=== PATIENT | female | born 2000 | race Caucasian/White ===

== ENCOUNTER → 2024-03-18 | Outpatient (CLI) | payer OTHER, SELFPAY ==
--- NOTE | 2024-03-18 09:51 | RAD_ITS ---
STUDY: X-RAY CHEST REASON FOR EXAM: Female, 23 years old. Five-day history of cough. TECHNIQUE: PA and lateral views of the chest. COMPARISON: None. FINDINGS: There is elevation of the right hemidiaphragm. Right upper lobe consolidation. Findings suggestive of enlarged right hilar lymph nodes. Radiographic follow-up recommended. There is no demonstrated pleural abnormality. Normal size heart. Normal visualized pulmonary arteries. Normal visualized aortic arch and descending thoracic aorta. Normal visualized thoracic spine. Normal visualized ribs, clavicles, and shoulders. There is no demonstrated abnormality of the visualized soft tissue structures of the upper abdomen. RAD/Chest PA and Lateral IMPRESSION: Elevation of the right hemidiaphragm with consolidation in the right upper lobe abutting the right minor fissure and findings suggestive of enlarged right hilar lymph nodes. Radiographic follow-up recommended following treatment. Electronically Signed: Harvey Lopez MD at 10:05 EST ,
== END | disposition home or self-care (01) ==
PROVIDERS: PCP Family Medicine; Referring Provider Physician Assistant Surgical; Visit Provider Physician Assistant Surgical
DX: R05.9 Cough, unspecified (principal)
CPT/HCPCS: 71046

== ENCOUNTER → 2024-10-06 | Outpatient (CLI) | payer OTHER, SELFPAY ==
[2024-10-10 14:07] LABS: Chlamydia By Nucleic Acid AMP Negative (Negative); Gonococcus By Nucleic Acid AMP Negative (Negative)
== END | disposition home or self-care (01) ==
LOC: LABSPEC 16:20
PROVIDERS: PCP Family Medicine; Referring Provider Obstetrics & Gynecology; Visit Provider Obstetrics & Gynecology
DX: O16.1 Unspecified maternal hypertension, first trimester (principal); O99.210 Obesity complicating pregnancy, unspecified trimester; E66.9 Obesity, unspecified; Z3A.00 Weeks of gestation of pregnancy not specified
CPT/HCPCS: 87086; 87088; 87491; 87591

== ENCOUNTER → 2024-11-01 | Outpatient (CLI) | payer OTHER, SELFPAY ==
[2024-11-01 16:39] LABS: Hematocrit 40.4 % (37-47); Hemoglobin 12.8 g/dL (12.0-15.0); Immature Granulocytes Count 0.040 X10^3/uL (0.0-0.0); Mean Corp Hgb Conc 31.7 g/dL (32-36); Mean Corpuscular Volume 84.0 fL (81-99); Mean Platelet Vol. 9.5 fl (6.2-12.0); NRBC Flagged by Analyzer 0 % (0-5); Platelet Count 333 K/mm3 (150-450); RBC Distribution Width CV 14.6 % (11.6-14.6); RBC Distribution Width SD 44.6 fl (35.1-43.9); Red Blood Count 4.81 M/mm3 (4.2-5.4); White Blood Count 11.8 K/mm3 (4.4-11.0)
[2024-11-01 17:43] LABS: AST(SGOT) 22 U/L (<=31); Alanine Aminotransfer ALT/SGPT 50 U/L (<=34); Albumin, Serum 4.0 g/dL (3.5-5.0); Alkaline Phosphatase 93 U/L (35-104); Anion Gap 12 (5-15); BUN 8 mg/dL (4-19); BUN/Creat Ratio 11.6 RATIO (10-20); Calcium,Total 9.4 mg/dL (7.6-11.0); Carbon Dioxide 22.4 mmol/L (21.0-32.0); Chloride 102 mmol/L (98-108); Globulin 3.2 g/dL (2.2-4.2); Glucose 99 mg/dL (70-99); HIV Nonreactive (Nonreactive); Hepatitis B Surface Antigen Nonreactive (Nonreactive); Hepatitis C Antibody Nonreactive (Nonreactive); Potassium 4.1 mmol/L (3.3-5.1); Syphilis Antibodies Nonreactive (Nonreactive)
[2024-11-01 17:57] LABS: Creatinine, Urine (random) 201.00 mg/dL (28.00-217.00); Protein, Urine (Random) 14.7 mg/dL (0.0-12.0); Protein:Creat Ratio 73 mg/g CRE (0-200)
== END | disposition home or self-care (01) ==
PROVIDERS: Obstetrics & Gynecology; PCP Family Medicine; Referring Provider Advanced Practice Midwife; Visit Provider Advanced Practice Midwife
DX: O09.91 Supervision of high risk pregnancy, unspecified, first trimester (principal); O99.211 Obesity complicating pregnancy, first trimester; Z3A.00 Weeks of gestation of pregnancy not specified; E66.9 Obesity, unspecified; O16.1 Unspecified maternal hypertension, first trimester
CPT/HCPCS: 36415; 80053; 82570; 83036; 84156; 85025; 86703; 86762; 86780; 86803; 86850; 86900; 86901; 87340

== ENCOUNTER → 2024-11-10 | Outpatient (CLI) | payer OTHER, SELFPAY ==
[2024-11-10 17:34] LABS: AST(SGOT) 17 U/L (<=31); Alanine Aminotransfer ALT/SGPT 36 U/L (<=34); Albumin, Serum 3.9 g/dL (3.5-5.0); Alkaline Phosphatase 90 U/L (35-104); Anion Gap 12 (5-15); BUN 7 mg/dL (4-19); BUN/Creat Ratio 12.2 RATIO (10-20); Calcium,Total 9.3 mg/dL (7.6-11.0); Carbon Dioxide 22.7 mmol/L (21.0-32.0); Chloride 101 mmol/L (98-108); Globulin 3.3 g/dL (2.2-4.2); Glucose 86 mg/dL (70-99); Potassium 4.4 mmol/L (3.3-5.1)
== END | disposition home or self-care (01) ==
LOC: BWCLAB 15:48
PROVIDERS: PCP Family Medicine; Visit Provider Obstetrics & Gynecology
DX: O16.1 Unspecified maternal hypertension, first trimester (principal); R74.8 Abnormal levels of other serum enzymes; O99.211 Obesity complicating pregnancy, first trimester; Z3A.00 Weeks of gestation of pregnancy not specified; E66.9 Obesity, unspecified
CPT/HCPCS: 36415; 80053

== ENCOUNTER → 2024-11-17 | Outpatient (CLI) | payer OTHER, SELFPAY | END | disposition home or self-care (01) | PROVIDERS: PCP Family Medicine; Visit Provider Obstetrics & Gynecology | DX: Z34.02 Encounter for supervision of normal first pregnancy, second trimester (principal) | CPT/HCPCS: 36415 ==

== ENCOUNTER → 2024-12-28 | Outpatient (CLI) | payer OTHER, SELFPAY ==
[2024-12-28 09:27] LABS: Hematocrit 39.6 % (37-47); Hemoglobin 13.2 g/dL (12.0-15.0); Immature Granulocytes Count 0.040 X10^3/uL (0.0-0.0); Mean Corp Hgb Conc 33.3 g/dL (32-36); Mean Corpuscular Volume 84.6 fL (81-99); Mean Platelet Vol. 9.5 fl (6.2-12.0); NRBC Flagged by Analyzer 0 % (0-5); Platelet Count 296 K/mm3 (150-450); RBC Distribution Width CV 15.0 % (11.6-14.6); RBC Distribution Width SD 45.8 fl (35.1-43.9); Red Blood Count 4.68 M/mm3 (4.2-5.4); White Blood Count 10.2 K/mm3 (4.4-11.0)
[2024-12-28 09:56] LABS: AST(SGOT) 28 U/L (<=31); Alanine Aminotransfer ALT/SGPT 71 U/L (<=34); Albumin, Serum 3.6 g/dL (3.5-5.0); Alkaline Phosphatase 127 U/L (35-104); Anion Gap 12 (5-15); BUN 5 mg/dL (4-19); BUN/Creat Ratio 9.9 RATIO (10-20); Calcium,Total 9.2 mg/dL (7.6-11.0); Carbon Dioxide 20.2 mmol/L (21.0-32.0); Chloride 104 mmol/L (98-108); Globulin 3.4 g/dL (2.2-4.2); Glucose 87 mg/dL (70-99); Potassium 3.8 mmol/L (3.3-5.1)
== END | disposition home or self-care (01) ==
LOC: BWCLAB 08:19
PROVIDERS: PCP Family Medicine; Referring Provider Obstetrics & Gynecology; Visit Provider Obstetrics & Gynecology
DX: R74.8 Abnormal levels of other serum enzymes (principal)
CPT/HCPCS: 36415; 80053; 85025

== ENCOUNTER → 2024-12-29 | Outpatient (CLI) | payer OTHER, SELFPAY | END | disposition home or self-care (01) | LOC: LABSPEC 13:59 | PROVIDERS: PCP Family Medicine; Referring Provider Nurse Practitioner Women's Health; Visit Provider Nurse Practitioner Women's Health | DX: R30.0 Dysuria (principal) | CPT/HCPCS: 87077; 87086; 87088; 87186 ==

== ENCOUNTER → 2025-01-10 | Outpatient (CLI) | payer OTHER, SELFPAY ==
--- OUTSIDE RECORDS SUMMARY | 2025-01-10 10:08 | XMS RPT_ITS ---
Author Name Auto Generated Organization OHIP Care Team Providers Care Nba Player Name Role Phone VANDANA BEARD Admitting Unavailable JOEY DOWLING Referring Unavailable CHIVO, JOEY Consulting Unavailable VANDANA BEARD Attending Unavailable VANDANA BEARD Primary Care Unavailable PROVIDER, UNKNOWN Consulting Unavailable MARIELA ALVARADO Referring UnavailAISSATOU Sparks Attending Unavailable CHIVO, JOEY D Primary Care Unavailable MARIELA ALVARADO Referring UnavailAISSATOU Sparks Attending Unavailable CHIVO, JOEY D Primary Care Unavailable AISSATOU RUSHING Attending Unavailable AISSATOU RUSHING Referring Unavailable CHIVO, JOEY D Primary Care Unavailable KT AVILA Attending Unavailable KT AVILA Referring Unavailable CHIVO JOEY D Primary Care Unavailable PROBLEMS DATE TYPE CONDITION / CODE ATTENDING STATUS [facility] 03/21/2024 Admitting Diagnosis Urticaria, unspecified / L509(ICD-10) VANDANA BEARD Active [facility] 03/21/2024 Principle Diagnosis Urticaria, unspecified / L509(ICD-10) VANDANA BEARD Active [facility] 03/21/2024 Secondary Diagnosis Bronchopneumonia, unspecified organism / J180(ICD-10) VANDANA BEARD Active [facility] PROCEDURES No Procedure Records Found RESULTS COMPREHENSIVE METABOLIC PANEL Collected : 01/10/2025 10:14 AM Status: F Source: [facility] Order Comment: Release to gwendolyn fenton->Automatic TYPE CODE TESTS RESULT OUT OF RANGE REFERENCE UNITS LAB 2951-2 Sodium 138 133-145 mmol/L Result Comment: Verified By: [id number] LAB 49367-2 POTASSIUM 3.7 3.3-5.1 mmol/L Result Comment: Verified By: [id number] LAB 2075-0 CHLORIDE 103 96-108 mmol/L Result Comment: Verified By: [id number] LAB 1962-0 CARBON DIOXIDE 21.9 Low 22.0-29.0 mmol/L Result Comment: Verified By: [id number] LAB 2345-7 GLUCOSE 91 70-99 mg/dL Result Comment: Criteria for Diagnosis of Diabetes: Fasting Specimen (no caloric intake for at least 8 hours): <100 mg/dL Normal 100-125 mg/dL Increased risk for Diabetes >125 mg/dL Diagnostic for Diabetes Random Glucose (any time of day without regard to last meal): > or = 200 mg/dL plus Classic Symptoms of Diabetes Verified By: [id number] LAB 1975-2 BILI,TOTAL 0.4 <=1.0 mg/dL Result Comment: Verified By: [id number] LAB 08320-7 AST 21 <=31 U/L Result Comment: Verified By: [id number] LAB 1743-4 ALT 54 High <=34 U/L Result Comment: Verified By: [id number] LAB 6768-6 Alkaline Phosphatase 121 High 35-104 U/L Result Comment: Verified By: [id number] LAB 83728-2 CALCIUM 9.7 7.6-11.0 mg/dL Result Comment: Verified By: [id number] LAB 2885-2 Protein, Total 7.8 5.9-8.4 g/dL Result Comment: Verified By: [id number] LAB 35764-1 Albumin 4.0 3.5-5.0 g/dL Result Comment: Verified By: [id number] LAB 2160-0 Creatinine 0.55 0.50-1.00 mg/dL Result Comment: Verified By: [id number] LAB 06271-3 eGFR >90 >=60 mL/min/1 .73 m2 LAB 3094-0 BUN 5 4-19 mg/dL Result Comment: Verified By: [id number] PROGRESS NOTE Observed: 01/10/2025 8:30 AM Status: COMPLETED Source: [facility] Referring/Requesting Provider: Mariela Alvarado MD PCP: Joey Dowling PA-C INDICATION FOR CONSULT: elevated liver enzyme HISTORY OF PRESENT ILLNESS: Patient is a 24 y.o. at 21w6d who presents for consultation regarding elevated ALT (71 on 12/28 at 20 weeks gestation). Her AST was normal (28). History of Present Illness Maren Barney is a 24 year old female who presents with elevated liver enzymes and -related concerns. She was referred by Dr. Jagdeep Oliva for evaluation of elevated liver enzymes. Elevated liver enzymes - Referred for evaluation of elevated liver enzymes by Dr. Jagdeep Oliva - One elevated liver enzyme identified during - No associated symptoms such as headaches, vision changes, or abdominal pain - Denies recent alcohol use, tattoos, or exposure to hepatitis risk factors Hypertension in - Elevated blood pressure readings during medical visits, attributed to 'white coat syndrome' - Normal blood pressure readings at home - Elevated blood pressure documented at 8 and 11 weeks of Urinary tract infection - Recently completed antibiotics for urinary tract infection - Persistent mild burning sensation, especially with inadequate hydration - No current abdominal or bladder pain Glycemic status - A1c level is normal Abdominal pain - Experienced transient right-sided pain that resolved with use of a heating pad She walks for exercise a few times per week. She has a typical diet, no specific food groups excluded. OB History Para Term AB Living 1 SAB IAB Ectopic Multiple Live Births # Outcome Date GA Lbr Dru/2nd Weight Sex Type Anes PTL Lv 1 Current Past Medical History: Diagnosis Date Elevated liver enzymes ALT at 71, ALK Phos 127, AST -nml at 28 Obesity UTI (urinary tract infection) currently on keflex Past Surgical History: Procedure Laterality Date WISDOM TOOTH EXTRACTION PERTINENT FAMILY HISTORY: Family History Problem Relation Age of Onset Cancer Mother High Blood Pressure Father Anemia Sister 10 - 19 MEDS: Outpatient Medications Marked as Taking for the 01/10/25 encounter (Office Visit) with Aissatou Rushing, DO Medication Sig Dispense Refill cephALEXin (KEFLEX) 500 MG capsule 1 Capsule (500 mg) Vit-Fe Fumarate-FA ( VITAMIN PO) Take by mouth ALLERGY: Allergies Allergen Reactions Amoxicillin Rash Clavulanic Acid Rash REVIEW OF SYSTEMS: Review of Systems Constitutional: Negative for chills and malaise/fatigue. HENT: Negative. Eyes: Negative. Respiratory: Negative. Cardiovascular: Negative. Gastrointestinal: Negative. Genitourinary: Positive for dysuria. Musculoskeletal: Right sided flank pain x 1 day, resolved with heating pad and rest. Skin: Negative. Neurological: Negative. Psychiatric/Behavioral: Negative. PHYSICAL EXAM: VITAL SIGNS: Pulse 90 Resp 18 Ht 172.7 cm Wt (!) 143 kg (315 lb 3.2 oz) LMP 08/10/2024 SpO2 99% BMI 47.93 kg/m Physical Exam Constitutional: Appearance: She is well-nourished. HENT: Head: Atraumatic. Eyes: Conjunctiva/sclera: Conjunctivae normal. Cardiovascular: Rate and Rhythm: Normal rate and regular rhythm. Pulmonary: Effort: Pulmonary effort is normal. Breath sounds: Normal breath sounds. Abdominal: Palpations: Abdomen is soft. There is no hepatosplenomegaly. Musculoskeletal: Normal range of motion. General: No edema. Neurological: Mental Status: She is alert. Deep Tendon Reflexes: Reflexes are normal and symmetric. Skin: General: Skin is warm and dry. IMAGIN. Deal living intrauterine at 21w 6d by clinical KIMBER. 2. Normal growth. The EFW is 510 g with the abdominal circumference at the 60%. 3. Amniotic fluid volume appeared normal. 4. Placenta is posterior, grade 0. 5. Visualized anatomy appears normal, with limitations as noted above. The cardiac evaluation remains limited. LABS: No visits with results within 1 Week(s) from this visit. Latest known visit with results is: No results found for any previous visit. IMPRESSION AND RECOMMENDATIONS: Maren is a 24 y.o. at 21w6d with Active Non-Hospital Problems Diagnosis Date Noted , supervision, high-risk, second trimester 01/10/2025 Priority: High COMANAGE PLAN OF CARE MD/OB APPOINTMENTS Genetic screening: low risk NIPT, male EVALUATION surveillance: 1x per week starting at 32 weeks Ultrasound: growth Q4 DELIVERY PLAN Hospital: [place] Contraception: TBD : recommended Vaccinations recommended: Covid, influenza (Dec-July, any gestational age), TDap (27-36 weeks), RSV [(Abrysvo- Pfizer) between 32-36 weeks, December - April] Elevated ALT measurement 01/10/2025 Priority: High - Discussed possible etiologies including transient elevation, viral hepatitis, chronic fatty liver, medication exposure. We reviewed concerns including preeclampsia. - Her history is benign and her physical exam is reassuring. - Recommend repeat CMP (ordered). If normal, no additional evaluation at this time. - If elevated, recommend RUQ ultrasound and Hepatitis panel. Chronic hypertension in obstetric context in second trimester vs white coat syndrome 01/10/2025 Priority: Medium - Continue to monitor blood pressure twice a day. Report BP > 140/90 to your OB provider. - Monitor for symptoms of preeclampsia, if any occur, notify OB provider. - Serial growth Q 4 weeks. - Delivery 39 0/7-39 6/7 weeks if ambulatory BP remains normal. If BP becomes persistently elevated, reevaluate for preeclampsia and consider earlier delivery. Dysuria during in second trimester 01/10/2025 - Urine culture results reviewed on Maren's phone. Mixed gram + and -, 11,000-25,000 CFU. Second organism gram - rods, possible Proteus spp, 1000-10,000 CFU. - Her symptoms have improved, however not resolved. Still had burning with urination, particularly if she has not been drinking enough water. - Recommend repeat urine culture (ordered). - If repeat urine culture normal and symptoms persist, recommend evaluation for other underlying causes of dysuria, possible Urogynecology consult if needed. Obesity complicating , second trimester 01/10/2025 Body mass index is 47.93 kg/m . Obesity complicating is associated with increased maternal and risks including: gestational diabetes, hypertensive disorders, iatrogenic delivery, dysfunctional labor, postterm , large for gestational age infant, shoulder dystocia, obstructive sleep apnea, hemorrhage, stillbirth, anomalies, delivery and postcesarean complications. [place] of medicine recommend weight gain in : Obese (all classes) > 30: total weight gain 11-20 lbs, 0.5 lb per week in the second and third trimester. Nutrition consult available if desired. Daily exercise recommended. Normal HA1c. Plan 1 hour GCT between 24-28 weeks. 01/10/2025 total weight gain: 0.544 kg (1 lb 3.2 oz) Orders Placed This Encounter Procedures Urine culture Standing Status: Future Expiration Date: 03/11/2025 Release to patient: Automatic [[id number]] Comprehensive metabolic panel Standing Status: Future Number of Occurrences: 1 Expiration Date: 03/11/2025 Release to patient: Automatic [[id number]] [facility] Standing Status: Future Expiration Date: 07/10/2025 Type of Echo: Specific indication:: Suboptimal cardiac views Estimated date of confinement (EDC):: 05/17/2025 Labs ordered - see recommended follow-up above. echo with peds cards. Growth Q 4 weeks, can ne done in our [place] location. Weekly BPP at 32 weeks, can be scheduled with OB or MFM [place] office. Chart review and preparation: 15 minutes. Face to face: 21 minutes. Documentation and care coordination: 15 minutes. Total time spent on patient care today: 51 minutes. CHEST 2 VIEWS Observed: 03/21/2024 12:59 AM Status: F Source: [place] [id number] Patient: MAREN HURST Phone#: : [phone] Age: 23 Gender: F Pt. Type: ER Account: [id number] Location: 2 Ordering: VANDANA BEARD Exam Date: 03/21/2024/0:58 Family Phys: JOEY HILLS Charge Code: 755204 Physician: [place] Order #: [id number] Dose#: PROCEDURE: X-RAY CHEST 2 VIEWS COMPARISON: None. INDICATIONS: Cough. FINDINGS: LUNGS: Right upper lobe infiltrate is present. VASCULATURE: Normal. Unremarkable pulmonary vasculature. CARDIAC: Normal. No cardiac silhouette abnormality or cardiomegaly. MEDIASTINUM: Normal. No visible mass or adenopathy. PLEURA: Normal. No effusion or pleural thickening. BONES: Normal. No fracture or visible bony lesion. OTHER: Negative. CONCLUSION: 1. Right upper lobe infiltrate. Dictated by: Rosita Pitts MD on 03/22/2024 at 10:47 Approved by: Rosita Pitts MD on 03/22/2024 at 10:48 CMP WITH EGFR Collected: 4 12:38 AM Status: F Source: [facility] TYPE CODE TESTS RESULT OUT OF RANGE REFERENCE UNITS LAB CMP with eGFR(LOINC) CMP with eGFR Result Comment: COMPREHENSIV E METABOLIC PANEL LAB SODIUM(LOINC) SODIUM 138 136 - 145 mmol/l LAB POTASSIUM(LOIN C) POTASSIUM 3.9 3.5 - 5.1 mmol/L LAB CHLORIDE(LOINC ) CHLORIDE 100 98 - 107 mmol/L LAB CO2(LOINC) CO2 28.5 21.0 - 32.0 mmol/L LAB GLUCOSE(LOINC) GLUCOSE 96 74 - 106 mg/dl LAB BUN(LOINC) BUN 11 7 - 18 mg/dl LAB CREATININE(ARIADNA NC) CREATININE 1.08 High 0.55 - 1.02 mg/dl LAB AST/SGOT(LOINC ) AST/SGOT 26 13 - 39 U/L LAB ALK PHOS(LOINC) ALK PHOS 97 46 - 116 U/L LAB CALCIUM(LOINC) CALCIUM 9.1 8.5 - 10.1 mg/dl LAB TOTAL PROTEIN(LOINC) TOTAL PROTEIN 8.5 High 6.4 - 8.2 g/dl LAB ALBUMIN(LOINC) ALBUMIN 3.2 Low 3.4 - 5.0 g/dL LAB GLOBULIN(LOINC ) GLOBULIN 5.3 High 1.5 - 3.8 G/DL LAB A/G RATIO(LOINC) A/G RATIO 0.6 Low 0.9 - 1.6 LAB TOTAL BILI(LOINC) TOTAL BILI 0.4 0.2 - 1.0 mg/dl LAB B/C RATIO(LOINC) B/C RATIO 10 0 - 30 ratio LAB ALT/SGPT(LOINC ) ALT/SGPT 83 High 16 - 63 U/L LAB ANION GAP(LOINC) ANION GAP 13 10 - 20 mmol/L LAB AGE(LOINC) AGE 23 years LAB eGFR(LOINC) eGFR >60 60 - 999 ML/MINUT E LAB eGFR(AA)(LOINC ) eGFR(AA) >60 60 - 999 ML/MINUT E Result Comment: ACCORDING TO THE NATIONAL KIDNEY DISEASE EDUCATION PROGRAM(NKDE), A NORMAL eGFR IS A VALUE GREATER THAN OR EQUAL TO 60 ML/MIN/1.73 SQ METERS. CHRONIC KIDNEY DISEASE: <60mL/MIN/1.73 SQ METERS KIDNEY FAILURE: <15mL/MIN/1.73 SQ METERS THIS TEST SHOULD ONLY BE USED FOR PATIENTS 18 YEARS OF AGE AND OLDER. Performed By: #### [id number] ## ## [facility],[address] [place] [address] CBC + DIFF Collected: 4 12:38 AM Status: F Source: [facility] TYPE CODE TESTS RESULT OUT OF RANGE REFERENCE UNITS LAB CBC + DIFF(LOINC) CBC + DIFF Result Comment: CBC-COMPLETE BLOOD COUNT LAB WBC(LOINC) WBC 6.7 4.5 - 10.8 x 10EE3/UL LAB RBC(LOINC) RBC 5.72 High 4.10 - 5.30 x 10EE6/UL LAB HEMOGLOBIN(ARIADNA NC) HEMOGLOBIN 15.0 12.0 - 16.0 g/dl LAB HEMATOCRIT(ARIADNA NC) HEMATOCRIT 45.9 34.0 - 46.0 % LAB MCV(LOINC) MCV 80 80 - 99 fl LAB MCH(LOINC) MCH 26 Low 27 - 33 pg LAB MCHC(LOINC) MCHC 33 32 - 36 X10 3 LAB RDW/CV(LOINC) RDW/CV 14.4 12.0 - 15.6 % LAB PLATELET(LOINC ) PLATELET 361 150 - 450 x10EE3/UL LAB MPV(LOINC) MPV 6.8 6.6 - 10.5 fl Result Comment: AUTOMATED DI FFERENTIAL LAB NEUT %(LOINC) NEUT % 58.5 46.0 - 76.0 % LAB LYMPH %(LOINC) LYMPH % 33.0 20.0 - 45.0 % LAB MONOS %(LOINC) MONOS % 6.7 0.0 - 10.0 % LAB EO %(LOINC) EO % 1.4 0.0 - 7.0 % LAB BASO %(LOINC) BASO % 0.4 0.0 - 2.0 % LAB Lymph #(LOINC) Lymph # 2.22 0.80 - 2.80 x10EE 3/UL LAB Neut #(LOINC) Neut # 3.94 1.50 - 7.10 x10EE3 /UL LAB Freeborn #(LOINC) Freeborn # 0.45 0.20 - 1.00 x10EE3 /UL LAB EO #(LOINC) EO # 0.10 0.00 - 0.50 x10EE3/U L LAB Baso #(LOINC) Baso # 0.03 0.00 - 0.10 x10EE3 /UL LAB MANUAL DIFF(LOINC) MANUAL DIFF N/A LAB MORPHOLOGY(ARIADNA NC) MORPHOLOGY N/A Performed By: #### [id number] ## ## [facility],[address] [place] [address] ED PHYSICIAN DISCHARGE REPORT Observed: 03/21/2024 12:14 AM Status: F Source: [facility] Discharge Instructions Discharge Summary [address] [place] [id number] 03/21/2024 Patient: MAREN HURST Sex: Female : 2000 Age: 23y Thank you for visiting [facility]. You have been evaluated today by Vandana Beard D.O. for the following condition(s): Principal Diagnosis Acute hives secondary to unknown cause. Bronchopneumonia. INSTRUCTIONS Warnings: GENERAL WARNINGS: Return or contact your physician immediately if your condition worsens or changes unexpectedly, if not improving as expected, or if other problems arise. Prescription Medications: levofloxacin 750 mg tablet: Take 1 tablet by mouth once a day for 6 days, dispense 6 tablet. Refills 0. Pharmacy: [facility] [id number] [place] [address]. Pepcid 40 mg tablet: Take 1 tablet by mouth once a day for 7 days, dispense 7 tablet. Refills 0. Pharmacy: [facility] [id number] [place] [address]. prednisone 20 mg tablet: Take 1 tablet by mouth every twelve hours for 7 days, dispense 10 tablet. Refills 0. Notes take 1 tablet every 12 hours for 3 days and then take 1 tablet daily for 4 days dispense 10. Pharmacy: 1 of 11 Discharge Instructions [facility] [id number] [place] [address]. Follow-up with: Christian Damon M.D., [facility], Phone: [phone], [address] [facility], [place] [address]. Follow up in three days. (Return if increasing hives shortness breath or any concerns. Take Benadryl, Pepcid at prednisone for the itching and hives. Follow-up with Dr. Damon for a workup for your hives and possible reaction to antibiotics. Also follow-up with your family doctor). You have been given the following additional information: Hives (Adult) Medicine Reaction: Allergic Pneumonia (Adult) Patient Signature Facility [facility] Date/Time General Instructions with ExitWriter [facility] [address] [place] [address] [id number] 03/21/2024 Patient: MAREN HURST Sex: Female : 2000 Age: 23y Thank you for visiting [facility]. You have been evaluated today by Vandana Beard D.O. for the following condition(s): Principal Diagnosis Acute hives secondary to unknown cause. Bronchopneumonia. 2 of 11 Discharge Instructions INSTRUCTIONS Warnings: GENERAL WARNINGS: Return or contact your physician immediately if your condition worsens or changes unexpectedly, if not improving as expected, or if other problems arise. Prescription Medications: levofloxacin 750 mg tablet: Take 1 tablet by mouth once a day for 6 days, dispense 6 tablet. Refills 0. Pharmacy: [facility] [id number] [place] [address]. Pepcid 40 mg tablet: Take 1 tablet by mouth once a day for 7 days, dispense 7 tablet. Refills 0. Pharmacy: [facility] [id number] [place] [address]. prednisone 20 mg tablet: Take 1 tablet by mouth every twelve hours for 7 days, dispense 10 tablet. Refills 0. Notes take 1 tablet every 12 hours for 3 days and then take 1 tablet daily for 4 days dispense 10. Pharmacy: [facility] [id number] [place] [address]. Follow-up with: Christian Damon M.D., [facility], Phone: [phone], [address], [place] [address]. Follow up in three days. (Return if increasing hives shortness breath or any concerns. Take Benadryl, Pepcid at prednisone for the itching and hives. Follow-up with Dr. Damon for a workup for your hives and possible reaction to antibiotics. Also follow-up with your family doctor). ADDITIONAL INFORMATION Hives (Adult) Hives are pink or red bumps on the skin. These bumps are also known as wheals. The bumps can itch, burn, or sting. Hives can occur anywhere on the body. They vary in size and shape and can form in clusters. Individual hives can appear and go away quickly. New hives may develop as old ones fade. Hives are common and usually harmless. They are not contagious. Occasionally, hives are a sign of a serious allergy. 3 of 11 Discharge Instructions Hives are often caused by an allergic reaction. They may occur from: Certain foods, such as shellfish, nuts, tomatoes, or berries Contact with something in the environment, such as pollens, animals, or mold Certain medicines Sun or cold air Viral infections, such as a cold, the flu, or strep throat If the hives continue to come and go over many weeks without any other symptoms (chronic hives), the cause may be very hard to figure out. You may be prescribed medicines to ease swelling and itching. Follow all instructions when using these medicines. The hives will usually fade in a few days. But they can last for weeks or months. Home care Follow these tips: Try to find the cause of the hives and eliminate it. Discuss possible causes with your healthcare provider. Your healthcare provider may ask you to keep track of the food you eat and your lifestyle to help find the cause of the hives. Don't scratch the hives. Scratching will delay healing. To reduce itching, apply cool, wet compresses to the skin. Dress in soft, loose cotton clothing. Don't bathe in hot water. This can make the itching worse. Apply an ice pack or cool pack wrapped in a thin towel to your skin. This will help reduce redness and itching. But if your hives were caused by exposure to cold, then do not apply more cold to them. You may use over-the counter antihistamines to reduce itching. Some older antihistamines, such as diphenhydramine and chlorpheniramine, are inexpensive. But they need to be taken often and may make you sleepy. They are best used at bedtime. Don't use diphenhydramine if you have glaucoma or have trouble urinating because of an enlarged prostate. Newer antihistamines, such as loratadine, cetirizine, levocetirizine, and fexofenadine, are generally more expensive. But they tend to have fewer side effects. They can be taken less often. Another type of antihistamine is used to treat heartburn. This type includes nizatidine, famotidine, and cimetidine. These are sometimes used along with the above antihistamines if a single medicine is not working. 4 of 11 Discharge Instructions If the hives are severe and you do not respond well to other medicines, you may be given a steroid, such as prednisone, to take for a short time. Follow all instructions carefully when taking this medicine. Tell your healthcare provider about any side effects. Follow-up care Follow up with your healthcare provider if your symptoms don't get better in 2 days. Ask your provider about allergy testing if you have had a severe reaction or have had several episodes of hives. Allergy testing may help figure out what you are allergic to. You may need blood tests, a urine test, or skin tests. When to seek medical advice Call your healthcare provider right away if any of these occur: Fever of 100.4F (38.0C) or higher, or as directed by your healthcare provider Redness, swelling, or pain Foul-smelling fluid coming from the rash Call 911 Call 911 if any of the following occur: Swelling of the face, throat, or tongue Trouble breathing or swallowing Dizziness, weakness, or fainting Medicine Reaction: Allergic You are having an allergic reaction to a medicine you have taken. This may cause an itchy rash and sometimes swelling of various parts of the body. It could also cause trouble swallowing or breathing. The rash may take a few hours or up to 2 weeks to go away. In the future, remember to tell your healthcare provider about your allergy to this medicine so that medicines of this type won't be used again. Any medicine can cause an allergic reaction. But most allergic reactions are caused by: Penicillin and related medicines Antibiotics containing sulfonamides (sulfa ,medicines) 5 of 11 Discharge Instructions Aspirin Ibuprofen or other nonsteroidal anti-inflammatory drugs (NSAIDs) Seizure medicines Vaccines may also trigger allergies. People whose parents or siblings have allergies are at a higher risk of developing a medicine allergy. Allergy testing may sometimes be needed to figure out the cause. Symptoms may occur within minutes, hours, or even weeks after exposure to the medicine. It can be a mild or severe reaction, or potentially life threatening. Most of us think of allergic reactions when we have a rash or itchy skin. Symptoms can include: Rash, hives, redness, welts, blisters Itching, burning, stinging, pain Dry, flaky, cracking, scaly skin Belly (abdominal) cramps or nausea or stomach pain Fever. Sometimes fever is the only symptom of a medicine reaction. In older adults, the risk of fever increases with the number of medicines the person takes. More severe symptoms include: Swelling of the face or lips, or drooling Trouble swallowing, feeling like your throat is closing Trouble breathing, wheezing Hoarse voice or trouble speaking Severe nausea or vomiting or diarrhea Feeling faint or lightheaded, rapid heart rate Blistering of the skin or ulcers in the mouth or on the genitals Home care 6 of 11 Discharge Instructions The goal of treatment is to help relieve the symptoms and get you feeling better. Mild to medium medicine reactions usually respond quickly to taking antihistamines or steroids and stopping the medicine. The rash will usually fade over several days. But it can sometimes last a couple of weeks. Over the next couple of days, there may be times when it gets a little worse and then better again. Here are some things to do: Dispose of the medicine safely and don't take it again. The next reaction could be the same or worse. Call your healthcare provider to discuss adding this medicine's allergy reaction to your electronic medical record. When getting a new medicine, always tell the healthcare provider that you are allergic to this medicine. Make certain the provider writes it down in your medical record. Don't wear tight clothing and stay way from anything that heats up your skin (hot showers or baths, direct sunlight). Heat will make itching worse. An ice pack will relieve local areas of intense itching and redness. To make an ice pack, put ice cubes in a plastic bag that seals at the top. Wrap the bag in a clean, thin towel or cloth. Don't put ice directly on the skin. To help prevent an infection, don't scratch the affected area. Scratching may worsen the reaction. It can damage your skin and lead to an infection. Always check the affected site for signs of an infection. Your provider may give you a prescription antihistamine. If you are not given a prescription antihistamine, oral diphenhydramine is an krik-axm-wpnjbbz antihistamine available at pharmacies and grocery stores. This may be used to reduce itching if large areas of the skin are involved. This antihistamine may make you sleepy, so be careful using it in the daytime or when going to school, working, or driving. Note: Don't use diphenhydramine if you have glaucoma or if you are a man with trouble urinating due to an enlarged prostate. There are other antihistamines that cause less drowsiness and are a good choice for daytime use. Ask your pharmacist or healthcare provider for suggestions. Don't use diphenhydramine cream on your skin. It can cause a worse skin reaction for some people. Contact your healthcare provider and ask what can be used on the affected area to help decrease the itching. Follow-up care Follow up with your healthcare provider, or as advised, if your symptoms do not continue to improve or they get worse. Call 911 Call 911 if any of these occur: 7 of 11 Discharge Instructions Shortness of breath Cool, moist, pale skin Swelling in the face, eyelids, mouth, tongue, or lips Drooling Trouble breathing or swallowing, wheezing New or worsening swelling in the mouth, throat, or tongue Hoarse voice or trouble speaking Fainting or loss of consciousness Rapid heart rate Feeling of dizziness or weakness or a sudden drop in blood pressure Feeling of doom Feeling lightheaded Severe nausea, vomiting, or diarrhea When to seek medical advice Call your healthcare provider or get medical care right away if any of these occur: Continuing or recurring symptoms Nausea, abdominal cramps, or stomach pain Spreading areas of itching, redness, or swelling Blistering of the skin, or sores or ulcers in the mouth or on the genitals Signs of infection: o Spreading redness o Increased pain or swelling o Fever of 100.4F (38C) or above lasting for 24 to 48 hours, or as directed by your provider o Fluid or colored drainage from the affected area Pneumonia (Adult) Pneumonia is an infection deep in the lungs. It is in the small air sacs (alveoli). It may be caused by a virus, fungus, or bacteria. Pneumonia caused by bacteria is often treated with an antibiotic. Severe cases may need to be treated in the hospital. Milder cases can be treated at home. Pneumonia symptoms are a lot like flu symptoms. They include fever, cough (dry or with phlegm), headache, muscle weakness, and pain. These symptoms often get worse in the first 2 days. But they often start to get better in the first week of treatment. 8 of 11 Discharge Instructions Home care Follow these guidelines when caring for yourself at home: Get plenty of rest. Don't let yourself get overly tired when you go back to your activities. Participate in activities as directed by your healthcare provider. Stop smoking. This is the most important step you can take to help treat pneumonia. If you need help stopping smoking, talk with your healthcare provider. Stay away from smoke and other irritants. Stay away from secondhand smoke. Don't let anyone smoke in your home. Prevent lung infections. Ask your healthcare provider about the flu and pneumonia vaccines. Take steps to prevent colds and other lung infections. Practice correct handwashing. Wash your hands often with soap and water. Use hand railroad wheels and axles inspector when you can't wash your hands. Stay away from crowds during cold and flu season. 9 of 11 Discharge Instructions Use pain medicine as directed. You may use acetaminophen or ibuprofen to control fever or pain, unless another medicine was prescribed. If you have chronic liver or kidney disease, talk with your healthcare provider before using these medicines. Also talk with your provider if you've had a stomach ulcer or GI (gastrointestinal) bleeding. Don't give aspirin to a child younger than age 19 unless directed by the provider. Taking aspirin can put a child at risk for Rhianna syndrome. This is a rare but very serious disorder. It most often affects the brain and the liver. Eat a light diet as needed. You may not feel like eating, so a light diet is fine. Follow the treatment plan as advised by your healthcare provider. Drink plenty of water and fluids. This can make mucus thinner and easier to cough up. Ask your healthcare provider how much water you should drink. For many people, 6 to 8 glasses (8 ounces each) a day is a good goal. Other fluids include sport drinks, sodas without caffeine, juices, tea, or soup. If you also have heart or kidney disease, check with your provider before you drink extra fluids. Finish all prescription medicine. Take antibiotic or antiviral medicine as prescribed by your healthcare provider, even if you are feeling better after a few days. Take the medicine until it is all gone. Try to stay away from air pollution. If you live in an area with air pollution, track the Air Quality Index (AQI) reports and plan your outdoor activities with the AQI recommendations in mind Follow-up care Follow up with your healthcare provider in the next 2 to 3 days, or as advised. This is to be sure the medicine is helping you get better. If you are 65 or older, you should get a pneumococcal vaccine and a yearly flu (influenza) shot. You should also get these vaccines if you have chronic lung disease such as asthma, emphysema, or COPD. A second type of pneumonia vaccine is also available for people over age 65 and those younger than 65 with certain health conditions. Talk with your healthcare provider about which pneumococcal vaccine is best for you. Call 911 Call 911 if any of these occur: Unable to speak or swallow Lips or skin looks blue, purple, or campa Feeling dizzy or faint Unable to wake up or loss of consciousness Feeling of doom Trouble breathing or wheezing 10 of 11 Discharge Instructions Shortness of breath gets worse or doesn't get better with treatment Rapid breathing (more than 25 breaths per minute) Coughing up blood Chest pain gets worse with breathing or doesn't get better with treatment When to get medical advice Call your healthcare provider right away if any of these occur: You don't get better in the first 2 days of treatment Fever of 100.4F (38C) or higher, or as directed by your healthcare provider Shaking chills Cough with phlegm that doesn't get better, or get worse Shortness of breath with activities Weakness, dizziness, or fainting that gets worse Thirst or dry mouth that gets worse Sinus pain, headache, or a stiff neck Chest pain with breathing or coughing Symptoms that get worse or not improving 11 of 11 ED NURSES CLINICAL NOTE Observed: 2023 12:14 AM Status: F Source: [facility] Nurse Narrative Nurse Clinical Narrative [facility] [address] [place] [address] [id number] 03/21/2024 Patient: MAREN HURST Sex: Female : 2000 Age: 23y Disposition: Discharge to Home Disposition Decision Time: 04:00 03/21/2024 Departure Time: 04:09 03/21/2024 TRIAGE Arrived by private vehicle. Historian: patient. Accompanied by family. Triage time: 00:16 03/21/2024. Acuity: LEVEL 3. Chief Complaint: ALLERGIC REACTION and HIVES. This started last night. ( started antibiotic-(Z-PACK, Augmentin) for pneumonia on morning.). SEPSIS SCREEN: SIRS criteria negative: heart rate greater than 90. -- 00:35 03/21/24 EST Santos MonsivaisNOlga Lidia 00:24 03/21/24. BP: 155/95 MAP: 115. HR: 131. RR: 18. O2 saturation: 96% Temperature: 98.1 F. Pain level now 0/10. -- 00:24 03/21/24 RASHARD Gardner R.N. 00:30 03/21/24. SEPSIS SCREEN: SIRS criteria negative: heart rate greater than 90. -- 02:01 03/21/24 RASHARD Gardner R.N. 00:30 03/21/24. SEPSIS SCREEN: NEGATIVE. SIRS criteria negative: heart rate greater than 90. Possible sources of infection: pneumonia. -- 02:02 03/21/24 RASHARD Gardner R.N. Measurements: 00:29 03/21/24 Wt: 131.5 kg, Ht/Dru: 65.0 in, BMI: 48.26 -- 00:29 03/21/24 RASHARD Gardner R.N. 1 of 6 Nurse Narrative Medications: Sprintec (28) 0.25 mg-35 mcg tablet -- 00:25 03/21/24 RASHARD Gardner R.N. Allergies: no known drug allergies -- 00:24 03/21/24 RASHARD Gardner R.N. Problems: Pneumonia -- 00:25 03/21/24 RASHARD Gardner R.N. 00:16 03/21/24. Preferred pharmacy: [facility] ; [address] [place] [address] ([facility]). -- 00:35 03/21/24 RASHARD Gardner R.N. ADDITIONAL SURGERIES: no known surgical history -- 00:25 03/21/24 RASHARD Gardner R.N. History 00:16 03/21/24. PAST MEDICAL HX: No history of asthma, heart disease or lung disease. Immunizations: up-to-date. Last normal menstrual period- 1 days. Denies current : LNMP:. SOCIAL HX: Never smoker. No alcohol use or drug use. The patient has not traveled outside the [place] Infectious disease exposure: No infectious disease exposure. ABUSE ASSESSMENT: The patient answered "yes" to the question(s) "Do you feel safe in your home?" and "no" to the question(s) "Are you afraid to go home?". SELF HARM ASSESSMENT: Self harm assessment was performed. The patient answered no to the question(s) "Have you recently felt down, depressed, or hopeless?" and "Do you have thoughts of harming or killing yourself?". 2 of 6 Nurse Narrative FALL RISK ASSESSMENT: Fall risk assessment completed. No risk factors identified. -- 00:35 03/21/24 RASHARD Gardner R.N. Interventions 00:16 03/21/24. Identification band on patient. Advanced care plan. Patient does not have advanced directive. -- 00:35 03/21/24 RASHARD Gardner R.N. PHYSICAL ASSESSMENT 00:40 03/21/24. Ambulatory to room. Patient gowned. ( Hives since Friday, denies SOB or difficulty breathing. Denies chest pain.). GENERAL / NEURO / PSYCH: Alert. The patient does not appear to be in acute distress. Oriented X 4. HEENT: Pupils equal, round and reactive to light. Mucous membranes are pink. RESPIRATORY: Respirations not labored. Cough. Decreased breath sounds in the bases bilaterally. CVS: Normal sinus rhythm noted. Capillary refill less than 2 seconds. Pulses within normal limits. GI / : Abdomen nontender. SKIN: ( generalized hives noted. Patient states she started on new antibiotic- for pneumonia on . Noticed hives on Friday and continued to worsen despite use of Benadryl at home). -- 02:25 03/21/24 RASHARD Gardner R.N. NURSING PROGRESS NOTES 00:22 03/21/24. BP: 155/95 MAP: 122 mmHg. HR: 124 bpm. -- 04:40 03/21/24 EST Bri Gardner R.N. 00:24 03/21/24. BP: 155/95 MAP: 115. HR: 131. RR: 18. O2 saturation: 96% Temperature: 98.1 F. Pain level now 0/10. -- 04:40 03/21/24 EST Bri Gardner R.N. 00:25 03/21/24. HR: 125 bpm. O2 saturation: 97%. -- 04:40 03/21/24 EST Bri Gardner R.N. 00:38 03/21/24. Site #1 started via IV in the left antecubital space with an 18g angiocath with aseptic technique, ultrasound guidance and good blood return; 3 attempts. Blood drawn: rainbow set tube(s). Labeled in the presence of the patient and sent to the lab. Saline lock flushed with 5 mL saline. -- 00:43 03/21/24 RASHARD Arellano E.M.T.-P. 00:40 03/21/24. HR: 112 bpm. O2 saturation: 96%. -- 04:40 03/21/24 EST Bri Gardner R.N. 00:47 03/21/24. BP: 138/91 MAP: 123 mmHg. HR: 104 bpm. -- 04:40 03/21/24 EST Santos MonsivaisN. 00:48 03/21/24. Patient transported to radiology by stretcher with lab tech. (Chest xray completed.). -- 04:29 03/21/24 RASHARD Gardner R.N. 00:53 03/21/24. HR: 126 bpm. O2 saturation: 96%. -- 04:40 03/21/24 EST Santos MonsivaisNOlga Lidia 00:58 03/21/24. MethylPREDNISolone Sodium Succ (Solu-Medrol) IVP 125 mg given via Site# 1. Allergies verified and confirmed 5 rights. IV patency established. IV site checked: no pain, redness, or swelling. IV flushed thoroughly pre-medication administration. IVP given by EMT-P. Information reviewed with patient. Verbalizes 3 of 6 Nurse Narrative understanding. Vitals: 00:47 03/21/2024 BP: 138/91 MAP: 123 mmHg. HR: 104 bpm. -- 00:59 03/21/24 EST Colin Arellano E.M.T.-P. 00:59 03/21/24. IV NS 0.9 % 1000 mL started in bag#1 1000 mL at 999 mL/hr via Site# 1. Allergies verified and confirmed 5 rights. Information reviewed with patient. Verbalizes understanding. Vitals: 00:47 03/21/2024 BP: 138/91 MAP: 123 mmHg. HR: 104 bpm. -- 00:59 03/21/24 EST Viviane NavarreteP. 01:00 03/21/24. Patient identifiers checked. Call light placed in reach. Side rails up x 2. Bed placed in lowest position. Brakes of bed on. -- 03:32 03/21/24 Santos NgNOlga Lidia 01:00 03/21/24. HR: 116 bpm. O2 saturation: 95%. -- 04:40 03/21/24 EST Santos MonsivaisNOlga Lidia 01:01 03/21/24. BP: 134/82 MAP: 101 mmHg. HR: 107 bpm. -- 04:40 03/21/24 EST Santos MonsivaisNOlga Lidia 01:15 03/21/24. HR: 107 bpm. O2 saturation: 96%. -- 04:40 03/21/24 EST Santos MonsivaisNOlga Lidia 01:16 03/21/24. BP: 137/83 MAP: 94 mmHg. HR: 96 bpm. -- 04:40 03/21/24 Santos NgN. 01:30 03/21/24. HR: 100 bpm. O2 saturation: 96%. -- 04:40 03/21/24 EST Bri Gardner R.N. 01:31 03/21/24. BP: 147/86 MAP: 90 mmHg. HR: 98 bpm. -- 04:40 03/21/24 EST Bri Gardner R.N. 01:45 03/21/24. HR: 96 bpm. O2 saturation: 96%. -- 04:40 03/21/24 EST Bri Gardner R.N. 01:47 03/21/24. BP: 133/68 MAP: 95 mmHg. HR: 94 bpm. -- 04:40 03/21/24 EST Bri Gardner R.N. 01:54 03/21/24. Levaquin IVPB Premix 750 mg started at 100 mL/hr via Site# 1. Allergies verified and confirmed 5 rights. Via IV pump. IV patency established. IV site checked: no pain, redness, or swelling. IV flushed thoroughly pre-medication administration. Information reviewed with patient. Verbalizes understanding. Medication Wastage: 250 mg wasted. -- 01:59 03/21/24 EST Bri Gardner R.N. 02:00 03/21/24. HR: 98 bpm. O2 saturation: 96%. -- 04:40 03/21/24 EST Bri Gardner R.N. 02:00 03/21/24. IV NS 0.9 %: Medication Discontinued. bag #2 completed. Total amount infused: 1000 mL. IV patency established. IV site checked: no pain, redness, or swelling. IV flushed thoroughly post-medication administration. -- 02:34 03/21/24 EST Bri Gardner R.N. 02:01 03/21/24. BP: 131/80 MAP: 99 mmHg. HR: 99 bpm. -- 04:40 03/21/24 EST Bri Gardner R.N. 02:15 03/21/24. HR: 102 bpm. O2 saturation: 96%. -- 04:40 03/21/24 EST Bri Gardner R.N. 02:16 03/21/24. BP: 133/86 MAP: 97 mmHg. HR: 99 bpm. -- 04:40 03/21/24 Santos NgNOlga Lidia 02:20 03/21/24. Rounding: Pain: denies pain. Position: states comfortable. Proximity of possessions / care items: call light within easy reach. Plug ins: assured IV pump plugged in; checked status of equipment in use; located all cords, tubes, and lines to prevent fall hazard. Set expectations: asked if they needed anything else at this time. (Patient awake, resting in bed. Patient denies SOB or breathing distress. Family at bedside ). -- 04:23 03/21/24 Santos NgNOlga Lidia 02:30 03/21/24. HR: 100 bpm. O2 saturation: 96%. -- 04:40 03/21/24 Santos NgNOlga Lidia 02:31 03/21/24. BP: 133/85 MAP: 101 mmHg. HR: 97 bpm. -- 04:40 03/21/24 Santos NgNOlga Lidia 02:32 03/21/24. IV NS 0.9 % 1000 mL started in bag#2 1000 mL at 500 mL/hr via Site# 1. Allergies verified and confirmed 5 rights. IV patency established. IV site checked: no pain, redness, or swelling. IV flushed thoroughly pre-medication administration. Information reviewed with patient. Verbalizes understanding. -- 02:34 03/21/24 Santos NgNOlga Lidia 02:45 03/21/24. HR: 93 bpm. O2 saturation: 96%. -- 04:40 03/21/24 RASHARD Gardner R.N. 4 of 6 Nurse Narrative 02:46 03/21/24. BP: 149/81 MAP: 103 mmHg. HR: 94 bpm. -- 04:40 03/21/24 Santos NgNOlga Lidia 03:00 03/21/24. Rounding: Pain: denies pain. Position: states comfortable. Proximity of possessions / care items: call light within easy reach. Plug ins: assured IV pump plugged in; checked status of equipment in use; located all cords, tubes, and lines to prevent fall hazard. Set expectations: asked if they needed anything else at this time. -- 04:27 03/21/24 Santos NgNOlga Lidia 03:00 03/21/24. HR: 96 bpm. O2 saturation: 97%. -- 04:40 03/21/24 Santos NgNOlga Lidia 03:01 03/21/24. BP: 142/84 MAP: 98 mmHg. HR: 91 bpm. -- 04:40 03/21/24 Santos NgNOlga Lidia 03:15 03/21/24. HR: 93 bpm. O2 saturation: 96%. -- 04:40 03/21/24 Santos NgNOlga Lidia 03:16 03/21/24. BP: 136/91 MAP: 101 mmHg. HR: 90 bpm. -- 04:40 03/21/24 Santos NgNOlga Lidia 03:25 03/21/24. Levaquin IVPB Premix: Medication Discontinued. IV completed. Total amount infused: 150 mL. IV patency established. IV site checked: no pain, redness, or swelling. IV flushed thoroughly post-medication administration. -- 03:40 03/21/24 Santos NgNOlga Lidia 03:30 03/21/24. IV NS 0.9 %: Medication Discontinued. bag #1 completed. Total amount infused: 1000 mL. IV patency established. IV site checked: no pain, redness, or swelling. IV flushed thoroughly post-medication administration. -- 03:40 03/21/24 Santos NgNOlga Lidia 03:35 03/21/24. Pepcid 20mg/50ml Premix IVPB 20 mg started at 150 mg/hr over 20 minute(s) via Site# 1. Allergies verified and confirmed 5 rights. Via IV pump. IV patency established. IV site checked: no pain, redness, or swelling. IV flushed thoroughly pre-medication administration. Information reviewed with patient. Verbalizes understanding. -- 03:39 03/21/24 Santos NgNOlga Lidia 03:46 03/21/24. BP: 128/87 MAP: 100 mmHg. HR: 87 bpm. -- 04:40 03/21/24 Santos NgNOlga Lidia 03:50 03/21/24. HR: 91 bpm. O2 saturation: 96%. -- 04:40 03/21/24 EST Bri Gardner R.N. 03:55 03/21/24. Pepcid 20mg/50ml Premix IVPB: Medication Discontinued. IV completed. Total amount infused: 50 mL. IV patency established. IV site checked: no pain, redness, or swelling. IV flushed thoroughly post-medication administration. -- 04:25 03/21/24 EST Bri Gardner R.N. DISPOSITION / DISCHARGE 04:00 03/21/24. RR: 14. Regular. Temperature: 98 F. Pain level now 0/10. -- 04:21 03/21/24 EST Bri Gardner R.N. 04:01 03/21/24. BP: 120/93 MAP: 101 mmHg. HR: 93 bpm. -- 04:21 03/21/24 EST Bri Gardner R.N. 04:05 03/21/24. HR: 96 bpm. O2 saturation: 96%. -- 04:21 03/21/24 EST Bri Gardner R.N. 04:05 03/21/24. Site #1 removed upon discharge. Pressure dressing applied. -- 04:31 03/21/24 EST Bri Gardner R.N. 04:09 03/21/24. Condition at departure: improved and stable. Discharge instructions provided and reviewed with the patient and family. The patient was discharged by the physician. The patient was discharged home and accompanied by family. The patient left ambulatory and via private vehicle. Family member driving. -- 04:22 03/21/24 EST Bri Gardner R.N. Departure time: 04:09 03/21/2024. -- 07:16 03/21/24 EST Bri Gardner R.N. 5 of 6 Nurse Narrative (Electronically signed by Bri Gardner R.N. 03/21/24 07:16:57 EST) Generated by [facility] 6 of 6 ED SUPER BILL Observed: 03/21/2024 12:14 AM Status: F Source: [address] [place] [address] [id number] 03/21/2024 Patient: MAREN HURST Sex: Female : 2000 Age: 23y Item Facility Professional Category Description Code Code Quantity Fee Total Drugs Normal Saline 631344 2 $0.00 $0.00 1000cc (638657) Nurse/E/M EMERGENCY 001349 1 $0.00 $0.00 DEPARTMENT VISIT HIGH/URGENT SEVERITY (25982-75) Nurse/IV/IM/Infusions Drip/IVPB [id number] 1 $0.00 $0.00 additional hour (84152) Nurse/IV/IM/Infusions Drip/IVPB initial [id number] 1 $0.00 $0.00 (19673) Nurse/IV/IM/Infusions Drip/IVPB seq [id number] 1 $0.00 $0.00 (56164) Nurse/IV/IM/Infusions Hydration 653376 1 $0.00 $0.00 additional hour (15321) [facility] 2 [facility] Item Facility Professional Category Description Code Code Quantity Fee Total Nurse/IV/IM/Infusions IVP additional 774066 1 $0.00 $0.00 push (96029) Grand Total $0.00 Providers Vandana Beard D.O. Chief Complaint ALLERGIC REACTION and "HIVES". Principal Diagnosis Acute hives secondary to unknown cause. Bronchopneumonia. ICD-10 Codes L50.9: Urticaria, unspecified J18.0: Bronchopneumonia, unspecified organism 2 of 2 ED VITALS FLOW SHEET Observed: 4 12:14 AM Status: F Source: [facility] Vitals Vital Sign Flow Sheet [address] [place] [address] [id number] 03/21/2024 Patient: MAREN HURST Sex: Female : 2000 Age: 23y Measurements Wt: 131.5 kg, Ht/Dru: 65.0 in, BMI: 48.26 Measured Time BP MAP HR RR O2Sat ETCO2 Temp Pain GCS RTS 04:05 03/21/2024 96 96% 04:01 03/21/2024 120/93 101 93 04:00 03/21/2024 14 98.0 F 0 04:00 03/21/2024 96 96% 03:55 03/21/2024 91 96% 03:50 03/21/2024 91 96% 03:46 03/21/2024 128/87 100 87 03:45 03/21/2024 92 96% 03:40 03/21/2024 98 97% 03:35 03/21/2024 103 97% 03:30 03/21/2024 98 96% 03:25 03/21/2024 101 96% 03:20 03/21/2024 91 95% 03:16 03/21/2024 136/91 101 90 03:15 03/21/2024 93 96% 1 of 3 Vitals Measured Time BP MAP HR RR O2Sat ETCO2 Temp Pain GCS RTS 03:10 03/21/2024 88 96% 03:05 03/21/2024 100 97% 03:01 03/21/2024 142/84 98 91 03:00 03/21/2024 96 97% 02:55 03/21/2024 98 97% 02:50 03/21/2024 98 96% 02:46 03/21/2024 149/81 103 94 02:45 03/21/2024 93 96% 02:40 03/21/2024 93 96% 02:35 03/21/2024 94 96% 02:31 03/21/2024 133/85 101 97 02:30 03/21/2024 100 96% 02:25 03/21/2024 95 96% 02:20 03/21/2024 103 96% 02:16 03/21/2024 133/86 97 99 02:15 03/21/2024 102 96% 02:10 03/21/2024 101 96% 02:05 03/21/2024 100 95% 02:01 03/21/2024 131/80 99 99 02:00 03/21/2024 98 96% 01:55 03/21/2024 97 95% 01:50 03/21/2024 100 95% 01:47 03/21/2024 133/68 95 94 01:45 03/21/2024 96 96% 01:40 03/21/2024 98 97% 2 of 3 Vitals Measured Time BP MAP HR RR O2Sat ETCO2 Temp Pain GCS RTS 01:35 03/21/2024 102 96% 01:31 03/21/2024 147/86 90 98 01:30 03/21/2024 100 96% 01:25 03/21/2024 99 95% 01:20 03/21/2024 105 97% 01:16 03/21/2024 137/83 94 96 01:15 03/21/2024 107 96% 01:10 03/21/2024 100 96% 01:05 03/21/2024 105 96% 01:01 03/21/2024 134/82 101 107 01:00 03/21/2024 116 95% 00:53 03/21/2024 126 96% 00:47 03/21/2024 138/91 123 104 00:45 03/21/2024 114 96% 00:40 03/21/2024 112 96% 00:35 03/21/2024 121 95% 00:30 03/21/2024 122 96% 00:25 03/21/2024 125 97% 00:24 03/21/2024 155/95 115 131 18 96% 98.1 F 0 00:22 03/21/2024 155/95 122 124 3 of 3 ED MED ADMINISTRATION DETAIL Observed: 1 05/22/2023 12:14 AM Status: F Source: [facility] [employer] Medication Administration Record [address] [place] [address] [id number] 03/21/2024 Patient: MAREN HURST Sex: Female : 2000 Age: 23y MEASUREMENTS: Wt: 131.5 kg, Ht/Dru: 65.0 in, BMI: 48.26 ALLERGIES: No known drug allergies Medication Ordered Medication Administration Date/Time IV NS 0.9 % 1000 00:59 1208 IV NS 0.9 % 1000 mL started in bag#1 1000 mL at Started mL at 999 mL/hr 999 mL/hr via Site# 1. Allergies verified and confirmed 5 rights. 00:59 03/21/2024 (NOW x1) Information reviewed with patient. Verbalizes understanding. Vitals: Colin Arellano, 00:47 03/21/2024 BP: 138/91 MAP: 123 mmHg. HR: 104 bpm. - E.MOlga LidiaT.-P. 00:59 Anna NavarreteTOlga Lidia-POlga Lidia Stopped 02:00 03/21/2024 02:00 12 Medication Discontinued: bag #2 completed. Total Bri Gardner R.N. amount infused: 1000 mL. IV patency established. IV site checked: Scanned no pain, redness, or swelling. IV flushed thoroughly post-medication administration. - 02:34 Bri Gardner R.N. MethylPREDNISolo 00:58 12 MethylPREDNISolone Sodium Succ (Solu-Medrol) IVP Given ne Sodium Succ 125 mg given via Site# 1. Allergies verified and confirmed 5 rights. 00:58 03/21/2024 (Solu-Medrol) IVP IV patency established. IV site checked: no pain, redness, or Colin Arellano, 125 mg (NOW x1) swelling. IV flushed thoroughly pre-medication administration. IVP E.M.T.-P. given by EMT-P. Information reviewed with patient. Verbalizes Scanned understanding. Vitals: 00:47 03/21/2024 BP: 138/91 MAP: 123 mmHg. HR: 104 bpm. - 00:59 Maxwell Navarrete-P. 1 of 2 [employer] Medication Ordered Medication Administration Date/Time Levaquin IVPB 01:54 03/21 Levaquin IVPB Premix 750 mg started at 100 mL/hr Started Premix 750 mg at via Site# 1. Allergies verified and confirmed 5 rights. Via IV pump. 01:54 03/21/2024 100 mL/hr (NOW x1) IV patency established. IV site checked: no pain, redness, or Bri Gardner R.N. swelling. IV flushed thoroughly pre-medication administration. Stopped Information reviewed with patient. Verbalizes understanding. 03:25 03/21/2024 Medication Wastage: 250 mg wasted. - 01:59 Bri Monsivais R.N. RAnoop Scanned 03:25 12 Medication Discontinued: IV completed. Total amount infused: 150 mL. IV patency established. IV site checked: no pain, redness, or swelling. IV flushed thoroughly post-medication administration. - 03:40 Crystal Jj, R.N. IV NS 0.9 % 1000 02:32 12 IV NS 0.9 % 1000 mL started in bag#2 1000 mL at Started mL at 500 mL/hr 500 mL/hr via Site# 1. Allergies verified and confirmed 5 rights. IV 02:32 03/21/2024 (NOW x1) patency established. IV site checked: no pain, redness, or swelling. Bri Gardner R.N. IV flushed thoroughly pre-medication administration. Information Stopped reviewed with patient. Verbalizes understanding. - 02:34 Crystal 03:30 03/21/2024 Letitia Gardner R.N. Scanned 03:30 12 Medication Discontinued: bag #1 completed. Total amount infused: 1000 mL. IV patency established. IV site checked: no pain, redness, or swelling. IV flushed thoroughly post-medication administration. - 03:40 Bri Gadrner R.N. Pepcid 20mg/50ml 03:35 12 Pepcid 20mg/50ml Premix IVPB 20 mg started at 150 Started Premix IVPB 20 mg mg/hr over 20 minute(s) via Site# 1. Allergies verified and confirmed 03:35 03/21/2024 (NOW x1) 5 rights. Via IV pump. IV patency established. IV site checked: no Bri Gardner R.N. pain, redness, or swelling. IV flushed thoroughly pre-medication Stopped administration. Information reviewed with patient. Verbalizes 03:55 03/21/2024 understanding. - 03:39 Letitia Monsivais R.N. Scanned 03:55 03/21 Medication Discontinued: IV completed. Total amount infused: 50 mL. IV patency established. IV site checked: no pain, redness, or swelling. IV flushed thoroughly post-medication administration. - 04:25 Bri Gardner R.N. 2 of 2 ED PHYSICIAN CLINICAL REPORT Observed: 03/21/2024 12:14 AM Status: F Source: [facility] Narrative Physician Clinical Narrative [address] [place] [address] [phone] 03/21/2024 Patient: MAREN HURST Sex: Female : 2000 Age: 23y Measurements Wt: 131.5 kg, Ht/Dru: 65.0 in, BMI: 48.26 Initial Vital Sign Measured Time BP MAP HR RR O2Sat ETCO2 Temp Pain GCS RTS 00:22 03/21/2024 155/95 122 124 Time Seen: 00:16 03/21/2024. Arrived- By private vehicle. Historian- patient. Independent historian- family. HISTORY OF PRESENT ILLNESS Chief Complaint: ALLERGIC REACTION and "HIVES". The patient has had a skin rash and itching. No recent medication. This started last night and is still present. REVIEW OF SYSTEMS EYES: No eye problems. THROAT: No sore throat. RESPIRATORY: No cough. ENDO/HEME/LYMPH: No enlarged lymph nodes. NEUROLOGICAL: No headache. CVS: No chest pain. GI: No abdominal pain. : No urinary frequency. CONSTITUTIONAL: No fever or chills. PAST HISTORY Pneumonia 1 of 9 Narrative Surgeries: no known surgical history Medications: Sprintec (28) 0.25 mg-35 mcg tablet Allergies: no known drug allergies SOCIAL HISTORY Never smoker. No alcohol use. ADDITIONAL NOTES The nursing notes have been reviewed. PHYSICAL EXAM Appearance: Alert. Oriented X3. No acute distress. Head and Neck: Normal external inspection. ENT: Pharynx normal. Voice normal. Neck: Neck supple. CVS: Normal heart rate and rhythm. Heart sounds normal. Respiratory: No respiratory distress. Painless inspiration. Abdomen: Nontender. No organomegaly. Extremities: Normal external inspection. Extremities nontender. Skin: Urticaria. Rash present. Urticaria present. Neuro: Oriented X 3. No motor deficit. LABS, X-RAYS, AND EKG Laboratory Tests: CBC + DIFF 2 of 9 Narrative Final FLORENCIA: 03/21/2024 00:38:00 EST MsgRcvd: 03/21/2024 01:10 EST Lab Test Result Reference Status Received Comments 03/21/2024 01:10 CBC-COMPLETE CBC + DIFF Final EST BLOOD COUNT 03/21/2024 01:10 WBC 6.7 x 10/UL 4.5 - 10.8 Final EST 5.72 x 10/UL 03/21/2024 01:10 RBC 4.10 - 5.30 Final Above high normal EST 03/21/2024 01:10 HEMOGLOBIN 15.0 g/dl 12.0 - 16.0 Final EST 03/21/2024 01:10 HEMATOCRIT 45.9 % 34.0 - 46.0 Final EST 03/21/2024 01:10 MCV 80 fl 80 - 99 Final EST 26 pg 03/21/2024 01:10 MCH 27 - 33 Final Below low normal EST 03/21/2024 01:10 MCHC 33 X10 3 32 - 36 Final EST 03/21/2024 01:10 RDW/CV 14.4 % 12.0 - 15.6 Final EST 03/21/2024 01:10 PLATELET 361 x10/UL 150 - 450 Final EST 03/21/2024 01:10 AUTOMATED MPV 6.8 fl 6.6 - 10.5 Final EST DIFFERENTIAL 03/21/2024 01:10 NEUT % 58.5 % 46.0 - 76.0 Final EST 3 of 9 Narrative 03/21/2024 01:10 LYMPH % 33.0 % 20.0 - 45.0 Final EST 03/21/2024 01:10 MONOS % 6.7 % 0.0 - 10.0 Final EST 03/21/2024 01:10 EO % 1.4 % 0.0 - 7.0 Final EST 03/21/2024 01:10 BASO % 0.4 % 0.0 - 2.0 Final EST 03/21/2024 01:10 Lymph # 2.22 x10/UL 0.80 - 2.80 Final EST 03/21/2024 01:10 Neut # 3.94 x10/UL 1.50 - 7.10 Final EST 03/21/2024 01:10 Freeborn # 0.45 x10/UL 0.20 - 1.00 Final EST 03/21/2024 01:10 EO # 0.10 x10/UL 0.00 - 0.50 Final EST 03/21/2024 01:10 Baso # 0.03 x10/UL 0.00 - 0.10 Final EST 03/21/2024 01:10 MANUAL DIFF N/A New Order EST 03/21/2024 01:10 MORPHOLOGY N/A New Order EST CMP with eGFR Final FLORENCIA: 03/21/2024 00:38:00 EST MsgRcvd: 03/21/2024 02:03 EST Lab Test Result Reference Status Received Comments 4 of 9 Narrative COMPREHENSIVE 03/21/2024 CMP with eGFR Final METABOLIC 02:03 EST PANEL 03/21/2024 SODIUM 138 mmol/l 136 - 145 Final 02:03 EST 03/21/2024 POTASSIUM 3.9 mmol/L 3.5 - 5.1 Final 02:03 EST 03/21/2024 CHLORIDE 100 mmol/L 98 - 107 Final 02:03 EST 03/21/2024 CO2 28.5 mmol/L 21.0 - 32.0 Final 02:03 EST 03/21/2024 GLUCOSE 96 mg/dl 74 - 106 Final 02:03 EST 03/21/2024 BUN 11 mg/dl 7 - 18 Final 02:03 EST 1.08 mg/dl 03/21/2024 CREATININE Above high 0.55 - 1.02 Final 02:03 EST normal 03/21/2024 AST/SGOT 26 U/L 13 - 39 Final 02:03 EST 03/21/2024 ALK PHOS 97 U/L 46 - 116 Final 02:03 EST 03/21/2024 CALCIUM 9.1 mg/dl 8.5 - 10.1 Final 02:03 EST 8.5 g/dl TOTAL 03/21/2024 Above high 6.4 - 8.2 Final PROTEIN 02:03 EST normal 3.2 g/dL 03/21/2024 ALBUMIN 3.4 - 5.0 Final Below low normal 02:03 EST 5 of 9 Narrative 5.3 G/DL 03/21/2024 GLOBULIN Above high 1.5 - 3.8 Final 02:03 EST normal 0.6 03/21/2024 A/G RATIO 0.9 - 1.6 Final Below low normal 02:03 EST 03/21/2024 TOTAL BILI 0.4 mg/dl 0.2 - 1.0 Final 02:03 EST 03/21/2024 B/C RATIO 10 ratio 0 - 30 Final 02:03 EST 83 U/L 03/21/2024 ALT/SGPT Above high 16 - 63 Final 02:03 EST normal 03/21/2024 ANION GAP 13 mmol/L 10 - 20 Final 02:03 EST 03/21/2024 AGE 23 years Final 02:03 EST 03/21/2024 eGFR >60 ML/MINUTE 60 - 999 Final 02:03 EST 6 of 9 Narrative ACCORDING TO THE NATIONAL KIDNEY DISEASE EDUCATION PROGRAM(NKDE), A NORMAL eGFR IS A VALUE GREATER THAN OR EQUAL TO 60 ML/MIN/1.73 SQ METERS. 03/21/2024 CHRONIC KIDNEY eGFR(AA) >60 ML/MINUTE 60 - 999 Final 02:03 EST DISEASE: <60mL/MIN/1.73 SQ METERS KIDNEY FAILURE: <15mL/MIN/1.73 SQ METERS THIS TEST SHOULD ONLY BE USED FOR PATIENTS 18 YEARS OF AGE AND OLDER. PROGRESS AND PROCEDURES MEDICAL DECISION MAKING: (Patient came in she has been feeling well since last week. She was started on antibiotics on of Augmentin and Zithromax for pneumonia. Friday she developed hives such of increased or itching she has taken Benadryl. Denies any shortness of breath. But she does have the hives while she was here I did do a chest x-ray which showed a right upper infiltrate. Consistent with pneumonia. So unclear whether the hives were started from the Zithromax Augmentin for some other etiology. She was given Solu-Medrol she is given Pepcid her hives actually got worse while she was here. Which he is asymptomatic heart rate is come down was in the 130s when she came in denies in the 90s. Will write her for Pepcid as well as steroids and did change her medication for antibiotics to Levaquin which she was given her 1st dose here. And 7 of 9 Narrative to be discharged home Dr. Dr. Damon's number for follow-up for the hives. And she should also follow their family doctor. she had that she does have a history of hives which she takes Zyrtec every day. Not exactly clear that her hives are from the antibiotics. She did get Levaquin and the hives got worse. However at her for steroids as well as Pepcid should also take Benadryl). Disposition: Condition: stable. Discharged in fair condition. Discharge decision based on the following: patient's condition is stable; patient's exam is stable. CLINICAL IMPRESSION Acute hives secondary to unknown cause. Bronchopneumonia. DISCHARGE INSTRUCTIONS Warnings: GENERAL WARNINGS: Return or contact your physician immediately if your condition worsens or changes unexpectedly, if not improving as expected, or if other problems arise. Prescription Medications: levofloxacin 750 mg tablet: Take 1 tablet by mouth once a day for 6 days, dispense 6 tablet. Refills 0. Pharmacy: [facility] [id number] [place] [address]. Pepcid 40 mg tablet: Take 1 tablet by mouth once a day for 7 days, dispense 7 tablet. Refills 0. Pharmacy: [facility] [id number] [place] [address]. prednisone 20 mg tablet: Take 1 tablet by mouth every twelve hours for 7 days, dispense 10 tablet. Refills 0. Notes take 1 tablet every 12 hours for 3 days and then take 1 tablet daily for 4 days dispense 10. Pharmacy: [facility] [id number] [place] [address]. Follow-up with: Christian Damon M.D., [facility], Phone: [phone], [address] [facility], [place] [address]. Follow up in three days. (Return if increasing hives shortness breath or any concerns. Take Benadryl, Pepcid at prednisone for the itching and hives. 8 of 9 Narrative Follow-up with Dr. Damon for a workup for your hives and possible reaction to antibiotics. Also follow-up with your family doctor). (Electronically signed by Vandana Beard D.O. 03/21/24 04:08:45 EST) Generated by [facility] 9 of 9 ED VISIT SUMMARY Observed: 03/21/2024 12:14 AM Status: F Source: [facility] Visit Overview Visit Overview [facility] [address] [facility] [place] [address] [phone] 03/21/2024 Patient: MAREN HURST Sex: Female : 2000 Age: 23y 03/21/2024 07:17 AM EST ED Arrival:00:14 03/21/2024 EST Status:not Recent Travel:no Language:eng Adv Directive:No Isolation Status: Ethnicity:N Fall Risk:no risk Infectious Disease Exposure:no Measurements:5'5" / 165.1 Self-Harm Status:risk Sepsis Screen:negative cm 290.0 lb / 131.5 kg Chief Complaint: ALLERGIC REACTION, HIVES, and (started antibiotic-(Z-PACK, Augmentin) for pneumonia on morning. ) ALLERGIES No Known Drug Allergies HOME MEDICATIONS Sprintec (28) 0.25 mg-35 mcg tablet PAST MEDICAL HISTORY / PROBLEMS Immunizations: up-to-date 1 of 3 Visit Overview Last normal menstrual period- 1 days Pneumonia PAST SURGICAL HISTORY No Surgeries SOCIAL HISTORY Smoking status: No Alcohol use: No Drug use: No ED COURSE MEDICATIONS GIVEN IN EMERGENCY DEPARTMENT 00:58 03/21/24 MethylPREDNISolone Sodium Succ (Solu-Medrol) IVP 125 mg 00:59 03/21/24 IV NS 0.9 % 1000 mL 999 mL/hr 01:54 03/21/24 Levaquin IVPB Premix 750 mg 100 mL/hr 02:32 03/21/24 IV NS 0.9 % 1000 mL 500 mL/hr 03:35 03/21/24 Pepcid 20mg/50ml Premix IVPB 20 mg 150 mg/hr over 20 minute(s) IV SITE INFORMATION INTAKE OUTPUT REASSESMENT (most recent) 00:40 03/21/24. Ambulatory to room. Patient gowned. ( Hives since Friday, denies SOB or difficulty breathing. Denies chest pain.). GENERAL / NEURO / PSYCH: Alert. The patient does not appear to be in acute distress. Oriented X 4. HEENT: Pupils equal, round and reactive to light. Mucous membranes are pink. RESPIRATORY: Respirations not labored. Cough. Decreased breath sounds in the bases bilaterally. CVS: Normal sinus rhythm noted. Capillary refill less than 2 seconds. Pulses within normal limits. GI / : Abdomen nontender. SKIN: ( generalized hives noted. Patient states she started on new antibiotic- for pneumonia on . Noticed hives on Friday and continued to worsen despite use of Benadryl at home). VITAL SIGNS 2 of 3 Visit Overview First Vitals Last Vitals Temp 00:22 03/21/24 Temp 04:05 03/21/24 BP 00:22 03/21/24 155/95 BP 04:05 03/21/24 HR 00:22 03/21/24 124 HR 04:05 03/21/24 96 RR 00:22 03/21/24 RR 04:05 03/21/24 O2 Sat 00:22 03/21/24 O2 Sat 04:05 03/21/24 96% Pain 00:22 03/21/24 Pain 04:05 03/21/24 ETCO2 00:22 03/21/24 ETCO2 04:05 03/21/24 GCS 00:22 03/21/24 GCS 04:05 03/21/24 RTS 00:22 03/21/24 RTS 04:05 03/21/24 PROCEDURES NURSING INTERVENTIONS LABS / STUDIES LABS / STUDIES ORDERED CBC w Diff Chest 2V CMP CLINICAL IMPRESSION ACUTE HIVES SECONDARY TO UNKNOWN CAUSE BRONCHOPNEUMONIA 3 of 3 ED ORDER SHEET ([facility] ONLY) Observed: 11/2023 12:14 AM Status: F Source: [facility] Order Sheet Order Sheet [address] [place] [address] [id number] 03/21/2024 Patient: MAREN HURST Sex: Female : 2000 Age: 23y MEASUREMENTS: Wt: 131.5 kg, Ht/Dru: 65.0 in, BMI: 48.26 ALLERGIES: No known drug allergies MEDICATION/IV/DRIP/FLUID ORDERS Order Description Priority Entered Acknowledged Completed IV NS 0.9 %1000 mL at 999 00:41 03/21/2024 00:57 00:59 mL/hr (NOW x1) Vandana Beard, 03/21/2024 03/21/2024 Colin Grubbs E.M.T.-POlga Lidia BeckwithM.T.-P. MethylPREDNISolone Sodium 00:41 03/21/2024 00:57 00:59 Succ (Solu-Medrol) [id number] mg Vandana Beard, 03/21/2024 03/21/2024 (NOW x1) Colin Grubbs E.M.TOlga Lidia-P. EOlga LidiaM.T.-P. Reason for ordering with alerts: Benefits outweigh risks --00:41 03/21/2024 Vandana Beard D.O. Levaquin IVPB [id number] mg at 01:34 03/21/2024 01:59 100 mL/hr (NOW x1) Vandana Beard 03/21/2024 Taylor Gardner R.N. Reason for ordering with alerts: Benefits outweigh risks --01:34 03/21/2024 Vandana Beard D.O. IV NS 0.9 %1000 mL at 500 02:12 03/21/2024 02:34 1 of 3 Order Sheet mL/hr (NOW x1) Vandana Beard, 03/21/2024 Taylor Gardner R.N. Reason for ordering with alerts: Benefits outweigh risks --02:12 03/21/2024 Vandana Beard D.O. Pepcid 20mg/50ml Premix 03:32 03/21/2024 03:39 IVPB20 mg (NOW x1) Vandana Beard, 03/21/2024 Taylor Gardner R.N. LAB ORDERS Order Description Priority Entered Acknowledged Collected Completed CBC w Diff Stat Stat 00:41 03/21/2024 00:42 03/21/2024 00:57 03/21/2024 Bri Ludwig Bryan Parker, D.O. R.N. E.M.T.-P. CMP Stat Stat 00:41 03/21/2024 00:42 03/21/2024 00:57 03/21/2024 Bri Ludwig Bryan Parker, D.O. R.N. E.M.T.-P. DIAGNOSTIC STUDY ORDERS Order Description Priority Entered Acknowledged Completed Chest 2V Stat Stat 00:41 03/21/2024 00:42 01:38 Vandana Beard, 03/21/2024 03/21/2024 Bri Cabrera R.N. ROlga LidiaNOlga Lidia Reason for Study: Cough STAFF ORDERS Order Description Priority Entered Acknowledged Collected Completed IV Saline Lock 00:41 03/21/2024 00:42 03/21/2024 00:57 03/21/2024 Bri Ludwig Bryan Parker, D.O. R.N. E.M.T.-P. 2 of 3 Order Sheet [Electronically signed by Vandnaa Beard D.O. (03/21/2024 04:08 EST)] 3 of 3 ALLERGIES DATE TYPE / CODE NAME / CODE REACTION SEVERITY SOURCE 09/28/2024 DRUG INGREDI/[id number]( SNOMED CT) AMOXICILLIN [facility] 09/28/2024 DRUG INGREDI/[id number]( SNOMED CT) CLAVULANIC ACID [facility] ENCOUNTERS ADMIT/DISCHARGE ACCOUNT NUMBER ADMITTING ENCOUNTER CLASS LOCATION SOURCE 01/10/2025/ 5 [id number] Ambulatory Building:[facility] 01/10/2025/ 5 [id number] Ambulatory Building:[facility] 01/10/2025/ 5 [id number] Ambulatory Building:[facility] 12/20/2024/ 5 [id number] Ambulatory Building:[facility] 03/21/2024/ 4 [id number] VANDANA BEARD Emergency BuildinR oom: ERBed: 7 [facility] PAYERS ENCOUNTER GUARANTOR PAYER SUBSCRIBER SOURCE 01/10/2025 MAREN ESPINOSA: [id number] [address] [address]Hhp: ~(33 [phone] (HP) Primary Insurance:[employer] Number: [id number] Date: CARMELITA HURSTAMISH: [id number] [address] 01/10/2025 MAREN HEATHB: [id number] [address] [address]Ahx: ~(33 0 (HP) Primary Insurance:[facility] Kaiimay Number: [id number] Date: CARMELITA HURSTAMISH: [id number] [address] 01/10/2025 MAREN HEATHB: [id number] [address] [address]Lkh: ~(33 0 (HP) [facility]: [id number] Date: CARMELITA SPENCER: [id number] [place] [address] [facility] 12/20/2024 MARENSallie BARAJAS KUMARB: [place] [address]Zog: ~(33 [phone] (HP) Primary Insurance[facility] Number: [id number] Date: CARMELITA SPENCER: [id number] [place] [address] [facility] 03/21/2024 MAREN NANIB: [place], [place] [address]Mlt: (HP) Primary Insurance[facility]Policy Number: [id number] Date: CARMELITA SPENCER: [id number] [place], [place] [id number] [place] [address] 03/21/2024 Secondary Insurance:[facility] PHYSICIANPolicy Number: [id number] Date: CARMELITA SPENCER: [id number] [place], [place] [id number] [place] [address]
[2025-01-10 14:31] LABS: 24HR. Urine Creatinine 1536.6 mg/24 hr (740.0-1540.0); Creatinine Serum Creat 0.6 mg/dL (0.6-1.0)
== END | disposition home or self-care (01) ==
LOC: BWCLAB 11:39
PROVIDERS: Obstetrics & Gynecology; PCP Family Medicine; Referring Provider Nurse Practitioner Women's Health; Visit Provider Nurse Practitioner Women's Health
DX: O09.90 Supervision of high risk pregnancy, unspecified, unspecified trimester (principal); R74.8 Abnormal levels of other serum enzymes; Z3A.00 Weeks of gestation of pregnancy not specified
CPT/HCPCS: 81050; 82565; 82570; 82575

== ENCOUNTER → 2025-02-07 | Outpatient (CLI) | payer OTHER, SELFPAY ==
[2025-02-07 12:57] LABS: AST(SGOT) 21 U/L (<=31); Alanine Aminotransfer ALT/SGPT 45 U/L (<=34); Albumin, Serum 3.8 g/dL (3.5-5.0); Alkaline Phosphatase 137 U/L (35-104); Anion Gap 11 (5-15); BUN 6 mg/dL (4-19); BUN/Creat Ratio 11.6 RATIO (10-20); Calcium,Total 9.1 mg/dL (7.6-11.0); Carbon Dioxide 22.1 mmol/L (21.0-32.0); Chloride 104 mmol/L (98-108); Globulin 3.7 g/dL (2.2-4.2); Glucose 81 mg/dL (70-99); Potassium 4.0 mmol/L (3.3-5.1)
== END | disposition home or self-care (01) ==
LOC: BWCLAB 11:38
PROVIDERS: Obstetrics & Gynecology; PCP Family Medicine; Visit Provider Obstetrics & Gynecology
DX: R74.8 Abnormal levels of other serum enzymes (principal)
CPT/HCPCS: 36415; 80053

== ENCOUNTER → 2025-02-24 | Outpatient (CLI) | payer OTHER, SELFPAY ==
[2025-02-24 12:27] LABS: Hematocrit 39.7 % (37-47); Hemoglobin 12.9 g/dL (12.0-15.0); Immature Granulocytes Count 0.020 X10^3/uL (0.0-0.0); Mean Corp Hgb Conc 32.5 g/dL (32-36); Mean Corpuscular Volume 87.1 fL (81-99); Mean Platelet Vol. 9.6 fl (6.2-12.0); NRBC Flagged by Analyzer 0 % (0-5); Platelet Count 321 K/mm3 (150-450); RBC Distribution Width CV 14.1 % (11.6-14.6); RBC Distribution Width SD 45.1 fl (35.1-43.9); Red Blood Count 4.56 M/mm3 (4.2-5.4); White Blood Count 8.4 K/mm3 (4.4-11.0)
[2025-02-24 13:15] LABS: Glucose Challenge Gest 1H 50g 132 mg/dL (70-140); HIV Nonreactive (Nonreactive); Syphilis Antibodies Nonreactive (Nonreactive)
== END | disposition home or self-care (01) ==
PROVIDERS: PCP Family Medicine; Visit Provider Obstetrics & Gynecology
DX: O09.92 Supervision of high risk pregnancy, unspecified, second trimester (principal); Z3A.00 Weeks of gestation of pregnancy not specified; Z13.1 Encounter for screening for diabetes mellitus
CPT/HCPCS: 36415; 82950; 85025; 86703; 86780

== ENCOUNTER → 2025-02-25 | Outpatient (CLI) | payer OTHER, SELFPAY ==
--- OUTSIDE RECORDS SUMMARY | 2025-02-25 18:06 | XMS RPT_ITS | CCD ---
Author Organization [facility] Care Team Providers Care Programming Engineer Name Role Phone Cedric Pisano MD Primary Care Provider GARRETT BEARD Admitting Unavailable MONETTA, ESTEPHANIA Referring Unavailable MONETTA, ESTEPHANIA Consulting Unavailable GARRETT BEARD Attending Unavailable GARRETT BEARD Primary Care Unavailable PROVIDER, UNKNOWN Consulting Unavailable HILLS, ESTEPHANIA Attending Unavailable MONETTA, ESTEPHANIA Primary Care Unavailable MONETTA, ESTEPHANIA Admitting Unavailable [place] PA-C, Estephania Primary Care Provider Josey LEI-CEstephania Referring Provider Dr. Joyce Goodman DO Attending Provider Dr. Joyce Goodman DO Referring Provider Kt Avila CNM Attending Provider [phone] Kt Avila CNM Referring Provider [phone] Dr. Mariela Alvarado MD Attending Provider Estephania Dowling PA-C Primary Care Physician Dr. Joyce Goodman DO Attending Physician Kt Avila CNM Attending Physician [phone] Dr. Mariela Alvarado MD Attending Physician Dr. Mariela Alvarado MD Referring Provider Lionel MICHELLE-Lakeisha Rneteria Attending Physician [phone] Lionel STRIPING MACHINE OPERATOR-CLakeisha Referring Provider Josey PA-CEstephania Primary Care Provider [place] PA-CEstephania Primary Care Physician [place] PA-, Estephania Referring Provider Dr. Joyce Goodman DO Attending Physician AISSATOU RUSHING Attending Unavailable RUSHINGAISSATOU Referring Unavailable [facility] ESTEPHANIA D Primary Care Unavailable MARIELA ALVARADO Referring Unavailabl e AISSATOU RUSHING Attending Unavailable [facility] ESTEPHANIA D Primary Care Unavailable MARIELA ALVARADO Referring Unavailabl e AISSATOU RUSHING Attending Unavailable [facility] ESTEPHANIA D Primary Care Unavailable AISSATOU RUSHING Referring Unavailable [facility] ESTEPHANIA D Primary Care Unavailable ZBIGNIEW VILLARREAL Attending Unavailable GILDARDO LOBATO Attending Unavailable [facility] ESTEPHANIA D Primary Care Unavailable MARIELA ALVARADO Referring Unavailabl [facility] Primary Care Unavailable KT AVILA Attending Unavailable KT AVILA Referring Unavailable Kt Avila Referring Unavailable Kt Avila Attending Unavailable [facility], Estephania Primary Care Unavailable [facility], Estephania Referring Unavailable [place] STRIPING MACHINE OPERATORLakeisha Attending Unavailable [facility], Estephania Primary Care Unavailable [facility], Estephania Referring Unavailable Joyce Goodman Attending Unavailabl [facility] Primary Care Unavailable Joyce Goodman Attending Unavailabl [facility] Primary Care Unavailable Vande Joyce Santiago Attending Unavailabl [facility] Primary Care Unavailable [facility], Estephania Referring Unavailable Mariela Alvarado Attending Unavailable [facility], Estephania Primary Care Unavailable [facility], Estephania Referring Unavailable Kt Avila Attending Unavailable [place] PA, Estephania Primary Care Unavailable [facility], Estephania Referring Unavailable Joyce Goodman Attending Unavailabl e [place] PA, [facility] Primary Care Unavailable Kt Avila Attending Unavailable [facility], Estephania Referring Unavailable [facility], Estephania Primary Care Unavailable Mariela Alvarado Referring Unavailable Mariela Alvarado Attending Unavailable [facility], Estephania Primary Care Unavailable [place] STRIPING MACHINE OPERATORLakeisha Referring Unavailable [place] STRIPING MACHINE OPERATOR, Lakeisha Attending Unavailable [facility], Estephania Primary Care Unavailable Joyce Goodman Referring Unavailabl e Vande VelJoyce saeed Attending Unavailabl e [place] PA, [facility] Unavailable Stanford Carlos Enrique LEI Attending Unavailable [facility], [facility] Care Unavailable [facility] Carlos Enrique LEI Referring Unavailable Joyce Goodman [facility] Care Unavailable [facility], [place] Referring Unavailable Kt Avila Attending Unavailable [facility] Care Unavailable [facility] Carlos Enrique LEI Attending Unavailable Cedric Pisano Referring Unavailable Cedric Pisano Primary Care Unavailable [facility], Estephania Referring Unavailable Joyce Goodman [facility], [facility] Care Unavailable [facility], [facility] Care Unavailable Lionel STRIPING MACHINE OPERATOR, Lakeisha Referring Unavailable Lionel STRIPING MACHINE OPERATOR, Lakeisha Attending Unavailable Mariela Alvarado Attending Unavailable [facility], [facility] Unavailable Allergies Allergy Classification Reported Allergen(s) Allergy Type Date of Onset Reaction(s) Facility (16 sources) Amoxicillin; Translations: [AMOXICILLIN] Drug Allergy 09-28-2024 [facility] Comment on above: Onset 03/2024 (16 sources) Clavulanate; Translations: [CLAVULANIC ACID] Drug Allergy 09-28-2024 [facility] Comment on above: Onset 03/2024 (1 source) Amoxicillin Drug Allergy 01-24-2025 [facility] (1 source) Clavulanate Drug Allergy 01-24-2025 [facility] Medications Current Medications Medication Drug Class(es) Dates Sig (Normalized) Sig (Original) docosahexaenoic acid 200 mg oral capsule (14 sources) Start: 09-28-2024 Vit-Fe Fumarate-FA ( VITAMIN PO) (1 source) Vit-Fe Fumarate-FA ( VITAMIN PO) Take by mouth Active Completed/Discontinued Medications Medication Drug Class(es) Dates Sig (Normalized) Sig (Original) amoxicillin 875 mg / clavulanate 125 mg oral tablet (20 sources) Penicillin-class Antibacterial Start: 03-18-2024 End: 03-28-2024 Amoxicillin-Pot Clavulanate 875-125 mg tablet Discontinued 1 {tbl} PO Q12H 20 10 0 March 18, 2024 1:00am March 27, 2024 1:00am March 28, 2024 1:08am Acute sinusitis, unspecified Start: 09-22-2022 End: 10-02-2022 Amoxicillin-Pot Clavulanate 875-125 mg tablet Discontinued 1 {tbl} PO Q12H 20 10 0 September 22, 2022 9:52am October 01, 2022 12:00am October 02, 2022 12:06am Start: 01-01-2022 End: 01-11-2022 Amoxicillin-Pot Clavulanate 875-125 mg tablet Discontinued 1 {tbl} PO Q12H 20 10 0 January 01, 2022 12:00am January 10, 2022 12:00am January 11, 2022 12:04am Acute sinusitis, unspecified Start: 02-11-2020 End: 02-21-2020 Amoxicillin-Pot Clavulanate (Augmentin) 875-125 mg tablet Discontinued 1 {tbl} PO Q12H 20 10 February 11, 2020 2:06pm February 20, 2020 1:00am February 21, 2020 1:02am Acute sinusitis, unspecified Start: 01-23-2020 End: 02-02-2020 Amoxicillin-Pot Clavulanate (Augmentin) 875-125 mg tablet Discontinued 1 {tbl} PO Q12H 20 10 0 January 23, 2020 12:37pm February 01, 2020 12:00am February 02, 2020 12:02am Acute sinusitis, unspecified Start: 02-06-2019 End: 02-17-2019 Amoxicillin-Pot Clavulanate (Augmentin) 875-125 mg tablet Discontinued 1 {tbl} PO Q12H 20 10 0 February 06, 2019 12:00am February 15, 2019 1:00am February 17, 2019 1:07am Acute sinusitis, unspecified azithromycin 250 mg oral tablet (14 sources) Macrolide Antimicrobial Start: 03-18-2024 End: 09-28-2024 take 2-5 tablets by mouth once daily Azithromycin 250 mg tablet Discontinued 0 PO .COMPLEX 6 0 March 18, 2024 1:00am September 28, 2024 11:18am take 500 mg today (day 1), then 250 mg for 4 days (days 2-5) PO cephalexin 500 mg oral capsule (6 sources) Cephalosporin Antibacterial Start: 12-29-2024 End: 01-05-2025 take 1 capsule by mouth every twelve hours Cephalexin 500 mg capsule Discontinued 500 mg PO Q12H 14 7 0 December 29, 2024 12:00am January 04, 2025 12:00am January 05, 2025 12:10am nitrofurantoin, macrocrystals 25 mg / nitrofurantoin, monohydrate 75 mg oral capsule (14 sources) Nitrofuran Antibacterial Start: 04-02-2018 End: 02-06-2019 take 1 capsule by mouth twice daily at mealtime Nitrofurantoin Monohyd/M-Cryst (Macrobid) 100 mg capsule Discontinued 100 mg PO TWICE A DAY 10 0 April 02, 2018 1:00am February 06, 2019 1:39pm must administer with a meal/food Problems Active Problems Problem Classification Problem Date Documented Da te Episodic/Chronic Allergic reactions (1 source) Atopic dermatitis; Translations: [Other atopic dermatitis] Onset: 03-24-2006 03-24-2006 Chronic Allergic reactions (3 sources) Urticaria, unspecified; Translations: [Urticaria, unspecified] Onset: 03-21-2024 Episodic Genitourinary symptoms and ill-defined conditions (1 source) Dysuria; Translations: [Dysuria] Onset: 01-05-2025 Episodic Hypertension complicating ; childbirth and the puerperium (20 sources) Hypertension complicating ; Translations: [Unspecified maternal hypertension, first trimester] Onset: 11-29-2024 10-06-2024 Chronic Immunizations and screening for infectious disease (15 sources) Contact with and (suspected) exposure to other viral communicable diseases; Translations: [Contact with or suspected exposure to other viral communicable disease] Onset: 01-24-2025 09-28-2024 Episodic Menstrual disorders (20 sources) Amenorrhea; Translations: [Amenorrhea, unspecified] Onset: 09-28-2024 09-30-2024 Chronic Other complications of (20 sources) Maternal obesity complicating , childbirth and the puerperium, antepartum; Translations: [Obesity complicating , unspecified trimester] Onset: 01-10-2025 09-28-2024 Chronic Comment on above: BMI 50.4; HgBA1C ord ered w/NOB BMI 50.4; HgBA1C ord ered w/NOB-NSTs at 32 weeks and growth US at 32 and 36 weeks BMI 50.4; HgBA1C ord ered w/NOB-NSTs at 32 weeks and growth US MFM Q4 weeks Other complications of (1 source) Obesity complicating , second trimester; Translations: [Obesity complicating , second trimester] Onset: 01-24-2025 Chronic Other complications of (1 source) Obesity complicating , unspecified trimester; Translations: [Obesity complicating , unspecified trimester] Onset: 12-27-2024 Chronic Other complications of (20 sources) High risk ; Translations: [Supervision of high risk , unspecified, unspecified trimester] Onset: 01-10-2025 09-28-2024 Episodic Comment on above: ; KIMBER 05/17; Hus band: Cameron PRR ; KIMBER 05/17; boy : Cameron Other complications of (2 sources) Dysuria; Translations: [Other specified related conditions, second trimester] Onset: 01-10-2025 01-10-2025 Episodic Other complications of (9 sources) Urinary tract infection in ; Translations: [Unspecified infection of urinary tract in , unspecified trimester] 01-02-2025 Episodic Comment on above: +UA, keflex, culture + E coli. Repeat culture next visit Other complications of (2 sources) Supervision of high risk , unspecified, second trimester; Translations: [Supervision of high risk , unspecified, second trimester] Onset: 01-24-2025 Episodic Other complications of (1 source) Unspecified infection of urinary tract in , second trimester; Translations: [Unspecified infection of urinary tract in , second trimester] Onset: 01-24-2025 Episodic Other complications of (1 source) Supervision of high risk , unspecified, unspecified trimester; Translations: [Supervision of high risk , unspecified, unspecified trimester] Onset: 01-13-2025 Episodic Other liver diseases (20 sources) Elevated liver enzymes level; Translations: [Abnormal levels of other serum enzymes] 11-02-2024 Episodic Comment on above: repeat improved, parminder l repeat again today. repeat improved, Rep eat elevated: daily home BP checks, 24 hr urine(collect after finishing antibiotic) with repeat CBC and CMP, MFM consult: Growth US Q4wk, del at 39wFetal echo ordered/MFM repeat improved, Rep eat elevated: daily home BP checks, 24 hr urine(collect after finishing antibiotic) with repeat CBC and CMP, if rpt lfts in february are still elevated, order RUQ us and consult giMFM consult: Growth US Q4wk, del at 39wFetal echo ordered/MFM Other liver diseases (2 sources) ALT (SGPT) level raised; Translations: [Elevated ALT measurement] Onset: 01-10-2025 01-10-2025 Episodic Other liver diseases (1 source) Abnormal levels of other serum enzymes; Translations: [Abnormal levels of other serum enzymes] Onset: 02-14-2025 Episodic Other and delivery including normal (20 sources) ; Translations: [Encounter for supervision of normal , unspecified, unspecified trimester] Onset: 12-03-2024 09-28-2024 Episodic Comment on above: Discussed genetic/ca rrier testing - undecided Discussed genetic/ca rrier testing - undecided. NIPT insuff DNA. NIPT low risk. gende r Male (Pt aware) NIPT low risk. gende r Male (Pt aware), normal anatomy Other screening for suspected conditions (not mental disorders or infectious disease) (1 source) Encounter for screening for diabetes mellitus; Translations: [Encounter for screening for diabetes mellitus] Onset: 02-24-2025 Episodic Other upper respiratory infections (20 sources) Acute sinusitis; Translations: [Acute sinusitis, unspecified] 09-28-2024 Episodic Otitis media and related conditions (14 sources) Otitis media; Translations: [Otitis media, unspecified, unspecified ear] 09-28-2024 Episodic Pneumonia (except that caused by tuberculosis or sexually transmitted disease) (15 sources) Bronchopneumonia, unspecified organism; Translations: [Right upper zone pneumonia] Onset: 03-21-2024 09-28-2024 Episodic Residual codes; unclassified (1 source) 23 weeks gestation of ; Translations: [23 weeks gestation of ] Onset: 01-24-2025 Episodic Residual codes; unclassified (1 source) 19 weeks gestation of ; Translations: [19 weeks gestation of ] Onset: 12-27-2024 Episodic Residual codes; unclassified (1 source) 15 weeks gestation of ; Translations: [15 weeks gestation of ] Onset: 11-29-2024 Episodic Unclassified (1 source) Cough, unspecified; Translations: [Cough, unspecified] Onset: 04-21-2024 Urinary tract infections (14 sources) Urinary tract infectious disease; Translations: [Urinary tract infection, site not specified] 09-28-2024 Episodic Past or Other Problems Problem Classification Problem Date Documented Da te Episodic/Chronic Other gastrointestinal disorders (1 source) Constipation; Translations: [Constipation, unspecified] Onset: 05-29-2012 05-29-2012 Episodic Results Test Name Value Interpretation Reference Range Facility CBC W/Diff, Automatedon 11- Absolute Lymph 0.80 X10 3/uL Low 0.83-4.51 [facility] Comment on above: Performed By: #### L 501.0250, L3890.6006, L100.0100, L509.8002 #### [facility] [address] [place], [address] Absolute Neut 6.9 X10 3/uL Normal 2.0-7.7 [facility] Comment on above: Performed By: #### L 501.0250, L3890.6006, L100.0100, L509.8002 #### [facility] [address] [place], [address] Basophils/100 WBC (Bld) 0.4 % Normal 0-1 [facility] Comment on above: Performed By: #### L 501.0250, L3890.6006, L100.0100, L509.8002 #### [facility] [address] [place], [address] Eosinophils/100 WBC (Bld) 0.4 % Normal 0-5 [facility] Comment on above: Performed By: #### L 501.0250, L3890.6006, L100.0100, L509.8002 #### [facility] [address] [place], [address] Erythrocyte distribution width (RBC) [Ratio] 14.1 % Normal 11.6-14.6 [facility] Comment on above: Performed By: #### L 501.0250, L3890.6006, L100.0100, L509.8002 #### [facility] [address] [place], [address] Hematocrit (Bld) [Volume fraction] 39.7 % Normal 37-47 [facility] Comment on above: Performed By: #### L 501.0250, L3890.6006, L100.0100, L509.8002 #### [facility] [address] [place], [address] Hemoglobin (Bld) [Mass/Vol] 12.9 g/dL Normal 12.0-15.0 [facility] Comment on above: Performed By: #### L 501.0250, L3890.6006, L100.0100, L509.8002 #### [facility] [address] [place], [address] IG% 0.200 Normal 0.0-0.9 [facility] Comment on above: Result Comment: IG% - Immature Granulocytes (promyelocytes, myelocytes and metamyelocytes) > 1% indicates that a LEFT SHIFT is Present. Performed By: #### L 501.0250, L3890.6006, L100.0100, L509.8002 #### [facility] [address] [place], [address] Lymphocytes/100 WBC (Bld) 9.5 % Low 19-41 [facility] Comment on above: Performed By: #### L 501.0250, L3890.6006, L100.0100, L509.8002 #### [facility] [address] [place], [address] MCH (RBC) [Entitic mass] 28.3 pg Normal 27.0-32.0 [facility] Comment on above: Performed By: #### L 501.0250, L3890.6006, L100.0100, L509.8002 #### [facility] [address] [place], [address] MCHC (RBC) [Mass/Vol] 32.5 g/dL Normal 32-36 [facility] Comment on above: Performed By: #### L 501.0250, L3890.6006, L100.0100, L509.8002 #### [facility] [address] [place], [address] MCV (RBC) [Entitic vol] 87.1 fL Normal 81-99 [facility] Comment on above: Performed By: #### L 501.0250, L3890.6006, L100.0100, L509.8002 #### [facility] [address] [place], [address] Monocytes/100 WBC (Bld) 7.0 % Normal 0-10 [facility] Comment on above: Performed By: #### L 501.0250, L3890.6006, L100.0100, L509.8002 #### [facility] [address] [place], [address] Neutrophils/100 WBC (Bld) 82.5 % High 47-70 [facility] Comment on above: Performed By: #### L 501.0250, L3890.6006, L100.0100, L509.8002 #### [facility] [address] [place], [address] Nucleated RBC (Bld) [#/Vol] 0 10*3/uL Normal 0-5 [facility] Comment on above: Performed By: #### L 501.0250, L3890.6006, L100.0100, L509.8002 #### [facility] [address] [place], [address] Platelet mean volume (Bld) [Entitic vol] 9.6 fL Normal 6.2-12.0 [facility] Comment on above: Performed By: #### L 501.0250, L3890.6006, L100.0100, L509.8002 #### [facility] [address] [place], [address] Platelets (Bld) [#/Vol] 321 10*3/uL Normal 150-450 [facility] Comment on above: Performed By: #### L 501.0250, L3890.6006, L100.0100, L509.8002 #### [facility] [address] [place], [address] RBC (Bld) [#/Vol] 4.56 10*6/uL Normal 4.2-5.4 [facility] Comment on above: Performed By: #### L 501.0250, L3890.6006, L100.0100, L509.8002 #### [facility] [address] [place], [address] RDW SD 45.1 fl High 35.1-43.9 [facility] Comment on above: Performed By: #### L 501.0250, L3890.6006, L100.0100, L509.8002 #### [facility] [address] [place], [address] WBC (Bld) [#/Vol] 8.4 10*3/uL Normal 4.4-11.0 [facility] Comment on above: Performed By: #### L 501.0250, L3890.6006, L100.0100, L509.8002 #### [facility] [address] [place], [address] Glucose Challenge Gest 1H 50 светлана 02-24-2025 GLU GEST 50g 1H 132 mg/dL Normal 70-140 [facility] Comment on above: Performed By: #### L 501.0250, L3890.6006, L100.0100, L509.8002 #### [facility] [address] [place], [place], [address] HIVon 02-24-2025 HIV Non-Reactive Normal Nonreactive [facility] Comment on above: Result Comment: Non- Reactive Reactive Repeatedly reactive samples must be confirmed according to CDC recommended confirmatory algorithms. The subresults for either HIVAG or AHIV can be used as an aid in the selection of the confirmation algorithm for reactive samples. Send out specimens with Reactive results to [facility] for confirmation. Order the HIV antibody detection and differentiation: [id number] Performed By: #### L 501.0250, L3890.6006, L100.0100, L509.8002 #### [facility] [address] [place], [place], [address] Syphilis Antibodieson 2024 Syphilis Abs Non-Reactive Normal Nonreactive [facility] Comment on above: Performed By: #### L 501.0250, L3890.6006, L100.0100, L509.8002 #### [facility] [address] [place], [place], [address] Progress Noteon 02-14-2025 [employer] Administrator Authentication Interface Message Text New patient 02/15/2025 RE: Maren Barney : 2000 AGE: 24 y.o. CSN#: [id number] Gestational Age: 27 Weeks Delivery Hospital: [facility] Reason for visit: Chief Complaint Patient presents with ECHO echo for suboptimal cardiac views on perinatologist ultrasound. Other indications:None OB History 1 Para Term AB Living SAB IAB Ectopic Multiple Live Births Counseling and/or coordination of care (face to face time in the office/outpatient setting or floor/unit time in the hospital) was greater than 40 minutes which is more than 50% of the total time of 60 minutes spent on the encounter. In addition, the following items were performed before, during, and after this visit: Synthesis of current imaging findings. Results for orders placed or performed in visit on 02/14/25 Echo New Narrative [facility] [place] [address] [email or web address] Echocardiogram Report M-mode, complete 2D, complete spectral Doppler, and color Doppler PATIENT: Maren Barney STUDY DATE/TIME: Feb 14 2025 11:06AM HEIGHT: : 2000 WEIGHT: AGE: 24year(s) BSA/BMI: / GENDER: F BP: 122 / 82 LOCATION: [facility] REFERRING PHYSICIAN: Aissatou Rushing Katherine ORDERING PROVIDER: Aissatou Rushing READING PHYSICIAN: GEORGIE Christie LIEUTENANT/DEPUTY: Sheridan Fuchs RDCS SUMMARY: No significant congenital heart disease identified. 1. Technically difficult study due to maternal body habitus and position. 2. Normal echocardiogram. 3. Normal biventricular size and function. 4. No atrioventricular valve regurgitation. 5. Normal three vessel view. From the three vessel view the superior vena cava measures: 3.70mm, the aorta measures 5.43 mm, the main pulmonary artery measures 6.82 mm. 6. Normally related great arteries. 7. Left aortic arch with left patent ductus arteriosus. 8. Normal systemic and pulmonary venous connections. 9. The rhythm is sinus rhythm, with a heart rate of 142bpm. 10. This study is limited in evaluating minor valve abnormalities, septal defects, partial anomalous pulmonary venous connection, and aortic arch abnormalities. 11. The above findings, including the limitations, were discussed with the patient. Recommendations: follow-up if rodent control worker hears a heart murmur or otherwise clinically indicated. REASON FOR EXAM: Sub-optimal views. : : - Maternal age: 24yr. - : 1. - Parity: 0. - Estimated delivery date: 05/17/2025. - Gestational age: 26 [id number]. STUDY AND PROCEDURE DATA: The patient is . Procedure Description: New ([id number]) . Study status: Routine. Location: lab. Procedure: Transabdominal echocardiogram was performed for congenital heart disease evaluation. Views were limited by maternal body habitus. Patient status: Outpatient. Blood pressure: 122/82 FINDINGS: DESCRIPTION One fetus is present. Normal three vessel view. From the three vessel view the superior vena cava measures: 3.70mm, The aorta measures: 5.43mm, The main pulmonary artery measures: 6.82mm. The rhythm is sinus rhythm, with a heart rate of 142bpm. The position is transverse lie. Normal Doppler pattern of the ductus venosus, umbilical artery, and vein. Three vessel cord. ANATOMIC RELATIONSHIPS - Normal viceral situs. Left sided stomach. Left sided cardiac apex (levocardia). Normally related great vessels. VEINS AND ATRIA Atrial septum - There is a patent foramen ovale. There is a [id number] shunt. Left atrium: - The atrium is normal in size. Right atrium: - The atrium is normal in size. Systemic veins - Inferior vena cava and superior vena cava seen entering normally into the right atrium. Pulmonary veins - There are at least 2 out of 4 pulmonary veins seen entering normally into the left atrium, with normal Doppler pattern. A-V CANAL Tricuspid valve - The valve is structurally normal. There is no regurgitation. - There is normal biphasic inflow spectral Doppler. Mitral valve - The valve is structurally normal. There is no regurgitation. - There is normal biphasic inflow spectral Doppler. VENTRICLES Right ventricle - The cavity size is normal. Wall thickness is normal. Systolic function is qualitatively normal (more content not included)... Normal [facility] Anion gap in Serum or Plasma Ordered By: Joyce Santiago on 02-07-2025 Anion gap [Moles/Vol] 11 mmol/L 08-26 [facility] BUN/creatinine ratioOrdered By: Joyce Santiago on 02-07-2025 Urea nitrogen/Creatinine [Mass ratio] 11.6 mg/mg 01-31 [facility] Bilirubin, totalOrdered By: Joyce Santiago on 02-07-2025 Bilirubin [Mass/Vol] 0.29 mg/dL 0.00-1.30 [facility] Carbon dioxide, total [Moles /volume] in Central venous bloodOrdered By: Joyce Santiago on 02-07-2025 CO2 [Moles/Vol] 22.1 mmol/L 21.0-32.0 [facility] Chloride assayOrdered By: Henry Santiago on 02-07-2025 Chloride [Moles/Vol] 104 mmol/L 98-108 [facility] Comprehensive Metabolic Prof ilon 02-07-2025 Albumin [Mass/Vol] 3.8 g/dL Normal 3.5-5.0 [facility] Comment on above: Performed By: #### L 500.4891 #### [facility] [address] [place], [address] Albumin/Globulin [Mass ratio] 1.0 {ratio} Normal 0.9-2.4 [facility] Comment on above: Performed By: #### L [id number] #### [facility] [address] [place], [address] ALK PHOS 137 U/L High 35-104 [facility] Comment on above: Performed By: #### L [id number] #### [facility] [address] [place], [address] ALT [Catalytic activity/Vol] 45 U/L High <=34 [facility] Comment on above: Performed By: #### L [id number] #### [facility] [address] [place], [address] AST [Catalytic activity/Vol] 21 U/L Normal <=31 [facility] Comment on above: Performed By: #### L [id number] #### [facility] [address] [place], [address] Bilirubin [Mass/Vol] 0.29 mg/dL Normal 0.00-1.30 [facility] Comment on above: Performed By: #### L [id number] #### [facility] [address] [place], [address] BUN/CRE 11.6 RATIO Normal 10-20 [facility] Comment on above: Performed By: #### L [id number] #### [facility] [address] [place], [address] Calcium [Mass/Vol] 9.1 mg/dL Normal 7.6-11.0 [facility] Comment on above: Performed By: #### L [id number] #### [facility] [address] [place], [address] Chloride [Moles/Vol] 104 mmol/L Normal 98-108 [facility] Comment on above: Performed By: #### L [id number] #### [facility] [address] [place], [address] CO2 [Moles/Vol] 22.1 mmol/L Normal 21.0-32.0 [facility] Comment on above: Performed By: #### L [id number] #### [facility] [address] [place], [address] Creatinine [Mass/Vol] 0.48 mg/dL Low 0.70-1.20 [facility] Comment on above: Performed By: #### L [id number] #### [facility] [address] [place], [address] GAP 11 Normal 5-15 [facility] Comment on above: Performed By: #### L [id number] #### [facility] [address] [place], [address] GFR/1.73 sq M.predicted among non-blacks MDRD (S/P/Bld) [Vol rate/Area] 136 mL/min/{1.73_m2} Normal >60 [facility] Comment on above: Result Comment: mL/m in/1.73m2 CKD-EPI Creatinine Equation (2020) Performed By: #### L [id number] #### [facility] [address] [place], [address] Globulin (S) [Mass/Vol] 3.7 g/dL Normal 2.2-4.2 [facility] Comment on above: Performed By: #### L [id number] #### [facility] [address] [place], [address] Glucose [Mass/Vol] 81 mg/dL Normal 70-99 [facility] Comment on above: Performed By: #### L [id number] #### [facility] [address] [place], [address] Potassium [Moles/Vol] 4.0 mmol/L Normal 3.3-5.1 [facility] Comment on above: Performed By: #### L [id number] #### [facility] [address] [place], [address] Sodium [Moles/Vol] 137 mmol/L Normal 133-145 [facility] Comment on above: Performed By: #### L [id number] #### [facility] [address] [place], [address] T PROT 7.5 g/dL Normal 5.9-8.4 [facility] Comment on above: Performed By: #### L [id number] #### [facility] [address] [place], [address] Urea nitrogen [Mass/Vol] 6 mg/dL Normal 4-19 [facility] Comment on above: Performed By: #### L [id number] #### [facility] [address] [place], [address] Glomerular filtration rate ( GFR) estimation/1.73 sq m using serum, plasma, or whole bOrdered By: Joyce Santiago on 02-07-2025 GFR/1.73 sq M.predicted among non-blacks MDRD (S/P/Bld) [Vol rate/Area] 136 mL/min/{1.73_m2} >60 [facility] Comment on above: mL/min/1.73m2 CKD-EP I Creatinine Equation (2020) Laboratory - Chemistry and C hemistry - challengeOrdered By: Joyce Santiago on 02-07-2025 AST [Catalytic activity/Vol] 21 U/L <32 [facility] Potassium measurement (mass/ volume)Ordered By: Joyce Santiago on 02-07-2025 Potassium (Unsp spec) [Mass/Vol] 4.0 mmol/L 3.3-5.1 [facility] Serum creatinine measurement (mass/volume)Ordered By: Joyce Santiago on 02-07-2025 Creatinine [Mass/Vol] 0.48 mg/dL Low 0.70-1.20 [facility] Serum globulin measurementOr dered By: Joyce Santiago on 02-07-2025 Globulin (S) [Mass/Vol] 3.7 g/dL 2.2-4.2 [facility] Serum glucose measurement (m ass/volume)Ordered By: Joyce Santiago on 02-07-2025 Glucose [Mass/Vol] 81 mg/dL 70-99 [facility] Serum or plasma alanine will otransferase (ALT) measurementOrdered By: Joyce Santiago on 02-07-2025 ALT [Catalytic activity/Vol] 45 U/L High <35 [facility] Serum or plasma albumin wilman urement (mass/volume)Ordered By: Joyce Santiago on 02-07-2025 Albumin [Mass/Vol] 3.8 g/dL 3.5-5.0 [facility] Serum or plasma albumin/glob ulin mass ratioOrdered By: Joyce Santiago on 02-07-2025 Albumin/Globulin [Mass ratio] 1.0 {ratio} 0.9-2.4 [facility] Serum or plasma alkaline kristel sphatase measurementOrdered By: Joyce Santiago on 02-07-2025 ALP [Catalytic activity/Vol] 137 U/L High 35-104 [facility] Serum or plasma calcium wilman urement (mass/volume)Ordered By: Joyce Santiago on 02-07-2025 Calcium [Mass/Vol] 9.1 mg/dL 7.6-11.0 [facility] Serum or plasma urea nitroge n measurement (mass/volume)Ordered By: Joyce Santiago on 02-07-2025 Urea nitrogen [Mass/Vol] 6 mg/dL 4-19 [facility] Sodium levelOrdered By: Alina Santiago on 02-07-2025 Sodium [Moles/Vol] 137 mmol/L 133-145 [facility] Total proteinOrdered By: Bettie Santiago on 02-07-2025 Protein [Mass/Vol] 7.5 g/dL 5.9-8.4 [facility] Laboratory - Chemistry and C hemistry - challengeOrdered By: Joyce Santiago on 01-24-2025 Glucose Ql (U) Negative [facility] - UrinalysisOrder ed By: Joyce Santiago on 01-24-2025 Protein Ql (U) Negative [facility] [place] Office Visit Reporton 01-24-2025 [place] Office Visit Report [facility] [address], [address] [place] [address] OFFICE VISIT Date of Service: 01/24/25 MR#: [id number] Acct: [id number] Name: MAREN BARNEY Rep #: [id number] : 2000 Provider: Dr. Joyce Maciel DO Age/Sex: 24/F [place] [facility] [place]: Signed Intake Vital Signs 11/29/24 11:40 12/29/24 13:51 01/24/25 09:01 01/24/25 09:01 Height 5 ft 8 in 5 ft 8 in 5 ft 8 in 5 ft 8 in Weight: 315 lb 5 oz BMI 47.9 BP 126/85 H Intake Visit Reasons: 23wk6d OB *move 03/08 appt 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 Is patient in pain?: No Allergies amoxicillin (From Augmentin) Allergy (Mild, Verified 01/24/25 09:01) rash clavulanic acid (From Augmentin) Allergy (Mild, Verified 01/24/25 09:01) rash Medications ???Medication ???Instructions ???Recorded ???Confirmed ???Type docosahexaenoic acid 200 mg mg PO 09/28/24 01/24/25 History capsule ( DHA) Last Menstrual Period: 08/10/24 Zika: Zika virus screening: Negative : No PFSH PFSH Surgical History Hx of wisdom tooth extraction Family History Mother Skin cancer Father Hypertension Grandmother Diabetes Grandfather Diabetes Social History adopted: No household members: spouse housing: house current occupational status: employed current occupation: [employer] current occupational exposures/hazards: No pets and animals: No history of recent travel: Yes ( - September 2024) out of state: Yes sexually active: Yes Smoking Status: Never smoker second hand exposure: No alcohol intake: current alcohol intake frequency: holidays/special occasions only details: Not while substance use type: does not use well-balanced diet: daily or most days caffeine: Yes Type: coffee eating out: 1-3 times/week during the past year weight has: increased > 10 lbs what type of physical activity do you participate in: walking frequency: 3-4 times per week duration: 15-30 minutes/day sveta/yarsanism: None seatbelt use: always do you feel safe at home: Yes 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 OB Visit KIMBER Calculator Estimated Delivery Date Method Current WG Current Estimate 05/17/25 LMP (Certain) 23w 6d Other Estimates 05/18/25 Ultrasound #1 23w 5d Expected Delivery Route/Plan Labor Preferences- CB/BF classes: [] labor support person: [] labor intervention preferences: [] pain management options preferred: [] cut cord/dad catch: [] : [] PP control planned: [] discussed possible routes of delivery and associated risks: [] special requests: [] Specific Issue/Plans Covid status: [] Flu vaccine: [] Tdap vaccine: [] Rhogam: [] LARC form signed: [] Problem list reviewed and updated with the most current plan of care details and appropriate orders placed. Relevant counseling for the gestational age provided. Continue routine care and follow up unless otherwise noted in visit notes/problem list details Initial Weight: Not Recorded Date -???-???-???-???-???- ???-???-???-???-???-? ??-???- EGA Weight BP Urine Prot -???-???-???-???-???- ???-???-???-???-???-? ??-???- Glucose FHR FuHt Pres Dilation -???-???-???-???-???- ???-???-???-???-???-? ??-???- Effaced St Visit Note 10/06/24 -???-???-???-???-???- ???-???-???-???-???-? ??-???- 8w 1d 315 lb 6 oz 140/85 -???-???-???-???-???- ???-???-???-???-???-? ??-???- 165 -???-???-???-???-???- ???-???-???-???-???-? ??-???- JV- CRL cons istent with LMP. desires nipt. 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 thinks elevated pressure due to anxiety. baseline labs ordered. 11/01/24 -???-???-???-???-???- ???-???-???-???-???-? ??-???- 11w 6d 322 lb 142/89 126/85 -???-???-???-???-???- ???-???-???-???-???-? ??-???- 185 -???-???-???-???-???- ???-???-???-???-???-? ??-???- kw- no vb/cr amping. doing better. MFM anatomy US ordered. if too expensive will call and do [facility] scan. pt reports normal BPs at home. 11/29/24 -???-???-???-???-???- ???-???-???-???-???-? ??-???- 15w 6d 319 lb 130/86 Negative -???-???-???-???-???- ???-???-???-???-???-? ??-???- Negative 158 -???-???-???-???-???- ???-???-???-???-???-? ??-???- KW- no vb/cr amping. has not gotten call from [facility] to schedule US. will myranda (more content not included)... Normal [facility] 24 HR UR Creatinine Clearanc fani 01-10-2025 CREAT CLEARANCE 181 ml/min Normal 100-200 [facility] Comment on above: Performed By: #### L 502.000, L500.4507 #### [facility] [address] [place], [address] Creatinine [Mass/Vol] 0.6 mg/dL Normal 0.6-1.0 [facility] Comment on above: Performed By: #### L 502.000, L500.4507 #### [facility] [address] [place], [address] RANDOM UR TV 2600.0 ML Normal [facility] Comment on above: Performed By: #### L 502.000, L500.4507 #### [facility] [address] [place], [address] 24 HR Urine Creatinineon UR.CREAT/24hr 1536.6 mg/24 hr Normal 740.0-1540.0 [facility] Comment on above: Performed By: #### L 502.000, L500.4507 #### [facility] [address] [place], [address] COMPREHENSIVE METABOLIC PANE [facility] 01-10-2025 Albumin [Mass/Vol] 4.0 g/dL Normal 3.5-5.0 [facility] Comment on above: Order Comment: Relea se to patient->Automatic Result Comment: Veri fied By: [id number] ALP [Catalytic activity/Vol] 121 U/L High 35-104 [facility] Comment on above: Order Comment: Relea se to patient->Automatic Result Comment: Veri fied By: [id number] ALT [Catalytic activity/Vol] 54 U/L High <=34 [facility] Comment on above: Order Comment: Relea se to patient->Automatic Result Comment: Veri fied By: [id number] AST [Catalytic activity/Vol] 21 U/L Normal <=31 [facility] Comment on above: Order Comment: Relea se to patient->Automatic Result Comment: Veri fied By: [id number] BILI,TOTAL 0.4 mg/dL Normal <=1.0 [facility] Comment on above: Order Comment: Relea se to patient->Automatic Result Comment: Veri fied By: [id number] Calcium [Mass/Vol] 9.7 mg/dL Normal 7.6-11.0 [facility] Comment on above: Order Comment: Relea se to patient->Automatic Result Comment: Veri fied By: [id number] Chloride [Moles/Vol] 103 mmol/L Normal 96-108 [facility] Comment on above: Order Comment: Relea se to patient->Automatic Result Comment: Veri fied By: [id number] CO2 [Moles/Vol] 21.9 mmol/L Low 22.0-29.0 [facility] Comment on above: Order Comment: Relea se to patient->Automatic Result Comment: Veri fied By: [id number] Creatinine [Mass/Vol] 0.55 mg/dL Normal 0.50-1.00 [facility] Comment on above: Order Comment: Relea se to patient->Automatic Result Comment: Veri fied By: [id number] GFR/1.73 sq M.predicted among non-blacks MDRD (S/P/Bld) [Vol rate/Area] mL/min/{1.73_m2} Normal >=60 [facility] Comment on above: Order Comment: Relea se to patient->Automatic Glucose [Mass/Vol] 91 mg/dL Normal 70-99 [facility] Comment on above: Order Comment: Relea se to patient->Automatic Result Comment: Crit eria for Diagnosis of Diabetes: Fasting Specimen (no caloric intake for at least 8 hours): <100 mg/dL Normal 100-125 mg/dL Increased risk for Diabetes >125 mg/dL Diagnostic for Diabetes Random Glucose (any time of day without regard to last meal): > or = 200 mg/dL plus Classic Symptoms of Diabetes Verified By: [id number] Potassium [Moles/Vol] 3.7 mmol/L Normal 3.3-5.1 [facility] Comment on above: Order Comment: Relea se to patient->Automatic Result Comment: Veri fied By: [id number] Protein [Mass/Vol] 7.8 g/dL Normal 5.9-8.4 [facility] Comment on above: Order Comment: Relea se to patient->Automatic Result Comment: Veri fied By: [id number] Sodium [Moles/Vol] 138 mmol/L Normal 133-145 [facility] Comment on above: Order Comment: Relea se to patient->Automatic Result Comment: Veri fied By: [id number] Urea nitrogen [Mass/Vol] 5 mg/dL Normal 4-19 [facility] Comment on above: Order Comment: Relea se to patient->Automatic Result Comment: Veri fied By: [id number] Comprehensive metabolic pane meng 01-10-2025 Albumin BCG dye [Mass/Vol] 4.0 g/dL 3.5 - 5.0 g/dL [facility] Comment on above: Verified By: [id number] ALP [Catalytic activity/Vol] 121 U/L High 35 - 104 U/L [facility] Comment on above: Verified By: [id number] ALT With P-5'-P [Catalytic activity/Vol] 54 U/L High NINF - 34 U/L [facility] Comment on above: Verified By: [id number] AST With P-5'-P [Catalytic activity/Vol] 21 U/L NINF - 31 U/L [facility] Comment on above: Verified By: [id number] Bilirubin [Mass/Vol] 0.4 mg/dL [facility] - 1.[facility] mg/dL [facility] Comment on above: Verified By: [id number] Calcium [Mass/Vol] 9.7 mg/dL 7.6 - 11. 0 mg/dL [facility] Comment on above: Verified By: [id number] Chloride [Moles/Vol] 103 mmol/L 96 - 10 8 mmol/L [facility] Comment on above: Verified By: [id number] Creatinine [Mass/Vol] 0.55 mg/dL 0.50 - 1.00 mg/dL [facility] Comment on above: Verified By: [id number] eGFR - PINF [facility] Glucose [Mass/Vol] 91 mg/dL 70 - 99 mg/dL [facility] Comment on above: Criteria for Diagnos is of Diabetes: Fasting Specimen (no caloric intake for at least 8 hours): <100 mg/dL Normal 100-125 mg/dL Increased risk for Diabetes >125 mg/dL Diagnostic for Diabetes Random Glucose (any time of day without regard to last meal): > or = 200 mg/dL plus Classic Symptoms of Diabetes Verified By: [id number] HCO3 (P) [Moles/Vol] 21.9 mmol/L Low 22.0 - 29.0 mmol/L [facility] Comment on above: Verified By: [id number] Interpretation and review of laboratory results Abnormal [facility] Potassium (BldA) [Moles/Vol] 3.7 mmol/L 3.3 - 5.1 mmol/L [facility] Comment on above: Verified By: [id number] Protein [Mass/Vol] 7.8 g/dL 5.9 - 8.4 g/dL [facility] Comment on above: Verified By: [id number] Sodium [Moles/Vol] 138 mmol/L 133 - 145 mmol/L [facility] Comment on above: Verified By: [id number] Urea nitrogen [Mass/Vol] 5 mg/dL 4 - 19 mg/d L [facility] Comment on above: Verified By: [id number] [facility] Glomerular filtration rate ( GFR) estimation/1.73 sq m using serum, plasma, or whole bOrdered By: Lakeisha Flowers on 01-10-2025 GFR/1.73 sq M.predicted among non-blacks MDRD (S/P/Bld) [Vol rate/Area] 130 mL/min/{1.73_m2} >60 [facility] Comment on above: mL/min/1.73m2 CKD-EP I Creatinine Equation (2020) 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 Skin: Negative. Neurological: Negative. Psychiatric/Behaviora l: Negative. PHYSICAL EXAM: VITAL SIGNS: Pulse 90 [...] weeks Ultrasound: growth Q4 DELIVERY PLAN Hospital: [place] Contraception: TBD : recommended Vaccinations recommended: Covid, influenza (Dec-July, any gestational age), TDap (27-36 weeks), RSV [(Abrysvo- Pfizer) between 32-36 weeks, December - April] Elevated ALT measurement 01/10/2025 Priority: High - Discussed possible etiologies including transient elevation, viral (more content not included)... Normal [facility] Renal creatinine clearance c alculated from serum or plasma and 24 hour urine creatiniOrdered By: Mariela Alvarado on 01-10-2025 Creatinine renal clearance (24H U+S/P) [Vol/Time] 181 ml/min 100-200 [facility] Serum Creatinine AND GFRon 0 01-10-2025 Creatinine [Mass/Vol] 0.59 mg/dL Low 0.70-1.20 [facility] Comment on above: Performed By: #### L 501.1105 #### [facility] [address] [place], [place], [id number] GFR/1.73 sq M.predicted among non-blacks MDRD (S/P/Bld) [Vol rate/Area] 130 mL/min/{1.73_m2} Normal >60 [facility] Comment on above: Result Comment: mL/m in/1.73m2 CKD-EPI Creatinine Equation (2020) Performed By: #### L 501.1105 #### [facility] [address] [place], [place], [id number] Serum creatinine measurement (mass/volume)Ordered By: Lakeisha Flowers on 01-10-2025 Creatinine [Mass/Vol] 0.59 mg/dL Low 0.70-1.20 [facility] Total urine volume measureme ntOrdered By: Mariela Alvarado on 01-10-2025 Specimen volume (U) 2600.0 ML [facility] URINE CULTUREon 01-10-2025 Bacteria identified Cx Nom (U) Urine Culture [id number] COLI >100,000 CFU/ml Escherichia coli Organism: ESCHERICHIA COLI Antibiotic Interpretation KATY Status Amikacin S <=2.0 F Ampicillin S <=2.0 F Ampicillin + Sulbactam S <=2.0 F Cefepime S <=1.0 F Ceftazidime S <=1.0 F Ceftriaxone S <=1.0 F Ciprofloxacin S <=0.25 F Gentamicin S <=1.0 F Levofloxacin S <=0.12 F Meropenem S <=0.25 F Nitrofurantoin S <=16.0 F Piperacillin + Tazobactam S <=4.0 F Tobramycin S <=1.0 F Trimethoprim + Sulfamethoxazole S <=20.0 F Cefazolin (Urine) S <=4.0 F Extended Spectrum b-lactamase N F Normal [facility] Comment on above: Order Comment: Relea se to patient->Automatic Urine creatinine measurement (mass/volume)Ordered By: Mariela Alvarado on 01-10-2025 Creatinine (U) [Mass/Vol] 59.10 mg/dL 28.00-217.00 [facility] Comment on above: *Additional results available. Contact laboratory/see report* Urine Cultureon 12-31-2024 [facility] Escherichia coli [place] Count >100,000 Escherichia coli: REACTION Ampicillin Islt KATY <=2 Ampicillin+Sulbac Islt KATY <=2 S Cefepime Islt KATY <=0.12 S cefTRIAXone Islt KATY <=0.25 S Ciprofloxacin Islt KATY <=0.06 S B-Lactamase Extended Susc Islt NEG Gentamicin Islt KATY <=1 S levoFLOXacin Islt KATY <=0.12 S Meropenem Islt KATY <=0.25 S Nitrofurantoin Islt KATY <=16 S Pip+Tazo Islt KATY <=4 S TMP SMX Islt KATY <=20 S Normal [facility] Comment on above: Performed By: #### M 100.5171 #### [facility] [address] [place], [address] Laboratory - Chemistry and C hemistry - challengeOrdered By: Lakeisha Flowers on 12-29-2024 Bilirubin Ql (U) Negative [facility] Glucose Ql (U) Negative [facility] Ketones Ql (U) Negative [facility] pH (U) 6.0 [pH] [facility] Specific gravity (U) [Rel density] 1.010 [facility] Urobilinogen (U) [Mass/Vol] Negative [facility] Laboratory - Hematology and Cell countsOrdered By: Lakeisha Flowers on 12-29-2024 Hemoglobin Ql (U) Hemolyzed [facility] Laboratory - Specimen inform ationOrdered By: Lakeisha Flowers on 12-29-2024 Clarity (U) Cloudy [facility] Color (U) YELLOW [facility] Laboratory - UrinalysisOrder ed By: Lakeisha Flowers on 12-29-2024 Nitrite Ql (U) Negative [facility] Protein Ql (U) Trace [facility] No Panel InformationOrdered By: Lakeisha Flowers on 12-29-2024 Urine Leukocytes Positive [facility] Urine Non-Hemolyzed Blood Large [facility] [place] [place] Visit Reporton 12-29-2024 [place] Office Visit Report [facility]'[address], [address] [place] [address] OFFICE VISIT Date of Service: 12/29/24 MR#: [id number] Acct: [id number] Name: MAREN BARNEY Rep #: [id number] : 2000 Provider: HECTOR doe Age/Sex: 24/F [place] [facility] [place]: Signed Intake Vital Signs 12/27/24 10:25 12/29/24 13:40 12/29/24 13:51 Height 5 ft 8 in 5 ft 8 in 5 ft 8 in Weight: 314 lb 4 oz BMI 47.7 BP 135/88 H Intake Visit Reasons: OB, hematuria, dysuria Chief Complaint: OB hematuria and dysuria 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 Is patient in pain?: No Allergies amoxicillin (From Augmentin) Allergy (Mild, Verified 12/29/24 13:40) rash clavulanic acid (From Augmentin) Allergy (Mild, Verified 12/29/24 13:40) rash Medications ???Medication ???Instructions ???Recorded ???Confirmed ???Type docosahexaenoic acid 200 mg mg PO 09/28/24 12/29/24 History capsule ( DHA) cephalexin 500 mg capsule 500 mg PO Q12H 7 days #14 caps 12/29/24 Rx Last Menstrual Period: 08/10/24 Zika: Zika virus screening: Negative : No PFSH PFSH Surgical History Hx of wisdom tooth extraction Family History Mother Skin cancer Father Hypertension Grandmother Diabetes Grandfather Diabetes Social History adopted: No household members: spouse housing: house current occupational status: employed current occupation: [employer] current occupational exposures/hazards: No pets and animals: No history of recent travel: Yes ( - September 2024) out of state: Yes sexually active: Yes Smoking Status: Never smoker second hand exposure: No alcohol intake: current alcohol intake frequency: holidays/special occasions only details: Not while substance use type: does not use well-balanced diet: daily or most days caffeine: Yes Type: coffee eating out: 1-3 times/week during the past year weight has: increased > 10 lbs what type of physical activity do you participate in: walking frequency: 3-4 times per week duration: 15-30 minutes/day sveta/yarsanism: None seatbelt use: always do you feel safe at home: Yes 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 OB Visit KIMBER Calculator Estimated Delivery Date Method Current WG Current Estimate 05/17/25 LMP (Certain) 20w 1d Other Estimates 05/18/25 Ultrasound #1 20w 0d Expected Delivery Route/Plan Labor Preferences- CB/BF classes: [] labor support person: [] labor intervention preferences: [] pain management options preferred: [] cut cord/dad catch: [] : [] PP control planned: [] discussed possible routes of delivery and associated risks: [] special requests: [] Specific Issue/Plans Covid status: [] Flu vaccine: [] Tdap vaccine: [] Rhogam: [] LARC form signed: [] Problem list reviewed and updated with the most current plan of care details and appropriate orders placed. Relevant counseling for the gestational age provided. Continue routine care and follow up unless otherwise noted in visit notes/problem list details Initial Weight: Not Recorded Date -???-???-???-???-???- ???-???-???-???-???-? ??-???- EGA Weight BP Urine Prot -???-???-???-???-???- ???-???-???-???-???-? ??-???- Glucose FHR FuHt Pres Dilation -???-???-???-???-???- ???-???-???-???-???-? ??-???- Effaced St Visit Note 10/06/24 -???-???-???-???-???- ???-???-???-???-???-? ??-???- 8w 1d 315 lb 6 oz 140/85 -???-???-???-???-???- ???-???-???-???-???-? ??-???- 165 -???-???-???-???-???- ???-???-???-???-???-? ??-???- JV- CRL cons istent with LMP. desires nipt. 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 thinks elevated pressure due to anxiety. baseline labs ordered. 11/01/24 -???-???-???-???-???- ???-???-???-???-???-? ??-???- 11w 6d 322 lb 142/89 126/85 -???-???-???-???-???- ???-???-???-???-???-? ??-???- 185 -???-???-???-???-???- ???-???-???-???-???-? ??-???- kw- no vb/cr amping. doing better. MFM anatomy US ordered. if too expensive will call and do [facility] scan. pt reports normal BPs at home. 11/29/24 -???-???-???-???-???- ???-???-???-???-???-? ??-???- 15w 6d 319 lb 130/86 Negative -???-???-???-???-???- ???-???-???-???-???-? ??-???- Negative 158 -???-???-???-???-???- ???-???-???-???-???-? (more content not included)... Normal [facility] Urine cultureOrdered By: Kyle Flowers on 12-29-2024 Bacteria identified Cx Nom (U) Escherichia coli Abnormal [facility] Absolute lymphocyte countOrd ered By: Mariela Alvarado on 12-28-2024 Lymphocytes Auto (Unsp spec) [#/Vol] 1.29 10*3/uL 0.83-4.51 [facility] Absolute neutrophil countOrd ered By: Mariela Alvarado on 12-28-2024 Neutrophils (Bld) [#/Vol] 8.2 10*3/uL High 2.0-7.7 [facility] Anion gap in Serum or Plasma Ordered By: Mariela Alvarado on 12-28-2024 Anion gap [Moles/Vol] 12 mmol/L 5-15 [facility] Automated lymphocyte count a s percentage of total leukocytesOrdered By: Mariela Alvarado on 12-28-2024 Lymphocytes/100 WBC Auto (Unsp spec) 12.6 % Low 19-41 [facility] BUN/creatinine ratioOrdered By: Mariela Alvarado on 12-28-2024 Urea nitrogen/Creatinine [Mass ratio] 9.9 mg/mg Low 10-20 [facility] Basophil percentageOrdered B y: Mariela Alvarado on 12-28-2024 Basophils/100 WBC (Bld) 0.3 % 0-1 [facility] Bilirubin, totalOrdered By: Mariela Alvarado on 12-28-2024 Bilirubin [Mass/Vol] 0.38 mg/dL 0.00-1.30 [facility] CBC W/Diff, Automatedon 12-13 Absolute Lymph 1.29 X10 3/uL Normal 0.83-4.51 [facility] Comment on above: Performed By: #### M 100.2200 #### [facility] [address] [place], [address] Absolute Neut 8.2 X10 3/uL High 2.0-7.7 [facility] Comment on above: Performed By: #### M 100.2200 #### [facility] [address] [place], [address] Basophils/100 WBC (Bld) 0.3 % Normal 0-1 [facility] Comment on above: Performed By: #### M 100.2200 #### [facility] [address] [place], [address] Eosinophils/100 WBC (Bld) 0.9 % Normal 0-5 [facility] Comment on above: Performed By: #### M 100.2200 #### [facility] [address] [place], [address] Erythrocyte distribution width (RBC) [Ratio] 15.0 % High 11.6-14.6 [facility] Comment on above: Performed By: #### M 100.2200 #### [facility] [address] [place], [address] Hematocrit (Bld) [Volume fraction] 39.6 % Normal 37-47 [facility] Comment on above: Performed By: #### M 100.2200 #### [facility] [address] [place], [address] Hemoglobin (Bld) [Mass/Vol] 13.2 g/dL Normal 12.0-15.0 [facility] Comment on above: Performed By: #### M 100.2200 #### [facility] [address] [place], [address] IG% 0.400 Normal 0.0-0.9 [facility] Comment on above: Result Comment: IG% - Immature Granulocytes (promyelocytes, myelocytes and metamyelocytes) > 1% indicates that a LEFT SHIFT is Present. Performed By: #### M 100.2200 #### [facility] [address] [place], [address] Lymphocytes/100 WBC (Bld) 12.6 % Low 19-41 [facility] Comment on above: Performed By: #### M 100.2200 #### [facility] [address] [place], [address] MCH (RBC) [Entitic mass] 28.2 pg Normal 27.0-32.0 [facility] Comment on above: Performed By: #### M 100.2200 #### [facility] [address] [place], [address] MCHC (RBC) [Mass/Vol] 33.3 g/dL Normal 32-36 [facility] Comment on above: Performed By: #### M 100.2200 #### [facility] [address] [place], [address] MCV (RBC) [Entitic vol] 84.6 fL Normal 81-99 [facility] Comment on above: Performed By: #### M 100.2200 #### [facility] [address] [place], [address] Monocytes/100 WBC (Bld) 5.6 % Normal 0-10 [facility] Comment on above: Performed By: #### M 100.2200 #### [facility] [address] [place], [address] Neutrophils/100 WBC (Bld) 80.2 % High 47-70 [facility] Comment on above: Performed By: #### M 100.2200 #### [facility] [address] [place], [address] Nucleated RBC (Bld) [#/Vol] 0 10*3/uL Normal 0-5 [facility] Comment on above: Performed By: #### M 100.2200 #### [facility] [address] [place], [address] Platelet mean volume (Bld) [Entitic vol] 9.5 fL Normal 6.2-12.0 [facility] Comment on above: Performed By: #### M 100.2200 #### [facility] [address] [place], [address] Platelets (Bld) [#/Vol] 296 10*3/uL Normal 150-450 [facility] Comment on above: Performed By: #### M 100.2200 #### [facility] [address] [place], [address] RBC (Bld) [#/Vol] 4.68 10*6/uL Normal 4.2-5.4 [facility] Comment on above: Performed By: #### M 100.2200 #### [facility] [address] [place], [address] RDW SD 45.8 fl High 35.1-43.9 [facility] Comment on above: Performed By: #### M 100.2200 #### [facility] [address] [place], [address] WBC (Bld) [#/Vol] 10.2 10*3/uL Normal 4.4-11.0 [facility] Comment on above: Performed By: #### M 100.2200 #### [facility] [address] [place], [address] Carbon dioxide, total [Moles /volume] in Central venous bloodOrdered By: Mariela Alvarado on 12-28-2024 CO2 [Moles/Vol] 20.2 mmol/L Low 21.0-32.0 [facility] Chloride assayOrdered By: Mauricio Alvarado on 12-28-2024 Chloride [Moles/Vol] 104 mmol/L 98-108 [facility] Comprehensive Metabolic Prof ilon 12-28-2024 Albumin [Mass/Vol] 3.6 g/dL Normal 3.5-5.0 [facility] Comment on above: Performed By: #### M 100.0 #### [facility] [address] [place], [address] Albumin/Globulin [Mass ratio] 1.1 {ratio} Normal 0.9-2.4 [facility] Comment on above: Performed By: #### M 100.2200 #### [facility] [address] [place], [address] ALK PHOS 127 U/L High 35-104 [facility] Comment on above: Performed By: #### M 100.2200 #### [facility] [address] [place], [address] ALT [Catalytic activity/Vol] 71 U/L High <=34 [facility] Comment on above: Performed By: #### M 100.2200 #### [facility] [address] [place], [address] AST [Catalytic activity/Vol] 28 U/L Normal <=31 [facility] Comment on above: Performed By: #### M 100.2200 #### [facility] [address] [place], [address] Bilirubin [Mass/Vol] 0.38 mg/dL Normal 0.00-1.30 [facility] Comment on above: Performed By: #### M 100.2200 #### [facility] [address] [place], [address] BUN/CRE 9.9 RATIO Low 10-20 [facility] Comment on above: Performed By: #### M 100.2200 #### [facility] [address] [place], [address] Calcium [Mass/Vol] 9.2 mg/dL Normal 7.6-11.0 [facility] Comment on above: Performed By: #### M 100.2200 #### [facility] [address] [place], [address] Chloride [Moles/Vol] 104 mmol/L Normal 98-108 [facility] Comment on above: Performed By: #### M 100.2200 #### [facility] [address] [place], [address] CO2 [Moles/Vol] 20.2 mmol/L Low 21.0-32.0 [facility] Comment on above: Performed By: #### M 100.2200 #### [facility] [address] [place], [address] Creatinine [Mass/Vol] 0.53 mg/dL Low 0.70-1.20 [facility] Comment on above: Performed By: #### M 100.2200 #### [facility] [address] [place], [address] GAP 12 Normal 5-15 [facility] Comment on above: Performed By: #### M 100.2200 #### [facility] [address] [place], [address] GFR/1.73 sq M.predicted among non-blacks MDRD (S/P/Bld) [Vol rate/Area] 133 mL/min/{1.73_m2} Normal >60 [facility] Comment on above: Result Comment: mL/m in/1.73m2 CKD-EPI Creatinine Equation (2020) Performed By: #### M 100.2200 #### [facility] [address] [place], [address] Globulin (S) [Mass/Vol] 3.4 g/dL Normal 2.2-4.2 [facility] Comment on above: Performed By: #### M 100.2200 #### [facility] [address] [place], [address] Glucose [Mass/Vol] 87 mg/dL Normal 70-99 [facility] Comment on above: Performed By: #### M 100.2200 #### [facility] [address] [place], [address] Potassium [Moles/Vol] 3.8 mmol/L Normal 3.3-5.1 [facility] Comment on above: Performed By: #### M 100.2200 #### [facility] [address] [place], [address] Sodium [Moles/Vol] 136 mmol/L Normal 133-145 [facility] Comment on above: Performed By: #### M 100.2200 #### [facility] [address] [place], [address] T PROT 7.1 g/dL Normal 5.9-8.4 [facility] Comment on above: Performed By: #### M 100.2200 #### [facility] [address] [place], [address] Urea nitrogen [Mass/Vol] 5 mg/dL Normal 4-19 [facility] Comment on above: Performed By: #### M 100.2200 #### [facility] [address] [place], [address] Eosinophil percentageOrdered By: Mariela Alvarado on 12-28-2024 Eosinophils/100 WBC (Bld) 0.9 % 0-5 [facility] Erythrocyte distribution wid th ratioOrdered By: Mariela Alvarado on 12-28-2024 Erythrocyte distribution width (RBC) [Ratio] 15.0 % High 11.6-14.6 [facility] Erythrocyte distribution wid th standard deviationOrdered By: Mariela Alvarado on 12-28-2024 Erythrocyte distribution width (RBC) [Ratio] 45.8 fl High 35.1-43.9 [facility] Glomerular filtration rate ( GFR) estimation/1.73 sq m using serum, plasma, or whole bOrdered By: Mariela Alvarado on 12-28-2024 GFR/1.73 sq M.predicted among non-blacks MDRD (S/P/Bld) [Vol rate/Area] 133 mL/min/{1.73_m2} >60 [facility] Comment on above: mL/min/1.73m2 CKD-EP I Creatinine Equation (2020) Hematocrit Auto (Bld) [Volum e fraction]Ordered By: Mariela Alvarado on 12-28-2024 Hematocrit (Bld) [Volume fraction] 39.6 % 37-47 [facility] Hemoglobin measurementOrdere d By: Mariela Alvarado on 12-28-2024 Hemoglobin (Bld) [Mass/Vol] 13.2 g/dL 12.0-15.0 [facility] Immature granulocytes/100 WB C Auto (Bld)Ordered By: Mariela Alvarado on 12-28-2024 Immature granulocytes/100 WBC (Bld) 0.400 % 0.0-0.9 [facility] Comment on above: IG% - Immature Granu locytes (promyelocytes, myelocytes and metamyelocytes) > 1% indicates that a LEFT SHIFT is Present. Laboratory - Chemistry and C hemistry - challengeOrdered By: Mariela Alvarado on 12-28-2024 AST [Catalytic activity/Vol] 28 U/L <32 [facility] MCV (mean corpuscular volume ) determinationOrdered By: Mariela Alvarado on 12-28-2024 MCV (RBC) [Entitic vol] 84.6 fL 81-99 [facility] Mean corpuscular hemoglobin (MCH) determinationOrdered By: Mariela Alvarado on 12-28-2024 MCH (RBC) [Entitic mass] 28.2 pg 27.0-32.0 [facility] Mean corpuscular hemoglobin concentration (MCHC) determinationOrdered By: Mariela Alvarado on 12-28-2024 MCHC (RBC) [Mass/Vol] 33.3 g/dL 32-36 [facility] Mean platelet volume determi nationOrdered By: Mariela Alvarado on 12-28-2024 Platelet mean volume (Bld) [Entitic vol] 9.5 fL 6.2-12.0 [facility] Monocyte percentageOrdered B y: Mariela Alvarado on 12-28-2024 Monocytes/100 WBC (Bld) 5.6 % 0-10 [facility] Neutrophil percentageOrdered By: Mariela Alvarado on 12-28-2024 Neutrophils/100 WBC (Bld) 80.2 % High 47-70 [facility] Nucleated red blood cell per centageOrdered By: Mariela Alvarado on 12-28-2024 Nucleated RBC/100 WBC (Bld) [Ratio] 0 % 0-5 [facility] Platelet countOrdered By: Mauricio Alvarado on 12-28-2024 Platelets (Bld) [#/Vol] 296 10*3/uL 150-450 [facility] Potassium measurement (mass/ volume)Ordered By: Mariela Alvarado on 12-28-2024 Potassium (Unsp spec) [Mass/Vol] 3.8 mmol/L 3.3-5.1 [facility] RBC Auto (Bld) [#/Vol]Ordere d By: Mariela Alvaraod on 12-28-2024 RBC (Bld) [#/Vol] 4.68 10*6/uL 4.2-5.4 [facility] Serum creatinine measurement (mass/volume)Ordered By: Mariela Alvarado on 12-28-2024 Creatinine [Mass/Vol] 0.53 mg/dL Low 0.70-1.20 [facility] Serum globulin measurementOr dered By: Mariela Alvarado on 12-28-2024 Globulin (S) [Mass/Vol] 3.4 g/dL 2.2-4.2 [facility] Serum glucose measurement (m ass/volume)Ordered By: Mariela Alvarado on 12-28-2024 Glucose [Mass/Vol] 87 mg/dL 70-99 [facility] Serum or plasma alanine will otransferase (ALT) measurementOrdered By: Mariela Alvarado on 12-28-2024 ALT [Catalytic activity/Vol] 71 U/L High <35 [facility] Serum or plasma albumin wilman urement (mass/volume)Ordered By: Mariela Alvarado on 12-28-2024 Albumin [Mass/Vol] 3.6 g/dL 3.5-5.0 [facility] Serum or plasma albumin/glob ulin mass ratioOrdered By: Mariela Alvarado on 12-28-2024 Albumin/Globulin [Mass ratio] 1.1 {ratio} 0.9-2.4 [facility] Serum or plasma alkaline kristel sphatase measurementOrdered By: Mariela Alvarado on 12-28-2024 ALP [Catalytic activity/Vol] 127 U/L High 35-104 [facility] Serum or plasma calcium wilman urement (mass/volume)Ordered By: Mariela Alvarado on 12-28-2024 Calcium [Mass/Vol] 9.2 mg/dL 7.6-11.0 [facility] Serum or plasma urea nitroge n measurement (mass/volume)Ordered By: Mariela Alvarado on 12-28-2024 Urea nitrogen [Mass/Vol] 5 mg/dL 4-19 [facility] Sodium levelOrdered By: Zaheer Alvarado on 12-28-2024 Sodium [Moles/Vol] 136 mmol/L 133-145 [facility] Total proteinOrdered By: Rl Alvarado on 12-28-2024 Protein [Mass/Vol] 7.1 g/dL 5.9-8.4 [facility] White blood cell (WBC) count Ordered By: Mariela Alvarado on 12-28-2024 WBC (Bld) [#/Vol] 10.2 10*3/uL 4.4-11.0 [facility] - Chemistry and C hemistry - challengeOrdered By: Mariela Alvarado on 12-27-2024 Glucose Ql (U) Negative [facility] - UrinalysisOrder ed By: Mariela Alvarado on 12-27-2024 Protein Ql (U) Negative [facility] Visit Reporton 12-27-2024 [place] Office Visit Report [facility] [address], [address] [place] [address] OFFICE VISIT Date of Service: 12/27/24 MR#: [id number] Acct: [id number] Name: MAREN BARNEY Rep #: [id number] : 2000 Provider: Dr. 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 Is patient in pain?: No Allergies amoxicillin (From Augmentin) Allergy (Mild, Verified 12/27/24 10:20) rash clavulanic acid (From Augmentin) Allergy (Mild, Verified 12/27/24 10:20) rash Medications ???Medication ???Instructions ???Recorded ???Confirmed ???Type docosahexaenoic acid 200 mg mg PO 09/28/24 12/27/24 History capsule ( DHA) Last Menstrual Period: 08/10/24 Zika: Zika virus screening: Negative : No PFSH PFSH Surgical History Hx of wisdom tooth extraction Family History Mother Skin cancer Father Hypertension Grandmother Diabetes Grandfather Diabetes Social History adopted: No household members: spouse housing: house current occupational status: employed current occupation: [employer] current occupational exposures/hazards: No pets and animals: No history of recent travel: Yes ( - September 2024) out of state: Yes sexually active: Yes Smoking Status: Never smoker second hand exposure: No alcohol intake: current alcohol intake frequency: holidays/special occasions only details: Not while substance use type: does not use well-balanced diet: daily or most days caffeine: Yes Type: coffee eating out: 1-3 times/week during the past year weight has: increased > 10 lbs what type of physical activity do you participate in: walking frequency: 3-4 times per week duration: 15-30 minutes/day sveta/yarsanism: None seatbelt use: always do you feel safe at home: Yes 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 OB Visit KIMBER Calculator Estimated Delivery Date Method Current WG Current Estimate 05/17/25 LMP (Certain) 19w 6d Other Estimates 05/18/25 Ultrasound #1 19w 5d Expected Delivery Route/Plan Labor Preferences- CB/BF classes: [] labor support person: [] labor intervention preferences: [] pain management options preferred: [] cut cord/dad catch: [] : [] PP control planned: [] discussed possible routes of delivery and associated risks: [] special requests: [] Specific Issue/Plans Covid status: [] Flu vaccine: [] Tdap vaccine: [] Rhogam: [] LARC form signed: [] Problem list reviewed and updated with the most current plan of care details and appropriate orders placed. Relevant counseling for the gestational age provided. Continue routine care and follow up unless otherwise noted in visit notes/problem list details Initial Weight: Not Recorded Date -???-???-???-???-???- ???-???-???-???-???-? ??-???- EGA Weight BP Urine Prot -???-???-???-???-???- ???-???-???-???-???-? ??-???- Glucose FHR FuHt Pres Dilation -???-???-???-???-???- ???-???-???-???-???-? ??-???- Effaced St Visit Note 10/06/24 -???-???-???-???-???- ???-???-???-???-???-? ??-???- 8w 1d 315 lb 6 oz 140/85 -???-???-???-???-???- ???-???-???-???-???-? ??-???- 165 -???-???-???-???-???- ???-???-???-???-???-? ??-???- JV- CRL cons istent with LMP. desires nipt. 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 thinks elevated pressure due to anxiety. baseline labs ordered. 11/01/24 -???-???-???-???-???- ???-???-???-???-???-? ??-???- 11w 6d 322 lb 142/89 126/85 -???-???-???-???-???- ???-???-???-???-???-? ??-???- 185 -???-???-???-???-???- ???-???-???-???-???-? ??-???- kw- no vb/cr amping. doing better. [facility] anatomy US ordered. if too expensive will call and do [facility] scan. pt reports normal BPs at home. 11/29/24 -???-???-???-???-???- ???-???-???-???-???-? ??-???- 15w 6d 319 lb 130/86 Negative -???-???-???-???-???- ???-???-???-???-???-? ??-???- Negative 158 -???-???-???-???-???- ???-???-???-???-???-? ??-???- KW- no vb/cr amping. has not gotten call from [facility] to schedule US. will reorder US. Declines AFP. 12/27/24 -???-???-? (more content not included)... Normal [facility] - Chemistry and C hemistry - challengeOrdered By: Kt Avila on 11-29-2024 Glucose Ql (U) Negative [facility] - UrinalysisOrder ed By: Kt Avila on 11-29-2024 Protein Ql (U) Negative [facility] [place] Office Visit Reporton 11-29-2024 [place] [facility] Visit Report [facility] [address], [address] [place] [address] OFFICE VISIT Date of Service: 11/29/24 MR#: [id number] Acct: [id number] Name: MAREN BARNEY Rep #: [id number] : 2000 Provider: RAFAELA Echevarria ams Age/Sex: 24/F Location: [facility] [place] Status: Signed Intake Vital Signs 10/06/24 13:07 11/01/24 13:49 11/29/24 11:40 Height 5 ft 8 in 5 ft 8 in 5 ft 8 in Weight: 319 lb BMI 48.4 BP 130/86 H Intake Visit Reasons: 16 wk ob Chief Complaint: 16wk OB 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 Is patient in pain?: No Allergies amoxicillin (From Augmentin) Allergy (Mild, Verified 11/29/24 11:39) rash clavulanic acid (From Augmentin) Allergy (Mild, Verified 11/29/24 11:39) rash Medications ???Medication ???Instructions ???Recorded ???Confirmed ???Type docosahexaenoic acid 200 mg mg PO 09/28/24 11/29/24 History capsule ( DHA) Last Menstrual Period: 08/10/24 : No PFSH PFSH Surgical History Hx of wisdom tooth extraction Family History Mother Skin cancer Father Hypertension Grandmother Diabetes Grandfather Diabetes Social History adopted: No household members: spouse housing: house current occupational status: employed current occupation: [employer] current occupational exposures/hazards: No pets and animals: No history of recent travel: Yes ( - September 2024) out of state: Yes sexually active: Yes Smoking Status: Never smoker second hand exposure: No alcohol intake: current alcohol intake frequency: holidays/special occasions only details: Not while substance use type: does not use well-balanced diet: daily or most days caffeine: Yes Type: coffee eating out: 1-3 times/week during the past year weight has: increased > 10 lbs what type of physical activity do you participate in: walking frequency: 3-4 times per week duration: 15-30 minutes/day sveta/yarsanism: None seatbelt use: always do you feel safe at home: Yes 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 OB Visit KIMBER Calculator Estimated Delivery Date Method Current WG Current Estimate 05/17/25 LMP (Certain) 15w 6d Other Estimates 05/18/25 Ultrasound #1 15w 5d Expected Delivery Route/Plan Labor Preferences- CB/BF classes: [] labor support person: [] labor intervention preferences: [] pain management options preferred: [] cut cord/dad catch: [] : [] PP control planned: [] discussed possible routes of delivery and associated risks: [] special requests: [] Specific Issue/Plans Covid status: [] Flu vaccine: [] Tdap vaccine: [] Rhogam: [] LARC form signed: [] Problem list reviewed and updated with the most current plan of care details and appropriate orders placed. Relevant counseling for the gestational age provided. Continue routine care and follow up unless otherwise noted in visit notes/problem list details Initial Weight: Not Recorded Date -???-???-???-???-???- ???-???-???-???-???-? ??-???- EGA Weight BP Urine Prot -???-???-???-???-???- ???-???-???-???-???-? ??-???- Glucose FHR FuHt Pres Dilation -???-???-???-???-???- ???-???-???-???-???-? ??-???- Effaced St Visit Note 10/06/24 -???-???-???-???-???- ???-???-???-???-???-? ??-???- 8w 1d 315 lb 6 oz 140/85 -???-???-???-???-???- ???-???-???-???-???-? ??-???- 165 -???-???-???-???-???- ???-???-???-???-???-? ??-???- JV- CRL cons istent with LMP. desires nipt. 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 thinks elevated pressure due to anxiety. baseline labs ordered. 11/01/24 -???-???-???-???-???- ???-???-???-???-???-? ??-???- 11w 6d 322 lb 142/89 126/85 -???-???-???-???-???- ???-???-???-???-???-? ??-???- 185 -???-???-???-???-???- ???-???-???-???-???-? ??-???- kw- no vb/cr amping. doing better. [facility] anatomy US ordered. if too expensive will call and do [facility] scan. pt reports normal BPs at home. 11/29/24 -???-???-???-???-???- ???-???-???-???-???-? ??-???- 15w 6d 319 lb 130/86 Negative -???-???-???-???-???- ???-???-???-???-???-? ??-???- Negative 158 -???-???-???-???-???- ???-???-???-???-???-? ??-???- KW- no vb/cr amping. has not gotten call from [facility] to schedule US. will reorder US. Declines AFP. ACOG First Trimester First Trimester: Desire for , Alcohol, Tob (more content not included)... Normal [facility] NATERAon 11-17-2024 [place] SEE SCANNED REPORT Normal [facility] Comment on above: Performed By: #### M 100.2200 #### [facility] [address] [place], [address] Anion gap in Serum or Plasma Ordered By: Joyce Santiago on 11-10-2024 Anion gap [Moles/Vol] 12 mmol/L 5-15 [facility] BUN/creatinine ratioOrdered By: Joyce Santiago on 11-10-2024 Urea nitrogen/Creatinine [Mass ratio] 12.2 mg/mg 10-20 [facility] Bilirubin, totalOrdered By: Joyce Santiago on 11-10-2024 Bilirubin [Mass/Vol] 0.22 mg/dL 0.00-1.30 [facility] Carbon dioxide, total [Moles /volume] in Central venous bloodOrdered By: Joyce Santiago on 11-10-2024 CO2 [Moles/Vol] 22.7 mmol/L 21.0-32.0 [facility] Chloride assayOrdered By: Henry Santiago on 11-10-2024 Chloride [Moles/Vol] 101 mmol/L 98-108 [facility] Comprehensive Metabolic Prof ilon 11-10-2024 Albumin [Mass/Vol] 3.9 g/dL Normal 3.5-5.0 [facility] Comment on above: Performed By: #### M 100.0 #### [facility] [address] [place], [address] Albumin/Globulin [Mass ratio] 1.2 {ratio} Normal 0.9-2.4 [facility] Comment on above: Performed By: #### M 100.0 #### [facility] [address] [place], [address] ALK PHOS 90 U/L Normal 35-104 [facility] Comment on above: Performed By: #### M 100.0 #### [facility] [address] [place], [address] ALT [Catalytic activity/Vol] 36 U/L High <=34 [facility] Comment on above: Performed By: #### M 100.2200 #### [facility] [address] [place], [address] AST [Catalytic activity/Vol] 17 U/L Normal <=31 [facility] Comment on above: Performed By: #### M 100.2200 #### [facility] [address] [place], [address] Bilirubin [Mass/Vol] 0.22 mg/dL Normal 0.00-1.30 [facility] Comment on above: Performed By: #### M 100.2200 #### [facility] [address] [place], [address] BUN/CRE 12.2 RATIO Normal 10-20 [facility] Comment on above: Performed By: #### M 100.2200 #### [facility] [address] [place], [address] Calcium [Mass/Vol] 9.3 mg/dL Normal 7.6-11.0 [facility] Comment on above: Performed By: #### M 100.2200 #### [facility] [address] [place], [address] Chloride [Moles/Vol] 101 mmol/L Normal 98-108 [facility] Comment on above: Performed By: #### M 100.2200 #### [facility] [address] [place], [address] CO2 [Moles/Vol] 22.7 mmol/L Normal 21.0-32.0 [facility] Comment on above: Performed By: #### M 100.2200 #### [facility] [address] [place], [address] Creatinine [Mass/Vol] 0.60 mg/dL Low 0.70-1.20 [facility] Comment on above: Performed By: #### M 100.2200 #### [facility] [address] [place], [address] GAP 12 Normal 5-15 [facility] Comment on above: Performed By: #### M 100.2200 #### [facility] [address] [place], [address] GFR/1.73 sq M.predicted among non-blacks MDRD (S/P/Bld) [Vol rate/Area] 129 mL/min/{1.73_m2} Normal >60 [facility] Comment on above: Result Comment: mL/m in/1.73m2 CKD-EPI Creatinine Equation (2020) Performed By: #### M 100.2200 #### [facility] [address] [place], [address] Globulin (S) [Mass/Vol] 3.3 g/dL Normal 2.2-4.2 [facility] Comment on above: Performed By: #### M 100.2200 #### [facility] [address] [place], [address] Glucose [Mass/Vol] 86 mg/dL Normal 70-99 [facility] Comment on above: Performed By: #### M 100.2200 #### [facility] [address] [place], [address] Potassium [Moles/Vol] 4.4 mmol/L Normal 3.3-5.1 [facility] Comment on above: Performed By: #### M 100.2200 #### [facility] [address] [place], [address] Sodium [Moles/Vol] 136 mmol/L Normal 133-145 [facility] Comment on above: Performed By: #### M 100.2200 #### [facility] [address] [place], [address] T PROT 7.2 g/dL Normal 5.9-8.4 [facility] Comment on above: Performed By: #### M 100.2200 #### [facility] [address] [place], [place], [address] Urea nitrogen [Mass/Vol] 7 mg/dL Normal 4-19 [facility] Comment on above: Performed By: #### M 100.2200 #### [facility] [address] [place], [address] Glomerular filtration rate ( GFR) estimation/1.73 sq m using serum, plasma, or whole bOrdered By: Joyce Santiago on 11-10-2024 GFR/1.73 sq M.predicted among non-blacks MDRD (S/P/Bld) [Vol rate/Area] 129 mL/min/{1.73_m2} >60 [facility] Comment on above: mL/min/1.73m2 CKD-EP I Creatinine Equation (2020) Laboratory - Chemistry and C hemistry - challengeOrdered By: Joyce Santiago on 11-10-2024 AST [Catalytic activity/Vol] 17 U/L <32 [facility] Potassium measurement (mass/ volume)Ordered By: Joyce Santiago on 11-10-2024 Potassium (Unsp spec) [Mass/Vol] 4.4 mmol/L 3.3-5.1 [facility] Serum creatinine measurement (mass/volume)Ordered By: Joyce Santiago on 11-10-2024 Creatinine [Mass/Vol] 0.60 mg/dL Low 0.70-1.20 [facility] Serum globulin measurementOr dered By: Joyce Santiago on 11-10-2024 Globulin (S) [Mass/Vol] 3.3 g/dL 2.2-4.2 [facility] Serum glucose measurement (m ass/volume)Ordered By: Joyce Santiago on 11-10-2024 Glucose [Mass/Vol] 86 mg/dL 70-99 [facility] Serum or plasma alanine will otransferase (ALT) measurementOrdered By: Joyce Santiago on 11-10-2024 ALT [Catalytic activity/Vol] 36 U/L High <35 [facility] Serum or plasma albumin wilman urement (mass/volume)Ordered By: Joyce Santiago on 11-10-2024 Albumin [Mass/Vol] 3.9 g/dL 3.5-5.0 [facility] Serum or plasma albumin/glob ulin mass ratioOrdered By: Joyce Santiago on 11-10-2024 Albumin/Globulin [Mass ratio] 1.2 {ratio} 0.9-2.4 [facility] Serum or plasma alkaline kristel sphatase measurementOrdered By: Joyce Santiago on 11-10-2024 ALP [Catalytic activity/Vol] 90 U/L 35-104 [facility] Serum or plasma calcium wilman urement (mass/volume)Ordered By: Joyce Santiago on 11-10-2024 Calcium [Mass/Vol] 9.3 mg/dL 7.6-11.0 [facility] Serum or plasma urea nitroge n measurement (mass/volume)Ordered By: Joyce Santiago on 11-10-2024 Urea nitrogen [Mass/Vol] 7 mg/dL 4-19 [facility] Sodium levelOrdered By: Alina Santiago on 11-10-2024 Sodium [Moles/Vol] 136 mmol/L 133-145 [facility] Total proteinOrdered By: Bettie Santiago on 11-10-2024 Protein [Mass/Vol] 7.2 g/dL 5.9-8.4 [facility] Absolute lymphocyte countOrd ered By: Joyce Santiago on 11-01-2024 Lymphocytes Auto (Unsp spec) [#/Vol] 1.69 10*3/uL 0.83-4.51 [facility] Absolute neutrophil countOrd ered By: Joyce Santiago on 11-01-2024 Neutrophils (Bld) [#/Vol] 9.2 10*3/uL High 2.0-7.7 [facility] Anion gap in Serum or Plasma Ordered By: Joyce Santiago on 11-01-2024 Anion gap [Moles/Vol] 12 mmol/L 5-15 [facility] Automated lymphocyte count a s percentage of total leukocytesOrdered By: Joyce Santiago on 11-01-2024 Lymphocytes/100 WBC Auto (Unsp spec) 14.4 % Low 19-41 [facility] BUN/creatinine ratioOrdered By: Joyce Santiago on 11-01-2024 Urea nitrogen/Creatinine [Mass ratio] 11.6 mg/mg 10-20 [facility] Basophil percentageOrdered B y: Joyce Santiago on 11-01-2024 Basophils/100 WBC (Bld) 0.3 % 0-1 [facility] Bilirubin, totalOrdered By: Joyce Santiago on 11-01-2024 Bilirubin [Mass/Vol] 0.19 mg/dL 0.00-1.30 [facility] CBC W/Diff, Automatedon 10-13-2024 Absolute Lymph 1.69 X10 3/uL Normal 0.83-4.51 [facility] Comment on above: Performed By: #### L 501.0250, L3890.6006, L100.0100, L509.8002 #### [facility] [address] [place], [address] Absolute Neut 9.2 X10 3/uL High 2.0-7.7 [facility] Comment on above: Performed By: #### L 501.0250, L3890.6006, L100.0100, L509.8002 #### [facility] [address] [place], [address] Basophils/100 WBC (Bld) 0.3 % Normal 0-1 [facility] Comment on above: Performed By: #### L 501.0250, L3890.6006, L100.0100, L509.8002 #### [facility] [address] [place], [address] Eosinophils/100 WBC (Bld) 0.7 % Normal 0-5 [facility] Comment on above: Performed By: #### L 501.0250, L3890.6006, L100.0100, L509.8002 #### [facility] [address] [place], [address] Erythrocyte distribution width (RBC) [Ratio] 14.6 % Normal 11.6-14.6 [facility] Comment on above: Performed By: #### L 501.0250, L3890.6006, L100.0100, L509.8002 #### [facility] [address] [place], [address] Hematocrit (Bld) [Volume fraction] 40.4 % Normal 37-47 [facility] Comment on above: Performed By: #### L 501.0250, L3890.6006, L100.0100, L509.8002 #### [facility] [address] [place], [address] Hemoglobin (Bld) [Mass/Vol] 12.8 g/dL Normal 12.0-15.0 [facility] Comment on above: Performed By: #### L 501.0250, L3890.6006, L100.0100, L509.8002 #### [facility] [address] [place], [address] IG% 0.300 Normal 0.0-0.9 [facility] Comment on above: Result Comment: IG% - Immature Granulocytes (promyelocytes, myelocytes and metamyelocytes) > 1% indicates that a LEFT SHIFT is Present. Performed By: #### L 501.0250, L3890.6006, L100.0100, L509.8002 #### [facility] [address] [place], [address] Lymphocytes/100 WBC (Bld) 14.4 % Low 19-41 [facility] Comment on above: Performed By: #### L 501.0250, L3890.6006, L100.0100, L509.8002 #### [facility] [address] [place], [address] MCH (RBC) [Entitic mass] 26.6 pg Low 27.0-32.0 [facility] Comment on above: Performed By: #### L 501.0250, L3890.6006, L100.0100, L509.8002 #### [facility] [address] [place], [address] MCHC (RBC) [Mass/Vol] 31.7 g/dL Low 32-36 [facility] Comment on above: Performed By: #### L 501.0250, L3890.6006, L100.0100, L509.8002 #### [facility] [address] [place], [address] MCV (RBC) [Entitic vol] 84.0 fL Normal 81-99 [facility] Comment on above: Performed By: #### L 501.0250, L3890.6006, L100.0100, L509.8002 #### [facility] [address] [place], [address] Monocytes/100 WBC (Bld) 5.8 % Normal 0-10 [facility] Comment on above: Performed By: #### L 501.0250, L3890.6006, L100.0100, L509.8002 #### [facility] [address] [place], [address] Neutrophils/100 WBC (Bld) 78.5 % High 47-70 [facility] Comment on above: Performed By: #### L 501.0250, L3890.6006, L100.0100, L509.8002 #### [facility] [address] [place], [address] Nucleated RBC (Bld) [#/Vol] 0 10*3/uL Normal 0-5 [facility] Comment on above: Performed By: #### L 501.0250, L3890.6006, L100.0100, L509.8002 #### [facility] [address] [place], [address] Platelet mean volume (Bld) [Entitic vol] 9.5 fL Normal 6.2-12.0 [facility] Comment on above: Performed By: #### L 501.0250, L3890.6006, L100.0100, L509.8002 #### [facility] [address] [place], [address] Platelets (Bld) [#/Vol] 333 10*3/uL Normal 150-450 [facility] Comment on above: Performed By: #### L 501.0250, L3890.6006, L100.0100, L509.8002 #### [facility] [address] [place], [address] RBC (Bld) [#/Vol] 4.81 10*6/uL Normal 4.2-5.4 [facility] Comment on above: Performed By: #### L 501.0250, L3890.6006, L100.0100, L509.8002 #### [facility] [address] [place], [address] RDW SD 44.6 fl High 35.1-43.9 [facility] Comment on above: Performed By: #### L 501.0250, L3890.6006, L100.0100, L509.8002 #### [facility] [address] [place], [address] WBC (Bld) [#/Vol] 11.8 10*3/uL High 4.4-11.0 [facility] Comment on above: Performed By: #### L 501.0250, L3890.6006, L100.0100, L509.8002 #### [facility] [address] [place], [address] Carbon dioxide, total [Moles /volume] in Central venous bloodOrdered By: Joyce Santiago on 11-01-2024 CO2 [Moles/Vol] 22.4 mmol/L 21.0-32.0 [facility] Chloride assayOrdered By: Henry Santiago on 11-01-2024 Chloride [Moles/Vol] 102 mmol/L 98-108 [facility] Comprehensive Metabolic Prof ilon 11-01-2024 Albumin [Mass/Vol] 4.0 g/dL Normal 3.5-5.0 [facility] Comment on above: Performed By: #### L 501.0250, L3890.6006, L100.0100, L509.8002 #### [facility] [address] [place], [address] Albumin/Globulin [Mass ratio] 1.2 {ratio} Normal 0.9-2.4 [facility] Comment on above: Performed By: #### L 501.0250, L3890.6006, L100.0100, L509.8002 #### [facility] [address] [place], [address] ALK PHOS 93 U/L Normal 35-104 [facility] Comment on above: Performed By: #### L 501.0250, L3890.6006, L100.0100, L509.8002 #### [facility] [address] [place], [address] ALT [Catalytic activity/Vol] 50 U/L High <=34 [facility] Comment on above: Performed By: #### L 501.0250, L3890.6006, L100.0100, L509.8002 #### [facility] [address] [place], [address] AST [Catalytic activity/Vol] 22 U/L Normal <=31 [facility] Comment on above: Performed By: #### L 501.0250, L3890.6006, L100.0100, L509.8002 #### [facility] [address] [place], [address] Bilirubin [Mass/Vol] 0.19 mg/dL Normal 0.00-1.30 [facility] Comment on above: Performed By: #### L 501.0250, L3890.6006, L100.0100, L509.8002 #### [facility] [address] [place], [address] BUN/CRE 11.6 RATIO Normal 10-20 [facility] Comment on above: Performed By: #### L 501.0250, L3890.6006, L100.0100, L509.8002 #### [facility] [address] [place], [address] Calcium [Mass/Vol] 9.4 mg/dL Normal 7.6-11.0 [facility] Comment on above: Performed By: #### L 501.0250, L3890.6006, L100.0100, L509.8002 #### [facility] [address] [place], [address] Chloride [Moles/Vol] 102 mmol/L Normal 98-108 [facility] Comment on above: Performed By: #### L 501.0250, L3890.6006, L100.0100, L509.8002 #### [facility] [address] [place], [address] CO2 [Moles/Vol] 22.4 mmol/L Normal 21.0-32.0 [facility] Comment on above: Performed By: #### L 501.0250, L3890.6006, L100.0100, L509.8002 #### [facility] [address] [place], [address] Creatinine [Mass/Vol] 0.65 mg/dL Low 0.70-1.20 [facility] Comment on above: Performed By: #### L 501.0250, L3890.6006, L100.0100, L509.8002 #### [facility] [address] [place], [address] GAP 12 Normal 5-15 [facility] Comment on above: Performed By: #### L 501.0250, L3890.6006, L100.0100, L509.8002 #### [facility] [address] [place], [address] GFR/1.73 sq M.predicted among non-blacks MDRD (S/P/Bld) [Vol rate/Area] 128 mL/min/{1.73_m2} Normal >60 [facility] Comment on above: Result Comment: mL/m in/1.73m2 CKD-EPI Creatinine Equation (2020) Performed By: #### L 501.0250, L3890.6006, L100.0100, L509.8002 #### [facility] [address] [place], [address] Globulin (S) [Mass/Vol] 3.2 g/dL Normal 2.2-4.2 [facility] Comment on above: Performed By: #### L 501.0250, L3890.6006, L100.0100, L509.8002 #### [facility] [address] [place], [address] Glucose [Mass/Vol] 99 mg/dL Normal 70-99 [facility] Comment on above: Performed By: #### L 501.0250, L3890.6006, L100.0100, L509.8002 #### [facility] [address] [place], [address] Potassium [Moles/Vol] 4.1 mmol/L Normal 3.3-5.1 [facility] Comment on above: Performed By: #### L 501.0250, L3890.6006, L100.0100, L509.8002 #### [facility] [address] [place], [address] Sodium [Moles/Vol] 137 mmol/L Normal 133-145 [facility] Comment on above: Performed By: #### L 501.0250, L3890.6006, L100.0100, L509.8002 #### [facility] [address] [place], [address] T PROT 7.2 g/dL Normal 5.9-8.4 [facility] Comment on above: Performed By: #### L 501.0250, L3890.6006, L100.0100, L509.8002 #### [facility] [address] [place], [address] Urea nitrogen [Mass/Vol] 8 mg/dL Normal 4-19 [facility] Comment on above: Performed By: #### L 501.0250, L3890.6006, L100.0100, L509.8002 #### [facility] [address] [place], [address] Eosinophil percentageOrdered By: Joyce Santiago on 11-01-2024 Eosinophils/100 WBC (Bld) 0.7 % 0-5 [facility] Erythrocyte distribution wid th ratioOrdered By: Joyce Santiago on 11-01-2024 Erythrocyte distribution width (RBC) [Ratio] 14.6 % 11.6-14.6 [facility] Erythrocyte distribution wid th standard deviationOrdered By: Joyce Santiago on 11-01-2024 Erythrocyte distribution width (RBC) [Ratio] 44.6 fl High 35.1-43.9 [facility] Glomerular filtration rate ( GFR) estimation/1.73 sq m using serum, plasma, or whole bOrdered By: Joyce Santiago on 11-01-2024 GFR/1.73 sq M.predicted among non-blacks MDRD (S/P/Bld) [Vol rate/Area] 128 mL/min/{1.73_m2} >60 [facility] Comment on above: mL/min/1.73m2 CKD-EP I Creatinine Equation (2020) HIVon 11-01-2024 HIV Non-Reactive Normal Nonreactive [facility] Comment on above: Result Comment: Non- Reactive Reactive Repeatedly reactive samples must be confirmed according to CDC recommended confirmatory algorithms. The subresults for either HIVAG or AHIV can be used as an aid in the selection of the confirmation algorithm for reactive samples. Send out specimens with Reactive results to [facility] for confirmation. Order the HIV antibody detection and differentiation: lc#[id number] Performed By: #### L 501.0250, L3890.6006, L100.0100, L509.8002 #### [facility] [address] [place], [place], [address] Hematocrit Auto (Bld) [Volum e fraction]Ordered By: Joyce Santiago on 11-01-2024 Hematocrit (Bld) [Volume fraction] 40.4 % 37-47 [facility] Hemoglobin A1con 11-01-2024 HbA1c (Bld) [Mass fraction] 5.1 % Normal <=5.6 [facility] Comment on above: Result Comment: Norm al < 5.7 % Prediabetic 5.7 - 6.4 % Diabetic >or= 6.5 % Please note range changes. Performed By: #### L 501.0250, L3890.6006, L100.0100, L509.8002 #### [facility] [address] [place], [place], [id number] Hemoglobin A1c percentageOrd ered By: Joyce Santiago on 11-01-2024 HbA1c (Bld) [Mass fraction] 5.1 % <5.7 [facility] Comment on above: Normal < 5.7 % Predi abetic 5.7 - 6.4 % Diabetic >or= 6.5 % Please note range changes. Hemoglobin measurementOrdere d By: Joyce Santiago on 11-01-2024 Hemoglobin (Bld) [Mass/Vol] 12.8 g/dL 12.0-15.0 [facility] Hepatitis C Antibodyon 11-01 Hepatitis C Ab Non-Reactive Normal Nonreactive [facility] Comment on above: Result Comment: Reac tive: Presumptive evidence of antibodies to HCV. Follow CDC recommendations for supplemental testing. Non-Reactive: Antibodies to HCV were not detected; does not exclude the possibility of exposure to HCV Reactive Results are presumptive evidence of antibodies to HCV. Follow CDC recommendations for supplemental testing. Order confirmation testing: HCV Quant by PCR testing - HCVPCR #[id number] Non Reactive: < 0.8 Equivocal: >/= 0.8 to < 1.0 Reactive: >/= 1.0 The CDC requires that a reactive/equivocal HCV antibody result be sent out for confirmation. HCV Quant by PCR testing. Performed By: #### L 501.0250, L3890.6006, L100.0100, L509.8002 #### [facility] [address] [place], [address] Immature granulocytes/100 WB C Auto (Bld)Ordered By: Joyce Santiago on 11-01-2024 Immature granulocytes/100 WBC (Bld) 0.300 % 0.0-0.9 [facility] Comment on above: IG% - Immature Granu locytes (promyelocytes, myelocytes and metamyelocytes) > 1% indicates that a LEFT SHIFT is Present. L3890.6102on 11-01-2024 HEP B Surf Ag Non-Reactive Normal Nonreactive [facility] Comment on above: Result Comment: Reac tive: Presumptive evidence of HBV. Repeatedly reactive samples must be confirmed using a neutralization test ([employer] HBsAg Confirmatory Test) Non-Reactive: HBsAg not detected; does not exclude the possibility of exposure to HBV Performed By: #### L 501.0250, L3890.6006, L100.0100, L509.8002 #### [facility] [address] [facility] [place], [address] L509.4006on 11-01-2024 Rubella IgG REAC Normal Nonreactive [facility] Comment on above: Result Comment: Anti body Result: Interpretation Non-Reactive: Non-Immune Reactive: Immune The following results were obtained with the [employer] Rubella IgG assay. Results from assays of other manufacturers cannot be used interchangeably. Performed By: #### L 501.0250, L3890.6006, L100.0100, L509.8002 #### [facility] [address] [facility] [place], [address] Laboratory - Chemistry and C hemistry - challengeOrdered By: Joyce Santiago on 11-01-2024 AST [Catalytic activity/Vol] 22 U/L <32 [facility] - Microbiology an d Antimicrobial susceptibilityOrdered By: Joyce Santiago on 11-01-2024 HBV surface Ag Ql (S) Non-Reactive Nonreactive [facility] Comment on above: Reactive: Presumptiv e evidence of HBV. Repeatedly reactive samples must be confirmed using a neutralization test ([employer] HBsAg Confirmatory Test)Non-Reactive: HBsAg not detected; does not exclude the possibility of exposure to HBV MCV (mean corpuscular volume ) determinationOrdered By: Joyce Santiago on 11-01-2024 MCV (RBC) [Entitic vol] 84.0 fL 81-99 [facility] Mean corpuscular hemoglobin (MCH) determinationOrdered By: Joyce Santiago on 11-01-2024 MCH (RBC) [Entitic mass] 26.6 pg Low 27.0-32.0 [facility] Mean corpuscular hemoglobin concentration (MCHC) determinationOrdered By: Joyce Santiago on 11-01-2024 MCHC (RBC) [Mass/Vol] 31.7 g/dL Low 32-36 [facility] Mean platelet volume determi nationOrdered By: Joyce Santiago on 11-01-2024 Platelet mean volume (Bld) [Entitic vol] 9.5 fL 6.2-12.0 [facility] Monocyte percentageOrdered B y: Joyce Santiago on 11-01-2024 Monocytes/100 WBC (Bld) 5.8 % 0-10 [facility] NATERAon 11-01-2024 NATURA SEE SCANNED REPORT Normal [facility] Comment on above: Performed By: #### M 100.3220 #### [facility] [address] [place], [place], [id number] Neutrophil percentageOrdered By: Joyce Santiago on 11-01-2024 Neutrophils/100 WBC (Bld) 78.5 % High 47-70 [facility] No Panel InformationOrdered By: Joyce Santiago on 11-01-2024 HIV (1&2) Antibody Non-Reactive Nonreactive [facility] Comment on above: Non-ReactiveReactive Repeatedly reactive samples must be confirmed according to CDC recommended confirmatory algorithms. The subresults for either HIVAG or AHIV can be used as an aid in the selection of the confirmation algorithm for reactive samples.Send out specimens with Reactive results to [facility] for confirmation.Order the HIV antibody detection and differentiation: #[id number] Nucleated red blood cell per centageOrdered By: Joyce Santiago on 11-01-2024 Nucleated RBC/100 WBC (Bld) [Ratio] 0 % 0-5 [facility] Office Visit Reporton 11-01-2024 [facility] Office Visit Report [facility] [address], [address] [place] [address] OFFICE VISIT Date of Service: 11/01/24 MR#: [id number] Acct: [id number] Name: MAREN BARNEY Rep #: [id number] : 2000 Provider: RAFAELA Echevarria ams Age/Sex: 23/F [place] [facility] [place]: Signed Intake Vital Signs 03/18/24 09:30 10/06/24 13:07 11/01/24 13:49 11/01/24 14:22 Height 5 ft 8 in 5 ft 8 in 5 ft 8 in Weight: 322 lb BMI 48.9 BP 142/89 H 126/85 H Intake Visit Reasons: 12Wk OB Chief 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: 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 Is patient in pain?: No Allergies amoxicillin (From Augmentin) Allergy (Mild, Verified 11/01/24 13:47) rash clavulanic acid (From Augmentin) Allergy (Mild, Verified 11/01/24 13:47) rash Medications ???Medication ???Instructions ???Recorded ???Confirmed ???Type docosahexaenoic acid 200 mg mg PO 09/28/24 11/01/24 History capsule ( DHA) Last Menstrual Period: 08/10/24 : No PFSH PFSH Surgical History Hx of wisdom tooth extraction Family History Mother Skin cancer Father Hypertension Grandmother Diabetes Grandfather Diabetes Social History adopted: No household members: spouse housing: house current occupational status: employed current occupation: [employer] current occupational exposures/hazards: No pets and animals: No history of recent travel: Yes ( - September 2024) out of state: Yes sexually active: Yes Smoking Status: Never smoker second hand exposure: No alcohol intake: current alcohol intake frequency: holidays/special occasions only details: Not while substance use type: does not use well-balanced diet: daily or most days caffeine: Yes Type: coffee eating out: 1-3 times/week during the past year weight has: increased > 10 lbs what type of physical activity do you participate in: walking frequency: 3-4 times per week duration: 15-30 minutes/day sveta/yarsanism: None seatbelt use: always do you feel safe at home: Yes 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 OB Visit KIMBER Calculator Estimated Delivery Date Method Current WG Current Estimate 05/17/25 LMP (Certain) 11w 6d Other Estimates 05/18/25 Ultrasound #1 11w 5d Expected Delivery Route/Plan Labor Preferences- CB/BF classes: [] labor support person: [] labor intervention preferences: [] pain management options preferred: [] cut cord/dad catch: [] : [] PP control planned: [] discussed possible routes of delivery and associated risks: [] special requests: [] Specific Issue/Plans Covid status: [] Flu vaccine: [] Tdap vaccine: [] Rhogam: [] LARC form signed: [] Problem list reviewed and updated with the most current plan of care details and appropriate orders placed. Relevant counseling for the gestational age provided. Continue routine care and follow up unless otherwise noted in visit notes/problem list details Initial Weight: Not Recorded Date -???-???-???-???-???- ???-???-???-???-???-? ??-???- EGA Weight BP Urine Prot -???-???-???-???-???- ???-???-???-???-???-? ??-???- Glucose FHR FuHt Pres Dilation -???-???-???-???-???- ???-???-???-???-???-? ??-???- Effaced St Visit Note 10/06/24 -???-???-???-???-???- ???-???-???-???-???-? ??-???- 8w 1d 315 lb 6 oz 140/85 -???-???-???-???-???- ???-???-???-???-???-? ??-???- 165 -???-???-???-???-???- ???-???-???-???-???-? ??-???- JV- CRL cons istent with LMP. desires nipt. 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 thinks elevated pressure due to anxiety. baseline labs ordered. 11/01/24 -???-???-???-???-???- ???-???-???-???-???-? ??-???- 11w 6d 322 lb 142/89 126/85 -???-???-???-???-???- ???-???-???-???-???-? ??-???- 185 -???-???-???-???-???- ???-???-???-???-???-? ??-???- kw- no vb/cr amping. doing better. MFM anatomy US ordered. if too expensive will call and do [facility] scan. pt reports normal BPs at home. ACOG First Trimester First Trimester: Desire for , Alcohol, Tobacco Cessation, Illicit/Recreational Drug/Substance Use, Intimate Partner Violence, Barriers to care, Unstable Housing, Communication Barriers, Environmental/Work Hazards, Anticipated Course of Care, Toxoplasmosis Precations, Use of Any medications, Sexual activity, Exercise, D (more content not included)... Normal [facility] Platelet countOrdered By: Henry Santiago on 11-01-2024 Platelets (Bld) [#/Vol] 333 10*3/uL 150-450 [facility] Potassium measurement (mass/ volume)Ordered By: Joyce Santiago on 11-01-2024 Potassium (Unsp spec) [Mass/Vol] 4.1 mmol/L 3.3-5.1 [facility] Protein+Creatinine Ratio,Uri neon 11-01-2024 PROT:CRE RATIO 73 mg/g CRE Normal 0-200 [facility] Comment on above: Performed By: #### M 100.2200 #### [facility] [address] [place], [address] Protein (U) [Mass/Vol] 14.7 mg/dL High 0.0-12.0 [facility] Comment on above: Performed By: #### M 100.2200 #### [facility] [address] [place], [address] UR CREAT 201.00 mg/dL Normal 28.00-217.00 [facility] Comment on above: Performed By: #### M 100.2200 #### [facility] [address] [place], [address] RBC Auto (Bld) [#/Vol]Ordere d By: Joyce Santiago on 11-01-2024 RBC (Bld) [#/Vol] 4.81 10*6/uL 4.2-5.4 [facility] urine creatinine wilman urement (mass/volume)Ordered By: Joyce Santiago on 11-01-2024 Creatinine Unsp time (U) [Mass/Vol] 201.00 mg/dL 28.00-217.00 [facility] Serum creatinine measurement (mass/volume)Ordered By: Joyce Santiago on 11-01-2024 Creatinine [Mass/Vol] 0.65 mg/dL Low 0.70-1.20 [facility] Serum globulin measurementOr dered By: Joyce Santiago on 11-01-2024 Globulin (S) [Mass/Vol] 3.2 g/dL 2.2-4.2 [facility] Serum glucose measurement (m ass/volume)Ordered By: Joyce Santiago on 11-01-2024 Glucose [Mass/Vol] 99 mg/dL 70-99 [facility] Serum or plasma alanine will otransferase (ALT) measurementOrdered By: Joyce Santiago on 11-01-2024 ALT [Catalytic activity/Vol] 50 U/L High <35 [facility] Serum or plasma albumin wilman urement (mass/volume)Ordered By: Joyce Santiago on 11-01-2024 Albumin [Mass/Vol] 4.0 g/dL 3.5-5.0 [facility] Serum or plasma albumin/glob ulin mass ratioOrdered By: Joyce Santiago on 11-01-2024 Albumin/Globulin [Mass ratio] 1.2 {ratio} 0.9-2.4 [facility] Serum or plasma alkaline kristel sphatase measurementOrdered By: Joyce Santiago on 11-01-2024 ALP [Catalytic activity/Vol] 93 U/L 35-104 [facility] Serum or plasma calcium wilman urement (mass/volume)Ordered By: Joyce Santiago on 11-01-2024 Calcium [Mass/Vol] 9.4 mg/dL 7.6-11.0 [facility] Serum or plasma urea nitroge n measurement (mass/volume)Ordered By: Joyce Santiago on 11-01-2024 Urea nitrogen [Mass/Vol] 8 mg/dL 4-19 [facility] Sodium levelOrdered By: Alina Santiago on 11-01-2024 Sodium [Moles/Vol] 137 mmol/L 133-145 [facility] Syphilis Antibodieson 2024 Syphilis Abs Non-Reactive Normal Nonreactive [facility] Comment on above: Performed By: #### L 501.0250, L3890.6006, L100.0100, L509.8002 #### [facility] [address] [place], [address] Total proteinOrdered By: Bettie Santiago on 11-01-2024 Protein [Mass/Vol] 7.2 g/dL 5.9-8.4 [facility] Type AND Screenon 11-01-2024 Ab SCREEN GEL Negative Normal [facility] Comment on above: Order Comment: PN Performed By: #### L 501.0250, L3890.6006, L100.0100, L509.8002 #### [facility] [address] [place], [address] Urine protein measurement (m ass/volume)Ordered By: Joyce Santiago on 11-01-2024 Protein (U) [Mass/Vol] 14.7 mg/dL High 0.0-12.0 [facility] Urine protein/creatinine mas s ratioOrdered By: Joyce Santiago on 11-01-2024 Protein/Creatinine (U) [Mass ratio] 73 mg/g CRE 0-200 [facility] White blood cell (WBC) count Ordered By: Joyce Santiago on 11-01-2024 WBC (Bld) [#/Vol] 11.8 10*3/uL High 4.4-11.0 [facility] Chlamydia/GC LUIGI aptimaon CHLAMY,NUC ACID Negative Normal Negative [facility] Comment on above: Performed By: #### M 100.2200 #### [facility] [address] [place], [address] GC BY NUC ACID Negative Normal Negative [facility] Comment on above: Result Comment: Perf ormed at: =G - [facility] [address] [place] [id number] [employer] Trader: Joanna Nguyễn MD, Phone: [phone] Performed By: #### M 100.2200 #### [facility] [address] [place], [place], [id number] Urine Cultureon 10-07-2024 URC #2 POSSIBLE PROTEUS SPP. Below infection level. Mixed Gram Pos Gram Neg Org [place] Count 11,000-25,000 MIXC Mixed contaminants. Submit a new specimen if indicated. GNR [place] Count 1000-10,000 Normal [facility] Comment on above: Performed By: #### M 100.2200 #### [facility] [address] [place], [place], [id number] Chlamydia trachomatis rRNA d etection by probe and target amplification methodOrdered By: Joyce Santiago on 10-06-2024 C. trachomatis rRNA LUIGI+probe Ql (Unsp spec) Negative Negative [facility] Neisseria gonorrhoeae nuclei c acid detection by amplified probe techniqueOrdered By: Joyce Santiago on 10-06-2024 N. gonorrhoeae DNA LUIGI+probe Ql (Unsp spec) Negative Negative [facility] Comment on above: Performed at: =[address] [id number] Director: Joanna Nguyễn MD, Phone: [phone] [facility] Office Visit Reporton 10-06-2024 [facility] Office Visit Report [facility] [address], [address] [place] [address] OFFICE VISIT Date of Service: 10/06/24 MR#: [id number] Acct: [id number] Name: MAREN BARNEY Rep #: [id number] : 2000 Provider: Dr. 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 Is patient in pain?: No Allergies amoxicillin (From Augmentin) Allergy (Mild, Verified 10/06/24 13:05) rash clavulanic acid (From Augmentin) Allergy (Mild, Verified 10/06/24 13:05) rash Medications ???Medication ???Instructions ???Recorded ???Confirmed ???Type docosahexaenoic acid 200 mg mg PO 09/28/24 10/06/24 History capsule ( DHA) Last Menstrual Period: 08/10/24 Zika: Zika virus screening: Negative : No PFSH PFSH Surgical History Hx of wisdom tooth extraction Family History Mother Skin cancer Father Hypertension Grandmother Diabetes Grandfather Diabetes Social History adopted: No household members: spouse housing: house current occupational status: employed current occupation: [employer] current occupational exposures/hazards: No pets and animals: No history of recent travel: Yes ( - September 2024) out of state: Yes sexually active: Yes Smoking Status: Never smoker second hand exposure: No alcohol intake: current alcohol intake frequency: holidays/special occasions only details: Not while substance use type: does not use well-balanced diet: daily or most days caffeine: Yes Type: coffee eating out: 1-3 times/week during the past year weight has: increased > 10 lbs what type of physical activity do you participate in: walking frequency: 3-4 times per week duration: 15-30 minutes/day sveta/yarsanism: None seatbelt use: always do you feel safe at home: Yes 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 OB Visit KIMBER Calculator Estimated Delivery Date Method Current WG Current Estimate 05/17/25 LMP (Certain) 8w 1d Other Estimates 05/18/25 Ultrasound #1 8w 0d Estimated Due Date: 05/17/25 Expected Delivery Route/Plan Labor Preferences- CB/BF classes: [] labor support person: [] labor intervention preferences: [] pain management options preferred: [] cut cord/dad catch: [] : [] PP control planned: [] discussed possible routes of delivery and associated risks: [] special requests: [] Specific Issue/Plans Covid status: [] Flu vaccine: [] Tdap vaccine: [] Rhogam: [] LARC form signed: [] Problem list reviewed and updated with the most current plan of care details and appropriate orders placed. Relevant counseling for the gestational age provided. Continue routine care and follow up unless otherwise noted in visit notes/problem list details Initial Weight: Not Recorded Date -???-???-???-???-???- ???-???-???-???-???-? ??-???- EGA Weight BP Urine Prot -???-???-???-???-???- ???-???-???-???-???-? ??-???- Glucose FHR FuHt Pres Dilation -???-???-???-???-???- ???-???-???-???-???-? ??-???- Effaced St Visit Note 10/06/24 -???-???-???-???-???- ???-???-???-???-???-? ??-???- 8w 1d 315 lb 6 oz 140/85 -???-???-???-???-???- ???-???-???-???-???-? ??-???- 165 -???-???-???-???-???- ???-???-???-???-???-? ??-???- JV- CRL cons istent with LMP. desires nipt. 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 thinks elevated pressure due to anxiety. baseline labs ordered. Menstrual History Last Menstrual Period: 08/10/24 Reported LMP: definite Normal amount/duration: Yes Frequency in days: 28 On hormonal BC at conception: No hCG+: 09/06/24 Antepartum Record Genetic Screening: Congenital Heart Defect: Other, Neural Tube Defect: Other, Hemoglobinopathy Or Carrier: Other, Cystic Fibrosis: Other, Chromosome Abnormality: Other, Gómez-Sachs: Other, Hemophilia: (more content not included)... Normal [facility] Urine cultureOrdered By: Bettie Santiago on 10-06-2024 Bacteria identified Cx Nom (U) Mixed Gram Pos & Gram Neg Org Abnormal [facility] Bacteria identified Cx Nom (U) Negative Abnormal [facility] - Chemistry and C hemistry - challengeOrdered By: Joyce Santiago on 09-28-2024 HCG ( test) Ql (U) Positive [facility] Office Visit Reporton 2024 Office Visit Report [facility] [address] [place] [address] OFFICE VISIT Date of Service: 09/28/24 MR#: [id number] Acct: [id number] Patient: MAREN BARNEY Rep #: [id number] : 2000 Provider: Dr. Joyce Maciel DO Age/Sex: 23/F Location[place] [facility] [place] Status: Signed Intake Vital Signs 03/18/24 09:30 09/28/24 11:47 Height 5 ft 8 in 5 ft 8 in Weight: 331 lb 4 oz BMI 50.3 BP 130/80 H 122/80 H Blood Pressure Location Rt brachial Position Sitting Respiration 16 Pulse 103 H Pulse Source NIBP Temp 98.1 F Temp Source Oral Pulse Oximetry (%) 98 Oxygen Delivery Method room air Intake Visit Reasons: PNOB Confirm , Vitals Chief Complaint: PNOB in person Is patient in pain?: No Allergies amoxicillin (From Augmentin) Allergy (Mild, Verified 09/28/24 11:52) rash clavulanic acid (From Augmentin) Allergy (Mild, Verified 09/28/24 11:52) rash Medications ???Medication ???Instructions ???Recorded ???Confirmed ???Type docosahexaenoic acid 200 mg mg PO 09/28/24 09/28/24 History capsule ( DHA) Is last menstrual period known: Yes Post menopausal: No Patient : Yes Have you fallen in the past year?: No Nurse's Note: Pt here for secondary amenorrhea. Office UPT: positive. Vitals WNL. PNOB questions completed. Problem list, allergies, and medications updated. First trimester ACOG education completed. Results POC Urine Office , Urine Positive Last Edit by Brynn Gutiérrez RN on 09/28/24 11:48 Nursing Note patient is here for the complaint of amenorrhea and is here for a test and orientation to our practice Assessment and Plan Assessment and Plan (1) Amenorrhea: Status: Acute Orders: Orders POC Urine 09/28/24 N91.1 - Secondary amenorrhea CBC W/Diff, Automated 09/28/24 O09.90 - Supervision of high risk , unspecified, unspecified trimester Type Screen 09/28/24 O09.90 - Supervision of high risk , unspecified, unspecified trimester Rubella IgG 09/28/24 O09.90 - Supervision of high risk , unspecified, unspecified trimester Hepatitis C Antibody 09/28/24 O09.90 - Supervision of high risk , unspecified, unspecified trimester Hepatitis B Surface Antigen 09/28/24 O09.90 - Supervision of high risk , unspecified, unspecified trimester Culture, Urine 09/28/24 O09.90 - Supervision of high risk , unspecified, unspecified trimester Syphilis Antibodies 09/28/24 O09.90 - Supervision of high risk , unspecified, unspecified trimester Chlamydia/GC LUIGI aptima 09/28/24 O09.90 - Supervision of high risk , unspecified, unspecified trimester HIV 09/28/24 O09.90 - Supervision of high risk , unspecified, unspecified trimester Hemoglobin A1c 09/28/24 O09.90 - Supervision of high risk , unspecified, unspecified trimester, O99.210 - Obesity complicating , unspecified trimester Clinical Quality Measures Falls Risk Screening/Assistive Devices Have you fallen in the past year?: No 09/30/242056 Date Joyce Goodman DO [facility] Signature: Date (if applicable) CC: Normal [facility] CBC + DIFFon 03-21-2024 Baso # 0.03 x10EE3/UL Normal 0.00 - 0.10 [facility] Comment on above: Performed By: #### 2 40129 #### [facility],[address] [place], [place] [id number] Basophils/100 WBC (Bld) 0.4 % Normal 0.0 - 2.0 [facility] Comment on above: Performed By: #### 2 50794 #### [facility],[address] [place] [address] CBC + DIFF Normal [facility] Comment on above: Result Comment: CBC- COMPLETE BLOOD COUNT Performed By: #### 2 36779 #### [facility],[address] [place] [address] EO # 0.10 x10EE3/UL Normal 0.00 - 0.50 [facility] Comment on above: Performed By: #### 2 22275 #### [facility],[address] [place] [address] 56198 Eosinophils/100 WBC (Bld) 1.4 % Normal 0.0 - 7.0 [facility] Comment on above: Performed By: #### 2 33720 #### [facility],[address] [place] [address] Erythrocyte distribution width (RBC) [Ratio] 14.4 % Normal 12.0 - 15.6 [facility] Comment on above: Performed By: #### 2 54807 #### [facility],[address] [place] [address] Hematocrit (Bld) [Volume fraction] 45.9 % Normal 34.0 - 46.0 [facility] Comment on above: Performed By: #### 2 76721 #### [facility],[address] [place] [address] Hemoglobin (Bld) [Mass/Vol] 15.0 g/dL Normal 12.0 - 16.0 [facility] Comment on above: Performed By: #### 2 32079 #### [facility],[address] [place] [address] Lymph # 2.22 x10EE3/UL Normal 0.80 - 2.80 [facility] Comment on above: Performed By: #### 2 15545 #### [facility],[address] [place], [place] [id number] Lymphocytes/100 WBC (Bld) 33.0 % Normal 20.0 - 45.0 [facility] Comment on above: Performed By: #### 2 04069 #### [facility],[address] [place] [address] 15507 MANUAL DIFF N/A Normal [facility] Comment on above: Performed By: #### 2 86272 #### [facility],[address] [place], [place] [phone] MCH (RBC) [Entitic mass] 26 pg Low 27 - 33 [facility] Comment on above: Performed By: #### 2 71436 #### [facility],[address] [place] [address] 50468 MCHC 33 X10 3 Normal 32 - 36 [facility] Comment on above: Performed By: #### 2 78648 #### [facility],[address] [place] [address] 19111 MCV (RBC) [Entitic vol] 80 fL Normal 80 - 99 J l [facility] Comment on above: Performed By: #### 2 74754 #### [facility],[address] [place] [address] 21555 Tensas # 0.45 x10EE3/UL Normal 0.20 - 1.00 [facility] Comment on above: Performed By: #### 2 33689 #### [facility],[address] [place] [address] 38561 MONOS % 6.7 % Normal 0.0 - 10.0 [facility] Comment on above: Performed By: #### 2 16900 #### [facility],[address] [place] [address] 30270 Morphology Chaka (Bld) [Interp] N/A Normal [facility] Comment on above: Performed By: #### 2 38672 #### [facility],[address] [place] [address] 15263 Neut # 3.94 x10EE3/UL Normal 1.50 - 7.10 [facility] Comment on above: Performed By: #### 2 10145 #### [facility],[address] [place] [address] 56661 Neutrophils/100 WBC (Bld) 58.5 % Normal 46.0 - 76.0 [facility] Comment on above: Performed By: #### 2 88744 #### [facility],[address] [place] [address] 85001 PLATELET 361 x10EE3/UL Normal 150 - 450 [facility] Comment on above: Performed By: #### 2 20745 #### [facility],[address] [place] [address] 59047 Platelet mean volume (Bld) [Entitic vol] 6.8 fL Normal 6.6 - 10.5 [facility] Comment on above: Result Comment: AUTO MATED DIFFERENTIAL Performed By: #### 2 73516 #### [facility],[address] [place] [address] 26667 RBC 5.72 x 10EE6/UL High 4.10 - 5.30 [facility] Comment on above: Performed By: #### 2 07652 #### [facility],[address] [place] [address] 62650 WBC 6.7 x 10EE3/UL Normal 4.5 - 10.8 [facility] Comment on above: Performed By: #### 2 60295 #### [facility],[address] [place] [address] 53191 CHEST 2 VIEWSon 03-21-2024 CHEST 2 VIEWS [place] [id number] Patient: MAREN HURST Phone#: : 2000 Age: 23 Gender: F Pt. Type: ER Account: [id number] Location: [facility] Ordering: GARRETT BEARD Exam Date: 03/21/2024/0:58 Family Phys: ESTEPHANIA DOWLING Charge Code: 337277 Physician: Leslie Order #: [id number] Dose#: PROCEDURE: X-RAY CHEST 2 VIEWS COMPARISON: [...] MD on 03/22/2024 at 10:47 Approved by: Rostia Pitts MD on 03/22/2024 at 10:48 Normal [facility] CMP with eGFRon 03-21-2024 AGE 23 years Normal [facility] Comment on above: Performed By: #### 2 38096 #### [facility],[address] [place] [address] 77543 Albumin [Mass/Vol] 3.2 g/dL Low 3.4 - 5.0 [facility] Comment on above: Performed By: #### 2 69062 #### [facility],[address] [place] [address] 67565 Albumin/Globulin [Mass ratio] 0.6 {ratio} Low 0.9 - 1.6 [facility] Comment on above: Performed By: #### 2 98313 #### [facility],[address] [place] [address] 26785 ALK PHOS 97 U/L Normal 46 - 116 [facility] Comment on above: Performed By: #### 2 90250 #### [facility],[address] [place] [address] 82201 ALT [Catalytic activity/Vol] 83 U/L High 16 - 63 [facility] Comment on above: Performed By: #### 2 86898 #### [facility],[address] [place] [address] 37581 Anion gap [Moles/Vol] 13 mmol/L Normal 10 - 20 [facility] Comment on above: Performed By: #### 2 65974 #### [facility],[address] [place] [address] 76186 AST [Catalytic activity/Vol] 26 U/L Normal 13 - 39 [facility] Comment on above: Performed By: #### 2 84552 #### [facility],[address] [place] [address] 33971 B/C RATIO 10 ratio Normal 0 - 30 [facility] Comment on above: Performed By: #### 2 00351 #### [facility],[address] [place] [address] 52731 Bilirubin [Mass/Vol] 0.4 mg/dL Normal 0.2 - 1.0 [facility] Comment on above: Performed By: #### 2 70183 #### [facility],[address] [place] [address] 66604 Calcium [Mass/Vol] 9.1 mg/dL Normal 8.5 - 10.1 [facility] Comment on above: Performed By: #### 2 10987 #### [facility],[address] [place] [address] 09112 Chloride [Moles/Vol] 100 mmol/L Normal 98 - 107 [facility] Comment on above: Performed By: #### 2 93642 #### [facility],[address] [place] [address] 44997 CMP with eGFR Normal [facility] Comment on above: Result Comment: COMP REHENSIVE METABOLIC PANEL Performed By: #### 2 94456 #### [facility],[address] [place] [address] 92577 CO2 [Moles/Vol] 28.5 mmol/L Normal 21.0 - 32.0 [facility] Comment on above: Performed By: #### 2 67205 #### [facility],[address] [place] [address] 54012 Creatinine [Mass/Vol] 1.08 mg/dL High 0.55 - 1.02 [facility] Comment on above: Performed By: #### 2 65797 #### [facility],[address] [place] [address] 42612 GFR/1.73 sq M.predicted among non-blacks MDRD (S/P/Bld) [Vol rate/Area] mL/min/{1.73_m2} Normal 60 - 999 [facility] Comment on above: Performed By: #### 2 29608 #### [facility],[address] [place] [address] 16111 Result Comment: ACCO RDING TO THE NATIONAL KIDNEY DISEASE EDUCATION PROGRAM(NKDE), A NORMAL eGFR IS A VALUE GREATER THAN OR EQUAL TO 60 ML/MIN/1.73 SQ METERS. CHRONIC KIDNEY DISEASE: <60mL/MIN/1.73 SQ METERS KIDNEY FAILURE: <15mL/MIN/1.73 SQ METERS THIS TEST SHOULD ONLY BE USED FOR PATIENTS 18 YEARS OF AGE AND OLDER. Globulin (S) [Mass/Vol] 5.3 g/dL High 1.5 - 3.8 [facility] Comment on above: Performed By: #### 2 62493 #### [facility],[address] [place] [address] 87140 Glucose [Mass/Vol] 96 mg/dL Normal 74 - 106 [facility] Comment on above: Performed By: #### 2 20710 #### [facility],[address] [place] [address] 03556 Potassium [Moles/Vol] 3.9 mmol/L Normal 3.5 - 5.1 [facility] Comment on above: Performed By: #### 2 26026 #### [address] [address] Protein [Mass/Vol] 8.5 g/dL High 6.4 - 8.2 [facility] Comment on above: Performed By: #### 2 08410 #### [facility],[address] [place] [address] 86434 Sodium [Moles/Vol] 138 mmol/L Normal 136 - 145 [facility] Comment on above: Performed By: #### 2 38066 #### [address] [address] Urea nitrogen [Mass/Vol] 11 mg/dL Normal 7 - 18 [facility] Comment on above: Performed By: #### 2 49168 #### [address] [address] ED MED ADMINISTRATION DETAIL on 03-21-2024 ED MED ADMINISTRATION DETAIL Ampoule Examiner Medication Administration Record [address] [address] [id number] 03/21/2024 Patient: MAREN HURST Sex: Female : [...] MAP: 123 mmHg. HR: 104 bpm. - E.M.T.-P. 00:59 Anna NavarreteT.-P. Stopped 02:00 03/21/2024 02:00 12 Medication Discontinued: [...] 123 mmHg. HR: 104 bpm. - 00:59 Anna NavarreteT.-P. 1 of 2 Ampoule Examiner Medication Ordered Medication Administration Date/Time Levaquin IVPB 01:54 12 Levaquin IVPB Premix 750 mg started at [...] mg wasted. - 01:59 Bri Monsivais R.N. R.N. Scanned 03:25 12 Medication Discontinued: IV completed. Total amount infused: 150 mL. IV patency established. IV site checked: no pain, redness, or swelling. IV flushed thoroughly post-medication administration. - 03:40 Bri Gardner R.N. IV NS 0.9 % 1000 02:32 [...] reviewed with patient. Verbalizes understanding. - 02:34 Bri 03:30 03/21/2024 Letitia Gardner R.N. Scanned 03:30 03/21 Medication Discontinued: bag #1 completed. Total amount infused: 1000 mL. IV patency established. IV site checked: no pain, redness, or swelling. IV flushed thoroughly post-medication administration. - 03:40 Bri Gardner R.N. Pepcid 20mg/50ml 03:35 12 Pepcid 20mg/50ml [...] 04:25 Bri Gardner R.N. 2 of 2 Normal [facility] ED NURSES CLINICAL NOTEon ED NURSES CLINICAL NOTE Nurse Narrative Nurse Clinical Narrative [address] [address] [id number] 03/21/2024 Patient: MAREN HURST Sex: Female : [...] greater than 90. -- 00:35 03/21/24 EST Bri Gardner R.N. 00:24 03/21/24. [...] RASHARD Gardner R.N. 00:16 03/21/24. Preferred pharmacy: [facility] ; [address] [place] [address] ([facility]). -- 00:35 03/21/24 RASHARD Gardner R.N. [...] disease exposure. ABUSE ASSESSMENT: The patient answered yes to the question(s) Do you feel safe in your home? and no to the question(s) Are you afraid to go home?. SELF HARM ASSESSMENT: Self harm assessment was performed. The patient answered no to the question(s) Have you recently felt down, depressed, or hopeless? and Do you have thoughts of harming or killing yourself?. 2 of 6 Nurse Narrative FALL RISK [...] of Benadryl at home). -- 02:25 03/21/24 EST Bri Gardner R.N. NURSING PROGRESS NOTES 00:22 03/21/24. [...] with 5 mL saline. -- 00:43 03/21/24 EST Colin Arellano E.M.T.-P. 00:40 03/21/24. HR: 112 bpm. O2 saturation: 96%. -- 04:40 03/21/24 EST Bri Gardner R.N. 00:47 03/21/24. BP: 138/91 MAP: 123 mmHg. HR: 104 bpm. -- 04:40 03/21/24 EST Santos MonsivaisN. 00:48 03/21/24. Patient transported to radiology by stretcher with delivery tech. (Chest xray completed.). -- 04:29 03/21/24 EST Bri Gardner R.N. 00:53 12/8/24. HR: 126 bpm. O2 saturation: 9 (more content not included)... Normal [facility] ED ORDER SHEET (CPOE ONLY)on 03-21-2024 ED ORDER SHEET (CPOE ONLY) Order Sheet Order Sheet [facility] [address] [place] [address] [id number] 03/21/2024 Patient: MAREN HURST Sex: Female : 2000 Age: 23y MEASUREMENTS: Wt: 131.5 kg, Ht/Dru: 65.0 in, BMI: 48.26 ALLERGIES: No known drug allergies MEDICATION/IV/DRIP/FL UID ORDERS Order Description Priority Entered Acknowledged Completed IV NS 0.9 %1000 mL at 999 00:41 03/21/2024 00:57 00:59 mL/hr (NOW x1) Garrett Beard, 03/21/2024 03/21/2024 Colin Grubbs E.M.T.-P. E.M.T.-P. MethylPREDNISolone Sodium 00:41 03/21/2024 00:57 00:59 Succ (Solu-Medrol) [id number] mg Garrett Beard, 03/21/2024 03/21/2024 (NOW x1) Colin Grubbs E.M.TOlga Lidia-P. E.M.T.-P. Reason for ordering with alerts: Benefits outweigh risks --00:41 03/21/2024 Garrett Beard D.O. Levaquin IVPB Rpydft035 mg at 01:34 03/21/2024 01:59 100 mL/hr (NOW x1) Garrett Beard, 03/21/2024 Taylor Gardner R.N. Reason for ordering with alerts: Benefits outweigh risks --01:34 03/21/2024 Garrett Beard D.O. IV NS 0.9 %1000 mL at 500 02:12 03/21/2024 02:34 1 of 3 Order Sheet mL/hr (NOW x1) Garrett Beard, 03/21/2024 Taylor Gardner R.N. Reason for ordering with alerts: Benefits outweigh risks --02:12 03/21/2024 Garrett Beard D.O. Pepcid 20mg/50ml Premix 03:32 03/21/2024 03:39 IVPB20 mg (NOW x1) Garrett Beard, 03/21/2024 Taylor Gardner R.N. LAB ORDERS [...] 2V Stat Stat 00:41 03/21/2024 00:42 01:38 Garrett Beard, 03/21/2024 03/21/2024 Bri Cabrera R.N. RAnoop Reason for Study: Cough STAFF ORDERS Order Description Priority Entered Acknowledged Collected Completed IV Saline Lock 00:41 03/21/2024 00:42 03/21/2024 00:57 03/21/2024 Bri Ludwig Bryan Parker, D.O. R.N. E.M.T.-P. 2 of 3 Order Sheet [Electronically signed by Garrett Beard D.O. (03/21/2024 04:08 EST)] 3 of 3 Normal [facility] ED PHYSICIAN CLINICAL REPORT on 03-21-2024 ED PHYSICIAN CLINICAL REPORT Narrative Physician Clinical Narrative [address] [address] [id number] 03/21/2024 Patient: MAREN HURST Sex: Female : 2000 Age: 23y Measurements Wt: 131.5 kg, Ht/Dru: 65.0 in, BMI: 48.26 Initial Vital Sign Measured Time BP MAP HR RR O2Sat ETCO2 Temp Pain GCS RTS 00:22 03/21/2024 155/95 122 124 Time Seen: 00:16 03/21/2024. Arrived- By private vehicle. Historian- patient. Independent historian- family. HISTORY OF PRESENT ILLNESS Chief Complaint: ALLERGIC REACTION and HIVES. The patient has had a skin rash [...] 1.50 - 7.10 Final EST 03/21/2024 01:10 Tensas # 0.45 x10/UL 0.20 - 1.00 Final [...] ALT/SGPT Above high 16 - 63 Final 0 (more content not included)... Normal [facility] ED SUPER BILLon 03-21-2024 ED SUPER BILL [facility] [address] [place] [address] [id number] 03/21/2024 Patient: MAREN HURST Sex: Female : 2000 Age: 23y Item Facility Professional Category Description Code Code Quantity Fee Total Drugs Normal Saline 819157 2 $0.00 $0.00 1000cc (788733) Nurse/E/M EMERGENCY 223586 1 $0.00 $0.00 DEPARTMENT VISIT HIGH/URGENT SEVERITY (11313-85) Nurse/IV/IM/Infusions Drip/IVPB 023903 1 $0.00 $0.00 additional hour (03651) Nurse/IV/IM/Infusions Drip/IVPB initial 024494 1 $0.00 $0.00 (03323) Nurse/IV/IM/Infusions Drip/IVPB seq 105392 1 $0.00 $0.00 (98740) Nurse/IV/IM/Infusions Hydration 938017 1 $0.00 $0.00 additional hour (18128) 1 of 2 [facility] Facility Professional Category Description Code Code Quantity Fee Total Nurse/IV/IM/Infusions IVP additional 520697 1 $0.00 $0.00 push (05420) Grand Total $0.00 Providers Garrett Beard D.O. Chief Complaint ALLERGIC REACTION and HIVES. Principal Diagnosis Acute hives secondary to unknown cause. Bronchopneumonia. ICD-10 Codes L50.9: Urticaria, unspecified J18.0: Bronchopneumonia, unspecified organism 2 of 2 Normal [facility] ED VISIT SUMMARYon ED VISIT SUMMARY Visit Overview Visit Overview [address] [place] [address] [id number] 03/21/2024 Patient: MAREN HURST Sex: Female : 2000 Age: 23y 03/21/2024 07:17 AM EST ED Arrival:00:14 03/21/2024 EST Status:not Recent Travel:no Language:eng Adv Directive:No Isolation Status: Ethnicity:N Fall Risk:no risk Infectious Disease Exposure:no Measurements:5'5 / 165.1 Self-Harm Status:risk Sepsis Screen:negative cm [...] TO UNKNOWN CAUSE BRONCHOPNEUMONIA 3 of 3 Normal [facility] ED VITALS FLOW SHEETon 03-21 ED VITALS FLOW SHEET Vitals Vital Sign Flow Sheet [facility] [address] [place] [address] [id number] 03/21/2024 Patient: MAREN HURST Sex: Female : [...] 03/21/2024 155/95 122 124 3 of 3 Normal [facility] Chest PA and Lateralon 03-18 Chest PA and Lateral [facility] [address] [place] [address] Chest PA and Lateral MR#: [id number] Acct: [id number] Name: MAREN HURST Rep #: [id number] : 2000 F 23 From: Harvey garcia MD PCP: Estephania Dowling PA-C Status: [facility] CL Study: Chest PA and Lateral Date of Exam: 03/18/24 Exam# [id number] Ordering Dr: Carlos Enrique Coyne [id number] STUDY: X-RAY CHEST REASON FOR EXAM: Female, 23 years old. Five-day history of cough. TECHNIQUE: PA and lateral views of the chest. COMPARISON: None. FINDINGS: There is elevation of the right hemidiaphragm. Right upper lobe consolidation. Findings suggestive of enlarged right hilar lymph nodes. Radiographic follow-up recommended. There is no demonstrated pleural abnormality. Normal size heart. Normal visualized pulmonary arteries. Normal visualized aortic arch and descending thoracic aorta. Normal visualized thoracic spine. Normal visualized ribs, clavicles, and shoulders. There is no demonstrated abnormality of the visualized soft tissue structures of the upper abdomen. RAD/Chest PA and Lateral IMPRESSION: Elevation of the right hemidiaphragm with consolidation in the right upper lobe abutting the right minor fissure and findings suggestive of enlarged right hilar lymph nodes. Radiographic follow-up recommended following treatment. Electronically Signed: Harvey Lopez MD at 10:05 EST , CC: RODRIGUEZ Dowling; QUIQUE Rodriguez Circus Rider: Signed Normal [facility] Urgent Care Visit Reporton 1 05-19-2023 Urgent Care Visit Report [facility] [address], [address] [place] [address] OFFICE VISIT Date of Service: 03/18/24 MR#: [id number] Acct: [id number] Name: MAREN HURST Rep #: [id number] : 2000 Provider: QUIQUE Rodriguez Age/Sex: 23/F Location: [facility] Status: Signed Intake Vital Signs 09/22/22 09:35 03/18/24 09:30 Height 5 ft 8 in 5 ft 8 in BP 130/80 H Blood Pressure Location Rt brachial Position Sitting Respiration 16 Pulse 103 H Pulse Source NIBP Temp 98.1 F Temp Source Oral Pulse Oximetry (%) 98 Oxygen Delivery Method room air Intake Visit Reasons: COUGH, FEVER X 1 WK Chief Complaint: cough, fever, back pain 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 declines viral testing. [facility] Social History Smoking Status: Never smoker alcohol intake: never HPI HPI Chief Complaint: cough, fever, back pain Details: MAREN HURST, is a 23 F who presents to the office today for complaint of productive cough, fever and pain with her cough. Patient states that this has been ongoing for the past week. She reports a fever with Tmax of 102.4 ???F last night. No hemoptysis, shortness of breath or difficulty breathing. No nausea, vomiting or diarrhea. No other associated symptoms or alleviating/aggravati ng factors. ROS Const Constitutional: No other (6 system ROS completed with pertinent findings in the HPI otherwise normal.) Exam Const General: cooperative and well developed HENMT Head: normal to inspection and atraumatic Ears: hearing grossly normal bilaterally Nose: nasal discharge clear Face and sinus: normal facial exam Mouth: oral mucosae normal Throat: abnormal tonsil bilaterally hypertrophy 1+ Resp Effort Inspection: normal respiratory effort and no audible wheezes Auscultation: Bilateral: Clear to Auscultation Cardio Rate: regular rate Rhythm: regular rhythm Neuro General: patient alert Psych Appearance: grossly normal Mental Status: mental status grossly normal Coding Level of Care Code Off vis,est,level 4 Diagnoses Right upper lobe pneumonia J18.9 Assessment and Plan Assessment and Plan (1) Right upper lobe pneumonia: Status: Acute Plan: Chest x-ray read and interpreted by myself finding right upper lobe pneumonia. Awaiting radiology interpretation at time of patient discharge. Augmentin and azithromycin as prescribed today. Encouraged to get plenty of rest, drink lots of clear liquids, and use Tylenol or Ibuprofen (unless contraindicated) for fever and comfort. Patient also educated on other symptomatic management techniques. To be seen in 7-10 days if no improvement; sooner if worsening of symptoms. Patient advised of potential red flags and when appropriate to report to the ED. Patient verbalized understanding and agreement with all above. Orders: Orders Chest PA and Lateral Today R05.9 - Cough, unspecified Medications: New amoxicillin-pot clavulanate 875-125 mg 1 TAB PO Q12H 10 days 20 tabs 0RF J01.90 - Acute sinusitis, unspecified azithromycin take 500 mg today (day 1), then 250 mg for 4 days (days 2-5) PO 6 tabs 0RF Clinical Quality Measures Falls Risk Screening/Assistive Devices Have you fallen in the past year?: No 03/18/24 1006 Date Carlos Enrique Muñoz Signature: Date (if applicable) CC: Normal [facility] Dietitian Teaching Cytology Reporton 2023 Dietitian Teaching Cytology Report . Pathology Reports Accession: Collected Date/Time: Received Date/Time: Pathologist: [id number] 06/09/2023 09:11 EST 06/09/2023 18:00 EST Dietitian Teaching Cytology Report SPECIMEN: Specimen Description: Liquid Prep Reflex ASCUS Specimen: Cervical Screening or Diagnostic: Screening RELEVANT HISTORY: LMP: [id number] SPECIMEN ADEQUACY: SATISFACTORY FOR EVALUATION Endocervical/Transfor mational zone component present INTERPRETATION/RESULT S: NEGATIVE FOR INTRAEPITHELIAL LESION OR MALIGNANCY COMMENT: This Pap Test was successfully processed and evaluated with the assistance of the [employer] [facility] System. Electronically Signed by Pathology report verified by [facility] Screened by: KK Electronically signed by Monica HAMMONDS (ASCP) Sign-Out Date: 06/19/2023 13:30 Performing Lab: [facility], [address] [place] [address] Pathology Dept Disclaimer The Pap test is a screening test for cervical cancer. As evidenced by published data, it is subject to both inherent false negative and false positive results. Your patient's results should be interpreted in context with pertinent clinical history including gynecological examination. Normal Counts Include [facility] (CT) THIN PREP (Nargis) PAP WITH HP V REFLEXon 06-19-2023 THIN PREP (Nargis) PAP WITH HPV REFLEX Normal [facility] [place] Comment on above: Result Comment: _THI N PREP (Adult) PAP w HPV REFLEX_ Performed By: #### [id number] #### [facility] [place],[address] [place] [id number] Vital Signs Date Time Vital Sign Value Performing Clinician Adelaida howard 01-24-2025 09:01-0400 Body height 172.72 cm Estephania Dowling PA-C Work Phone: [facility] 01-24-2025 09:01-0400 Body mass index (BMI) [Ratio] 47.9 kg/m2 [employer] PA-C Work Phone: [facility] 01-24-2025 09:01-0400 Body weight 143.02 kg Estephania [place] PA-C Work Phone: [facility] 01-24-2025 09:01-0400 Diastolic blood pressure 85 mm[Hg] Estephania [place] PA-C Work Phone: [facility] 01-24-2025 09:01-0400 Systolic blood pressure 126 mm[Hg] Estephania [place] PA-C Work Phone: [facility] 12-29-2024 13:51-0400 Body height 172.72 cm [employer] PA-C Work Phone: [facility] 12-29-2024 13:40-0400 Body mass index (BMI) [Ratio] 47.7 kg/m2 Estephania [place] PA-C Work Phone: [facility] 12-29-2024 13:40-0400 Body weight 142.54 kg Estephania [place] PA-C Work Phone: [facility] 12-29-2024 13:40-0400 Diastolic blood pressure 88 mm[Hg] Estephania [place] PA-C Work Phone: [facility] 12-29-2024 13:40-0400 Systolic blood pressure 135 mm[Hg] Estephania [place] PA-C Work Phone: [facility] 12-27-2024 10:25-0400 Body height 172.72 cm [employer] PA-C Work Phone: [facility] 12-27-2024 10:21-0400 Body mass index (BMI) [Ratio] 48.1 kg/m2 EstephaniaFNZ PA-C Work Phone: [facility] 12-27-2024 10:21-0400 Body weight 143.59 kg Estephania MIG [place] PA-C Work Phone: [facility] 12-27-2024 10:21-0400 Diastolic blood pressure 87 mm[Hg] Estephania [place] PA-C Work Phone: [facility] 12-27-2024 10:21-0400 Systolic blood pressure 138 mm[Hg] Estephania [place] PA-C Work Phone: [facility] 11-29-2024 11:40-0400 Body height 172.72 cm Estephania [place] PA-C Work Phone: [facility] 11-29-2024 11:40-0400 Body mass index (BMI) [Ratio] 48.4 kg/m2 Estephanai [place] PA-C Work Phone: [facility] 11-29-2024 11:40-0400 Body weight 144.69 kg Estephania [place] PA-C Work Phone: [facility] 11-29-2024 11:40-0400 Diastolic blood pressure 86 mm[Hg] Estephania [place] PA-C Work Phone: [facility] 11-29-2024 11:40-0400 Systolic blood pressure 130 mm[Hg] Etsephania [place] PA-C Work Phone: [facility] 11-01-2024 14:22-0400 Diastolic blood pressure 85 mm[Hg] Estephania [place] PA-C Work Phone: [facility] 11-01-2024 14:22-0400 Systolic blood pressure 126 mm[Hg] Estephania [place] PA-C Work Phone: [facility] 11-01-2024 13:49-0400 Body height 172.72 cm Estephania MIG [place] PA-C Work Phone: [facility] 11-01-2024 13:49-0400 Body mass index (BMI) [Ratio] 48.9 kg/m2 Estephania MIG [place] PA-C Work Phone: [facility] 11-01-2024 13:49-0400 Body weight 146.05 kg [employer] PA-C Work Phone: [facility] 10-06-2024 13:07-0400 Body height 172.72 cm [employer] PA-C Work Phone: [facility] 10-06-2024 13:05-0400 Body mass index (BMI) [Ratio] 52.4 kg/m2 [employer] PA-C Work Phone: [facility] 10-06-2024 13:05-0400 Body weight 143.05 kg [employer] PA-C Work Phone: [facility] 10-06-2024 13:05-0400 Diastolic blood pressure 85 mm[Hg] [employer] PA-C Work Phone: [facility] 10-06-2024 13:05-0400 Systolic blood pressure 140 mm[Hg] [employer] PA-C Work Phone: [facility] 09-28-2024 11:47-0400 Body mass index (BMI) [Ratio] 50.3 kg/m2 [employer] PA-C Work Phone: [facility] 09-28-2024 11:47-0400 Body weight 150.25 kg [employer] PA-C Work Phone: [facility] 09-28-2024 11:47-0400 Diastolic blood pressure 80 mm[Hg] [employer] PA-C Work Phone: [facility] 09-28-2024 11:47-0400 Systolic blood pressure 122 mm[Hg] [employer] PA-C Work Phone: [facility] Encounters Encounter Date Encounter Type Care Provider Facility Start: 02-25-2025 ambulatory Kt Avila Facility :[facility] Start: 02-24-2025 ambulatory Joyce Landers cility:[facility] Start: 02-15-2025 End: 02-15-2025 ambulatory GILDARDO Renteria CHERYLE [facility] Start: 02-14-2025 End: 02-14-2025 ambulatory AISSATOU RUSHING [facility] Start: 02-07-2025 End: 02-07-2025 ambulatory Mariela Alvarado Facility:[facility] Start: 01-24-2025 End: 01-24-[address] Joyce Goodman DO -[facility] Work Phone: Start: 01-24-2025 End: 01-24-2025 ambulatory [employer] PA-C Work Phone: -[facility] Start: 01-10-2025 End: 01-10-2025 ambulatory [employer] PA-C Work Phone: -Lab [facility] Start: 01-10-2025 End: 01-10-2025 Patient encounter procedure Lakeisha NUÑEZC -Lab [facility] Start: 01-10-2025 End: 01-10-2025 Subsequent hospital visit by physician Aissatou Rushing DO Work Phone: [facility] Comment on above: , supervisi on, high-risk, second trimester; Elevated ALT measurement; Dysuria during in second trimester Start: 01-10-2025 End: 01-10-2025 ambulatory AISSATOU RUSHING [facility] Start: 01-10-2025 End: 01-10-2025 ambulatory MARIELA ALVARADO [facility] Start: 01-10-2025 End: 01-10-2025 ambulatory Estephania [place] PA Facility:[facility] Start: 12-29-2024 End: 12-29-2024 Patient encounter procedure Lakeisha Flowers NP-C -[facility] Work Phone: Start: 12-29-2024 End: 12-29-2024 ambulatory [employer] PA-C Work Phone: -[facility] Start: 12-28-2024 End: 12-29-2024 ambulatory [employer] PA-C Work Phone: -[facility] Start: 12-28-2024 End: 12-28-[address] Mariela Alvarado MD -[facility] Start: 12-27-2024 End: 12-28-2024 ambulatory [employer] PA-C Work Phone: -[facility] Start: 12-27-2024 End: 12-27-[address] Mariela Alvarado MD -[facility] Work Phone: Start: 12-20-2024 End: 12[facility]20[facility]: 11-29-2024 End: 11-29-2024 Patient encounter procedure Kt MACDONALD -[facility] Work Phone: Start: 11-29-2024 End: 11-29-2024 ambulatory [employer] PA-C Work Phone: [facility] Start: 11-17-2024 End: 11-17-2024 ambulatory [employer] PA-C Work Phone: -[facility] Start: 11-17-2024 End: 11-17-[address] Joyce Goodman DO [facility] Start: 11-17-2024 End: 11-17-2024 ambulatory Joyce Goodman Facility:[facility] Start: 11-10-2024 End: 11-10-2024 ambulatory [employer] PA-C Work Phone: -[facility] Start: 11-10-2024 End: 11-10-[address] Joyce Goodman DO [facility] Start: 11-10-2024 End: 11-10-2024 ambulatory Joyce Goodman Facility:[facility] Start: 11-01-2024 End: 11-01-2024 Patient encounter procedure Kt MACDONALD -[facility] Work Phone: Start: 11-01-2024 End: 11-01-2024 ambulatory Estephania [place] PA-C Work Phone: -[facility] Start: 11-01-2024 End: 11-01-2024 ambulatory Kt Avila Facility:[facility] Start: 10-06-2024 End: 10-06-2024 ambulatory Estephania [place] PA-C Work Phone: -[facility] Start: 10-06-2024 End: 10-06-[address] Joyce Goodman DO -[facility] Work Phone: Start: 10-06-2024 End: 10-06-[address] Joyce Goodman DO -[facility] Work Phone: Start: 10-06-2024 End: 10-06-2024 ambulatory Estephania [place] PA-C Work Phone: [facility] Work Phone: Start: 10-06-2024 End: 10-06-2024 ambulatory Joyce Goodman Facility:[facility] Start: 09-28-2024 End: 09-28-[address] Joyce Goodman DO -[facility] Work Phone: Start: 09-28-2024 End: 09-28-2024 ambulatory Estephania [place] PA-C Work Phone: [facility] Work Phone: Start: 03-21-2024 End: 03-21-2024 Emergency department patient visit GARRETT BEARD [facility] [place] Start: 03-18-2024 End: 03-18-2024 ambulatory Carlos Enrique LEI Facility:[facility] Start: 03-18-2024 End: 03-18-2024 ambulatory Carlos Enrique LEI Facility:[facility] Start: 06-09-2023 End: 06-09-2023 ambulatory [facility] Start: 06-09-2023 Encounter for gynecological examination (general) (routine) without abnormal findings [facility] Start: 02-02-2022 ambulatory Cedric Pisano MD Work Phone: [facility] Start: 02-02-2022 Patient encounter procedure Cedric Pisano MD Work Phone: [facility] Comment on above: Referral Procedures Date Procedure Procedure Detail Performing Clinician Start: 01-10-2025 Creatinine measureme nt, 24 hour urine [facility] [employer] Work Phone: Start: 01-10-2025 Comprehensive metabo lic panel Aissatou Rushing DO Work Phone: Start: 12-29-2024 Urine culture Estephania [employer] Work Phone: Start: 11-17-2024 Procedure Estephania Marcel [employer] Work Phone: Start: 11-01-2024 Hepatitis C antibody measurement [facility] [employer] Work Phone: Comment on above: Reactive: Presumptiv e evidence of antibodies to HCV. Follow CDC recommendations for supplemental testing.Non-Reactive: Antibodies to HCV were not detected; does not exclude the possibility of exposure to HCVReactive Results are presumptive evidence of antibodies to HCV. Follow CDC recommendations for supplemental testing.Order confirmation testing: HCV Quant by PCR testing - HCVPCR #[id number] Non Reactive: < 0.8 Equivocal: >/= 0.8 to < 1.0 Reactive: >/= 1.0The CDC requires that a reactive/equivocal HCV antibody result be sent out for confirmation. HCV Quant by PCR testing. Start: 11-01-2024 Procedure Estephania Rod [employer] Work Phone: Start: 11-01-2024 Rubella IgG measurement [employer] Work Phone: Comment on above: Antibody Result: Int erpretationNon-Reactive: Non- ImmuneReactive: ImmuneThe following results were obtained with the [employer] Rubella IgG assay. Results from assays of other manufacturers cannot be used interchangeably. Start: 11-01-2024 Serologic test for syphilis [facility] [employer] Work Phone: Start: 10-06-2024 Urine culture [facility] [employer]vin[employer] Work Phone: Plan of Treatment Date Care Activity Detail Author Start: 04-04-2025 End: 04-04-2025 Professional / ancillary services management 04/04/2025 2:00 PM EST Ancillary Procedure Visit [facility] [address], [address] [place] [id number] [address] 60 GROWTH 4 WEEKS [facility] Comment on above: US 60 GROWTH 4 WEEKS Start: 03-08-2025 End: 03-08-2025 Professional / ancillary services management 03/08/2025 8:30 AM EST Ancillary Procedure Visit [facility] [address], [address] [id number] [address] 60 GROWTH 4 WEEKS [facility] Comment on above: US 60 GROWTH 4 WEEKS Start: 02-14-2025 End: 02-14-2025 Patient encounter procedure 02/14/2025 10:00 AM EST Office Visit [address] [id number] Aissatou Rushing [place], [place] [id number] Zbigniew Villarreal MD [place], [place] [id number] EDC 05/17/25 Dx: , supervision, high-risk, second trimester [O09.92] [facility] Comment on above: EDC 05/17/25 Dx: Pregn ricardo, supervision, high-risk, second trimester [O09.92] Start: 02-10-2025 End: 02-10-2025 Professional / ancillary services management 02/10/2025 8:00 AM EDT Ancillary Procedure Visit [facility] [address], [address] [id number] [address] 60 GROWTH 4 WEEKS [facility] Comment on above: US 60 GROWTH 4 WEEKS Start: 02-07-2025 Patient encounter procedure Registered Clinical -Lab [facility] Start: 01-24-2025 Measurement of gluco se 2 hours after glucose challenge for glucose tolerance test [facility] Start: 01-24-2025 Serologic test for syphilis [facility] Start: 01-24-2025 [facility] Start: 01-10-2025 Patient encounter procedure Registered Clinical -Lab [facility] Start: 12-29-2024 [facility] Start: 12-29-2024 Bacteria identified in Urine by Culture Urine Culture [facility] Start: 12-13-2024 COVID-19 (2023-05 season) COVID-19 ( season) [facility] Start: 12-13-2024 FLU (#1) FLU (#1) [facility] Start: 11-01-2024 CBC W Auto Different ial panel - Blood [facility] Start: 11-01-2024 Comprehensive metabo lic 2000 panel - Serum or Plasma [facility] Start: 11-01-2024 Hemoglobin A1c/Hemoglobin.total in Blood [facility] Start: 11-01-2024 Hepatitis C antibody measurement [facility] Start: 11-01-2024 Procedure [facility] Start: 11-01-2024 Rubella IgG measurement [facility] Start: 11-01-2024 Serologic test for syphilis [facility] Start: 11-01-2024 [facility] Start: 10-06-2024 Chlamydia deoxyribon ucleic acid detection [facility] Start: 08-26-2024 Urine microalbumin profile DTA P,TDAP,TD (7 - Td or Tdap) [facility] Start: 2022 Microscopic observat ion [Identifier] in Cervix by Cyto stain Pap Smear [facility] Start: 12-13-2021 Influenza vaccination INFLUENZA (#1) [facility] Start: 04-14-2021 DEPRESSION ASSESSMENT DEPRESSION ASS ESSMENT [facility] Start: 03-30-2021 COVID-19 VACCINE (3 - Booster for Pfizer series) COVID-19 VACCINE (3 - Booster for Pfizer series) [facility] Start: 2020 Hepatitis A (1 of 2 - Risk 2-dose series) Hepatitis A (1 of 2 - Risk 2-dose series) [facility] Start: 2020 Hepatitis B (1 of 3 - 19+ 3-dose series) Hepatitis B (1 of 3 - 19+ 3-dose series) [facility] Start: 11-09-2019 CHLAMYDIA SCREENING (18-24) CHLAMYDIA SCREENING (18-24) [facility] Start: 11-09-2019 GC (GONORRHEA) SCREE MIMI (18-24) GC (GONORRHEA) SCREENING (18-24) [facility] Start: 11-09-2019 HEPATITIS C SCREENING HEPATITIS C SC REENING [facility] Start: 11-09-2019 HIV SCREENING HIV SCREENING [facility] Start: 2017 MenB (1 of 2 - MenB 2-Dose Series Bexsero) MenB (1 of 2 - MenB 2-Dose Series Bexsero) [facility] Start: 2016 HPV (1 - 3-dose series) HPV (1 - 3-dose series) [facility] Start: 11-09-2015 PEDS TO ADULT TRANSI TION ANNUAL ASSESSMENT PEDS TO ADULT TRANSITION ANNUAL ASSESSMENT [facility] Start: 2014 Varicella (1 of 2 - 13+ 2-dose series) Varicella (1 of 2 - 13+ 2-dose series) [facility] Start: 2013 PEDS TO ADULT TRANSI TION INITIAL DISCUSSION PEDS TO ADULT TRANSITION INITIAL DISCUSSION [facility] Start: 11-09-2011 MENINGOCOCCAL B: Con interventional radiology tech based on risk (1 of 2 - Risk Bexsero 2-dose series) MENINGOCOCCAL B: Consider based on risk (1 of 2 - Risk Bexsero 2-dose series) [facility] Start: 2008 Tetanus Diphtheria a nd Pertussis Vaccines (1 - Tdap) Tetanus Diphtheria and Pertussis Vaccines (1 - Tdap) [facility] Start: 2002 MMR (1 of 1 - Standa rd series) MMR (1 of 1 - Standard series) [facility] Alanine aminotransfe rase [Enzymatic activity/volume] in Serum or Plasma [facility] Albumin [Mass/volume ] in Serum or Plasma [facility] Alkaline phosphatase [Enzymatic activity/volume] in Serum or Plasma [facility] Anion gap in Serum o r Plasma [facility] End: 01-10-2025 Bacteria identified in Urine by Culture [facility] Work Phone: Comment on above: 1 Occurrences starti ng 01/10/2025 until 01/10/2025 Bilirubin, total measurement [facility] BUN/Creatinine ratio [facility] Calcium [Mass/volume ] in Serum or Plasma [facility] Carbon dioxide, tota l [Moles/volume] in Central venous blood [facility] CBC W Auto Different ial panel - Blood [facility] CBC W Auto Different ial panel - Blood [facility] Chlamydia deoxyribon ucleic acid detection [facility] Comprehensive metabo lic 2000 panel - Serum or Plasma [facility] Creatinine [Mass/vol ume] in Serum or Plasma [facility] Erythrocyte mean corpuscular volume determination [facility] Glucose [Mass/volume ] in Serum or Plasma [facility] Hematocrit [Volume Fraction] of Blood [facility] Hemoglobin [Mass/vol ume] in Blood [facility] Hemoglobin A1c/Hemoglobin.total in Blood [facility] Hepatitis B virus chahal rface Ag [Presence] in Serum [facility] Hepatitis C antibody measurement [facility] Leukocytes [#/volume ] in Blood [facility] Mean corpuscular hemoglobin concentration determination [facility] Mean corpuscular hemoglobin determination [facility] Measurement of renal function [facility] Neisseria gonorrhoea e rRNA [Presence] in Unspecified specimen by LUIGI with probe detection [facility] Neutrophil count [facility] Neutrophil percent differential count [facility] PCR test for Chlamyd ia trachomatis [facility] Platelets [#/volume] in Blood [facility] Potassium measurement [facility] Procedure [facility] Protein/Creatinine [ Ratio] in Urine [facility] Protein/Creatinine [ Ratio] in Urine [facility] Red blood cell count [facility] Red cell distributio n width determination [facility] Rubella IgG measurement [facility] Serologic test for syphilis [facility] Serum chloride measurement [facility] Sodium measurement [facility] Total protein measurement [facility] Urea nitrogen [Mass/volume] in Serum or Plasma [facility] Urine culture [facility] Immunizations Immunization Date Immunization Notes Care Provider Dedra ordonez 01-24-2025 influenza, injectabl e, madin homa canine kidney, preservative free Estephania Dowling PA-C Work Phone: [facility] 02-02-2021 COVID-19 original vaccine, age 12+ yr, monovalent (PFIZER-BIONTECH - PURPLE TOP) Cedric Pisano MD Work Phone: [facility] Work Phone: 01-12-2021 COVID-19 original vaccine, age 12+ yr, monovalent (PFIZER-BIONTECH - PURPLE TOP) Cedric Pisano MD Work Phone: [facility] Work Phone: 02-07-2020 influenza, injectabl e, quadrivalent, contains preservative Cedric Pisano MD Work Phone: [facility] Work Phone: 11-09-2018 meningococcal polysaccharide (groups A, C, Y and W-135) diphtheria toxoid conjugate vaccine (MCV4P) Cedric Pisano MD Work Phone: [facility] Work Phone: 03-18-2015 Human Papillomavirus 9-valent vaccine Cedric Pisano MD Work Phone: [facility] 11-12-2014 human papilloma viru s vaccine, quadrivalent Cedric Pisano MD Work Phone: [facility] 11-12-2014 meningococcal polysaccharide (groups A, C, Y and W-135) diphtheria toxoid conjugate vaccine (MCV4P) Cedric Pisano MD Work Phone: [facility] 08-26-2014 human papilloma viru s vaccine, quadrivalent Cedric Pisano MD Work Phone: [facility] 08-26-2014 tetanus toxoid, redu kirit diphtheria toxoid, and acellular pertussis vaccine, adsorbed Cedric Pisano MD Work Phone: [facility] 11-27-2006 diphtheria, tetanus toxoids and acellular pertussis vaccine Cedric Pisano MD Work Phone: [facility] Work Phone: 11-27-2006 measles, mumps and rubella virus vaccine Cedric Pisano MD Work Phone: [facility] Work Phone: 11-27-2006 poliovirus vaccine, inactivated Cedric Pisano MD Work Phone: [facility] Work Phone: 11-27-2006 varicella virus vaccine Cedric Pisano MD Work Phone: [facility] Work Phone: 02-07-2004 varicella virus vaccine Cedric Pisano MD Work Phone: [facility] Work Phone: 02-10-2003 diphtheria, tetanus toxoids and acellular pertussis vaccine Cedric Pisano MD Work Phone: [facility] Work Phone: 02-10-2003 haemophilus influenz ae type b vaccine, HbOC conjugate Cedric Pisano MD Work Phone: [facility] Work Phone: 11-10-2002 measles, mumps and rubella virus vaccine Cedric Pisano MD Work Phone: [facility] Work Phone: 11-10-2002 pneumococcal conjuga te vaccine, 7 valent Cedric Pisano MD Work Phone: [facility] Work Phone: 08-01-2002 hepatitis B vaccine, pediatric or pediatric/adolescent dosage Cedric Pisano MD Work Phone: [facility] Work Phone: 08-01-2002 poliovirus vaccine, inactivated Cedric Pisano MD Work Phone: [facility] Work Phone: 05-11-2002 diphtheria, tetanus toxoids and acellular pertussis vaccine Cedric Pisano MD Work Phone: [facility] Work Phone: 05-11-2002 haemophilus influenz ae type b vaccine, HbOC conjugate Cedric Pisano MD Work Phone: [facility] Work Phone: 05-11-2002 pneumococcal conjuga te vaccine, 7 valent Cedric Pisano MD Work Phone: [facility] Work Phone: 03-16-2002 diphtheria, tetanus toxoids and acellular pertussis vaccine Cedric Pisano MD Work Phone: [facility] Work Phone: 03-16-2002 haemophilus influenz ae type b vaccine, HbOC conjugate Cedric Pisano MD Work Phone: [facility] Work Phone: 03-16-2002 pneumococcal conjuga te vaccine, 7 valent Cedric Pisano MD Work Phone: [facility] Work Phone: 03-16-2002 poliovirus vaccine, inactivated Cedric Pisano MD Work Phone: [facility] Work Phone: 01-13-2002 diphtheria, tetanus toxoids and acellular pertussis vaccine Cedric Pisano MD Work Phone: [facility] Work Phone: 01-13-2002 haemophilus influenz ae type b vaccine, HbOC conjugate Cedric Pisano MD Work Phone: [facility] Work Phone: 01-13-2002 pneumococcal conjuga te vaccine, 7 valent Cedric Pisano MD Work Phone: [facility] Work Phone: 01-13-2002 poliovirus vaccine, inactivated Cedric Pisano MD Work Phone: [facility] Work Phone: 2001 hepatitis B vaccine, pediatric or pediatric/adolescent dosage Cedric Pisano MD Work Phone: [facility] Work Phone: 2001 hepatitis B vaccine, pediatric or pediatric/adolescent dosage Cedric Pisano MD Work Phone: [facility] Work Phone: Payers Date Payer Category Payer Self-pay 2024 Unknown [id number] 2023 Private Health Insurance [facility] N HLTH/AETNA [id number] 2019 Unknown MMO MMO TPA [id number] 2019-Present [address] [place] [address] PPO [id number] 2001 Unknown [id number] 2.16840.1.749139.3.579.2 .651 2001 Unknown [id number] 2.16840.1.036498.3.579.2 .651 2001 Unknown [id number] 2.16840.1.757399.3.579.2 .479 2001 Unknown [id number] 2.16840.1.023298.3.579.2 .479 2001 Unknown [id number] 2.16.840.1.398897.3.579.2 .479 2001 Unknown [id number] 2.16840.1.156507.3.579.2 .479 2001 Unknown [id number] 2.16.840.1.780964.3.579.2 .479 2001 Unknown [id number] 2.16840.1.627818.3.579.2 .479 Unknown [id number] Unknown [id number] 2.16.840.1.456626.3.579.2 .462 Unknown [id number] 2.16.840.1.029455.3.579.2 .462 Unknown [id number] 2.16.840.1.098303.3.579.2 .462 Unknown [id number] 2.16.840.1.224872.3.579.2 .462 Unknown [id number] 2.16.840.1.058118.3.579.2 .462 Unknown [id number] 2.16.840.1.570215.3.579.2 .462 Unknown [id number] 2.16.840.1.255589.3.579.2 .462 Unknown [id number] 2..840.1.320006.3.579.2 .462 Unknown [id number] 2.16.840.1.396577.3.579.2 .462 Unknown [id number] 2.16.840.1.388403.3.579.2 .462 Unknown [id number] 2.16.840.1.133252.3.579.2 .462 Unknown [id number] 2.16.840.1.433469.3.579.2 .462 Unknown [id number] 2.16.840.1.332660.3.579.2 .462 Unknown [id number] 2.16.840.1.918496.3.579.2 .462 Unknown [id number] 2.16.840.1.174603.3.579.2 .462 Unknown [id number] 2.16.840.1.687922.3.579.2 .462 Unknown [id number] 2.16.840.1.861137.3.579.2 .462 Unknown [id number] 2.16.840.1.160535.3.579.2 .462 Unknown [id number] 2.16.840.1.967309.3.579.2 .462 Social History Date Type Detail Facility Start: 10-20-2010 End: 09-28-2024 Tobacco smoking status NHIS Never smoked tobacco [facility] Work Phone: Start: 10-20-2010 End: 12-30-2024 Tobacco use and exposure Smokeless tobacco non-user [facility] Work Phone: Start: 10-27-2019 Alcohol intake Current non-dr 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 (finding) [facility] Start: 2001 Sex Assigned At Not on file C [facility] Start: 2001 Sex Assigned At Female W [facility] Sex [facility] Start: 01-10-2025 Alcoholic beverage intake Ex-drinker (finding) [facility] Start: 08-24-2024 [facility] Start: 11-30-2024 Sex Female (finding) [facility] Clinical Notes 02-06-2022 to 01-24-2025 Note Date & Type Note Facility 01-24-2025 Progress note [facility] 12-27-2024 Progress note [facility] 11-29-2024 Progress note [facility] 11-01-2024 Evaluation note Diagnosis Onset Date Resolution Obesity affecting acute November 01, 2024 1:46pm acute November 01 1:46pm Supervision of high-risk acute November 01 1:46pm Amenorrhea resolved November 01 1:46pm Elevated blood pressure affecting in first trimester, antepartum resolved November 01, 2024 1:46pm Elevated liver enzymes acute Au 2024 11:34am Obesity affecting acute November 29 11:34am acute November 29 11:34am Supervision of high-risk acute November 29, 2024 11:34am Amenorrhea resolved November 29 11:34am Elevated blood pressure affecting in first trimester, antepartum resolved November 29 11:34am Elevated liver enzymes acute Se ptember 2024 10:18am Obesity affecting acute December 27, 2024 10:18am acute December 10:18am Supervision of high-risk acute December 272024 10:18am Elevated liver enzymes acute Se ptember 2024 1:36pm Obesity affecting acute December 29, 2024 1:36pm acute December 1:36pm Supervision of high-risk acute December 292024 1:36pm UTI in acute Septembe r 2024 1:36pm Elevated liver enzymes acute Oc tober 2024 9:00am Obesity affecting acute January 24 9:00am acute January 24, 2025 9:00am Supervision of high-risk acute January 9:00am UTI in acute January 24, 2025 9:00am [facility] Work Phone: 1(208) 768-955706-17-2025 Evaluation note* Diagnosis Onset Date Resolution Status Admit Date Amenorrhea acute September 28 11:06am Amenorrhea acute October 06 1:02pm Obesity affecting acute October 06, 2024 1:02pm acute October 06 1:02pm Supervision of high-risk acute October 06, 2024 1:02pm [facility] Work Phone: 1(193) 449-565806-17-2025 Evaluation note* Diagnosis Onset Date Resolution Status Admit Date Amenorrhea acute September 28 11:06am Amenorrhea acute October 06 1:02pm Obesity affecting acute October 06, 2024 1:02pm acute October 06 1:02pm Supervision of high-risk acute October 06, 2024 1:02pm Amenorrhea acute November 01 1:46pm Elevated blood pressure affecting in first trimester, antepartum acute November 01, 2024 1:46pm Obesity affecting acute November 01, 2024 1:46pm acute November 01 1:46pm Supervision of high-risk acute November 01, 2024 1:46pm [facility] Work Phone: 1(438) 806-163906-17-2025 Evaluation note* Diagnosis Onset Date Resolution Status Admit Date Amenorrhea acute September 28 11:06am Amenorrhea acute October 06 1:02pm Obesity affecting acute October 06, 2024 1:02pm acute October 06 1:02pm Supervision of high-risk acute October 06, 2024 1:02pm Amenorrhea acute November 01 1:46pm Elevated blood pressure affecting in first trimester, antepartum acute November 01, 2024 1:46pm Obesity affecting acute November 01, 2024 1:46pm acute November 01 1:46pm Supervision of high-risk acute November 01, 2024 1:46pm Amenorrhea acute November 29 11:34am Elevated blood pressure affecting in first trimester, antepartum acute November 11:34am Elevated liver enzymes acute Au juan francisco 2024 11:34am Obesity affecting acute November 29, 2024 11:34am acute November 29 11:34am Supervision of high-risk acute November 29 11:34am [facility] Work Phone: 1(990) 337-473806-17-2025 Evaluation note* Diagnosis Onset Date Resolution Status Admit Date Amenorrhea resolved September 28 11:06am Obesity affecting acute October 06, 2024 1:02pm acute October 06 1:02pm Supervision of high-risk acute October 06, 2024 1:02pm Amenorrhea resolved October 06 1:02pm Obesity affecting acute November 01, 2024 1:46pm acute November 01 1:46pm Supervision of high-risk acute November 01, 2024 1:46pm Amenorrhea resolved November 01 1:46pm Elevated blood pressure affecting in first trimester, antepartum resolved November 01, 2024 1:46pm Elevated liver enzymes acute Au juan francisco 2024 11:34am Obesity affecting acute November 29, 2024 11:34am acute November 29 11:34am Supervision of high-risk acute November 29 11:34am Amenorrhea resolved November 29 11:34am Elevated blood pressure affecting in first trimester, antepartum resolved November 11:34am Elevated liver enzymes acute Se ptember 2024 10:18am Obesity affecting acute December 27, 2024 10:18am acute December 10:18am Supervision of high-risk acute December 27, 2024 10:18am [facility] Work Phone: 1(808) 465-311706-17-2025 Evaluation note* Diagnosis Onset Date Resolution Status Admit Date Amenorrhea resolved September 28 11:06am Obesity affecting acute October 06, 2024 1:02pm acute October 06 1:02pm Supervision of high-risk acute October 06, 2024 1:02pm Amenorrhea resolved October 06 1:02pm Obesity affecting acute November 01, 2024 1:46pm acute November 01 1:46pm Supervision of high-risk acute November 01, 2024 1:46pm Amenorrhea resolved November 01 1:46pm Elevated blood pressure affecting in first trimester, antepartum resolved November 01, 2024 1:46pm Elevated liver enzymes acute Au juan francisco 2024 11:34am Obesity affecting acute November 29, 2024 11:34am acute November 29, 11:34am Supervision of high-risk acute November 29 11:34am Amenorrhea resolved November 29 11:34am Elevated blood pressure affecting in first trimester, antepartum resolved November 11:34am Elevated liver enzymes acute Se ptember 2024 10:18am Obesity affecting acute December 27, 2024 10:18am acute December 10:18am Supervision of high-risk acute December 27, 2024 10:18am Elevated liver enzymes acute Se ptember 2024 1:36pm Obesity affecting acute December 29, 2024 1:36pm acute December 1:36pm Supervision of high-risk acute December 29, 2024 1:36pm [facility] Work Phone: 1(354) 321-826706-17-2025 Evaluation note* Diagnosis Onset Date Resolution Status Admit Date Amenorrhea resolved September 28 11:06am Obesity affecting acute October 06, 2024 1:02pm acute October 06 1:02pm Supervision of high-risk acute October 06, 2024 1:02pm Amenorrhea resolved October 06 1:02pm Obesity affecting acute November 01, 2024 1:46pm acute November 01 1:46pm Supervision of high-risk acute November 01, 2024 1:46pm Amenorrhea resolved November 01 1:46pm Elevated blood pressure affecting in first trimester, antepartum resolved November 01, 2024 1:46pm Elevated liver enzymes acute Au 2024 11:34am Obesity affecting acute November 29, 2024 11:34am acute November 29, 11:34am Supervision of high-risk acute November 29 11:34am Amenorrhea resolved November 29 11:34am Elevated blood pressure affecting in first trimester, antepartum resolved November 11:34am Elevated liver enzymes acute Se ptember 2024 10:18am Obesity affecting acute December 27, 2024 10:18am acute December 10:18am Supervision of high-risk acute December 27, 2024 10:18am Elevated liver enzymes acute Se ptember 2024 1:36pm Obesity affecting acute December 29, 2024 1:36pm acute December 1:36pm Supervision of high-risk acute December 29, 2024 1:36pm UTI in acute 2024 1:36pm [facility] Work Phone: 1(543) 454-930712-08-2024 NoteDischarge Instructions Discharge Summary [address] [place] [address] [id number] 03/21/2024 Patient: MAREN HURST Sex: Female : 2000 Age: 23y Thank you for visiting [facility]. You have been evaluated today by Garrett Beard D.O. for the following condition(s): Principal [...] days, dispense 6 tablet. Refills 0. Pharmacy: [facility] [id number] [place] [address]. Pepcid 40 mg tablet: Take 1 tablet by mouth once a day for 7 days, dispense 7 tablet. Refills 0. Pharmacy: [facility] [id number] [place] [address]. prednisone 20 mg tablet: Take 1 tablet by mouth every twelve hours for 7 days, dispense 10 tablet. Refills 0. Notes take 1 tablet every 12 hours for 3 days and then take 1 tablet daily for 4 days dispense 10. Pharmacy: Discharge Instructions [facility] [id number] [place] [address]. Follow-up with: Christian Damon M.D., [facility], [facility], Phone: [phone], [address] [facility], [place] [address]. Follow up in three days. (Return if increasing hives shortness breath or anyconcerns. Take Benadryl, Pepcid at prednisone for the itching and hives. Follow-up with Dr. Damon for a workup for your hives and possible reaction to antibiotics. Also follow-up with your family doctor). 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 [place] [phone] [id number] 03/21/2024 Patient: MAREN HURST Sex: Female : 2000 Age: 23y Thank you for visiting [facility]. You have been evaluated today by Garrett Beard D.O. for the following condition(s): Principal Diagnosis Acute hives secondary to unknown cause. Bronchopneumonia. of Discharge Instructions INSTRUCTIONS Warnings: GENERAL WARNINGS: Return or contact your physician immediately if your condition worsens or changes unexpectedly, if not improving as expected, or if other problems arise. Prescription Medications: levofloxacin 750 mg tablet: Take 1 tablet by mouth once a day for 6 days, dispense 6 tablet. Refills 0. Pharmacy: [facility] [id number] [place] [address]. Pepcid 40 mg tablet: Take 1 tablet by mouth once a day for 7 days, dispense 7 tablet. Refills 0. Pharmacy: [facility] [id number] [place] [address]. prednisone 20 mg tablet: Take 1 tablet by mouth every twelve hours for 7 days, dispense 10 tablet. Refills 0. Notes take 1 tablet every 12 hours for 3 days and then take 1 tablet daily for 4 days dispense 10. Pharmacy: [facility] [id number] [place] [address]. Follow-up with: Christian Damon M.D., [facility], Phone: [phone], [address] [facility], [place] [address]. Follow up in three days. (Return if increasing hives shortness breath or anyconcerns. Take Benadryl, Pepcid at prednisone for the [...] hard to figure out. You may be prescribe (more content not included)...[facility]10-26-2022 Miscellaneous Notes* Telephone Encounter - Cedric Pisano MD - 02/06/2022 4:28 PM EDT Okay Cedric Pisano MD * Telephone Encounter - Marisela Coyne LPN - 02/04/2022 8:13 AM EDT Patient requesting a referral to Dermatology for mole check. Last seen in office on 10/27/2019. Please advise. Marisela Coyne LPN documented in this encounterMorse ClinicEvaluation noteNo assessment information availableBaldwin Park [facility] Work Phone: Evaluation note* Diagnosis , supervision, high-risk, second trimester Elevated ALT measurement Nonspecific elevation of levels of transaminase or lactic acid dehydrogenase (LDH) Dysuria during in second trimester documented in this encounter [facility] note Author Kt Avila [facility] Note Date/Time November 29, 2024 12 :07pm [facility] [address], [address] [place] [address] OFFICE VISIT Date of Service: 11/29/24 MR#: [id number] Acct: [id number] Name: MAREN BARNEY Rep #: [id number] : 2000 Provider: RAFAELA Avila Age/Sex: 24/F [place] [facility] [place]: Signed Intake Vital Signs 10/06/24 13:07 11/01/24 13:49 11/29/24 11:40 Height 5 ft 8 in 5 ft 8 in 5 ft 8 in Weight: 319 lb BMI 48.4 BP 130/86 H Intake Visit Reasons: 16 wk ob Chief Complaint: 16wk OB 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 Is patient in pain?: No Allergies amoxicillin (From Augmentin) Allergy (Mild, Verified 11/29/24 11:39) rash clavulanic acid (From Augmentin) Allergy (Mild, Verified 11/29/24 11:39) rash Medications ?Medication ?Instructions ?Recorded ?Confirmed ?Type docosahexaenoic acid 200 mg mg PO 09/28/24 11/29/24 Hi story capsule ( DHA) Last Menstrual Period: 08/10/24 : No PFSH PFSH Surgical History Hx of wisdom tooth extraction Family History Mother Skin cancer Father Hypertension Grandmother Diabetes Grandfather Diabetes Social History adopted: No household members: spouse housing: house current occupational status: employed current occupation: [employer] current occupational exposures/hazards: No pets and animals: No history of recent travel: Yes ( - September 2024) out of state: Yes sexually active: Yes Smoking Status: Never smoker second hand exposure: No alcohol intake: current alcohol intake frequency: holidays/special occasions only details: Not while substance use type: does not use well-balanced diet: daily or most days caffeine: Yes Type: coffee eating out: 1-3 times/week during the past year weight has: increased > 10 lbs what type of physical activity do you participate in: walking frequency: 3-4 times per week duration: 15-30 minutes/day sveta/yarsanism: None seatbelt use: always do you feel safe at home: Yes 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 OB Visit KIMBER Calculator Estimated Delivery Date Method Current WG Current Estimate 05/17/25 LMP (Certain) 15w 6d Other Estimates 05/18/25 Ultrasound #1 15w 5d Expected Delivery Route/Plan Labor Preferences- CB/BF classes: [] labor support person: [] labor intervention preferences: [] pain management options preferred: [] cut cord/dad catch: [] : [] PP control planned: [] discussed possible routes of delivery and associated risks: [] special requests: [] Specific Issue/Plans Covid status: [] Flu vaccine: [] Tdap vaccine: [] Rhogam: [] LARC form signed: [] Problem list reviewed and updated with the most current plan of care details and appropriate orders placed. Relevant counseling for the gestational age provided. Continue routine care and follow up unless otherwise noted in visit notes/problem list details Initial Weight: Not Recorded Date -?-?-?-?-?-?-?-?-?-?-?-?- EGA Weight BP Urine Prot -?-?-?-?-?-?-?-?-?-?-?-?- Glucose FHR FuHt Pres Dilation -?-?-?-?-?-?-?-?-?-?-?-?- Effaced St Visit Note 10/06/24 -?-?-?-?-?-?-?-?-?-?-?-?- 8w 1d 315 lb 6 oz 140/85 -?--?-?-?-?-?-?-?-?-?-?-?- 165 -?-?-?-?-?-?-?-?-?-?-?-?- JV- CRL consiste nt with LMP. desires nipt. 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 thinks elevated pressure due to anxiety. baseline labs ordered. 11/01/24 -?-?-?-?-?-?-?-?-?-?-?-?- 11w 6d 322 lb 142/89 126/85 -?-?-?-?-?-?-?-?-?-?-?-?- 185 -?-?-?-?-?-?-?-?-?-?-?-?- kw- no vb/crampi ng. doing better. MFM anatomy US ordered. if too expensive will call and do [facility] scan. pt reports normal BPs at home. 11/29/24 -?-?-?-?-?-?-?-?-?-?-?-?- 15w 6d 319 lb 130/86 Negative -?-?-?-?-?-?-?-?-?-?-?-?- Negative 158 -?-?-?-?-?-?-?-?-?-?-?-?- KW- no vb/crampi ng. has not gotten call from [facility] to schedule US. will reorder US. Declines AFP. ACOG First Trimester First Trimester: Desire for , Alcohol, Tobacco Cessation, Illicit/Recreational Drug/Substance Use, Intimate Partner Violence, Barriers to care, Unstable Housing, Communication Barriers, Environmental/Work Hazards, Anticipated Course of Care, Toxoplasmosis Precations, Use of Any medications, Sexual activity, Exercise, Dental Care, Sauna/Hot tub use, Seat Belt use, Childbirth classes/Hospital facilities, Travel, Indications for Ultrasound and Screening for Aneuploidy; Discussed ROS Const Reports system reviewed and no additional complaints, except as documented Eyes Reports system reviewed and no additional complaints, except as documented ENT Reports system reviewed and no additional complaints, except as documented Card Reports system reviewed and no additional complaints, except as documented Resp Reports system reviewed and no additional complaints, except as documented GI Reports system reviewed and no additional complaints, except as documented, Denies nausea and Denies vomiting Reports system reviewed and no additional complaints, except as documented Musc Reports system reviewed and no additional complaints, except as documented Skin/Breast Reports system reviewed and no additional complaints, except as documented Neuro Yes system reviewed and no additional complaints, except as documented Psych Reports system reviewed and no additional complaints, except as documented Endo Reports system reviewed and no additional complaints, except as documented Woody/Lymph Reports system reviewed and no additional complaints, except as documented Aller/Immun Reports system reviewed and no additional complaints, except as documented Exam Const General: cooperative, healthy appearing and no acute distress Orientation: alert, awake and oriented x3 Neck Neck: normal visual inspection and full ROM Resp Effort & Inspection: normal respiratory effort, able to speak in complete sentences and symmetric chest movement GI Inspection: normal to inspection Palpation: soft and other Other: gravid Skin General: no rashes or lesions noted Neuro General: patient alert, patient awake and patient oriented x3 Cognition: normal cognition Speech: speech normal Gait: normal gait Motor: muscle tone normal throughout Extrem General: normal to inspection and full ROM Psych Appearance: grossly normal Mental Status: mental status grossly normal Mood: congruent mood Affect: normal affect Speech and Movement: speech and movement normal Attitude: cooperative Thought Process: normal Thought Content: normal Judgment: judgment good Results POC Urinalysis 2 Dip (Clinic) Office Urine Glucose Negative Last Edit by Ruthie Stewart on 11/29/24 11:48 Office Urine Protein Negative Last Edit by Ruthie Stewart on 11/29/24 11:48 Coding Level of Care Code OB Routine Diagnoses Elevated liver enzymes R74.8 Elevated blood pressure affecting in first trimester, antepartum O16.1 Amenorrhea N91.2 Obesity affecting O99.210 Supervision of high-risk O09.90 15 weeks gestation of Z3A.15 Weeks of gestation: 15 weeks Assessment and Plan Assessment and Plan (1) Elevated liver enzymes: Status: Acute (2) Elevated blood pressure affecting in first trimester, antepartum: Status: Acute (3) Amenorrhea: Status: Acute (4) Obesity affecting : Status: Acute Comment: BMI 50.4; HgBA1C ordered w/NOB-NSTs at 32 weeks and growth US at 32 and 36 weeks (5) Supervision of high-risk : Status: Acute Comment: ; KIMBER /03; : [place] (6) : Status: Acute Qualifiers: Weeks of gestation: 15 weeks Qualified Code(s): Z3A.15 - 15 weeks gestation of Comment: NIPT low risk. gender Male (Pt aware) Orders: Orders POC Urinalysis 2 Dip (Clinic) Today Plan Details Additional Comments: ACOG trimester education reviewed and updated. see problem list details for updated plan management information and see below for orders placed at this visit. GA appropriate handout given. 11/29/24 [id number] <Electronically signed by Kt mo CNM> Date _ Kt Avila CNM Cosigner Signature: Date (if applicable) CC: ~ [facility] Work Phone: Progress note Author Mariela Alvarado [facility] Note Date/Time December 27, 2024 10:39am [facility] [address], [address] [place] [address] OFFICE VISIT Date of Service: 12/27/24 MR#: [id number] Acct: [id number] Name: MAREN BARNEY Rep #: [id number] : 2000 Provider: Dr. 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 Is patient in pain?: No Allergies amoxicillin (From Augmentin) Allergy (Mild, Verified 12/27/24 10:20) rash clavulanic acid (From Augmentin) Allergy (Mild, Verified 12/27/24 10:20) rash Medications ?Medication ?Instructions ?Recorded ?Confirmed ?Type docosahexaenoic acid 200 mg mg PO 09/28/24 12/27/24 Hi story capsule ( DHA) Last Menstrual Period: 08/10/24 Zika: Zika virus screening: Negative : No PFSH PFSH Surgical History Hx of wisdom tooth extraction Family History Mother Skin cancer Father Hypertension Grandmother Diabetes Grandfather Diabetes Social History adopted: No household members: spouse housing: house current occupational status: employed current occupation: [employer] current occupational exposures/hazards: No pets and animals: No history of recent travel: Yes ( - September 2024) out of state: Yes sexually active: Yes Smoking Status: Never smoker second hand exposure: No alcohol intake: current alcohol intake frequency: holidays/special occasions only details: Not while substance use type: does not use well-balanced diet: daily or most days caffeine: Yes Type: coffee eating out: 1-3 times/week during the past year weight has: increased > 10 lbs what type of physical activity do you participate in: walking frequency: 3-4 times per week duration: 15-30 minutes/day sveta/yarsanism: None seatbelt use: always do you feel safe at home: Yes 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 OB Visit KIMBER Calculator Estimated Delivery Date Method Current WG Current Estimate 05/17/25 LMP (Certain) 19w 6d Other Estimates 05/18/25 Ultrasound #1 19w 5d Expected Delivery Route/Plan Labor Preferences- CB/BF classes: [] labor support person: [] labor intervention preferences: [] pain management options preferred: [] cut cord/dad catch: [] : [] PP control planned: [] discussed possible routes of delivery and associated risks: [] special requests: [] Specific Issue/Plans Covid status: [] Flu vaccine: [] Tdap vaccine: [] Rhogam: [] LARC form signed: [] Problem list reviewed and updated with the most current plan of care details and appropriate orders placed. Relevant counseling for the gestational age provided. Continue routine care and follow up unless otherwise noted in visit notes/problem list details Initial Weight: Not Recorded Date -?-?-?-?-?-?-?-?-?-?-?-?- EGA Weight BP Urine Prot -?-?-?-?-?-?-?-?-?-?-?-?- Glucose FHR FuHt Pres Dilation -?-?-?-?-?-?-?-?-?-?-?-?- Effaced St Visit Note 10/06/24 -?-?-?-?-?-?-?-?-?-?-?-?- 8w 1d 315 lb 6 oz 140/85 -?-?-?-?-?-?-?-?-?-?-?-?- 165 -?-?-?-?-?-?-?-?-?-?-?-?- JV- CRL consiste nt with LMP. desires nipt. 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 thinks elevated pressure due to anxiety. baseline labs ordered. 11/01/24 -?-?-?-?-?-?-?-?-?-?-?-?- 11w 6d 322 lb 142/89 126/85 -?-?-?-?-?-?-?-?-?-?-?-?- 185 -?-?-?-?-?-?-?-?-?-?-?-?- kw- no vb/crampi ng. doing better. MF anatomy US ordered. if too expensive will call and do [facility] scan. pt reports normal BPs at home. 11/29/24 -?-?-?-?-?-?-?-?-?-?-?-?- 15w 6d 319 lb 130/86 Negative -?-?-?-?-?-?-?-?-?-?-?-?- Negative 158 -?-?-?-?-?-?-?-?-?-?-?-?- KW- no vb/crampi ng. has not gotten call from MFM to schedule US. will reorder US. Declines AFP. 12/27/24 -?-?-?-?-?-?-?-?-?-?-?--?- 19w 6d 316 lb 9 oz 138/87 Nega tive -?-?-?-?-?-?-?-?-?-?-?-?- Negative 145 -?-?-?-?-?-?-?-?-?-?-?-?- SM- no vb crampi ng some fm ACOG First Trimester First Trimester: Desire for , Alcohol, Tobacco Cessation, Illicit/Recreational Drug/Substance Use, Intimate Partner Violence, Barriers to care, Unstable Housing, Communication Barriers, Environmental/Work Hazards, Anticipated Course of Care, Toxoplasmosis Precations, Use of Any medications, Sexual activity, Exercise, Dental Care, Sauna/Hot tub use, Seat Belt use, Childbirth classes/Hospital facilities, Travel, Indications for Ultrasound and Screening for Aneuploidy; Discussed Results POC Urinalysis 2 Dip (Clinic) Office Urine Glucose Negative Last Edit by Lakeisha Dougherty on 12/27/24 10:26 Office Urine Protein Negative Last Edit by Lakeisha Dougherty on 12/27/24 10:26 Coding Level of Care Code OB Routine Diagnoses Obesity affecting O99.210 Supervision of high-risk O09.90 19 weeks gestation of Z3A.19 Weeks of gestation: 19 weeks Elevated liver enzymes R74.8 Assessment and Plan Assessment and Plan (1) Obesity affecting : Status: Acute Comment: BMI 50.4; HgBA1C ordered w/NOB-NSTs at 32 weeks and growth US at 32 and 36 weeks (2) Supervision of high-risk : Status: Acute Comment: PRR ; KIMBER 05/17; boy : Cameron (3) : Status: Acute Qualifiers: Weeks of gestation: 19 weeks Qualified Code(s): Z3A.19 - 19 weeks gestation of Comment: NIPT low risk. gender Male (Pt aware), normal anatomy (4) Elevated liver enzymes: Status: Acute Comment: repeat improved, will repeat again today. Orders: Orders POC Urinalysis 2 Dip (Clinic) Today 12/27/24 1039 <Electronically signed by Mariela mota MD> Date _ Mariela Alvraado MD Cosigner Signature: Date (if applicable) CC: ~ [facility] Work Phone: Progress note Author Joyce [facility] Note Date/Time January 24, 2025 9 :24am [facility] [address] [place] [address], [address] [place] [address] OFFICE VISIT Date of Service: 01/24/25 MR#: [id number] Acct: [id number] Name: MAREN BARNEY Rep #: [id number] : 2000 Provider: Dr. 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 Is patient in pain?: No Allergies amoxicillin (From Augmentin) Allergy (Mild, Verified 01/24/25 09:01) rash clavulanic acid (From Augmentin) Allergy (Mild, Verified 01/24/25 09:01) rash Medications ?Medication ?Instructions ?Recorded ?Confirmed ?Type docosahexaenoic acid 200 mg mg PO 09/28/24 01/24/25 Hi story capsule ( DHA) Last Menstrual Period: 08/10/24 Zika: Zika virus screening: Negative : No PFSH PFSH Surgical History Hx of wisdom tooth extraction Family History Mother Skin cancer Father Hypertension Grandmother Diabetes Grandfather Diabetes Social History adopted: No household members: spouse housing: house current occupational status: employed current occupation: [employer] current occupational exposures/hazards: No pets and animals: No history of recent travel: Yes ( - September 2024) out of state: Yes sexually active: Yes Smoking Status: Never smoker second hand exposure: No alcohol intake: current alcohol intake frequency: holidays/special occasions only details: Not while substance use type: does not use well-balanced diet: daily or most days caffeine: Yes Type: coffee eating out: 1-3 times/week during the past year weight has: increased > 10 lbs what type of physical activity do you participate in: walking frequency: 3-4 times per week duration: 15-30 minutes/day sveta/yarsanism: None seatbelt use: always do you feel safe at home: Yes 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 OB Visit KIMBER Calculator Estimated Delivery Date Method Current WG Current Estimate 05/17/25 LMP (Certain) 23w 6d Other Estimates 05/18/25 Ultrasound #1 23w 5d Expected Delivery Route/Plan Labor Preferences- CB/BF classes: [] labor support person: [] labor intervention preferences: [] pain management options preferred: [] cut cord/dad catch: [] : [] PP control planned: [] discussed possible routes of delivery and associated risks: [] special requests: [] Specific Issue/Plans Covid status: [] Flu vaccine: [] Tdap vaccine: [] Rhogam: [] LARC form signed: [] Problem list reviewed and updated with the most current plan of care details and appropriate orders placed. Relevant counseling for the gestational age provided. Continue routine care and follow up unless otherwise noted in visit notes/problem list details Initial Weight: Not Recorded Date -?-?-?-?-?-?-?-?-?-?-?-?- EGA Weight BP Urine Prot -?-?-?-?-?-?-?-?-?-?-?-?- Glucose FHR FuHt Pres Dilation -?-?-?-?-?-?-?-?-?-?-?-?- Effaced St Visit Note 10/06/24 -?-?-?-?-?-?-?-?-?-?-?-?- 8w 1d 315 lb 6 oz 140/85 -?-?-?-?-?-?-?-?-?-?-?-?- 165 -?-?-?-?-?-?-?-?-?-?-?-?- JV- CRL consiste nt with LMP. desires nipt. 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 thinks elevated pressure due to anxiety. baseline labs ordered. 11/01/24 -?-?-?-?-?-?-?-?-?-?-?-?- 11w 6d 322 lb 142/89 126/85 -?-?-?-?-?-?-?-?-?-?-?-?- 185 -?-?-?-?-?-?-?-?-?-?-?-?- kw- no vb/crampi ng. doing better. MFM anatomy US ordered. if too expensive will call and do [facility] scan. pt reports normal BPs at home. 11/29/24 -?-?-?-?-?-?-?-?-?-?-?-?- 15w 6d 319 lb 130/86 Negative -?-?-?-?-?-?-?-?-?-?-?-?- Negative 158 -?-?-?-?-?-?-?-?-?-?-?-?- KW- no vb/crampi ng. has not gotten call from MFM to schedule US. will reorder US. Declines AFP. 12/27/24 -?-?-?-?-?-?-?-?-?-?-?-?- 19w 6d 316 lb 9 oz 138/87 Nega tive -?-?-?-?-?-?-?-?-?-?-?-?- Negative 145 -?-?-?-?-?-?-?-?-?-?-?-?- SM- no vb crampi ng some fm 12/29/24 -?-?-?-?-?-?-?-?-?-?-?-?- 20w 1d 314 lb 4 oz 135/88 Trac e -?-?-?-?-?-?-?-?-?-?-?-?- Negative -?-?-?-?-?-?-?-?-?-?-?-?- -nurse visit f or dysuria, + UA, Keflex sent. Culture pending. Also discussed elevated liver enzymes and SM recommendations. 01/24/25 -?-?-?-?-?-?-?-?-?-?-?-?- 23w 6d 315 lb 5 oz 126/85 Nega tive -?-?-?-?-?-?-?-?-?-?-?-?- Negative 150 -?-?-?-?-?-?-?-?-?-?-?-?- JV- plan is to r epeat LFT's beginning of February and if elevated, order us and consult GI. flu shot today. plan to do glucola at same time ACOG First Trimester First Trimester: Desire for , Alcohol, Tobacco Cessation, Illicit/Recreational Drug/Substance Use, Intimate Partner Violence, Barriers to care, Unstable Housing, Communication Barriers, Environmental/Work Hazards, Anticipated Course of Care, Toxoplasmosis Precations, Use of Any medications, Sexual activity, Exercise, Dental Care, Sauna/Hot tub use, Seat Belt use, Childbirth classes/Hospital facilities, Travel, Indications for Ultrasound and Screening for Aneuploidy; Discussed Results POC Urinalysis 2 Dip (Clinic) Office Urine Glucose Negative Last Edit by Alexia Htuson on 01/24/25 09: 14 Office Urine Protein Negative Last Edit by Alexia Hutson on 01/24/25 09: 14 Coding Level of Care Code OB Routine Diagnoses Urinary tract infection in mother during second trimester of O23.42 Trimester: second trimester Elevated liver enzymes R74.8 Obesity affecting in second trimester, unspecified obesity type O99.212 Obesity type affecting : unspecified obesity Trimester: second trimester Supervision of high risk in second trimester O09.92 Trimester: second trimester 23 weeks gestation of Z3A.23 Weeks of gestation: 23 weeks Assessment and Plan Assessment and Plan (1) UTI in : Status: Acute Qualifiers: Trimester: second trimester Qualified Code(s): O23.42 - Unspecified infection of urinary tract in , second trimester Comment: +UA, keflex, culture + E coli. Repeat culture next visit (2) Elevated liver enzymes: Status: Acute Comment: repeat improved, Repeat elevated: daily home BP checks, 24 hr urine(collect after finishing antibiotic) with repeat CBC and CMP, if rpt lfts in february are still elevated, order RUQ us and consult gi MFM consult: Growth US Q4wk, del at 39w echo ordered/MFM (3) Obesity affecting : Status: Acute Qualifiers: Obesity type affecting : unspecified obesity Trimester: second trimester Qualified Code(s): O99.212 - Obesity complicating , second trimester Comment: BMI 50.4; HgBA1C ordered w/NOB-NSTs at 32 weeks and growth US MFM Q4 weeks (4) Supervision of high-risk : Status: Acute Qualifiers: Trimester: second trimester Qualified Code(s): O09.92 - Supervision of high risk , unspecified, second trimester Comment: PRR ; KIMBER 05/17; boy : Cameron (5) : Status: Acute Qualifiers: Weeks of gestation: 23 weeks Qualified Code(s): Z3A.23 - 23 weeks gestation of Comment: NIPT low risk. gender Male (Pt aware), normal anatomy Orders: Orders POC Urinalysis 2 Dip (Clinic) Today CBC W/Diff, Automated Today O09.92 - Supervision of high risk , unspecified, second trimester Glucose Challenge Gest 1H 50g Today O09.92 - Supervision of high risk , unspecified, second trimester, Z13.1 - Encounter for screening for diabetes mellitus HIV Today O09.92 - Supervision of high risk , unspecified, second trimester Syphilis Antibodies Today O09.92 - Supervision of high risk , unspecified, second trimester Comprehensive Metabolic Profil Today R74.8 - Abnormal levels of other serum enzymes Influenza Immunization Today Z23 - Encounter for immunization Medications: New Flucelvax [id number] (PF) 0.5 mL IM ONCE 0.5 mL 0RF NS Z23 - Encounter for immunization 01/24/25 0924 <Electronically signed by Joyce Small DO> Date _ Joyce Goodman DO Cosigner Signature: Date (if applicable) CC: ~ [facility] Work Phone: Reason for referral (narrative)No reason for referral information [facility] Work Phone: Summary Purpose Family History No Family History Records Found Relationship Condition Age at Onset Recorded Date/T carlos mother Malignant neoplasm of skin Unknown father Hypertension Unknown grandmother Diabetes mellitus Unknown grandfather Diabetes mellitus Unknown Advance Directives No Advanced Directives Records FoundNo Advanced Directives Records FoundNo Advanced Directives Records FoundNo Advanced Directives Records Found Chief Complaint and Reason for Visit Chief Complaint Admit Date PNOB Confirm , Vitals September 11:06am Chief Complaint Admit Date PNOB Confirm , Vitals September 11:06am *NEW* NOB LMP 08/10, KIMBER 05/17October 06, 2 025 1:02pm Reason for Visit Admit Date Amenorrhea September 28, 2024 11:0 6am Amenorrhea October 06, 2024 1:02 pm Obesity affecting October 06, 2 025 1:02pm October 06, 2024 1:02 pm Supervision of high-risk October 06, 2024 1:02pm Chief Complaint Admit Date PNOB Confirm , Vitals September 11:06am *NEW* NOB LMP 08/10, KIMBER 05/17October 06, 2 025 1:02pm 12Wk OB November 01, 2024 1:46 pm Reason for Visit Admit Date Amenorrhea September 28, 2024 11:0 6am Amenorrhea October 06, 2024 1:02 pm Obesity affecting October 06, 2 025 1:02pm October 06, 2024 1:02 pm Supervision of high-risk October 06, 2024 1:02pm Amenorrhea November 01, 2024 1:46 pm Elevated blood pressure affe cting in first trimester, antepartum November 01, 2024 1:46pm Obesity affecting November 01, 2 025 1:46pm November 01, 2024 1:46 pm Supervision of high-risk November 01, 2024 1:46pm Chief Complaint Admit Date PNOB Confirm , Vitals September 11:06am *NEW* NOB LMP 08/10, KIMBER 05/17October 06, 2 025 1:02pm 12Wk OB November 01, 2024 1:46 pm 16 wk ob November 29, 2024 11 :34am Reason for Visit Admit Date Amenorrhea September 28, 2024 11:0 6am Amenorrhea October 06, 2024 1:02 pm Obesity affecting October 06, 025 1:02pm October 06, 2024 1:02 pm Supervision of high-risk October 06, 2024 1:02pm Amenorrhea November 01, 2024 1:46 pm Elevated blood pressure affe cting in first trimester, antepartum November 01, 2024 1:46pm Obesity affecting November 01, 025 1:46pm November 01, 2024 1:46 pm Supervision of high-risk November 01, 2024 1:46pm Amenorrhea November 29, 2024 11 :34am Elevated blood pressure affe cting in first trimester, antepartum November 29, 2024 11:34am Elevated liver enzymes November 29, 2024 11:34am Obesity affecting November 29, 2024 11:34am November 29, 2024 11 :34am Supervision of high-risk Augus t 2024 11:34am Chief Complaint Admit Date PNOB Confirm , Vitals September 11:06am *NEW* NOB LMP 08/10, KIMBER 05/17October 06, 025 1:02pm 12Wk OB November 01, 2024 1:46 pm 16 wk ob November 29, 2024 11 :34am 20wk ob December 27, 2024 10:18am Reason for Visit Admit Date Amenorrhea September 28, 2024 11:0 6am Obesity affecting October 06, 2 025 1:02pm October 06, 2024 1:02 pm Supervision of high-risk October 06, 2024 1:02pm Amenorrhea October 06, 2024 1:02 pm Obesity affecting November 01, 025 1:46pm November 01, 2024 1:46 pm Supervision of high-risk November 01, 2024 1:46pm Amenorrhea November 01, 2024 1:46 pm Elevated blood pressure affe cting in first trimester, antepartum November 01, 2024 1:46pm Elevated liver enzymes November 29, 2024 11:34am Obesity affecting November 29, 2024 11:34am November 29, 2024 11 :34am Supervision of high-risk Augus t 2024 11:34am Amenorrhea November 29, 2024 11 :34am Elevated blood pressure affe cting in first trimester, antepartum November 29, 2024 11:34am Elevated liver enzymes December 27 2 025 10:18am Obesity affecting December 272024 10:18am December 27, 2024 10:18am Supervision of high-risk Septe mber 2024 10:18am Chief Complaint Admit Date PNOB Confirm , Vitals September 11:06am *NEW* NOB LMP 08/10, KIMBER /October 06, 2 025 1:02pm 12Wk OB November 01, 2024 1:46 pm 16 wk ob November 29, 2024 11 :34am 19 WK 6D OB December 27, 2024 10:18am OB, hematuria, dysuria December 29, 2 025 1:36pm Reason for Visit Admit Date Amenorrhea September 28, 2024 11:0 6am Obesity affecting October 06, 025 1:02pm October 06, 2024 1:02 pm Supervision of high-risk October 06, 2024 1:02pm Amenorrhea October 06, 2024 1:02 pm Obesity affecting November 01 025 1:46pm November 01, 2024 1:46 pm Supervision of high-risk November 01, 2024 1:46pm Amenorrhea November 01, 2024 1:46 pm Elevated blood pressure affe cting in first trimester, antepartum November 01, 2024 1:46pm Elevated liver enzymes November 29, 2024 11:34am Obesity affecting November 29, 2024 11:34am November 29, 2024 11 :34am Supervision of high-risk Augus t 2024 11:34am Amenorrhea November 29, 2024 11 :34am Elevated blood pressure affe cting in first trimester, antepartum November 29, 2024 11:34am Elevated liver enzymes December 27, 2 025 10:18am Obesity affecting December 272024 10:18am December 27, 2024 10:18am Supervision of high-risk [facility] 2024 10:18am Elevated liver enzymes December 29 025 1:36pm Obesity affecting December 292024 1:36pm December 29, 2024 1:36pm Supervision of high-risk [facility] 2024 1:36pm Reason for Visit Admit Date Amenorrhea September 28, 2024 11:0 6am Obesity affecting October 06 025 1:02pm October 06, 2024 1:02 pm Supervision of high-risk October 06, 2024 1:02pm Amenorrhea October 06, 2024 1:02 pm Obesity affecting November 01 025 1:46pm November 01, 2024 1:46 pm Supervision of high-risk November 01, 2024 1:46pm Amenorrhea November 01, 2024 1:46 pm Elevated blood pressure affe cting in first trimester, antepartum November 01, 2024 1:46pm Elevated liver enzymes November 29, 2024 11:34am Obesity affecting November 29, 2024 11:34am November 29, 2024 11 :34am Supervision of high-risk Augus t 2024 11:34am Amenorrhea November 29, 2024 11 :34am Elevated blood pressure affe cting in first trimester, antepartum November 29, 2024 11:34am Elevated liver enzymes December 27 025 10:18am Obesity affecting December 272024 10:18am December 27, 2024 10:18am [facility] 2024 10:18am Elevated liver enzymes December 29 025 1:36pm Obesity affecting December 292024 1:36pm December 29, 2024 1:36pm Supervision of high-risk [facility] 2024 1:36pm UTI in December 29, 2024 1:36pm Chief Complaint Admit Date 12Wk OB November 01, 2024 1:46 pm 16 wk ob November 29, 2024 11 :34am 19 WK 6D OB December 27, 2024 10:18am OB, hematuria, dysuria December 29, 2 025 1:36pm 23wk6d OB *move 03/08 appt January 24, 2025 9:00am Reason for Visit Admit Date Obesity affecting November 01, 2 025 1:46pm November 01, 2024 1:46 pm Supervision of high-risk November 01, 2024 1:46pm Amenorrhea November 01, 2024 1:46 pm Elevated blood pressure affe cting in first trimester, antepartum November 01, 2024 1:46pm Elevated liver enzymes November 29, 2024 11:34am Obesity affecting November 29, 2024 11:34am November 29, 2024 11 :34am Supervision of high-risk Augus t 2024 11:34am Amenorrhea November 29, 2024 11 :34am Elevated blood pressure affe cting in first trimester, antepartum November 29, 2024 11:34am Elevated liver enzymes December 27 025 10:18am Obesity affecting December 272024 10:18am December 27, 2024 10:18am Supervision of high-risk Septe mber 2024 10:18am Elevated liver enzymes December 29 025 1:36pm Obesity affecting December 292024 1:36pm December 29, 2024 1:36pm Supervision of high-risk Septe mber 2024 1:36pm UTI in December 29, 2024 1:36pm Elevated liver enzymes January 24 9:00am Obesity affecting January 9:00am January 24, 2025 9 :00am Supervision of high-risk Octob er 2024 9:00am UTI in January 24, 2025 9 :00am Additional Source Comments Source Comments (unrecognize d section and content) In the event this informatio n is protected by the Federal Confidentiality of Alcohol and Drug Abuse Patient Records regulations: The Federal rules restrict any use of the information to criminally investigate or prosecute any alcohol or drug abuse patient.[facility] Care Teams (unrecognized sec tion and content) Programming Engineer Relationship Specialty Start Date End Date Cedric Pisano MD [address] [place] [address] PCP - General 02/05/02 Team Status: Active Member Role Status Dates Dr. Cedric Pisano MD Family [facility] Active Team Status: Inactive Member Role Status Dates [facility] PA, PA-C Primary Care Provider Active Start: September 28, 2024 End: September 28, 2024 [facility] Referring Provider Active Start: September 28, 2024 End: September 28, 2024 Dr. Joyce Goodman DO Attending Provider Activ e Start: September 28, 2024 End: September 28, 2024 Team Status: Inactive Member Role Status Dates [facility] PA, PA-C Primary Care Provider Active Start: October 06, 2024 End: October 06, 20[facility] Referring Provider Active Start: October 06, 2024 End: October 06, 2024 Dr. Joyce Goodman DO Attending Provider Activ e Start: October 06, 2024 End: October 06, 2024 Team Status: Active Member Role/Relationship Status Dates Dr. Cedric Pisano MD Family Provider [facility] Provider Active Team Status: Inactive Member Role/Relationship Status Dates [facility] PA, PA-C Primary Care Provider Active Start: September 28, 2024 End: September 28, 20[facility] Referring Provider Active Start: September 28, 2024 End: September 28, 2024 Dr. Joyce Goodman DO Attending Provider Activ e Start: September 28, 2024 End: September 28, 2024 Team Status: Inactive Member Role/Relationship Status Dates Estephania [facility] PA, PA-C Primary Care Provider Active Start: October 06, 2024 End: October 06, 2024 [facility] PA, PA-C Referring Provider Active Start: October 06, 2024 End: October 06, 2024 Dr. Joyce Goodman DO Attending Provider Activ e Start: October 06, 2024 End: October 06, 2024 Team Status: Inactive Member Role/Relationship Status Dates Estephania Dowling PA, PA-C Primary Care Provider Active Start: October 06, 2024 End: October 06, 2024 Dr. Joyce Goodman DO Attending Provider Activ e Start: October 06, 2024 End: October 06, 2024 Dr. Joyce Goodman DO Referring Provider Activ e Start: October 06, 2024 End: October 06, 2024 Team Status: Inactive Member Role/Relationship Status Dates Estephania Dowling PA, PA-C Primary Care Provider Active Start: November 01, 2024 End: November 01, 2024 Estephania Dowling PA, PA-C Referring Provider Active Start: November 01, 2024 End: November 01, 2024 Kt Avila CNM Attending Provider Active S tart: November 01, 2024 End: November 01, 2024 Team Status: Active Member Role/Relationship Status Dates Estephania Dowling PA, PA-C Primary Care Provider Active Start: November 01, 2024 Kt Avila CNM Attending Provider Active S tart: November 01, 2024 Kt Avila CNM Referring Provider Active S tart: November 01, 2024 Team Status: Inactive Member Role/Relationship Status Dates Estephania Dowling PA, PA-C Primary Care Provider Active Start: November 01, 2024 End: November 01, 2024 Kt Avila CNM Attending Provider Active S tart: November 01, 2024 End: November 01, 2024 Kt Avila CNM Referring Provider Active S tart: November 01, 2024 End: November 01, 2024 Team Status: Active Member Role/Relationship Status Dates Estephania Dowling PA, PA-C Primary Care Provider Active Start: November 10, 2024 Dr. Joyce Goodman DO Attending Provider Activ e Start: November 10, 2024 Team Status: Inactive Member Role/Relationship Status Dates Estephania Dowling PA, PA-C Primary Care Provider Active Start: November 17, 2024 End: November 17, 2024 Dr. Joyce Goodman DO Attending Provider Activ e Start: November 17, 2024 End: November 17, 2024 Team Status: Inactive Member Role/Relationship Status Dates Estephania Dowling PA, PA-C Primary Care Provider Active Start: November 10, 2024 End: November 10, 2024 Dr. Joyce Goodman DO Attending Provider Activ e Start: November 10, 2024 End: November 10, 2024 Team Status: Inactive Member Role/Relationship Status Dates Estephania Dowling PA, PA-C Primary Care Provider Active Start: November 29, 2024 End: November 29, 2024 Estephania Trenton PA, PA-C Referring Provider Active Start: November 29, 2024 End: November 29, 2024 Kt Avila CNM Attending Provider Active S tart: November 29, 2024 End: November 29, 2024 Team Status: Inactive Member Role/Relationship Status Dates Estephania Dowling PA, PA-C Primary Care Provider Active Start: December 27, 2024 End: December 27, 2024 Estephania Trenton PA, PA-C Referring Provider Active Start: December 27, 2024 End: December 27, 2024 Dr. Mariela Alvarado MD Attending Provider Active Start: December 27, 2024 End: December 27, 2024 Team Status: Active Member Role/Relationship Status Dates Estephania Trenton PA, PA-C Primary care physician Active Team Status: Inactive Member Role/Relationship Status Dates Estephania Trenton PA, PA-C Primary care physician Active Start: September 28, 2024 End: September 28, 2024 Estephania Trenton PA, PA-C Referring Provider Active Start: September 28, 2024 End: September 28, 2024 Dr. Joyce Goodman DO Attending physician Acti ve Start: September 28, 2024 End: September 28, 2024 Team Status: Inactive Member Role/Relationship Status Dates Estephania Trenton PA, PA-C Primary care physician Active Start: October 06, 2024 End: October 06, 2024 Estephania Trenton PA, PA-C Referring Provider Active Start: October 06, 2024 End: October 06, 2024 Dr. Joyce Goodman DO Attending physician Acti ve Start: October 06, 2024 End: October 06, 2024 Team Status: Inactive Member Role/Relationship Status Dates Estephania Dowling PA, PA-C Primary care physician Active Start: October 06, 2024 End: October 06, 2024 Dr. Joyce Goodman DO Attending physician Acti ve Start: October 06, 2024 End: October 06, 2024 Dr. Joyce Goodman DO Referring Provider Activ e Start: October 06, 2024 End: October 06, 2024 Team Status: Inactive Member Role/Relationship Status Dates Estephaniadomenico Dowling PA, PA-C Primary care physician Active Start: November 01, 2024 End: November 01, 2024 Estephania Hills PA, PA-C Referring Provider Active Start: November 01, 2024 End: November 01, 2024 Kt Avila CNM Attending physician Active Start: November 01, 2024 End: November 01, 2024 Team Status: Inactive Member Role/Relationship Status Dates Estephaniadomenico Dowling PA, PA-C Primary care physician Active Start: November 01, 2024 End: November 01, 2024 Kt Avila CNM Attending physician Active Start: November 01, 2024 End: November 01, 2024 Kt Avila CNM Referring Provider Active S tart: November 01, 2024 End: November 01, 2024 Team Status: Inactive Member Role/Relationship Status Dates Estephaniadomenico Dowling PA, PA-C Primary care physician Active Start: November 10, 2024 End: November 10, 2024 Dr. Joyce Goodman DO Attending physician Acti ve Start: November 10, 2024 End: November 10, 2024 Team Status: Inactive Member Role/Relationship Status Dates Estephania Dowling PA, PA-C Primary care physician Active Start: November 17, 2024 End: November 17, 2024 Dr. Joyce Goodman DO Attending physician Acti ve Start: November 17, 2024 End: November 17, 2024 Team Status: Inactive Member Role/Relationship Status Dates Estephania Dowling PA, PA-C Primary care physician Active Start: November 29, 2024 End: November 29, 2024 Estephania Trenton PA, PA-C Referring Provider Active Start: November 29, 2024 End: November 29, 2024 Kt Avila CNM Attending physician Active Start: November 29, 2024 End: November 29, 2024 Team Status: Inactive Member Role/Relationship Status Dates Estephania Dowling PA, PA-C Primary care physician Active Start: December 27, 2024 End: December 27, 2024 Estephania Trenton PA, PA-C Referring Provider Active Start: December 27, 2024 End: December 27, 2024 Dr. Mariela Alvarado MD Attending physician Active Start: December 27, 2024 End: December 27, 2024 Team Status: Active Member Role/Relationship Status Dates Estephania LEI, PA-C Primary care physician Active Start: December 28, 2024 Dr. Mariela Alvarado MD Attending physician Active Start: December 28, 2024 Dr. Mariela Alvarado MD Referring Provider Active Start: December 28, 2024 Team Status: Inactive Member Role/Relationship Status Dates Estephania Dowling PA, PA-C Primary care physician Active Start: December 29, 2024 End: December 29, 2024 Estephania LEI, PA-C Referring Provider Active Start: December 29, 2024 End: December 29, 2024 Lakeisha Flowers STRIPING MACHINE OPERATOR, STRIPING MACHINE OPERATOR-C Attending physician Active Start: December 29, 2024 End: December 29, 2024 Team Status: Active Member Role/Relationship Status Dates Estephania LEI, PA-C Primary care physician Active Start: December 29, 2024 Lakeisha Flowers STRIPING MACHINE OPERATOR, STRIPING MACHINE OPERATOR-C Attending physician Active Start: December 29, 2024 Lakeisha Flowers NP, STRIPING MACHINE OPERATOR-C Referring Provider Active Start: December 29, 2024 Programming Engineer Relationship Specialty Start Date End Date Estephania Dowling PA-C [address] [place] [address] [address] [facility] [id number] PCP - General Family Medicine 11/30/24 Team Status: Inactive Member Role/Relationship Status Dates Estephania LEI, PA-C Primary care physician Active Start: December 28, 2024 End: December 28, 2024 Dr. Mariela Alvarado MD Attending physician Active Start: December 28, 2024 End: December 28, 2024 Dr. Mariela Alvarado MD Referring Provider Active Start: December 28, 2024 End: December 28, 2024 Team Status: Inactive Member Role/Relationship Status Dates Estephania LEI, PA-C Primary care physician Active Start: December 29, 2024 End: December 29, 2024 Lakeisha Flowers STRIPING MACHINE OPERATOR, STRIPING MACHINE OPERATOR-C Attending physician Active Start: December 29, 2024 End: December 29, 2024 Lakeisha Flowers STRIPING MACHINE OPERATOR, STRIPING MACHINE OPERATOR-C Referring Provider Active Start: December 29, 2024 End: December 29, 2024 Team Status: Active Member Role/Relationship Status Dates Estephania Dowling PA, PA-C Primary care physician Active Start: January 10, 2025 Lakeisha Flowers STRIPING MACHINE OPERATOR, STRIPING MACHINE OPERATOR-C Attending physician Active Start: January 10, 2025 Lakeisha Flowers STRIPING MACHINE OPERATOR, STRIPING MACHINE OPERATOR-C Referring Provider Active Start: January 10, 2025 Team Status: Inactive Member Role/Relationship Status Dates Estephaniadomenico Dowling PA, PA-C Primary care physician Active Start: January 10, 2025 End: January 10, 2025 Lakeisha Flowers STRIPING MACHINE OPERATOR, STRIPING MACHINE OPERATOR-C Attending physician Active Start: January 10, 2025 End: January 10, 2025 Lakeisha Flowers STRIPING MACHINE OPERATOR, STRIPING MACHINE OPERATOR-C Referring Provider Active Start: January 10, 2025 End: January 10, 2025 Team Status: Inactive Member Role/Relationship Status Dates Estephania Dowling PA, PA-C Primary care physician Active Start: November 01, 2024 End: November 01, 2024 Estephania Trenton PA, PA-C Referring Provider Active Start: November 01, 2024 End: November 01, 2024 Kt Avila CNM Attending physician Active Start: November 01, 2024 End: November 01, 2024 Team Status: Inactive Member Role/Relationship Status Dates Estephania Dowling PA, PA-C Primary care physician Active Start: November 01, 2024 End: November 01, 2024 Kt Avila CNM Attending physician Active Start: November 01, 2024 End: November 01, 2024 Kt Avila CNM Referring Provider Active S tart: November 01, 2024 End: November 01, 2024 Team Status: Inactive Member Role/Relationship Status Dates Estephania Dowling PA, PA-C Primary care physician Active Start: November 10, 2024 End: November 10, 2024 Dr. Joyce Goodman DO Attending physician Acti ve Start: November 10, 2024 End: November 10, 2024 Team Status: Inactive Member Role/Relationship Status Dates Estephania Dowling PA, PA-C Primary care physician Active Start: November 17, 2024 End: November 17, 2024 Dr. Joyce Goodman DO Attending physician Acti ve Start: November 17, 2024 End: November 17, 2024 Team Status: Inactive Member Role/Relationship Status Dates Estephaniadomenico Dowling PA, PA-C Primary care physician Active Start: November 29, 2024 End: November 29, 2024 Estephania Hills PA, PA-C Referring Provider Active Start: November 29, 2024 End: November 29, 2024 Kt Avila CNM Attending physician Active Start: November 29, 2024 End: November 29, 2024 Team Status: Inactive Member Role/Relationship Status Dates Estephaniadomenico Dowling PA, PA-C Primary care physician Active Start: December 27, 2024 End: December 27, 2024 Estephaniadomenico Dowling PA, PA-C Referring Provider Active Start: December 27, 2024 End: December 27, 2024 Dr. Mariela Alvarado MD Attending physician Active Start: December 27, 2024 End: December 27, 2024 Team Status: Inactive Member Role/Relationship Status Dates Estephaniadomenico Dowling PA, PA-C Primary care physician Active Start: December 28, 2024 End: December 28, 2024 Dr. Mariela Alvarado MD Attending physician Active Start: December 28, 2024 End: December 28, 2024 Dr. Mariela Alvarado MD Referring Provider Active Start: December 28, 2024 End: December 28, 2024 Team Status: Inactive Member Role/Relationship Status Dates Estephania Dowling PA, PA-C Primary care physician Active Start: December 29, 2024 End: December 29, 2024 Estephania Josey PA, PA-C Referring Provider Active Start: December 29, 2024 End: December 29, 2024 Lakeisha Flowers STRIPING MACHINE OPERATOR, STRIPING MACHINE OPERATOR-C Attending physician Active Start: December 29, 2024 End: December 29, 2024 Team Status: Inactive Member Role/Relationship Status Dates Estephaniadomenico Dowling PA, PA-C Primary care physician Active Start: December 29, 2024 End: December 29, 2024 Lakeisha Flowers STRIPING MACHINE OPERATOR, STRIPING MACHINE OPERATOR-C Attending physician Active Start: December 29, 2024 End: December 29, 2024 Lakeisha Flowers STRIPING MACHINE OPERATOR, STRIPING MACHINE OPERATOR-C Referring Provider Active Start: December 29, 2024 End: December 29, 2024 Team Status: Inactive Member Role/Relationship Status Dates Estephania Trenton PA, PA-C Primary care physician Active Start: January 10, 2025 End: January 10, 2025 SAVANNAH Edge NPC Attending physician Active Start: January 10, 2025 End: January 10, 2025 HECTOR Edge NP Referring Provider Active Start: January 10, 2025 End: January 10, 2025 Team Status: Inactive Member Role/Relationship Status Dates Estephania LEI PA-C Primary care physician Active Start: January 24, 2025 End: January 24, 2025 Estephania LEI PA-C Referring Provider Active Start: January 24, 2025 End: January 24, 2025 Dr. Joyce Goodman DO Attending physician Patience ve Start: January 24, 2025 End: January 24, 2025 Team Status: Active Member Role/Relationship Status Dates Estephania LEI PA-C Primary care physician Active Start: February 07, 2025 Dr. Mariela Alvarado MD Attending physician Active Start: February 07, 2025 INFORMATION SOURCE (unrecogn ized section and content) DATE CREATED AUTHOR 06/20/2023 Formerly [facility] ([place]) DATE CREATED AUTHOR AUTHOR'S ORGANIZ ATION 03/28/2024 [facility] DATE CREATED AUTHOR AUTHOR'S ORGANIZ ATION 02/16/2025 [facility] DATE CREATED AUTHOR AUTHOR'S ORGANIZ ATION 02/24/2025 [facility] Goals (unrecognized section and content) Type Care Experience Labor Preferences-CB /BF classes: []labor support person: []labor intervention preferences: []pain management options preferred: []cut cord/dad catch: []: []PP control planned: []discussed possible routes of delivery and associated risks: []special requests: [] FOR RECORDS PERTAINING TO PATIENTS WHO ARE OR HAVE BEEN ENROLLED IN A CHEMICAL DEPENDENCY/SUBSTANCEABUSE PROGRAM, SOME INFORMATION MAY BE OMITTED. This clinical summary was aggregated from multiple sources. Caution should be exercised in using it in the provision of clinical care. This summary normalizes information from multiple sources, and as a consequence, information in this document may materially change the coding, format and clinical context of patient data. In addition, data may be omitted in some cases. CLINICAL DECISIONS SHOULD BE BASED ON THE PRIMARY CLINICAL RECORDS. [facility] provides no warranty or guarantee of the accuracy or completeness of information in this document.
== END | disposition home or self-care (01) ==
LOC: LABSPEC 17:03
PROVIDERS: PCP Family Medicine; Referring Provider Advanced Practice Midwife; Visit Provider Advanced Practice Midwife
DX: O23.42 Unspecified infection of urinary tract in pregnancy, second trimester (principal); Z3A.00 Weeks of gestation of pregnancy not specified
CPT/HCPCS: 87086; 87088

== ENCOUNTER → 2025-03-08 | Outpatient (CLI) | payer OTHER, SELFPAY | END | disposition home or self-care (01) | LOC: LABSPEC 11:44 | PROVIDERS: PCP Family Medicine; Visit Provider Advanced Practice Midwife | DX: O23.42 Unspecified infection of urinary tract in pregnancy, second trimester (principal); Z3A.00 Weeks of gestation of pregnancy not specified | CPT/HCPCS: 87086; 87088 ==

== ENCOUNTER 2025-03-24 15:42 | Outpatient (CLI) | payer OTHER, SELFPAY ==
[2025-03-24] VITALS (8 sets, daily range): BP systolic 107–146; BP diastolic 60–84; PULSE 89–109; RESP 16; TEMP 37.2; O2SAT 96; BMI 53.7
[2025-03-24 16:41] LABS: Hematocrit 36.6 % (37-47); Hemoglobin 12.1 g/dL (12.0-15.0); Mean Corp Hgb Conc 33.1 g/dL (32-36); Mean Corpuscular Volume 84.1 fL (81-99); Mean Platelet Vol. 9.6 fl (6.2-12.0); Platelet Count 324 K/mm3 (150-450); RBC Distribution Width CV 13.2 % (11.6-14.6); RBC Distribution Width SD 41.1 fl (35.1-43.9); Red Blood Count 4.35 M/mm3 (4.2-5.4); White Blood Count 12.1 K/mm3 (4.4-11.0)
[2025-03-24 16:55] LABS: AST(SGOT) 33 U/L (<=31); Alanine Aminotransfer ALT/SGPT 44 U/L (<=34); Estimated Creatinine Clearance 256.36 ml/min (50-250); Uric Acid 4.8 mg/dL (2.6-6.0)
[2025-03-24 16:57] LABS: Creatinine, Urine (random) 33.90 mg/dL (28.00-217.00); Protein, Urine (Random) 7.4 mg/dL (0.0-12.0); Protein:Creat Ratio 219 mg/g CRE (0-200)
[2025-03-24] MEDS: Betamethasone/Betamethasone 30 MG/5 ML Vial 12 MG IM (17:31)
[2025-03-24 20:28] LABS: Hematocrit 38.3 % (37-47); Hemoglobin 12.9 g/dL (12.0-15.0); Mean Corp Hgb Conc 33.7 g/dL (32-36); Mean Corpuscular Volume 83.8 fL (81-99); Mean Platelet Vol. 9.5 fl (6.2-12.0); Platelet Count 310 K/mm3 (150-450); RBC Distribution Width CV 13.4 % (11.6-14.6); RBC Distribution Width SD 41.2 fl (35.1-43.9); Red Blood Count 4.57 M/mm3 (4.2-5.4); White Blood Count 13.6 K/mm3 (4.4-11.0)
[2025-03-24 21:25] LABS: Uric Acid 4.7 mg/dL (2.6-6.0)
[2025-03-24 21:26] LABS: AST(SGOT) 25 U/L (<=31); Estimated Creatinine Clearance 233.05 ml/min (50-250)
[2025-03-24 21:36] LABS: Alanine Aminotransfer ALT/SGPT 74 U/L (<=34)
--- NOTE | 2025-03-26 20:08 | OB.TRI.PN_ITS ---
Progress Notes Date of Service: 03/24/25 Progress Note: Patient presents for triage evaluation secondary to elevated bps in office FHT: 130 Moderate variability reactive no decelerations category I tracing [place]: no regular Contractions Assessment and plan: elevated liver enzymes 32 weeks , repeat bps WNL and no proteinuria but elevated liver enzymes, asymptomatic Reactive NST, bmz x 1 given. reassuring maternal and status patient discharged to home to follow-up tomorrow for repeat steroid dose and repeat labs, repeat bps. . See problem list details for additional plan information. Laboratory Studies: Laboratory Tests 03/24/25 03/24/25 Range/Units 20:20 16:00 WBC 13.6 H 12.1 H (4.4-11.0) K/mm3 RBC 4.57 4.35 (4.2-5.4) M/mm3 Hgb 12.9 12.1 (12.0-15.0) g/dL Hct 38.3 36.6 L (37-47) % MCV 83.8 84.1 (81-99) fL MCH 28.2 27.8 (27.0-32.0) pg MCHC 33.7 33.1 (32-36) g/dL RDW Std Deviation 41.2 41.1 (35.1-43.9) fl RDW Coeff of Frederick 13.4 13.2 (11.6-14.6) % Plt Count 310 324 (150-450) K/mm3 MPV 9.5 9.6 (6.2-12.0) fl Creatinine 0.55 L 0.50 L (0.70-1.20) mg/dL Estim Creat Clear Calc 233.05 256.36 H (50-250) ml/min Est GFR (MDRD) Non-Af 132 135 (>60) Uric Acid 4.7 4.8 (2.6-6.0) mg/dL AST 25 33 H (<=31) U/L ALT 74 H 44 H (<=34) U/L U Random Total Protein 7.4 (0.0-12.0) mg/dL Urine Creatinine 33.90 (28.00-217.00) mg/dL Protein/Creatinin Ratio 219 H (0-200) mg/g CRE Charges/Coding Procedures Urinary/Genital 52xxx-59xxx: [id number] non-stress test Interp
== END 2025-03-24 21:45 | disposition home or self-care (01) ==
LOC: WPOUT 15:44 → WP 15:49
PROVIDERS: PCP Family Medicine; Referring Provider Obstetrics & Gynecology; Visit Provider Obstetrics & Gynecology
DX: O99.891 Other specified diseases and conditions complicating pregnancy (principal); R03.0 Elevated blood-pressure reading, without diagnosis of hypertension; Z3A.32 32 weeks gestation of pregnancy
CPT/HCPCS: 36415; 59025; 59050; 82565; 82570; 84156; 84450; 84460; 84550; 85027; 87086; 87088; 96372; 99221; G0378; J0702

== ENCOUNTER 2025-03-25 19:00 | Inpatient (IN) | payer OTHER, SELFPAY ==
[2025-03-25] VITALS (22 sets, daily range): BP systolic 120–145; BP diastolic 65–97; PULSE 78–110; RESP 14; TEMP 36.7; O2SAT 97–99; BMI 53.1
--- OUTSIDE RECORDS SUMMARY | 2025-03-25 16:20 | XMS RPT_ITS | CCD ---
Author Organization [facility] CliniSym[facility] Care Team Providers Care Staffing Coordinator Name Role Phone Cedric Pisano MD Primary Care Provider GARRETT BEARD Admitting Unavailable [place], ESTEPHANIA Referring Unavailable [place], ESTEPHANIA Consulting Unavailable GARRETT BEARD Attending Unavailable GARRETT BEARD Primary Care Unavailable PROVIDER, UNKNOWN Consulting Unavailable [place], ESTEPHANIA Attending Unavailable [place], ESTEPHANIA Primary Care Unavailable [place], ESTEPHANIA Admitting Unavailable [place] PA-C, Estephania Primary Care Provider Josey LEI-CEstephania Referring Provider Dr. Joyce Goodman DO Attending Provider Dr. Joyce Goodman DO Referring Provider Kt Avila CNM Attending Provider [phone] Kt Avila CNM Referring Provider [phone] Dr. Mariela Alvarado MD Attending Provider [phone] Estephania Dowling PA-C Primary Care Physician Dr. Joyce Goodman DO Attending Physician Kt Avila CNM Attending Physician [phone] Dr. Mariela Alvarado MD Attending Physician Dr. Mariela Alvarado MD Referring Provider [phone] Lionel MICHELLE-Lakeisha Renteria Attending Physician [phone] Lionel SHUTTLE DRIVER-CLakeisha Referring Provider Josey PA-CEstephania Primary Care Provider [place] PA-CEstephania Primary Care Physician [place] PA-, Estephania Referring Provider Dr. Joyce Goodman DO Attending Physician AISSATOU RUSHING Attending Unavailable RUSHINGAISSATOU Referring Unavailable [facility] [place] D Primary Care Unavailable MARIELA ALVARADO Referring Unavailabl e AISSATOU RUSHING Attending Unavailable [facility] [place] D Primary Care Unavailable MARIELA ALVARADO Referring Unavailabl e AISSATOU RUSHING Attending Unavailable [facility] [place] D Primary Care Unavailable AISSATOU RUSHING Referring Unavailable [facility] [place] D Primary Care Unavailable ZBIGNIEW VILLARREAL Attending Unavailable GILDARDO LOBATO Attending Unavailable [facility] [place] D Primary Care Unavailable MARIELA ALVARADO Referring Unavailabl [facility] Primary Care Unavailable KT AVILA Attending Unavailable KT AVILA Referring Unavailable Kt Avila Referring Unavailable Kt Avila Attending Unavailable [facility], Estephania Primary Care Unavailable [facility], Estephania Referring Unavailable [place] SHUTTLE DRIVERLakeisha Attending Unavailable [facility], Estephania Primary Care Unavailable [facility], Estephania Referring Unavailable Joyce Goodman Attending Unavailabl [facility] Primary Care Unavailable Joyce Goodman Attending Unavailabl [facility] Primary Care Unavailable Vande Joyce Santiago Attending Unavailabl [facility] Primary Care Unavailable [facility], Estephania Referring Unavailable Mariela Alvarado Attending Unavailable [facility], Estephania Primary Care Unavailable [facility], Estephania Referring Unavailable Kt Avila Attending Unavailable [place] PA, Estephania Primary Care Unavailable [facility], Estephania Referring Unavailable Joyce Goodman Attending Unavailabl e [place] PA, [place] Primary Care Unavailable Kt Avila Attending Unavailable [facility], Estephania Referring Unavailable [facility], Estephania Primary Care Unavailable Mariela Alvarado Referring Unavailable Mariela Alvarado Attending Unavailable [facility], Estephania Primary Care Unavailable [place] SHUTTLE DRIVERLakeisha Referring Unavailable [place] SHUTTLE DRIVER, Lakeisha Attending Unavailable [facility], Estephania Primary Care Unavailable Joyce Goodman Referring Unavailabl e Vande VelJoyce saeed Attending Unavailabl e [place] PA, [facility] Unavailable [facility] Carlos Enrique LEI Attending Unavailable [facility], [facility] Care Unavailable [facility] Enrique LEI Referring Unavailable Joyce Goodman [facility] Care Unavailable [facility], [place] Referring Unavailable Kt Avila Attending Unavailable [facility] Care Unavailable [facility] Carlos Enrique LEI Attending Unavailable Cedric Pisano Referring Unavailable Cedric Pisano Primary Care Unavailable [facility], Estephania Referring Unavailable Joyce Goodman [facility], [facility] Care Unavailable [facility], [facility] Care Unavailable Lionel SHUTTLE DRIVER, Lakeisha Referring Unavailable Lionel SHUTTLE DRIVER, Lakeisha Attending Unavailable Mariela Alvarado Attending Unavailable [facility], [facility] Unavailable Allergies Allergy Classification Reported Allergen(s) Allergy Type Date of Onset Reaction(s) Facility (16 sources) Amoxicillin; Translations: [AMOXICILLIN] Drug Allergy 09-28-2024 [facility] Comment on above: Onset 03/2024 (16 sources) Clavulanate; Translations: [CLAVULANIC ACID] Drug Allergy 09-28-2024 [facility] Comment on above: Onset 03/2024 (1 source) Amoxicillin Drug Allergy 01-24-2025 [facility] (1 source) Clavulanate Drug Allergy 01-24-2025 [facility] Medications Current Medications Medication Drug [...] Absolute Lymph 0.80 X10 3/uL Low 0.83-4.51 [facility] Comment on above: Performed By: #### L 501.0250, L3890.6006, L100.0100, L509.8002 #### [facility] [address] [place], [address] Absolute Neut 6.9 X10 3/uL Normal 2.0-7.7 [facility] Comment on above: Performed By: #### L 501.0250, L3890.6006, L100.0100, L509.8002 #### [facility] [address] [place], [address] Basophils/100 WBC (Bld) 0.4 % Normal 0-1 [facility] Comment on above: Performed By: #### L 501.0250, L3890.6006, L100.0100, L509.8002 #### [facility] [address] [place], [address] Eosinophils/100 WBC (Bld) 0.4 % Normal 0-5 [facility] Comment on above: Performed By: #### L 501.0250, L3890.6006, L100.0100, L509.8002 #### [facility] [address] [place], [address] Erythrocyte distribution width (RBC) [Ratio] 14.1 % Normal 11.6-14.6 [facility] Comment on above: Performed By: #### L 501.0250, L3890.6006, L100.0100, L509.8002 #### [facility] [address] [place], [address] Hematocrit (Bld) [Volume fraction] 39.7 % Normal 37-47 [facility] Comment on above: Performed By: #### L 501.0250, L3890.6006, L100.0100, L509.8002 #### [facility] [address] [place], [address] Hemoglobin (Bld) [Mass/Vol] 12.9 g/dL Normal 12.0-15.0 [facility] Comment on above: Performed By: #### L 501.0250, L3890.6006, L100.0100, L509.8002 #### [facility] [address] [place], [address] IG% 0.200 Normal 0.0-0.9 [facility] Comment on above: Result Comment: IG% - Immature Granulocytes (promyelocytes, myelocytes and metamyelocytes) > 1% indicates that a LEFT SHIFT is Present. Performed By: #### L 501.0250, L3890.6006, L100.0100, L509.8002 #### [facility] [address] [place], [address] Lymphocytes/100 WBC (Bld) 9.5 % Low 19-41 [facility] Comment on above: Performed By: #### L 501.0250, L3890.6006, L100.0100, L509.8002 #### [facility] [address] [place], [address] MCH (RBC) [Entitic mass] 28.3 pg Normal 27.0-32.0 [facility] Comment on above: Performed By: #### L 501.0250, L3890.6006, L100.0100, L509.8002 #### [facility] [address] [place], [address] MCHC (RBC) [Mass/Vol] 32.5 g/dL Normal 32-36 [facility] Comment on above: Performed By: #### L 501.0250, L3890.6006, L100.0100, L509.8002 #### [facility] [address] [place], [address] MCV (RBC) [Entitic vol] 87.1 fL Normal 81-99 [facility] Comment on above: Performed By: #### L 501.0250, L3890.6006, L100.0100, L509.8002 #### [facility] [address] [place], [address] Monocytes/100 WBC (Bld) 7.0 % Normal 0-10 [facility] Comment on above: Performed By: #### L 501.0250, L3890.6006, L100.0100, L509.8002 #### [facility] [address] [place], [address] Neutrophils/100 WBC (Bld) 82.5 % High 47-70 [facility] Comment on above: Performed By: #### L 501.0250, L3890.6006, L100.0100, L509.8002 #### [facility] [address] [place], [address] Nucleated RBC (Bld) [#/Vol] 0 10*3/uL Normal 0-5 [facility] Comment on above: Performed By: #### L 501.0250, L3890.6006, L100.0100, L509.8002 #### [facility] [address] [place], [address] Platelet mean volume (Bld) [Entitic vol] 9.6 fL Normal 6.2-12.0 [facility] Comment on above: Performed By: #### L 501.0250, L3890.6006, L100.0100, L509.8002 #### [facility] [address] [place], [address] Platelets (Bld) [#/Vol] 321 10*3/uL Normal 150-450 [facility] Comment on above: Performed By: #### L 501.0250, L3890.6006, L100.0100, L509.8002 #### [facility] [address] [place], [address] RBC (Bld) [#/Vol] 4.56 10*6/uL Normal 4.2-5.4 [facility] Comment on above: Performed By: #### L 501.0250, L3890.6006, L100.0100, L509.8002 #### [facility] [address] [place], [address] RDW SD 45.1 fl High 35.1-43.9 [facility] Comment on above: Performed By: #### L 501.0250, L3890.6006, L100.0100, L509.8002 #### [facility] [address] [place], [address] WBC (Bld) [#/Vol] 8.4 10*3/uL Normal 4.4-11.0 [facility] Comment on above: Performed By: #### L 501.0250, L3890.6006, L100.0100, L509.8002 #### [facility] [address] [place], [address] Glucose Challenge Gest 1H 50 светлана 02-24-2025 GLU GEST 50g 1H 132 mg/dL Normal 70-140 [facility] Comment on above: Performed By: #### L 501.0250, L3890.6006, L100.0100, L509.8002 #### [facility] [address] [place], [place], [address] HIVon 02-24-2025 HIV Non-Reactive Normal Nonreactive [facility] Comment on above: Result Comment: Non- Reactive Reactive Repeatedly reactive samples must be confirmed according to CDC recommended confirmatory algorithms. The subresults for either HIVAG or AHIV can be used as an aid in the selection of the confirmation algorithm for reactive samples. Send out specimens with Reactive results to [facility] for confirmation. Order the HIV antibody detection and differentiation: [id number] Performed By: #### L 501.0250, L3890.6006, L100.0100, L509.8002 #### [facility] [address] [place], [place], [address] Syphilis Antibodieson 2024 Syphilis Abs Non-Reactive Normal Nonreactive [facility] Comment on above: Performed By: #### L 501.0250, L3890.6006, L100.0100, L509.8002 #### [facility] [address] [place], [place], [address] Progress Noteon 02-14-2025 Roll Plugger Machine Operator Authentication Interface Message Text New patient 02/15/2025 RE: Maren Barney : 2000 AGE: 24 y.o. CSN#: [id number] Gestational Age: 27 Weeks Delivery Hospital: [facility] Reason for visit: Chief Complaint Patient [...] in visit on 02/14/[address] [facility] [place] [address] [email or web address] Echocardiogram Report M-mode, complete 2D, complete spectral Doppler, and color Doppler PATIENT: Maren Barney STUDY DATE/TIME: Feb 14 2025 11:06AM HEIGHT: : 2000 WEIGHT: AGE: 24year(s) BSA/BMI: / GENDER: F BP: 122 / 82 LOCATION: [facility] REFERRING PHYSICIAN: Aissatou Rushing Katherine ORDERING PROVIDER: Aissatou Rushing READING PHYSICIAN: GEORGIE Christie [facility]: Sheridan Fuchs RDCS SUMMARY: No significant congenital [...] discussed with the patient. Recommendations: follow-up if parachute cushion installer hears a heart murmur or otherwise clinically indicated. REASON FOR EXAM: Sub-optimal views. : : - Maternal age: 24yr. - : 1. - Parity: 0. - Estimated delivery date: 05/17/2025. - Gestational age: 27 [id number]. STUDY AND PROCEDURE DATA: The patient is . Procedure Description: New ([id number]) . Study status: Routine. Location: lab. Procedure: [...] a patent foramen ovale. There is a bxyaq-yk-thov shunt. Left atrium: - The atrium is [...] qualitatively normal (more content not included)... Normal [facility] Anion gap in Serum or Plasma Ordered By: Joyce Santiago on 02-07-2025 Anion gap [Moles/Vol] 11 mmol/L 08-26 [facility] BUN/creatinine ratioOrdered By: Joyce Santiago on 02-07-2025 Urea nitrogen/Creatinine [Mass ratio] 11.6 mg/mg 01-31 [facility] Bilirubin, totalOrdered By: Joyce Santiago on 02-07-2025 Bilirubin [Mass/Vol] 0.29 mg/dL 0.00-1.30 [facility] Carbon dioxide, total [Moles /volume] in Central venous bloodOrdered By: Joyce Santiago on 02-07-2025 CO2 [Moles/Vol] 22.1 mmol/L 21.0-32.0 [facility] Chloride assayOrdered By: Henry Santiago on 02-07-2025 Chloride [Moles/Vol] 104 mmol/L 98-108 [facility] Comprehensive Metabolic Prof ilon 02-07-2025 Albumin [Mass/Vol] 3.8 g/dL Normal 3.5-5.0 [facility] Comment on above: Performed By: #### L 500.6763 #### [facility] [address] [place], [address] Albumin/Globulin [Mass ratio] 1.0 {ratio} Normal 0.9-2.4 [facility] Comment on above: Performed By: #### L 500.4050 #### [facility] [address] [place], [address] ALK PHOS 137 U/L High 35-104 [facility] Comment on above: Performed By: #### L 500.4050 #### [facility] [address] [place], [address] ALT [Catalytic activity/Vol] 45 U/L High <=34 [facility] Comment on above: Performed By: #### L 500.4050 #### [facility] [address] [place], [address] AST [Catalytic activity/Vol] 21 U/L Normal <=31 [facility] Comment on above: Performed By: #### L 500.4050 #### [facility] [address] [place], [address] Bilirubin [Mass/Vol] 0.29 mg/dL Normal 0.00-1.30 [facility] Comment on above: Performed By: #### L 500.4050 #### [facility] [address] [place], [address] BUN/CRE 11.6 RATIO Normal 10-20 [facility] Comment on above: Performed By: #### L 500.4050 #### [facility] [address] [place], [address] Calcium [Mass/Vol] 9.1 mg/dL Normal 7.6-11.0 [facility] Comment on above: Performed By: #### L 500.4050 #### [facility] [address] [place], [address] Chloride [Moles/Vol] 104 mmol/L Normal 98-108 [facility] Comment on above: Performed By: #### L 500.4050 #### [facility] [address] [place], [address] CO2 [Moles/Vol] 22.1 mmol/L Normal 21.0-32.0 [facility] Comment on above: Performed By: #### L 500.4050 #### [facility] [address] [place], [address] Creatinine [Mass/Vol] 0.48 mg/dL Low 0.70-1.20 [facility] Comment on above: Performed By: #### L 500.4050 #### [facility] [address] [place], [address] GAP 11 Normal 5-15 [facility] Comment on above: Performed By: #### L 500.4050 #### [facility] [address] [place], [address] GFR/1.73 sq M.predicted among non-blacks MDRD (S/P/Bld) [Vol rate/Area] 136 mL/min/{1.73_m2} Normal >60 [facility] Comment on above: Result Comment: mL/m in/1.73m2 CKD-EPI Creatinine Equation (2020) Performed By: #### L 500.4050 #### [facility] [address] [place], [address] Globulin (S) [Mass/Vol] 3.7 g/dL Normal 2.2-4.2 [facility] Comment on above: Performed By: #### L 500.4050 #### [facility] [address] [place], [address] Glucose [Mass/Vol] 81 mg/dL Normal 70-99 [facility] Comment on above: Performed By: #### L 500.4050 #### [facility] [address] [place], [address] Potassium [Moles/Vol] 4.0 mmol/L Normal 3.3-5.1 [facility] Comment on above: Performed By: #### L 500.4050 #### [facility] [address] [place], [address] Sodium [Moles/Vol] 137 mmol/L Normal 133-145 [facility] Comment on above: Performed By: #### L 500.4050 #### [facility] [address] [place], [address] T PROT 7.5 g/dL Normal 5.9-8.4 [facility] Comment on above: Performed By: #### L 500.4050 #### [facility] [address] [place], [address] Urea nitrogen [Mass/Vol] 6 mg/dL Normal 4-19 [facility] Comment on above: Performed By: #### L 500.4050 #### [facility] [address] [place], [address] Glomerular filtration rate ( GFR) estimation/1.73 sq m using serum, plasma, or whole bOrdered By: Joyce Santiago on 02-07-2025 GFR/1.73 sq M.predicted among non-blacks MDRD (S/P/Bld) [Vol rate/Area] 136 mL/min/{1.73_m2} >60 [facility] Comment on above: mL/min/1.73m2 CKD-EP I Creatinine Equation (2020) Laboratory - Chemistry and C hemistry - challengeOrdered By: Joyce Santiago on 02-07-2025 AST [Catalytic activity/Vol] 21 U/L <32 [facility] Potassium measurement (mass/ volume)Ordered By: Joyce Santiago on 02-07-2025 Potassium (Unsp spec) [Mass/Vol] 4.0 mmol/L 3.3-5.1 [facility] Serum creatinine measurement (mass/volume)Ordered By: Joyce Santiago on 02-07-2025 Creatinine [Mass/Vol] 0.48 mg/dL Low 0.70-1.20 [facility] Serum globulin measurementOr dered By: Joyce Santiago on 02-07-2025 Globulin (S) [Mass/Vol] 3.7 g/dL 2.2-4.2 [facility] Serum glucose measurement (m ass/volume)Ordered By: Joyce Santiago on 02-07-2025 Glucose [Mass/Vol] 81 mg/dL 70-99 [facility] Serum or plasma alanine will otransferase (ALT) measurementOrdered By: Joyce Santiago on 02-07-2025 ALT [Catalytic activity/Vol] 45 U/L High <35 [facility] Serum or plasma albumin wilman urement (mass/volume)Ordered By: Joyce Santiago on 02-07-2025 Albumin [Mass/Vol] 3.8 g/dL 3.5-5.0 [facility] Serum or plasma albumin/glob ulin mass ratioOrdered By: Joyce Santiago on 02-07-2025 Albumin/Globulin [Mass ratio] 1.0 {ratio} 0.9-2.4 [facility] Serum or plasma alkaline kristel sphatase measurementOrdered By: Joyce Santiago on 02-07-2025 ALP [Catalytic activity/Vol] 137 U/L High 35-104 [facility] Serum or plasma calcium wilman urement (mass/volume)Ordered By: Joyce Santiago on 02-07-2025 Calcium [Mass/Vol] 9.1 mg/dL 7.6-11.0 [facility] Serum or plasma urea nitroge n measurement (mass/volume)Ordered By: Joyce Santiago on 02-07-2025 Urea nitrogen [Mass/Vol] 6 mg/dL 4-19 [facility] Sodium levelOrdered By: Alina Santiago on 02-07-2025 Sodium [Moles/Vol] 137 mmol/L 133-145 [facility] Total proteinOrdered By: Bettie Santiago on 02-07-2025 Protein [Mass/Vol] 7.5 g/dL 5.9-8.4 [facility] Laboratory - Chemistry and C hemistry - challengeOrdered By: Joyce Santiago on 01-24-2025 Glucose Ql (U) Negative [facility] - UrinalysisOrder ed By: Joyce Santiago on 01-24-2025 Protein Ql (U) Negative [facility] Supervisor Contact And Service Clerks Office Visit Reporton 01-24-2025 Supervisor Contact And Service Clerks Office Visit Report [facility] [address], [address] [place] [address] OFFICE VISIT Date of Service: 01/24/25 MR#: [id number] Acct: [id number] Name: MAREN BARNEY Rep #: [id number] : 2000 Provider: Dr. 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 pt reports normal BPs at home. 11/29/24 -???-???-???-???-???- ???-???-???-???-???-? ??-???- 15w 6d 319 lb 130/86 Negative -???-???-???-???-???- ???-???-???-???-???-? ??-???- Negative 158 -???-???-???-???-???- ???-???-???-???-???-? ??-???- KW- no vb/cr amping. has not gotten call from [facility] to schedule US. will myranda (more content not included)... Normal [facility] 24 HR UR Creatinine Clearanc fani 01-10-2025 CREAT CLEARANCE 181 ml/min Normal 100-200 [facility] Comment on above: Performed By: #### L 502.000, L500.4507 #### [facility] [address] [place], [address] Creatinine [Mass/Vol] 0.6 mg/dL Normal 0.6-1.0 [facility] Comment on above: Performed By: #### L 502.000, L500.4507 #### [facility] [address] [place], [address] RANDOM UR TV 2600.0 ML Normal [facility] Comment on above: Performed By: #### L 502.000, L500.4507 #### [facility] [address] [place], [address] 24 HR Urine Creatinineon UR.CREAT/24hr 1536.6 mg/24 hr Normal 740.0-1540.0 [facility] Comment on above: Performed By: #### L 502.000, L500.4507 #### [facility] [address] [place], [address] COMPREHENSIVE METABOLIC PANE [facility] [place] 01-10-2025 Albumin [Mass/Vol] 4.0 g/dL Normal 3.5-5.[address] [facility] Comment on above: Order Comment: Relea se to patient->Automatic Result Comment: Veri fied By: [id number] ALP [Catalytic activity/Vol] 121 U/L High 35-[address] [facility] Comment on above: Order Comment: Relea se to patient->Automatic Result Comment: Veri fied By: [id number] ALT [Catalytic activity/Vol] 54 U/L High <=[address] [facility] Comment on above: Order Comment: Relea se to patient->Automatic Result Comment: Veri fied By: [id number] AST [Catalytic activity/Vol] 21 U/L Normal <=[address] [facility] Comment on above: Order Comment: Relea se to patient->Automatic Result Comment: Veri fied By: [id number] BILI,TOTAL 0.4 mg/dL Normal <=1.[address] [facility] Comment on above: Order Comment: Relea se to patient->Automatic Result Comment: Veri fied By: [id number] Calcium [Mass/Vol] 9.7 mg/dL Normal 7.6-11.[address] [facility] Comment on above: Order Comment: Relea se to patient->Automatic Result Comment: Veri fied By: [id number] Chloride [Moles/Vol] 103 mmol/L Normal 96-108 [facility] Comment on above: Order Comment: Relea se to patient->Automatic Result Comment: Veri fied By: [id number] CO2 [Moles/Vol] 21.9 mmol/L Low 22.0-29.0 [facility] [facility] Comment on above: Order Comment: Relea se to patient->Automatic Result Comment: Veri fied By: [id number] Creatinine [Mass/Vol] 0.55 mg/dL Normal 0.50-1.00 [facility] Comment on above: Order Comment: Relea se to patient->Automatic Result Comment: Veri fied By: [id number] GFR/1.73 sq M.predicted among non-blacks MDRD (S/P/Bld) [Vol rate/Area] mL/min/{1.73_m2} Normal >=[address] [facility] Comment on above: Order Comment: Relea se to patient->Automatic Glucose [Mass/Vol] 91 mg/dL Normal 70-[address] [facility] Comment on above: Order Comment: Relea se [...] plus Classic Symptoms of Diabetes Verified By: [id number] Potassium [Moles/Vol] 3.7 mmol/L Normal 3.3-5.1 [facility] Comment on above: Order Comment: Relea se to patient->Automatic Result Comment: Veri fied By: [id number] Protein [Mass/Vol] 7.8 g/dL Normal 5.9-8.[address] [facility] Comment on above: Order Comment: Relea se to patient->Automatic Result Comment: Veri fied By: [id number] Sodium [Moles/Vol] 138 mmol/L Normal 133-[address] [facility] Comment on above: Order Comment: Relea se to patient->Automatic Result Comment: Veri fied By: [id number] Urea nitrogen [Mass/Vol] 5 mg/dL Normal 4-[address] [facility] Comment on above: Order Comment: Relea se to patient->Automatic Result Comment: Veri fied By: [id number] Comprehensive metabolic pane meng 01-10-2025 Albumin BCG dye [Mass/Vol] 4.0 g/dL 3.5 - 5.0 g/dL [facility] Comment on above: Verified By: [id number] ALP [Catalytic activity/Vol] 121 U/L High 35 - 104 U/L [facility] Comment on above: Verified By: [id number] ALT With P-5'-P [Catalytic activity/Vol] 54 U/L High NINF - 34 U/L [facility] Comment on above: Verified By: [id number] AST With P-5'-P [Catalytic activity/Vol] 21 U/L NINF - 31 U/L [facility] Comment on above: Verified By: [id number] Bilirubin [Mass/Vol] 0.4 mg/dL [facility] mg/dL [facility] Comment on above: Verified By: [id number] Calcium [Mass/Vol] 9.7 mg/dL 7.6 - 11. 0 mg/dL [facility] Comment on above: Verified By: [id number] Chloride [Moles/Vol] 103 mmol/L 96 - 10 8 mmol/L [facility] Comment on above: Verified By: [id number] Creatinine [Mass/Vol] 0.55 mg/dL 0.50 - 1.00 mg/dL [facility] Comment on above: Verified By: [id number] eGFR - PINF [facility] Glucose [Mass/Vol] 91 mg/dL 70 - 99 mg/dL [facility] Comment on above: Criteria for Diagnos is of Diabetes: Fasting Specimen (no caloric intake for at least 8 hours): <100 mg/dL Normal 100-125 mg/dL Increased risk for Diabetes >125 mg/dL Diagnostic for Diabetes Random Glucose (any time of day without regard to last meal): > or = 200 mg/dL plus Classic Symptoms of Diabetes Verified By: [id number] HCO3 (P) [Moles/Vol] 21.9 mmol/L Low 22.0 - 29.0 mmol/L [facility] Comment on above: Verified By: [id number] Interpretation and review of laboratory results Abnormal [facility] Potassium (BldA) [Moles/Vol] 3.7 mmol/L 3.3 - 5.1 mmol/L [facility] Comment on above: Verified By: [id number] Protein [Mass/Vol] 7.8 g/dL 5.9 - 8.4 g/dL [facility] Comment on above: Verified By: [id number] Sodium [Moles/Vol] 138 mmol/L 133 - 145 mmol/L [facility] Comment on above: Verified By: [id number] Urea nitrogen [Mass/Vol] 5 mg/dL 4 - 19 mg/d L [facility] Comment on above: Verified By: [id number] 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 [facility] Serum globulin measurementOr dered By: Joyce Santiago on 11-10-2024 Globulin (S) [Mass/Vol] 3.3 g/dL 2.2-4.2 [facility] Serum glucose measurement (m ass/volume)Ordered By: Joyce Santiago on 11-10-2024 Glucose [Mass/Vol] 86 mg/dL 70-99 [facility] Serum or plasma alanine will otransferase (ALT) measurementOrdered By: Joyce Santiago on 11-10-2024 ALT [Catalytic activity/Vol] 36 U/L High <35 [facility] Serum or plasma albumin wilman urement (mass/volume)Ordered By: Joyce Santiago on 11-10-2024 Albumin [Mass/Vol] 3.9 g/dL 3.5-5.0 [facility] Serum or plasma albumin/glob ulin mass ratioOrdered By: Joyce Santiago on 11-10-2024 Albumin/Globulin [Mass ratio] 1.2 {ratio} 0.9-2.4 [facility] Serum or plasma alkaline kristel sphatase measurementOrdered By: Joyce Santiago on 11-10-2024 ALP [Catalytic activity/Vol] 90 U/L 35-104 [facility] Serum or plasma calcium wilman urement (mass/volume)Ordered By: Joyce Santiago on 11-10-2024 Calcium [Mass/Vol] 9.3 mg/dL 7.6-11.0 [facility] Serum or plasma urea nitroge n measurement (mass/volume)Ordered By: Joyce Santiago on 11-10-2024 Urea nitrogen [Mass/Vol] 7 mg/dL 4-19 [facility] Sodium levelOrdered By: Alina Santiago on 11-10-2024 Sodium [Moles/Vol] 136 mmol/L 133-145 [facility] Total proteinOrdered By: Bettie Santiago on 11-10-2024 Protein [Mass/Vol] 7.2 g/dL 5.9-8.4 [facility] Absolute lymphocyte countOrd ered By: Joyce Santiago on 11-01-2024 Lymphocytes Auto (Unsp spec) [#/Vol] 1.69 10*3/uL 0.83-4.51 [facility] Absolute neutrophil countOrd ered By: Joyce Santiago on 11-01-2024 Neutrophils (Bld) [#/Vol] 9.2 10*3/uL High 2.0-7.7 [facility] Anion gap in Serum or Plasma Ordered By: Joyce Santiago on 11-01-2024 Anion gap [Moles/Vol] 12 mmol/L 5-15 [facility] Automated lymphocyte count a s percentage of total leukocytesOrdered By: Joyce Santiago on 11-01-2024 Lymphocytes/100 WBC Auto (Unsp spec) 14.4 % Low 19-41 [facility] BUN/creatinine ratioOrdered By: Joyce Santiago on 11-01-2024 Urea nitrogen/Creatinine [Mass ratio] 11.6 mg/mg 10-20 [facility] Basophil percentageOrdered B y: Joyce Santiago on 11-01-2024 Basophils/100 WBC (Bld) 0.3 % 0-1 [facility] Bilirubin, totalOrdered By: Joyce Santiago on 11-01-2024 Bilirubin [Mass/Vol] 0.19 mg/dL 0.00-1.30 [facility] CBC W/Diff, Automatedon 10-13-2024 Absolute Lymph 1.69 X10 3/uL Normal 0.83-4.51 [facility] Comment on above: Performed By: #### L 501.0250, L3890.6006, L100.0100, L509.8002 #### [facility] [address] [place], [address] Absolute Neut 9.2 X10 3/uL High 2.0-7.7 [facility] Comment on above: Performed By: #### L 501.0250, L3890.6006, L100.0100, L509.8002 #### [facility] [address] [place], [address] Basophils/100 WBC (Bld) 0.3 % Normal 0-1 [facility] Comment on above: Performed By: #### L 501.0250, L3890.6006, L100.0100, L509.8002 #### [facility] [address] [place], [address] Eosinophils/100 WBC (Bld) 0.7 % Normal 0-5 [facility] Comment on above: Performed By: #### L 501.0250, L3890.6006, L100.0100, L509.8002 #### [facility] [address] [place], [address] Erythrocyte distribution width (RBC) [Ratio] 14.6 % Normal 11.6-14.6 [facility] Comment on above: Performed By: #### L 501.0250, L3890.6006, L100.0100, L509.8002 #### [facility] [address] [place], [address] Hematocrit (Bld) [Volume fraction] 40.4 % Normal 37-47 [facility] Comment on above: Performed By: #### L 501.0250, L3890.6006, L100.0100, L509.8002 #### [facility] [address] [place], [address] Hemoglobin (Bld) [Mass/Vol] 12.8 g/dL Normal 12.0-15.0 [facility] Comment on above: Performed By: #### L 501.0250, L3890.6006, L100.0100, L509.8002 #### [facility] [address] [place], [address] IG% 0.300 Normal 0.0-0.9 [facility] Comment on above: Result Comment: IG% - Immature Granulocytes (promyelocytes, myelocytes and metamyelocytes) > 1% indicates that a LEFT SHIFT is Present. Performed By: #### L 501.0250, L3890.6006, L100.0100, L509.8002 #### [facility] [address] [place], [address] Lymphocytes/100 WBC (Bld) 14.4 % Low 19-41 [facility] Comment on above: Performed By: #### L 501.0250, L3890.6006, L100.0100, L509.8002 #### [facility] [address] [place], [address] MCH (RBC) [Entitic mass] 26.6 pg Low 27.0-32.0 [facility] Comment on above: Performed By: #### L 501.0250, L3890.6006, L100.0100, L509.8002 #### [facility] [address] [place], [address] MCHC (RBC) [Mass/Vol] 31.7 g/dL Low 32-36 [facility] Comment on above: Performed By: #### L 501.0250, L3890.6006, L100.0100, L509.8002 #### [facility] [address] [place], [address] MCV (RBC) [Entitic vol] 84.0 fL Normal 81-99 [facility] Comment on above: Performed By: #### L 501.0250, L3890.6006, L100.0100, L509.8002 #### [facility] [address] [place], [address] Monocytes/100 WBC (Bld) 5.8 % Normal 0-10 [facility] Comment on above: Performed By: #### L 501.0250, L3890.6006, L100.0100, L509.8002 #### [facility] [address] [place], [address] Neutrophils/100 WBC (Bld) 78.5 % High 47-70 [facility] Comment on above: Performed By: #### L 501.0250, L3890.6006, L100.0100, L509.8002 #### [facility] [address] [place], [address] Nucleated RBC (Bld) [#/Vol] 0 10*3/uL Normal 0-5 [facility] Comment on above: Performed By: #### L 501.0250, L3890.6006, L100.0100, L509.8002 #### [facility] [address] [place], [address] Platelet mean volume (Bld) [Entitic vol] 9.5 fL Normal 6.2-12.0 [facility] Comment on above: Performed By: #### L 501.0250, L3890.6006, L100.0100, L509.8002 #### [facility] [address] [place], [address] Platelets (Bld) [#/Vol] 333 10*3/uL Normal 150-450 [facility] Comment on above: Performed By: #### L 501.0250, L3890.6006, L100.0100, L509.8002 #### [facility] [address] [place], [address] RBC (Bld) [#/Vol] 4.81 10*6/uL Normal 4.2-5.4 [facility] Comment on above: Performed By: #### L 501.0250, L3890.6006, L100.0100, L509.8002 #### [facility] [address] [place], [address] RDW SD 44.6 fl High 35.1-43.9 [facility] Comment on above: Performed By: #### L 501.0250, L3890.6006, L100.0100, L509.8002 #### [facility] [address] [place], [address] WBC (Bld) [#/Vol] 11.8 10*3/uL High 4.4-11.0 [facility] Comment on above: Performed By: #### L 501.0250, L3890.6006, L100.0100, L509.8002 #### [facility] [address] [place], [address] Carbon dioxide, total [Moles /volume] in Central venous bloodOrdered By: Joyce Santiago on 11-01-2024 CO2 [Moles/Vol] 22.4 mmol/L 21.0-32.0 [facility] Chloride assayOrdered By: Henry Santiago on 11-01-2024 Chloride [Moles/Vol] 102 mmol/L 98-108 [facility] Comprehensive Metabolic Prof ilon 11-01-2024 Albumin [Mass/Vol] 4.0 g/dL Normal 3.5-5.0 [facility] Comment on above: Performed By: #### L 501.0250, L3890.6006, L100.0100, L509.8002 #### [facility] [address] [place], [address] Albumin/Globulin [Mass ratio] 1.2 {ratio} Normal 0.9-2.4 [facility] Comment on above: Performed By: #### L 501.0250, L3890.6006, L100.0100, L509.8002 #### [facility] [address] [place], [address] ALK PHOS 93 U/L Normal 35-104 [facility] Comment on above: Performed By: #### L 501.0250, L3890.6006, L100.0100, L509.8002 #### [facility] [address] [place], [address] ALT [Catalytic activity/Vol] 50 U/L High <=34 [facility] Comment on above: Performed By: #### L 501.0250, L3890.6006, L100.0100, L509.8002 #### [facility] [address] [place], [address] AST [Catalytic activity/Vol] 22 U/L Normal <=31 [facility] Comment on above: Performed By: #### L 501.0250, L3890.6006, L100.0100, L509.8002 #### [facility] [address] [place], [address] Bilirubin [Mass/Vol] 0.19 mg/dL Normal 0.00-1.30 [facility] Comment on above: Performed By: #### L 501.0250, L3890.6006, L100.0100, L509.8002 #### [facility] [address] [place], [address] BUN/CRE 11.6 RATIO Normal 10-20 [facility] Comment on above: Performed By: #### L 501.0250, L3890.6006, L100.0100, L509.8002 #### [facility] [address] [place], [address] Calcium [Mass/Vol] 9.4 mg/dL Normal 7.6-11.0 [facility] Comment on above: Performed By: #### L 501.0250, L3890.6006, L100.0100, L509.8002 #### [facility] [address] [place], [address] Chloride [Moles/Vol] 102 mmol/L Normal 98-108 [facility] Comment on above: Performed By: #### L 501.0250, L3890.6006, L100.0100, L509.8002 #### [facility] [address] [place], [address] CO2 [Moles/Vol] 22.4 mmol/L Normal 21.0-32.0 [facility] Comment on above: Performed By: #### L 501.0250, L3890.6006, L100.0100, L509.8002 #### [facility] [address] [place], [address] Creatinine [Mass/Vol] 0.65 mg/dL Low 0.70-1.20 [facility] Comment on above: Performed By: #### L 501.0250, L3890.6006, L100.0100, L509.8002 #### [facility] [address] [place], [address] GAP 12 Normal 5-15 [facility] Comment on above: Performed By: #### L 501.0250, L3890.6006, L100.0100, L509.8002 #### [facility] [address] [place], [address] GFR/1.73 sq M.predicted among non-blacks MDRD (S/P/Bld) [Vol rate/Area] 128 mL/min/{1.73_m2} Normal >60 [facility] Comment on above: Result Comment: mL/m in/1.73m2 CKD-EPI Creatinine Equation (2020) Performed By: #### L 501.0250, L3890.6006, L100.0100, L509.8002 #### [facility] [address] [place], [address] Globulin (S) [Mass/Vol] 3.2 g/dL Normal 2.2-4.2 [facility] Comment on above: Performed By: #### L 501.0250, L3890.6006, L100.0100, L509.8002 #### [facility] [address] [place], [address] Glucose [Mass/Vol] 99 mg/dL Normal 70-99 [facility] Comment on above: Performed By: #### L 501.0250, L3890.6006, L100.0100, L509.8002 #### [facility] [address] [place], [address] Potassium [Moles/Vol] 4.1 mmol/L Normal 3.3-5.1 [facility] Comment on above: Performed By: #### L 501.0250, L3890.6006, L100.0100, L509.8002 #### [facility] [address] [place], [address] Sodium [Moles/Vol] 137 mmol/L Normal 133-145 [facility] Comment on above: Performed By: #### L 501.0250, L3890.6006, L100.0100, L509.8002 #### [facility] [address] [place], [address] T PROT 7.2 g/dL Normal 5.9-8.4 [facility] Comment on above: Performed By: #### L 501.0250, L3890.6006, L100.0100, L509.8002 #### [facility] [address] [place], [address] Urea nitrogen [Mass/Vol] 8 mg/dL Normal 4-19 [facility] Comment on above: Performed By: #### L 501.0250, L3890.6006, L100.0100, L509.8002 #### [facility] [address] [place], [address] Eosinophil percentageOrdered By: Joyce Santiago on 11-01-2024 Eosinophils/100 WBC (Bld) 0.7 % 0-5 [facility] Erythrocyte distribution wid th ratioOrdered By: Joyce Santiago on 11-01-2024 Erythrocyte distribution width (RBC) [Ratio] 14.6 % 11.6-14.6 [facility] Erythrocyte distribution wid th standard deviationOrdered By: Joyce Santiago on 11-01-2024 Erythrocyte distribution width (RBC) [Ratio] 44.6 fl High 35.1-43.9 [facility] Glomerular filtration rate ( GFR) estimation/1.73 sq m using serum, plasma, or whole bOrdered By: Joyce Santiago on 11-01-2024 GFR/1.73 sq M.predicted among non-blacks MDRD (S/P/Bld) [Vol rate/Area] 128 mL/min/{1.73_m2} >60 [facility] Comment on above: mL/min/1.73m2 CKD-EP I Creatinine Equation (2020) HIVon 11-01-2024 HIV Non-Reactive Normal Nonreactive [facility] Comment on above: Result Comment: Non- Reactive Reactive Repeatedly reactive samples must be confirmed according to CDC recommended confirmatory algorithms. The subresults for either HIVAG or AHIV can be used as an aid in the selection of the confirmation algorithm for reactive samples. Send out specimens with Reactive results to [facility] for confirmation. Order the HIV antibody detection and differentiation: [id number] Performed By: #### L 501.0250, L3890.6006, L100.0100, L509.8002 #### [facility] [address] [place], [place], [address] Hematocrit Auto (Bld) [Volum e fraction]Ordered By: Joyce Santiago on 11-01-2024 Hematocrit (Bld) [Volume fraction] 40.4 % 37-47 [facility] Hemoglobin A1con 11-01-2024 HbA1c (Bld) [Mass fraction] 5.1 % Normal <=5.6 [facility] Comment on above: Result Comment: Norm al < 5.7 % Prediabetic 5.7 - 6.4 % Diabetic >or= 6.5 % Please note range changes. Performed By: #### L 501.0250, L3890.6006, L100.0100, L509.8002 #### [facility] [address] [place], [place], [id number] Hemoglobin A1c percentageOrd ered By: Joyce Santiago on 11-01-2024 HbA1c (Bld) [Mass fraction] 5.1 % <5.7 [facility] Comment on above: Normal < 5.7 % Predi abetic 5.7 - 6.4 % Diabetic >or= 6.5 % Please note range changes. Hemoglobin measurementOrdere d By: Joyce Santiago on 11-01-2024 Hemoglobin (Bld) [Mass/Vol] 12.8 g/dL 12.0-15.0 [facility] Hepatitis C Antibodyon 11-01 Hepatitis C Ab Non-Reactive Normal Nonreactive [facility] Comment on above: Result Comment: Reac tive: Presumptive evidence of antibodies to HCV. Follow CDC recommendations for supplemental testing. Non-Reactive: Antibodies to HCV were not detected; does not exclude the possibility of exposure to HCV Reactive Results are presumptive evidence of antibodies to HCV. Follow CDC recommendations for supplemental testing. Order confirmation testing: HCV Quant by PCR testing - HCVPCR #[id number] Non Reactive: < 0.8 Equivocal: >/= 0.8 to < 1.0 Reactive: >/= 1.0 The CDC requires that a reactive/equivocal HCV antibody result be sent out for confirmation. HCV Quant by PCR testing. Performed By: #### L 501.0250, L3890.6006, L100.0100, L509.8002 #### [facility] [address] [place], [address] Immature granulocytes/100 WB C Auto (Bld)Ordered By: Joyce Santiago on 11-01-2024 Immature granulocytes/100 WBC (Bld) 0.300 % 0.0-0.9 [facility] Comment on above: IG% - Immature Granu locytes (promyelocytes, myelocytes and metamyelocytes) > 1% indicates that a LEFT SHIFT is Present. L3890.6102on 11-01-2024 HEP B Surf Ag Non-Reactive Normal Nonreactive [facility] Comment on above: Result Comment: Reac tive: Presumptive evidence of HBV. Repeatedly reactive samples must be confirmed using a neutralization test (IForems HBsAg Confirmatory Test) Non-Reactive: HBsAg not detected; does not exclude the possibility of exposure to HBV Performed By: #### L 501.0250, L3890.6006, L100.0100, L509.8002 #### [facility] [address] [place], [address] L509.4006on 11-01-2024 Rubella IgG REAC Normal Nonreactive [facility] Comment on above: Result Comment: Anti body Result: Interpretation Non-Reactive: Non-Immune Reactive: Immune The following results were obtained with the [employer] Rubella IgG assay. Results from assays of other manufacturers cannot be used interchangeably. Performed By: #### L 501.0250, L3890.6006, L100.0100, L509.8002 #### [facility] [address] [place], [address] Laboratory - Chemistry and C hemistry - challengeOrdered By: Joyce Santiago on 11-01-2024 AST [Catalytic activity/Vol] 22 U/L <32 [facility] - Microbiology an d Antimicrobial susceptibilityOrdered By: Joyce Santiago on 11-01-2024 HBV surface Ag Ql (S) Non-Reactive Nonreactive [facility] Comment on above: Reactive: Presumptiv e evidence of HBV. Repeatedly reactive samples must be confirmed using a neutralization test ([employer] HBsAg Confirmatory Test)Non-Reactive: HBsAg not detected; does not exclude the possibility of exposure to HBV MCV (mean corpuscular volume ) determinationOrdered By: Joyce Santiago on 11-01-2024 MCV (RBC) [Entitic vol] 84.0 fL 81-99 [facility] Mean corpuscular hemoglobin (MCH) determinationOrdered By: Joyce Santiago on 11-01-2024 MCH (RBC) [Entitic mass] 26.6 pg Low 27.0-32.0 [facility] Mean corpuscular hemoglobin concentration (MCHC) determinationOrdered By: Joyce Santiago on 11-01-2024 MCHC (RBC) [Mass/Vol] 31.7 g/dL Low 32-36 [facility] Mean platelet volume determi nationOrdered By: Joyce Santiago on 11-01-2024 Platelet mean volume (Bld) [Entitic vol] 9.5 fL 6.2-12.0 [facility] Monocyte percentageOrdered B y: Joyce Santiago on 11-01-2024 Monocytes/100 WBC (Bld) 5.8 % 0-10 [facility] NATERAon 11-01-2024 NATURA SEE SCANNED REPORT Normal [facility] Comment on above: Performed By: #### M 100.7156 #### [facility] [address] [place], [place], [id number] Neutrophil percentageOrdered By: Joyce Santiago on 11-01-2024 Neutrophils/100 WBC (Bld) 78.5 % High 47-70 [facility] No Panel InformationOrdered By: Joyce Santiago on 11-01-2024 HIV (1&2) Antibody Non-Reactive Nonreactive [facility] Comment on above: Non-ReactiveReactive Repeatedly reactive samples must be confirmed according to CDC recommended confirmatory algorithms. The subresults for either HIVAG or AHIV can be used as an aid in the selection of the confirmation algorithm for reactive samples.Send out specimens with Reactive results to [facility] for confirmation.Order the HIV antibody detection and differentiation: #[id number] Nucleated red blood cell per centageOrdered By: Joyce Santiago on 11-01-2024 Nucleated RBC/100 WBC (Bld) [Ratio] 0 % 0-5 [facility] Supervisor Contact And Service Clerks Office Visit Reporton 11-01-2024 Supervisor Contact And Service Clerks Office Visit Report [facility] [address], [address] [place] [address] OFFICE VISIT Date of Service: 11/01/24 MR#: [id number] Acct: [id number] Name: AMREN BARNEY Rep #: [id number] : 2000 Provider: RAFAELA Echevarria ams Age/Sex: 23/F Location: [facility] Status: Signed Intake Vital Signs 03/18/24 09:30 10/06/24 13:07 11/01/24 13:49 11/01/24 14:22 Height 5 ft 8 in 5 ft 8 in 5 ft 8 in Weight: 322 lb BMI 48.9 BP 142/89 H 126/85 H Intake Visit Reasons: 12Wk OB Chief Complaint: 12wk OB [employer] Gun[employer] Liaison Officer Required: No Is patient in pain?: No [...] house current occupational status: employed 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 pt reports normal BPs at home. ACOG First Trimester First Trimester: Desire for , Alcohol, Tobacco Cessation, Illicit/Recreational Drug/Substance Use, Intimate Partner Violence, Barriers to care, Unstable Housing, Communication Barriers, Environmental/Work Hazards, Anticipated Course of Care, Toxoplasmosis Precations, Use of Any medications, Sexual activity, Exercise, D (more content not included)... Normal [facility] Platelet countOrdered By: Henry Santiago on 11-01-2024 Platelets (Bld) [#/Vol] 333 10*3/uL 150-450 [facility] Potassium measurement (mass/ volume)Ordered By: Joyce Santiago on 11-01-2024 Potassium (Unsp spec) [Mass/Vol] 4.1 mmol/L 3.3-5.1 [facility] Protein+Creatinine Ratio,Uri neon 11-01-2024 PROT:CRE RATIO 73 mg/g CRE Normal 0-200 [facility] Comment on above: Performed By: #### M 100.2200 #### [facility] [address] [place], [address] Protein (U) [Mass/Vol] 14.7 mg/dL High 0.0-12.0 [facility] Comment on above: Performed By: #### M 100.2200 #### [facility] [address] [place], [address] UR CREAT 201.00 mg/dL Normal 28.00-217.00 [facility] Comment on above: Performed By: #### M 100.2200 #### [facility] [address] [place], [address] RBC Auto (Bld) [#/Vol]Ordere d By: Joyce Santiago on 11-01-2024 RBC (Bld) [#/Vol] 4.81 10*6/uL 4.2-5.4 [facility] Random urine creatinine wilman urement (mass/volume)Ordered By: Joyce Santiago on 11-01-2024 Creatinine Unsp time (U) [Mass/Vol] 201.00 mg/dL 28.00-217.00 [facility] Serum creatinine measurement (mass/volume)Ordered By: Joyce Santiago on 11-01-2024 Creatinine [Mass/Vol] 0.65 mg/dL Low 0.70-1.20 [facility] Serum globulin measurementOr dered By: Joyce Santiago on 11-01-2024 Globulin (S) [Mass/Vol] 3.2 g/dL 2.2-4.2 [facility] Serum glucose measurement (m ass/volume)Ordered By: Joyce Santiago on 11-01-2024 Glucose [Mass/Vol] 99 mg/dL 70-99 [facility] Serum or plasma alanine will otransferase (ALT) measurementOrdered By: Joyce Santiago on 11-01-2024 ALT [Catalytic activity/Vol] 50 U/L High <35 [facility] Serum or plasma albumin wilman urement (mass/volume)Ordered By: Joyce Santiago on 11-01-2024 Albumin [Mass/Vol] 4.0 g/dL 3.5-5.0 [facility] Serum or plasma albumin/glob ulin mass ratioOrdered By: Joyce Santiago on 11-01-2024 Albumin/Globulin [Mass ratio] 1.2 {ratio} 0.9-2.4 [facility] Serum or plasma alkaline kristel sphatase measurementOrdered By: Joyce Santiago on 11-01-2024 ALP [Catalytic activity/Vol] 93 U/L 35-104 [facility] Serum or plasma calcium wilman urement (mass/volume)Ordered By: Joyce Santiago on 11-01-2024 Calcium [Mass/Vol] 9.4 mg/dL 7.6-11.0 [facility] Serum or plasma urea nitroge n measurement (mass/volume)Ordered By: Joyce Santiago on 11-01-2024 Urea nitrogen [Mass/Vol] 8 mg/dL 4-19 [facility] Sodium levelOrdered By: Alina Santiago on 11-01-2024 Sodium [Moles/Vol] 137 mmol/L 133-145 [facility] Syphilis Antibodieson 2024 Syphilis Abs Non-Reactive Normal Nonreactive [facility] Comment on above: Performed By: #### L 501.0250, L3890.6006, L100.0100, L509.8002 #### [facility] [address] [place], [address] Total proteinOrdered By: Bettie Santiago on 11-01-2024 Protein [Mass/Vol] 7.2 g/dL 5.9-8.4 [facility] Type AND Screenon 11-01-2024 Ab SCREEN GEL Negative Normal [facility] Comment on above: Order Comment: PN Performed By: #### L 501.0250, L3890.6006, L100.0100, L509.8002 #### [facility] [address] [place], [address] Urine protein measurement (m ass/volume)Ordered By: Joyce Santiago on 11-01-2024 Protein (U) [Mass/Vol] 14.7 mg/dL High 0.0-12.0 [facility] Urine protein/creatinine mas s ratioOrdered By: Joyce Santiago on 11-01-2024 Protein/Creatinine (U) [Mass ratio] 73 mg/g CRE 0-200 [facility] White blood cell (WBC) count Ordered By: Joyce Santiago on 11-01-2024 WBC (Bld) [#/Vol] 11.8 10*3/uL High 4.4-11.0 [facility] Chlamydia/GC LUIGI aptimaon CHLAMY,NUC ACID Negative Normal Negative [facility] Comment on above: Performed By: #### M 100.2200 #### [facility] [address] [place], [address] GC BY NUC ACID Negative Normal Negative [facility] Comment on above: Result Comment: Perf ormed at: =G - [facility] [address] [place] [id number] Extruder Operator: Joanna Nguyễn MD, Phone: [phone] Performed By: #### M 100.2200 #### [facility] [address] [place], [place], [id number] Urine Cultureon 10-07-2024 URC #2 POSSIBLE PROTEUS SPP. Below infection level. Mixed Gram Pos Gram Neg Org [place] Count 11,000-25,000 MIXC Mixed contaminants. Submit a new specimen if indicated. GNR [place] Count 1000-10,000 Normal [facility] Comment on above: Performed By: #### M 100.2200 #### [facility] [address] [place], [place], [address] Chlamydia trachomatis rRNA d etection by probe and target amplification methodOrdered By: Joyce Santiago on 10-06-2024 C. trachomatis rRNA LUIGI+probe Ql (Unsp spec) Negative Negative [facility] Neisseria gonorrhoeae nuclei c acid detection by amplified probe techniqueOrdered By: Joyce Santiago on 10-06-2024 N. gonorrhoeae DNA LUIGI+probe Ql (Unsp spec) Negative Negative [facility] Comment on above: Performed at: =[address] [id number] Director: Joanna Nguyễn MD, Phone: [phone] Supervisor Contact And Service Clerks Office Visit Reporton 10-06-2024 Supervisor Contact And Service Clerks Office Visit Report [facility] [address], [address] [place] [address] OFFICE VISIT Date of Service: 10/06/24 MR#: [id number] Acct: [id number] Name: MAREN BARNEY Rep #: [id number] : 2000 Provider: Dr. 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 Normal [facility] Urine cultureOrdered By: Bettie Santiago on 10-06-2024 Bacteria identified Cx Nom (U) Mixed Gram Pos & Gram Neg Org Abnormal [facility] Bacteria identified Cx Nom (U) Negative Abnormal [facility] Laboratory - Chemistry and C hemistry - challengeOrdered By: Joyce Santiago on 09-28-2024 HCG ( test) Ql (U) Positive [facility] Office Visit Reporton 2024 Office Visit Report [facility] [address] [place] [address] OFFICE VISIT Date of Service: 09/28/24 MR#: [id number] Acct: [id number] Patient: MAREN BARNEY Rep #: [id number] : 2000 Provider: Dr. Joyce Maciel DO Age/Sex: 23/F [place] [facility] Status: Signed Intake Vital Signs 03/18/24 09:30 [...] year?: No 09/30/242056 Date Joyce Goodman DO [facility] Signature: Date (if applicable) CC: Normal [facility] CBC + DIFFon 03-21-2024 Baso # 0.03 x10EE3/UL Normal 0.00 - 0.10 [facility] Comment on above: Performed By: #### 2 05549 #### [facility],[address] [place], [place] [id number] Basophils/100 WBC (Bld) 0.4 % Normal 0.0 - 2.0 [facility] Comment on above: Performed By: #### 2 45016 #### [facility],[address] [place] [address] CBC + DIFF Normal [facility] Comment on above: Result Comment: CBC- COMPLETE BLOOD COUNT Performed By: #### 2 83859 #### [facility],[address] [place] [address] EO # 0.10 x10EE3/UL Normal 0.00 - 0.50 [facility] Comment on above: Performed By: #### 2 38765 #### [facility],[address] [place] [address] Eosinophils/100 WBC (Bld) 1.4 % Normal 0.0 - 7.0 [facility] Comment on above: Performed By: #### 2 41838 #### [facility],[address] [place] [address] Erythrocyte distribution width (RBC) [Ratio] 14.4 % Normal 12.0 - 15.6 [facility] Comment on above: Performed By: #### 2 85861 #### [facility],[address] [place] [address] Hematocrit (Bld) [Volume fraction] 45.9 % Normal 34.0 - 46.0 [facility] Comment on above: Performed By: #### 2 86700 #### [facility],[address] [place] [address] Hemoglobin (Bld) [Mass/Vol] 15.0 g/dL Normal 12.0 - 16.0 [facility] Comment on above: Performed By: #### 2 41193 #### [facility],[address] [place] [address] Lymph # 2.22 x10EE3/UL Normal 0.80 - 2.80 [facility] Comment on above: Performed By: #### 2 68358 #### [facility],[address] [place], [place] [address] Lymphocytes/100 WBC (Bld) 33.0 % Normal 20.0 - 45.0 [facility] Comment on above: Performed By: #### 2 64011 #### [facility],[address] [place] [address] MANUAL DIFF N/A Normal [facility] Comment on above: Performed By: #### 2 10728 #### [facility],[address] [place], [place] [address] MCH (RBC) [Entitic mass] 26 pg Low 27 - 33 [facility] Comment on above: Performed By: #### 2 58965 #### [facility],[address] [place] [address] MCHC 33 X10 3 Normal 32 - 36 [facility] Comment on above: Performed By: #### 2 01430 #### [facility],[address] [place] [address] MCV (RBC) [Entitic vol] 80 fL Normal 80 - 99 J l [facility] Comment on above: Performed By: #### 2 17066 #### [facility],[address] [place] [address] [place] # 0.45 x10EE3/UL Normal 0.20 - 1.00 [facility] Comment on above: Performed By: #### 2 61593 #### [facility],[address] [place] [address] MONOS % 6.7 % Normal 0.0 - 10.0 [facility] Comment on above: Performed By: #### 2 17173 #### [facility],[address] [place] [address] Morphology Chaka (Bld) [Interp] N/A Normal [facility] Comment on above: Performed By: #### 2 46759 #### [facility],[address] [place] [address] Neut # 3.94 x10EE3/UL Normal 1.50 - 7.10 [facility] Comment on above: Performed By: #### 2 27133 #### [facility],[address] [place] [address] Neutrophils/100 WBC (Bld) 58.5 % Normal 46.0 - 76.0 [facility] Comment on above: Performed By: #### 2 23513 #### [facility],[address] [place] [address] PLATELET 361 x10EE3/UL Normal 150 - 450 [facility] Comment on above: Performed By: #### 2 44128 #### [facility],[address] [place] [address] Platelet mean volume (Bld) [Entitic vol] 6.8 fL Normal 6.6 - 10.5 [facility] Comment on above: Result Comment: AUTO MATED DIFFERENTIAL Performed By: #### 2 70252 #### [facility],[address] [place] [address]45 RBC 5.72 x 10EE6/UL High 4.10 - 5.30 [facility] Comment on above: Performed By: #### 2 66819 #### [facility],[address] [place] [address]883 WBC 6.7 x 10EE3/UL Normal 4.5 - 10.8 [facility] Comment on above: Performed By: #### 2 90851 #### [facility],[address] [place] [address] CHEST 2 VIEWSon 03-21-2024 CHEST 2 VIEWS [place] [id number] Patient: MAREN HURST Phone#: : 2000 Age: 23 Gender: F Pt. Type: ER Account: [id number] Location: [facility] Ordering: GARRETT BEARD Exam Date: 03/21/2024/0:58 Family Phys: ESTEPHANIA DOWLING Charge Code: 601981 Physician: Scott Order #: [id number] Dose#: PROCEDURE: X-RAY CHEST 2 VIEWS COMPARISON: [...] Rosita Pitts MD on 03/22/2024 at 10:48 Normal [facility] CMP with eGFRon 03-21-2024 AGE 23 years Normal [facility] Comment on above: Performed By: #### 2 97401 #### [facility],[address] [place] [address] Albumin [Mass/Vol] 3.2 g/dL Low 3.4 - 5.0 [facility] Comment on above: Performed By: #### 2 41920 #### [facility],[address] [place] [address] Albumin/Globulin [Mass ratio] 0.6 {ratio} Low 0.9 - 1.6 [facility] Comment on above: Performed By: #### 2 77341 #### [facility],[address] [place] [address] ALK PHOS 97 U/L Normal 46 - 116 [facility] Comment on above: Performed By: #### 2 23936 #### [facility],[address] [place] [address] ALT [Catalytic activity/Vol] 83 U/L High 16 - 63 [facility] Comment on above: Performed By: #### 2 83051 #### [facility],[address] [place] [address] Anion gap [Moles/Vol] 13 mmol/L Normal 10 - 20 [facility] Comment on above: Performed By: #### 2 97692 #### [facility],[address] [place] [address] AST [Catalytic activity/Vol] 26 U/L Normal 13 - 39 [facility] Comment on above: Performed By: #### 2 54936 #### [facility],[address] [place] [address]392 B/C RATIO 10 ratio Normal 0 - 30 [facility] Comment on above: Performed By: #### 2 24801 #### [facility],[address] [place] [address]6845 Bilirubin [Mass/Vol] 0.4 mg/dL Normal 0.2 - 1.0 [facility] Comment on above: Performed By: #### 2 07949 #### [facility],[address] [place] [address] Calcium [Mass/Vol] 9.1 mg/dL Normal 8.5 - 10.1 [facility] Comment on above: Performed By: #### 2 74568 #### [facility],[address] [place] [address] 88136 Chloride [Moles/Vol] 100 mmol/L Normal 98 - 107 [facility] Comment on above: Performed By: #### 2 66237 #### [facility],[address] [place] [address]10 CMP with eGFR Normal [facility] Comment on above: Result Comment: COMP REHENSIVE METABOLIC PANEL Performed By: #### 2 13528 #### [facility],[address] [place] [address]239 CO2 [Moles/Vol] 28.5 mmol/L Normal 21.0 - 32.0 [facility] Comment on above: Performed By: #### 2 76890 #### [facility],[address] [place] [address] Creatinine [Mass/Vol] 1.08 mg/dL High 0.55 - 1.02 [facility] Comment on above: Performed By: #### 2 79728 #### [facility],[address] [place] [address]11 GFR/1.73 sq M.predicted among non-blacks MDRD (S/P/Bld) [Vol rate/Area] mL/min/{1.73_m2} Normal 60 - 999 [facility] Comment on above: Performed By: #### 2 31018 #### [facility],[address] [place] [address] Result Comment: ACCO RDING TO THE NATIONAL KIDNEY DISEASE EDUCATION PROGRAM(NKDE), A NORMAL eGFR IS A VALUE GREATER THAN OR EQUAL TO 60 ML/MIN/1.73 SQ METERS. CHRONIC KIDNEY DISEASE: <60mL/MIN/1.73 SQ METERS KIDNEY FAILURE: <15mL/MIN/1.73 SQ METERS THIS TEST SHOULD ONLY BE USED FOR PATIENTS 18 YEARS OF AGE AND OLDER. Globulin (S) [Mass/Vol] 5.3 g/dL High 1.5 - 3.8 [facility] Comment on above: Performed By: #### 2 52119 #### [facility],[address] [place] [address]75 Glucose [Mass/Vol] 96 mg/dL Normal 74 - 106 [facility] Comment on above: Performed By: #### 2 53790 #### [facility],[address] [place] [address]85 Potassium [Moles/Vol] 3.9 mmol/L Normal 3.5 - 5.1 [facility] Comment on above: Performed By: #### 2 55008 #### [address] [address] Protein [Mass/Vol] 8.5 g/dL High 6.4 - 8.2 [facility] Comment on above: Performed By: #### 2 25453 #### [facility],[address] [place] [address] Sodium [Moles/Vol] 138 mmol/L Normal 136 - 145 [facility] Comment on above: Performed By: #### 2 43365 #### [address] [address] Urea nitrogen [Mass/Vol] 11 mg/dL Normal 7 - 18 [facility] Comment on above: Performed By: #### 2 16853 #### [address] [address] ED MED ADMINISTRATION DETAIL on 03-21-2024 ED MED ADMINISTRATION DETAIL Release Of Information Specialist Medication Administration Record [address] [address] [id number] 03/21/2024 Patient: MAREN HURST Sex: Female : [...] - 00:59 Anna NavarreteT.-P. 1 of 2 Release Of Information Specialist Medication Ordered Medication Administration Date/Time Levaquin IVPB [...] Bri Gardner R.N. 2 of 2 Normal [facility] ED NURSES CLINICAL NOTEon ED NURSES CLINICAL NOTE Nurse Narrative Nurse Clinical Narrative [address] [address] [id number] 03/21/2024 Patient: MAREN HURST Sex: Female : [...] RASHARD Gardner R.N. 00:16 03/21/24. Preferred pharmacy: [facility] ; [address] [place] [address] ([facility]). 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 (Chest xray completed.). -- 04:29 03/21/24 EST Bri Gardner R.N. 00:53 12/8/24. HR: 126 bpm. O2 saturation: 9 (more content not included)... Normal [facility] ED ORDER SHEET (CPOE ONLY)on 03-21-2024 ED ORDER SHEET (CPOE ONLY) Order Sheet Order Sheet [facility] [address] [place] [id number] 03/21/2024 Patient: MAREN HURST Sex: Female : 2000 Age: 23y MEASUREMENTS: Wt: 131.5 kg, Ht/Dru: 65.0 in, BMI: 48.26 ALLERGIES: No known drug allergies MEDICATION/IV/DRIP/FL UID ORDERS Order Description Priority Entered Acknowledged Completed IV NS 0.9 %1000 mL at 999 00:41 03/21/2024 00:57 00:59 mL/hr (NOW x1) Garrett Beard, 03/21/2024 03/21/2024 Colin Grubbs E.M.T.-P. E.M.T.-P. MethylPREDNISolone Sodium 00:41 03/21/2024 00:57 00:59 Succ (Solu-Medrol) [id number] mg Garrett Beard, 03/21/2024 03/21/2024 (NOW x1) Colin Grubbs E.M.TOlga Lidia-P. E.M.T.-P. Reason for ordering with alerts: Benefits outweigh risks --00:41 03/21/2024 Garrett Beard D.O. Levaquin IVPB [id number] mg at 01:34 03/21/2024 01:59 100 mL/hr [...] (03/21/2024 04:08 EST)] 3 of 3 Normal [facility] ED PHYSICIAN CLINICAL REPORT on 03-21-2024 ED PHYSICIAN CLINICAL REPORT Narrative Physician Clinical Narrative [address] [address] [id number] 03/21/2024 Patient: MAREN HURST Sex: Female : [...] 1.50 - 7.10 Final EST 03/21/2024 01:10 [place] # 0.45 x10/UL 0.20 - 1.00 Final [...] Final 0 (more content not included)... Normal [facility] ED SUPER BILLon 03-21-2024 ED SUPER BILL [facility] [address] [place] [address] [id number] 03/21/2024 Patient: MAREN HURST Sex: Female : 2000 Age: 23y Item Facility Professional Category Description Code Code Quantity Fee Total Drugs Normal Saline 577489 2 $0.00 $0.00 1000cc (552048) Nurse/E/M EMERGENCY 061848 1 $0.00 $0.00 DEPARTMENT VISIT HIGH/URGENT SEVERITY (59322-19) Nurse/IV/IM/Infusions Drip/IVPB 626357 1 $0.00 $0.00 additional hour (04713) Nurse/IV/IM/Infusions Drip/IVPB initial 331705 1 $0.00 $0.00 (67369) Nurse/IV/IM/Infusions Drip/IVPB seq 867410 1 $0.00 $0.00 (14418) Nurse/IV/IM/Infusions Hydration 374378 1 $0.00 $0.00 additional hour (75574) 1 of 2 [facility] Facility Professional Category Description Code Code Quantity Fee Total Nurse/IV/IM/Infusions IVP additional 071618 1 $0.00 $0.00 push (48508) Grand Total $0.00 Providers Garrett Beard D.O. Chief Complaint ALLERGIC REACTION and HIVES. Principal Diagnosis Acute hives secondary to unknown cause. Bronchopneumonia. ICD-10 Codes L50.9: Urticaria, unspecified J18.0: Bronchopneumonia, unspecified organism 2 of 2 Normal [facility] ED VISIT SUMMARYon ED VISIT SUMMARY Visit Overview Visit Overview [address] [place] [address] [id number] 03/21/2024 Patient: MAREN HURST Sex: Female : [...] UNKNOWN CAUSE BRONCHOPNEUMONIA 3 of 3 Normal [facility] ED VITALS FLOW SHEETon 03-21 ED VITALS FLOW SHEET Vitals Vital Sign Flow Sheet [facility] [address] [place] [address] [id number] 03/21/2024 Patient: MAREN HURST Sex: Female : [...] 155/95 122 124 3 of 3 Normal [facility] Chest PA and Lateralon 03-18 Chest PA and Lateral [facility] Imaging Services [address] [place] [address] Chest PA and Lateral MR#: [id number] Acct: [id number] Name: MAREN HURST Rep #: [id number] : 2000 F 23 From: Harvey garcia MD PCP: Estephania Dowling PA-C Status: [facility] CL Study: Chest PA and Lateral Date of Exam: 03/18/24 Exam# [id number] Ordering Dr: Carlos Enrique Coyne [id number] STUDY: X-RAY CHEST REASON FOR EXAM: Female, [...] at 10:05 EST , CC: RODRIGUEZ Dowling; UQIQUE Rodriguez Religious Studies Professor: Signed Normal [facility] Urgent Care Visit Reporton 1 05-19-2023 Urgent Care Visit Report [facility] [address] [place] [address] OFFICE VISIT Date of Service: 03/18/24 MR#: [id number] Acct: [id number] Name: MAREN HURST Rep #: [id number] : 2000 Provider: QUIQUE Rodriguez Age/Sex: 23/F [facility] Status: Signed Intake Vital Signs 09/22/22 09:35 [...] WK Chief Complaint: cough, fever, back pain [employer] Required: No Is patient in pain?: No [...] 1 week without resolve. declines viral testing. COUNTS INCLUDE 234 BEDS AT THE [facility] Social History Smoking Status: Never smoker alcohol [...] Muñoz Signature: Date (if applicable) CC: Normal [facility] Cytology Reporton 2023 [facility] Cytology Report . Pathology Reports Accession: Collected Date/Time: Received Date/Time: Pathologist: [id number] 06/09/2023 09:11 EST 06/09/2023 18:00 EST [facility]ology Report SPECIMEN: Specimen Description: Liquid Prep Reflex ASCUS Specimen: Cervical Screening or Diagnostic: Screening RELEVANT HISTORY: LMP: [id number] SPECIMEN ADEQUACY: SATISFACTORY FOR EVALUATION Endocervical/Transfor mational zone component present INTERPRETATION/RESULT S: NEGATIVE FOR INTRAEPITHELIAL LESION OR MALIGNANCY COMMENT: This Pap Test was successfully processed and evaluated with the assistance of the [employer] ThinPrep Test Imaging System. Electronically Signed by Pathology report verified by [facility] Screened by: KK Electronically signed by Monica HAMMONDS (ASCP) Sign-Out Date: 06/19/2023 13:30 Performing Lab: [facility], [address] [place] [address] Pathology Dept Disclaimer The Pap test is a screening test for cervical cancer. As evidenced by published data, it is subject to both inherent false negative and false positive results. Your patient's results should be interpreted in context with pertinent clinical history including gynecological examination. Normal [facility] ([place]) THIN PREP (Nargis) PAP WITH HP V REFLEXon 06-19-2023 THIN PREP (Nargis) PAP WITH HPV REFLEX Normal [facility] Comment on above: Result Comment: _THI N PREP (Adult) PAP w HPV REFLEX_ Performed By: #### [id number] #### [facility],[address] [place] [id number] Vital Signs Date Time Vital Sign Value Performing Clinician Adelaida howard 01-24-2025 09:01-0400 Body height 172.72 cm Estephania Dowling PA-C Work Phone: [facility] 01-24-2025 09:01-0400 Body mass index (BMI) [Ratio] 47.9 kg/m2 Invesdor PA-C Work Phone: [facility] 01-24-2025 09:01-0400 Body weight 143.02 kg Estephania [place] PA-C Work Phone: [facility] 01-24-2025 09:01-0400 Diastolic blood pressure 85 mm[Hg] Estephania [place] PA-C Work Phone: [facility] 01-24-2025 09:01-0400 Systolic blood pressure 126 mm[Hg] Estephania [place] PA-C Work Phone: [facility] 12-29-2024 13:51-0400 Body height 172.72 cm Invesdor PA-C Work Phone: [facility] 12-29-2024 13:40-0400 Body mass index (BMI) [Ratio] 47.7 kg/m2 Estephania [place] PA-C Work Phone: [facility] 12-29-2024 13:40-0400 Body weight 142.54 kg Estephania [place] PA-C Work Phone: [facility] 12-29-2024 13:40-0400 Diastolic blood pressure 88 mm[Hg] Estephania [place] PA-C Work Phone: [facility] 12-29-2024 13:40-0400 Systolic blood pressure 135 mm[Hg] Estephania [place] PA-C Work Phone: [facility] 12-27-2024 10:25-0400 Body height 172.72 cm Invesdor PA-C Work Phone: [facility] 12-27-2024 10:21-0400 Body mass index (BMI) [Ratio] 48.1 kg/m2 EstephaniaViViFi PA-C Work Phone: [facility] 12-27-2024 10:21-0400 Body weight 143.59 kg Estephania ParAccel PA-C Work Phone: [facility] 12-27-2024 10:21-0400 Diastolic blood pressure 87 mm[Hg] Estephania [place] PA-C Work Phone: [facility] 12-27-2024 10:21-0400 Systolic blood pressure 138 mm[Hg] Estephania [place] PA-C Work Phone: [facility] 11-29-2024 11:40-0400 Body height 172.72 cm Estephania [place] PA-C Work Phone: [facility] 11-29-2024 11:40-0400 Body mass index (BMI) [Ratio] 48.4 kg/m2 Estephania [place] PA-C Work Phone: [facility] 11-29-2024 11:40-0400 Body weight 144.69 kg Estephania [place] PA-C Work Phone: [facility] 11-29-2024 11:40-0400 Diastolic blood pressure 86 mm[Hg] Estephania [place] PA-C Work Phone: [facility] 11-29-2024 11:40-0400 Systolic blood pressure 130 mm[Hg] Estephania [place] PA-C Work Phone: [facility] 11-01-2024 14:22-0400 Diastolic blood pressure 85 mm[Hg] Estephania [place] PA-C Work Phone: [facility] 11-01-2024 14:22-0400 Systolic blood pressure 126 mm[Hg] Estephania [place] PA-C Work Phone: [facility] 11-01-2024 13:49-0400 Body height 172.72 cm Estephania ParAccel PA-C Work Phone: [facility] 11-01-2024 13:49-0400 Body mass index (BMI) [Ratio] 48.9 kg/m2 Estephania ParAccel PA-C Work Phone: [facility] 11-01-2024 13:49-0400 Body weight 146.05 kg Invesdor PA-C Work Phone: [facility] 10-06-2024 13:07-0400 Body height 172.72 cm Invesdor PA-C Work Phone: [facility] 10-06-2024 13:05-0400 Body mass index (BMI) [Ratio] 52.4 kg/m2 Invesdor PA-C Work Phone: [facility] 10-06-2024 13:05-0400 Body weight 143.05 kg Invesdor PA-C Work Phone: [facility] 10-06-2024 13:05-0400 Diastolic blood pressure 85 mm[Hg] Invesdor PA-C Work Phone: [facility] 10-06-2024 13:05-0400 Systolic blood pressure 140 mm[Hg] Invesdor PA-C Work Phone: [facility] 09-28-2024 11:47-0400 Body mass index (BMI) [Ratio] 50.3 kg/m2 Invesdor PA-C Work Phone: [facility] 09-28-2024 11:47-0400 Body weight 150.25 kg Invesdor PA-C Work Phone: [facility] 09-28-2024 11:47-0400 Diastolic blood pressure 80 mm[Hg] Invesdor PA-C Work Phone: [facility] 09-28-2024 11:47-0400 Systolic blood pressure 122 mm[Hg] Invesdor PA-C Work Phone: [facility] Encounters Encounter Date Encounter Type Care Provider Facility Start: 02-25-2025 ambulatory Kt Avila [facility] Start: 02-24-2025 ambulatory Joyce Landers cility:[facility] Start: 02-15-2025 End: 02-15-2025 ambulatory GILDARDO Renteria CHERYLE [facility] Start: 02-14-2025 End: 02-14-2025 ambulatory AISSATOU RUSHING [facility] Start: 02-07-2025 End: 02-07-2025 ambulatory Mariela Alvarado Facility:[facility] Start: 01-24-2025 End: 01-24-[address] Joyce Goodman DO -[facility] Work Phone: Start: 01-24-2025 End: 01-24-2025 ambulatory Invesdor PA-C Work Phone: -[facility] Start: 01-10-2025 End: 01-10-2025 ambulatory Invesdor PA-C Work Phone: -[facility] Start: 01-10-2025 End: 01-10-2025 Patient encounter procedure Lakeisha NUÑEZC -Lab [facility] Start: 01-10-2025 End: 01-10-2025 Subsequent hospital visit by physician Aissatou Rushing DO Work Phone: [facility] Comment on above: , supervisi on, high-risk, second trimester; Elevated ALT measurement; Dysuria during in second trimester Start: 01-10-2025 End: 01-10-2025 ambulatory AISSATOU RUSHING [facility] Start: 01-10-2025 End: 01-10-2025 ambulatory MARIELA ALVARADO [facility] Start: 01-10-2025 End: 01-10-2025 ambulatory Estephania [place] PA Facility:[facility] Start: 12-29-2024 End: 12-29-2024 Patient encounter procedure Lakeisha Flowers NP-C -[facility] Work Phone: Start: 12-29-2024 End: 12-29-2024 ambulatory Invesdor PA-C Work Phone: -[facility] Start: 12-28-2024 End: 12-29-2024 ambulatory Invesdor PA-C Work Phone: -[facility] Start: 12-28-2024 End: 12-28-[address] Mariela Alvarado MD -[facility] Start: 12-27-2024 End: 12-28-2024 ambulatory Invesdor PA-C Work Phone: -[facility] Start: 12-27-2024 End: 12-27-[address] Mariela Alvarado MD -[facility] Work Phone: Start: 12-20-2024 End: [facility]20[facility] Start: 11-29-2024 End: 11-29-2024 Patient encounter procedure Kt MACDONALD -[facility] Work Phone: Start: 11-29-2024 End: 11-29-2024 ambulatory Invesdor PA-C Work Phone: [facility] Start: 11-17-2024 End: 11-17-2024 ambulatory Invesdor PA-C Work Phone: -[facility] Start: 11-17-2024 End: 11-17-[address] Joyce Goodman DO [facility] Start: 11-17-2024 End: 11-17-2024 ambulatory Joyce Goodman Facility:[facility] Start: 11-10-2024 End: 11-10-2024 ambulatory Invesdor PA-C Work Phone: -[facility] Start: 11-10-2024 End: 11-10-[address] Joyce Goodman DO [facility] Start: 11-10-2024 End: 11-10-2024 ambulatory Joyce Goodman Facility:[facility] Start: 11-01-2024 End: 11-01-2024 Patient encounter procedure Kt MACDONALD -[facility] Work Phone: Start: 11-01-2024 End: 11-01-2024 ambulatory Estephania [place] PA-C Work Phone: -[facility] Start: 11-01-2024 End: 11-01-2024 ambulatory Kt Avila Facility:[facility] Start: 10-06-2024 End: 10-06-2024 ambulatory Estephania [place] PA-C Work Phone: -[facility] Start: 10-06-2024 End: 10-06-[address] Joyce Goodman DO -[facility] Work Phone: Start: 10-06-2024 End: 10-06-[address] Joyce Goodman DO -[facility] Work Phone: Start: 10-06-2024 End: 10-06-2024 ambulatory Estephania [place] PA-C Work Phone: [facility] Work Phone: Start: 10-06-2024 End: 10-06-2024 ambulatory Joyce Goodman Facility:[facility] Start: 09-28-2024 End: 09-28-[address] Joyce Goodman DO -[facility] Work Phone: Start: 09-28-2024 End: 09-28-2024 ambulatory Estephania [place] PA-C Work Phone: [facility] Work Phone: Start: 03-21-2024 End: 03-21-2024 Emergency department patient visit GARRETT BEARD [facility] Start: 03-18-2024 End: 03-18-2024 ambulatory Carlos Enrique LEI Facility:[facility] Start: 03-18-2024 End: 03-18-2024 ambulatory Carlos Enrique LEI Facility:[facility] Start: 06-09-2023 End: 06-09-2023 ambulatory [facility] Start: 06-09-2023 Encounter for gynecological examination (general) (routine) without abnormal findings [facility] Start: 02-02-2022 ambulatory Cedric Pisano MD Work Phone: [facility] Start: 02-02-2022 Patient encounter procedure Cedric Pisano MD Work Phone: [facility] [place] Comment on above: Referral Procedures Date Procedure Procedure Detail Performing Clinician Start: 01-10-2025 Creatinine measureme nt, 24 hour urine [facility] Work Phone: Start: 01-10-2025 Comprehensive metabo lic panel Aissatou Rushing DO Work Phone: Start: 12-29-2024 Urine culture Estephania [facility] Work Phone: Start: 11-17-2024 Procedure Estephania [facility] Work Phone: Start: 11-01-2024 Hepatitis C antibody measurement [place] [facility] Work Phone: Comment on above: Reactive: Presumptiv e evidence of antibodies to HCV. Follow CDC recommendations for supplemental testing.Non-Reactive: Antibodies to HCV were not detected; does not exclude the possibility of exposure to HCVReactive Results are presumptive evidence of antibodies to HCV. Follow CDC recommendations for supplemental testing.Order confirmation testing: HCV Quant by PCR testing - HCVPCR #[id number] Non Reactive: < 0.8 Equivocal: >/= 0.8 to < 1.0 Reactive: >/= 1.0The CDC requires that a reactive/equivocal HCV antibody result be sent out for confirmation. HCV Quant by PCR testing. Start: 11-01-2024 Procedure Estephania Rod [facility] Work Phone: Start: 11-01-2024 Rubella IgG measurement [facility] Work Phone: Comment on above: Antibody Result: Int erpretationNon-Reactive: Non- ImmuneReactive: ImmuneThe following results were obtained with the [employer] Rubella IgG assay. Results from assays of other manufacturers cannot be used interchangeably. Start: 11-01-2024 Serologic test for syphilis [facility] RODRIGUEZ Work Phone: Start: 10-06-2024 Urine culture [facility] QUIQUEAvinashMyra Work Phone: Plan of Treatment Date Care Activity Detail Author Start: 04-04-2025 End: 04-04-2025 Professional / ancillary services management 04/04/2025 2:00 PM EST Ancillary Procedure Visit [facility] [address], [address] [place] [id number] [place] [address] GROWTH 4 WEEKS [facility] [place] Comment on above: US 60 GROWTH 4 WEEKS Start: 03-08-2025 End: 03-08-2025 Professional / ancillary services management 03/08/2025 8:30 AM EST Ancillary Procedure Visit [facility] [address], [address] [address] [place] GROWTH 4 WEEKS [facility] [place] Comment on above: [place] 60 GROWTH 4 WEEKS Start: 02-14-2025 End: 02-14-2025 Patient encounter procedure 02/14/2025 10:00 AM EST Office Visit [address] [phone] Aissatou Rushing DO [place], [place] [phone] Zbigniew Villarreal MD [place], [place] [phone] EDC 05/17/25 Dx: , supervision, high-risk, second trimester [O09.92] [facility] Comment on above: EDC 05/17/25 Dx: Pregn ricardo, supervision, high-risk, second trimester [O09.92] Start: 02-10-2025 End: 02-10-2025 Professional / ancillary services management 02/10/2025 8:00 AM EDT Ancillary Procedure Visit [facility] [address], [address] [id number] [place] 60 GROWTH 4 WEEKS [facility] [place] Comment on above: US 60 GROWTH 4 WEEKS Start: 02-07-2025 Patient encounter procedure Registered Clinical -Lab [facility] Start: 01-24-2025 Measurement of gluco se 2 hours after glucose challenge for glucose tolerance test [facility] Start: 01-24-2025 Serologic test for syphilis [facility] Start: 01-24-2025 [facility] Start: 01-10-2025 Patient encounter procedure Registered Clinical -Lab [facility] Start: 12-29-2024 [facility] Start: 12-29-2024 Bacteria identified in Urine by Culture Urine Culture [facility] Start: 12-13-2024 COVID-19 (2023-05 season) COVID-19 ( season) [facility] Start: 12-13-2024 FLU (#1) FLU (#1) [facility] Start: 11-01-2024 CBC W Auto Different ial panel - Blood [facility] Start: 11-01-2024 Comprehensive metabo lic 2000 panel - Serum or Plasma [facility] Start: 11-01-2024 Hemoglobin A1c/Hemoglobin.total in Blood [facility] Start: 11-01-2024 Hepatitis C antibody measurement [facility] Start: 11-01-2024 Procedure [facility] Start: 11-01-2024 Rubella IgG measurement [facility] Start: 11-01-2024 Serologic test for syphilis [facility] Start: 11-01-2024 [facility] Start: 10-06-2024 Chlamydia deoxyribon ucleic acid detection [facility] Start: 08-26-2024 Urine microalbumin profile DTA P,TDAP,TD (7 - Td or Tdap) [facility] Start: 2022 Microscopic observat ion [Identifier] in Cervix by Cyto stain Pap Smear [facility] Start: 12-13-2021 Influenza vaccination INFLUENZA (#1) [facility] Start: 04-14-2021 DEPRESSION ASSESSMENT DEPRESSION ASS ESSMENT [facility] Start: 03-30-2021 COVID-19 VACCINE (3 - Booster for Pfizer series) COVID-19 VACCINE (3 - Booster for Pfizer series) [facility] Start: 2020 Hepatitis A (1 of 2 - Risk 2-dose series) Hepatitis A (1 of 2 - Risk 2-dose series) [facility] Start: 2020 Hepatitis B (1 of 3 - 19+ 3-dose series) Hepatitis B (1 of 3 - 19+ 3-dose series) [facility] Start: 11-09-2019 CHLAMYDIA SCREENING (18-24) CHLAMYDIA SCREENING (18-24) [facility] Start: 11-09-2019 GC (GONORRHEA) SCREE MIMI (18-24) GC (GONORRHEA) SCREENING (18-24) [facility] Start: 11-09-2019 HEPATITIS C SCREENING HEPATITIS C SC REENING [facility] Start: 11-09-2019 HIV SCREENING HIV SCREENING [facility] Start: 2017 MenB (1 of 2 - MenB 2-Dose Series Bexsero) MenB (1 of 2 - MenB 2-Dose Series Bexsero) [facility] Start: 2016 HPV (1 - 3-dose series) HPV (1 - 3-dose series) [facility] Start: 11-09-2015 PEDS TO ADULT TRANSI TION ANNUAL ASSESSMENT PEDS TO ADULT TRANSITION ANNUAL ASSESSMENT [facility] Start: 2014 Varicella (1 of 2 - 13+ 2-dose series) Varicella (1 of 2 - 13+ 2-dose series) 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 Start: 2002 MMR (1 of 1 - Standa rd series) MMR (1 of 1 - Standard series) [facility] Alanine aminotransfe rase [Enzymatic activity/volume] in Serum or Plasma [facility] Albumin [Mass/volume ] in Serum or Plasma [facility] Alkaline phosphatase [Enzymatic activity/volume] in Serum or Plasma [facility] Anion gap in Serum o r Plasma [facility] End: 01-10-2025 Bacteria identified in Urine by Culture [facility] Work Phone: Comment on above: 1 Occurrences starti ng 01/10/2025 until 01/10/2025 Bilirubin, total measurement [facility] BUN/Creatinine ratio [facility] Calcium [Mass/volume ] in Serum or Plasma [facility] Carbon dioxide, tota l [Moles/volume] in Central venous blood [facility] CBC W Auto Different ial panel - Blood [facility] CBC W Auto Different ial panel - Blood [facility] Chlamydia deoxyribon ucleic acid detection [facility] Comprehensive metabo lic 2000 panel - Serum or Plasma [facility] Creatinine [Mass/vol ume] in Serum or Plasma [facility] Erythrocyte mean corpuscular volume determination [facility] Glucose [Mass/volume ] in Serum or Plasma [facility] Hematocrit [Volume Fraction] of Blood [facility] Hemoglobin [Mass/vol ume] in Blood [facility] Hemoglobin A1c/Hemoglobin.total in Blood [facility] Hepatitis B virus chahal rface Ag [Presence] in Serum [facility] Hepatitis C antibody measurement [facility] Leukocytes [#/volume ] in Blood [facility] Mean corpuscular hemoglobin concentration determination [facility] Mean corpuscular hemoglobin determination [facility] Measurement of renal function [facility] Neisseria gonorrhoea e rRNA [Presence] in Unspecified specimen by LUIGI with probe detection [facility] Neutrophil count [facility] Neutrophil percent differential count [facility] PCR test for Chlamyd ia trachomatis [facility] Platelets [#/volume] in Blood [facility] Potassium measurement [facility] Procedure [facility] Protein/Creatinine [ Ratio] in Urine [facility] Protein/Creatinine [ Ratio] in Urine [facility] Red blood cell count [facility] Red cell distributio n width determination [facility] Rubella IgG measurement [facility] Serologic test for syphilis [facility] Serum chloride measurement [facility] Sodium measurement [facility] Total protein measurement [facility] Urea nitrogen [Mass/volume] in Serum or Plasma [facility] Urine culture [facility] Immunizations Immunization Date Immunization Notes Care Provider Dedra ordonez 01-24-2025 influenza, injectabl e, madin homa canine kidney, preservative free Estephania Dowling PA-C Work Phone: [facility] 02-02-2021 COVID-19 original vaccine, age 12+ yr, monovalent (PFIZER-BIONTECH - PURPLE TOP) Cedric Pisano MD Work Phone: [facility] Work Phone: 01-12-2021 COVID-19 original vaccine, age 12+ yr, monovalent (PFIZER-BIONTECH - PURPLE TOP) Cedric Pisano MD Work Phone: [facility] Work Phone: 02-07-2020 influenza, injectabl e, quadrivalent, contains preservative Cedric Pisano MD Work Phone: [facility] Work Phone: 11-09-2018 meningococcal polysaccharide (groups A, C, Y and W-135) diphtheria toxoid conjugate vaccine (MCV4P) Cedric Pisano MD Work Phone: [facility] Work Phone: 03-18-2015 Human Papillomavirus 9-valent vaccine Cedric Pisano MD Work Phone: [facility] 11-12-2014 human papilloma viru s vaccine, quadrivalent Cedric Pisano MD Work Phone: [facility] 11-12-2014 meningococcal polysaccharide (groups A, C, Y and W-135) diphtheria toxoid conjugate vaccine (MCV4P) Cedric Pisano MD Work Phone: [facility] 08-26-2014 human papilloma viru s vaccine, quadrivalent Cedric Pisano MD Work Phone: [facility] 08-26-2014 tetanus toxoid, redu kirit diphtheria toxoid, and acellular pertussis vaccine, adsorbed Cedric Pisano MD Work Phone: [facility] 11-27-2006 diphtheria, tetanus toxoids and acellular pertussis vaccine Cedric Pisano MD Work Phone: [facility] Work Phone: 11-27-2006 measles, mumps and rubella virus vaccine Cedric Pisano MD Work Phone: [facility] Work Phone: 11-27-2006 poliovirus vaccine, inactivated Cedric Pisano MD Work Phone: [facility] Work Phone: 11-27-2006 varicella virus vaccine Cedric Pisano MD Work Phone: [facility] Work Phone: 02-07-2004 varicella virus vaccine Cedric Pisano MD Work Phone: [facility] Work Phone: 02-10-2003 diphtheria, tetanus toxoids and acellular pertussis vaccine Cedric Pisano MD Work Phone: [facility] Work Phone: 02-10-2003 haemophilus influenz ae type b vaccine, HbOC conjugate Cedric Pisano MD Work Phone: [facility] Work Phone: 11-10-2002 measles, mumps and rubella virus vaccine Cedric Pisano MD Work Phone: [facility] Work Phone: 11-10-2002 pneumococcal conjuga te vaccine, 7 valent Cedric Pisano MD Work Phone: [facility] Work Phone: 08-01-2002 hepatitis B vaccine, pediatric or pediatric/adolescent dosage Cedric Pisano MD Work Phone: [facility] Work Phone: 08-01-2002 poliovirus vaccine, inactivated Cedric Pisano MD Work Phone: [facility] Work Phone: 05-11-2002 diphtheria, tetanus toxoids and acellular pertussis vaccine Cedric Pisano MD Work Phone: [facility] Work Phone: 05-11-2002 haemophilus influenz ae type b vaccine, HbOC conjugate Cedric Pisano MD Work Phone: [facility] Work Phone: 05-11-2002 pneumococcal conjuga te vaccine, 7 valent Cedric Pisano MD Work Phone: [facility] Work Phone: 03-16-2002 diphtheria, tetanus toxoids and acellular pertussis vaccine Cedric Pisano MD Work Phone: [facility] Work Phone: 03-16-2002 haemophilus influenz ae type b vaccine, HbOC conjugate Cedric Pisano MD Work Phone: [facility] Work Phone: 03-16-2002 pneumococcal conjuga te vaccine, 7 valent Cedric Pisano MD Work Phone: [facility] Work Phone: 03-16-2002 poliovirus vaccine, inactivated Cedric Pisano MD Work Phone: [facility] Work Phone: 01-13-2002 diphtheria, tetanus toxoids and acellular pertussis vaccine Cedric Pisano MD Work Phone: [facility] Work Phone: 01-13-2002 haemophilus influenz ae type b vaccine, HbOC conjugate Cedric Pisano MD Work Phone: [facility] Work Phone: 01-13-2002 pneumococcal conjuga te vaccine, 7 valent Cedric Pisano MD Work Phone: [facility] Work Phone: 01-13-2002 poliovirus vaccine, inactivated Cedric Pisano MD Work Phone: [facility] Work Phone: 2001 hepatitis B vaccine, pediatric or pediatric/adolescent dosage Cedric Pisano MD Work Phone: [facility] Work Phone: 2001 hepatitis B vaccine, pediatric or pediatric/adolescent dosage Cedric Pisano MD Work Phone: [facility] Work Phone: Payers Date Payer Category Payer Self-pay 2024 Unknown [id number] 2023 Private Health Insurance [facility] [id number] 2019 Unknown MMO MMO TPA [id number] 2019-Present [address] [place] [address] PPO [id number] 2001 Unknown [id number] [id number] .651 2001 Unknown [id number] 2.16840.1.377642.3.579.2 .651 2001 Unknown [id number] 2.16840.1.801226.3.579.2 .479 2001 Unknown [id number] 2.16840.1.191346.3.579.2 .479 2001 Unknown [id number] 2.16.840.1.194506.3.579.2 .479 2001 Unknown [id number] 2.16840.1.399106.3.579.2 .479 2001 Unknown [id number] 2.16.840.1.099375.3.579.2 .479 2001 Unknown [id number] 2.16840.1.335903.3.579.2 .479 Unknown [id number] Unknown [id number] 2.16.840.1.584330.3.579.2 .462 Unknown [id number] 2.16.840.1.652867.3.579.2 .462 Unknown [id number] 2.16.840.1.614145.3.579.2 .462 Unknown [id number] 2.16.840.1.920133.3.579.2 .462 Unknown [id number] 2.16.840.1.737471.3.579.2 .462 Unknown [id number] 2.16.840.1.747335.3.579.2 .462 Unknown [id number] 2.16.840.1.224030.3.579.2 .462 Unknown [id number] 2..840.1.000286.3.579.2 .462 Unknown [id number] 2.16.840.1.771844.3.579.2 .462 Unknown [id number] 2.16.840.1.250961.3.579.2 .462 Unknown [id number] 2.16.840.1.115181.3.579.2 .462 Unknown [id number] 2.16.840.1.040823.3.579.2 .462 Unknown [id number] 2.16.840.1.773886.3.579.2 .462 Unknown [id number] 2.16.840.1.711956.3.579.2 .462 Unknown [id number] 2.16.840.1.748108.3.579.2 .462 Unknown [id number] 2.16.840.1.014524.3.579.2 .462 Unknown [id number] 2.16.840.1.623405.3.579.2 .462 Unknown [id number] 2.16.840.1.698137.3.579.2 .462 Unknown [id number] 2.16.840.1.672370.3.579.2 .462 Social History Date Type Detail Facility Start: 10-20-2010 End: 09-28-2024 Tobacco smoking status NHIS Never smoked tobacco [facility] Work Phone: Start: 10-20-2010 End: 12-30-2024 Tobacco use and exposure Smokeless tobacco non-user [facility] Work Phone: Start: 10-27-2019 Alcohol intake 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 Start: 2000 Sex Assigned At Female W [facility] Sex [facility] Start: 01-10-2025 Alcoholic beverage intake Ex-drinker (finding) [facility] Start: 08-24-2024 [facility] Start: 11-30-2024 Sex Female (finding) [facility] Clinical Notes 02-06-2022 to 01-24-2025 Note Date & Type Note Facility 01-24-2025 Progress note [facility] 12-27-2024 Progress note [facility] 11-29-2024 Progress note [facility] 11-01-2024 Evaluation note Diagnosis Onset Date Resolution [...] UTI in acute January 24, 2025 9:00am [employer] [facility] Work Phone: 1(231) 237-683706-17-2025 Evaluation note* Diagnosis Onset Date Resolution Status Admit Date Amenorrhea acute September 28 11:06am Amenorrhea acute October 06 1:02pm Obesity affecting acute October 06, 2024 1:02pm acute October 06 1:02pm Supervision of high-risk acute October 06, 2024 1:02pm [employer] Work Phone: 1(574) 389-312206-17-2025 Evaluation note* Diagnosis Onset Date Resolution Status [...] of high-risk acute November 01, 2024 1:46pm [employer] Work Phone: 1(309) 387-657606-17-2025 Evaluation note* Diagnosis Onset Date Resolution Status [...] Supervision of high-risk acute November 29 11:34am [employer] Work Phone: 1(847) 670-178406-17-2025 Evaluation note* Diagnosis Onset Date Resolution Status [...] of high-risk acute December 27, 2024 10:18am [employer] [facility] Work Phone: 1(408) 395-349606-17-2025 Evaluation note* Diagnosis Onset Date Resolution Status [...] of high-risk acute December 29, 2024 1:36pm [employer] [facility] Work Phone: 1(251) 547-777506-17-2025 Evaluation note* Diagnosis Onset Date Resolution Status [...] 2024 1:36pm UTI in acute 2024 1:36pm [facility] Work Phone: 1([phone]) 578-482812-08-2024 NoteDischarge Instructions Discharge Summary [address] [place] [id number] 03/21/2024 Patient: MAREN HURST Sex: Female : 2000 Age: 23y Thank you for visiting [facility]. You have been evaluated today by Garrett Beadr D.O. for the following condition(s): Principal Diagnosis [...] days, dispense 6 tablet. Refills 0. Pharmacy: [facility] [address] [place] [address]. Pepcid 40 mg tablet: Take 1 tablet by mouth once a day for 7 days, dispense 7 tablet. Refills 0. Pharmacy: [facility] [address] [place] [address]. prednisone 20 mg tablet: Take 1 tablet by mouth every twelve hours for 7 days, dispense 10 tablet. Refills 0. Notes take 1 tablet every 12 hours for 3 days and then take 1 tablet daily for 4 days dispense 10. Pharmacy: Discharge Instructions [facility] [address] [place] [address]. Follow-up with: Christian Damon M.D., [facility], Phone: [phone], [address] [facility], [place] [address]. Follow up in three days. (Return if increasing hives shortness breath or anyconcerns. Take Benadryl, Pepcid at prednisone for the itching and hives. Follow-up with Dr. Damon for a workup for your hives and possible reaction to antibiotics. Also follow-up with your family doctor). You have been given the following additional information: Hives (Adult) Medicine Reaction: Allergic Pneumonia (Adult) Patient Signature Facility Pesticide Use Medical Coordinator Date/Time General Instructions with ExitWriter [facility] [address] [facility] [place] [id number] 03/21/2024 Patient: MAREN HURST Sex: Female : 2000 Age: 23y Thank you for visiting [facility]. You have been evaluated today by [...] days, dispense 6 tablet. Refills 0. Pharmacy: [facility] [address] [place] [address]. Pepcid 40 mg tablet: Take 1 tablet by mouth once a day for 7 days, dispense 7 tablet. Refills 0. Pharmacy: [facility] [address] [place] [address]. prednisone 20 mg tablet: Take 1 tablet by mouth every twelve hours for 7 days, dispense 10 tablet. Refills 0. Notes take 1 tablet every 12 hours for 3 days and then take 1 tablet daily for 4 days dispense 10. Pharmacy: [facility] [address] [place] [address]. Follow-up with: Christian Damon M.D., [facility], Phone: [phone], [address] [facility], [place] [address]. Follow up in three days. (Return if [...] You may be prescribe (more content not included)...[facility]10-26-2022 Miscellaneous Notes* Telephone Encounter - Cedric Pisano MD - 02/06/2022 4:28 PM EDT Okay Cedric Pisano MD * Telephone Encounter - Marisela Coyne LPN - 02/04/2022 8:13 AM EDT Patient requesting a referral to Dermatology for mole check. Last seen in office on 10/27/2019. Please advise. Marisela Coyne LPN documented in this encounterYonkers ClinicEvaluation noteNo assessment information availableCommunity [facility] Work Phone: Evaluation note* Diagnosis , supervision, high-risk, second trimester Elevated ALT measurement Nonspecific elevation of levels of transaminase or lactic acid dehydrogenase (LDH) Dysuria during in second trimester documented in this encounter [facility] note Author Kt Avila [facility] Note Date/Time November 29, 2024 12 :07pm [facility] [address], [address] [place] [address] OFFICE VISIT Date of Service: 11/29/24 MR#: [id number] Acct: [id number] Name: MAREN BARNEY Rep #: [id number] : 2000 Provider: RAFAELA Avila Age/Sex: 24/F Location: [facility] Status: Signed Intake Vital Signs 10/06/24 13:07 11/01/24 13:49 11/29/24 11:40 Height 5 ft 8 in 5 ft 8 in 5 ft 8 in Weight: 319 lb BMI 48.4 BP 130/86 H Intake Visit Reasons: 16 wk ob Chief Complaint: 16wk OB [employer] Gun[employer] Liaison Officer Required: No Is patient in pain?: No [...] house current occupational status: employed 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 pt reports normal BPs at home. 11/29/24 -?-?-?-?-?-?-?-?-?-?-?-?- 15w 6d 319 lb 130/86 Negative -?-?-?-?-?-?-?-?-?-?-?-?- Negative 158 -?-?-?-?-?-?-?-?-?-?-?-?- KW- no vb/crampi ng. has not gotten call from [facility] to schedule US. will reorder US. Declines [...] this visit. [place] appropriate handout given. 11/29/24 [id number] <Electronically signed by Kt mo CNM> Date _ Kt Avila CNM Cosigner Signature: Date (if applicable) CC: ~ [employer] Work Phone: Progress note Author Mariela Alvarado [employer] [facility] Note Date/Time December 27, 2024 10:39am [facility] [employer] [facility] [address], [address] [place] [address] OFFICE VISIT Date of Service: 12/27/24 MR#: [id number] Acct: [id number] Name: MAREN BARNEY Rep #: [id number] : 2000 Provider: Dr. Zaheer Alvarado MD Age/Sex: 24/F Location: [facility] Status: Signed Intake Vital Signs 11/01/24 13:49 11/29/24 11:40 12/27/24 10:21 12/27/24 10:25 Height 5 ft 8 in 5 ft 8 in 5 ft 8 in 5 ft 8 in Weight: 316 lb 9 oz BMI 48.1 BP 138/87 H Intake Visit Reasons: 20wk ob [employer] Gun[employer] Liaison Officer Required: No Is patient in pain?: No [...] house current occupational status: employed 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 pt reports normal BPs at [...] signed by Mariela mota MD> Date _ aMriela Alvarado MD Cosigner Signature: Date (if applicable) CC: ~ [facility] Work Phone: Progress note Author Joyce Santiago [employer] [facility] Note Date/Time January 24, 2025 9 :24am [facility] [address] [place] [address], [address] [place] [address] OFFICE VISIT Date of Service: 01/24/25 MR#: [id number] Acct: [id number] Name: MAREN BARNEY Rep #: [id number] : 2000 Provider: Dr. Alina Goodman DO Age/Sex: 24/F Location: [facility] Status: Signed Intake Vital Signs 11/29/24 11:40 12/29/24 13:51 01/24/25 09:01 01/24/25 09:01 Height 5 ft 8 in 5 ft 8 in 5 ft 8 in 5 ft 8 in Weight: 315 lb 5 oz BMI 47.9 BP 126/85 H Intake Visit Reasons: 23wk6d OB *move 03/08 appt [employer]ia[employer] Officer Required: No Is patient in pain?: No [...] house current occupational status: employed current occupation: [employer] current occupational exposures/hazards: No pets and animals: [...] 3-4 times per week duration: 15-30 minutes/day sveta/episcopalian: None seatbelt use: always do you feel safe at home: Yes 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 pt reports normal BPs at [...] Urine Glucose Negative Last Edit by Alexia Hutson on 01/24/25 09: 14 Office Urine Protein [...] - Encounter for immunization Medications: New Flucelvax [id number] (PF) 0.5 mL IM ONCE 0.5 mL 0RF NS Z23 - Encounter for immunization 01/24/25 0924 <Electronically signed by Joyce Small DO> Date _ Joyce Goodman DO Cosigner Signature: Date (if applicable) CC: ~ [facility] Work Phone: Reason for referral (narrative)No reason for referral information availableCommunity [facility] Work Phone: Summary Purpose Family History No [...] 27, 2024 10:18am Supervision of high-risk [facility] 2024 10:18am Elevated liver enzymes December 29 025 1:36pm Obesity affecting December 292024 1:36pm December 29, 2024 1:36pm Supervision of high-risk [facility] 2024 1:36pm Reason for Visit Admit Date [...] December 27, 2024 10:18am [facility] 2024 10:18am Elevated liver enzymes December 29 025 1:36pm Obesity affecting December 292024 1:36pm December 29, 2024 1:36pm Supervision of high-risk [facility] 2024 1:36pm UTI in December 29, 2024 [...] or prosecute any alcohol or drug abuse patient.[facility] Care Teams (unrecognized sec tion and content) Staffing Coordinator Relationship Specialty Start Date End Date Cedric Pisano MD [address] [place] [address] PCP - General 02/05/02 Team Status: Active Member Role Status Dates Dr. Cedric Pisano MD Family Provider [facility] Provider Active Team Status: Inactive Member Role Status Dates [facility] PA, PA-C Primary Care Provider Active Start: September 28, 2024 End: September 28, 2024 [facility] Referring Provider Active Start: September 28, 2024 End: September 28, 2024 Dr. Joyce Goodman DO Attending Provider Activ e Start: September 28, 2024 End: September 28, 2024 Team Status: Inactive Member Role Status Dates [facility] [place] PA, PA-C Primary Care Provider Active Start: October 06, 2024 End: October 06, 2024 [facility] Referring Provider Active Start: October 06, 2024 End: October 06, 2024 Dr. Joyce Goodman DO Attending Provider Activ e Start: October 06, 2024 End: October 06, 2024 Team Status: Active Member Role/Relationship Status Dates Dr. Cderic Pisano MD Family Provider [facility] Primary Care Provider Active Team Status: Inactive Member Role/Relationship Status Dates [facility] PA, PA-C Primary Care Provider Active Start: September 28, 2024 End: September 28, 2024 [facility] Referring Provider Active Start: September 28, 2024 End: September 28, 2024 Dr. Joyce Goodman DO Attending Provider Activ e Start: September 28, 2024 End: September 28, 2024 Team Status: Inactive Member Role/Relationship Status Dates [facility] [place] PA, PA-C Primary Care Provider Active Start: October 06, 2024 End: October 06, 2024 [facility] PA, PA-C Referring Provider Active Start: [...] 29, 2024 End: November 29, 2024 [facility] [place] PA, PA-C Referring Provider Active Start: November 29, 2024 End: November 29, 2024 Kt Avila CNM Attending Provider Active S tart: November 29, 2024 End: November 29, 2024 Team Status: Inactive Member Role/Relationship Status Dates Este[facility] [place] PA, PA-C Primary Care Provider Active Start: December 27, 2024 End: December 27, 2024 E[facility] [place] PA, PA-C Referring Provider Active Start: December 27, 2024 End: December 27, 2024 Dr. Mariela Alvarado MD Attending Provider Active Start: December 27, 2024 End: December 27, 2024 Team Status: Active Member Role/Relationship Status Dates Este[facility] [place] PA, PA-C Primary care physician Active Team Status: Inactive Member Role/Relationship Status Dates [facility] [place] PA, PA-C Primary care physician Active Start: September 28, 2024 End: September 28, 2024 Estephan[facility] [place] PA, PA-C Referring Provider Active Start: September 28, 2024 End: September 28, 2024 Dr. Joyce Goodman DO Attending physician Acti ve Start: September 28, 2024 End: September 28, 2024 Team Status: Inactive Member Role/Relationship Status Dates Estephan[facility] [place] PA, PA-C Primary care physician Active Start: October 06, 2024 End: October 06, 2024 Estephania [place] PA, PA-C Referring Provider Active Start: October 06, 2024 End: October 06, 2024 Dr. Joyce Goodman DO Attending physician Acti ve Start: October 06, 2024 End: October 06, 2024 Team Status: Inactive Member Role/Relationship Status Dates Estephania [place] PA, PA-C Primary care physician Active Start: [...] 29, 2024 End: November 29, 2024 [facility] [place] PA, PA-C Referring Provider Active Start: November 29, 2024 End: November 29, 2024 Kt Avila CNM Attending physician Active Start: November 29, 2024 End: November 29, 2024 Team Status: Inactive Member Role/Relationship Status Dates Estephania [place] PA, PA-C Primary care physician Active Start: December 27, 2024 End: December 27, 2024 [facility] [place] PA, PA-C Referring Provider Active Start: December [...] 2024 End: December 29, 2024 Lakeisha Flowers SHUTTLE DRIVER, SHUTTLE DRIVER-C Attending physician Active Start: December 29, 2024 End: December 29, 2024 Team Status: Active Member Role/Relationship Status Dates Estephania LEI, PA-C Primary care physician Active Start: December 29, 2024 Lakeisha Flowers SHUTTLE DRIVER, SHUTTLE DRIVER-C Attending physician Active Start: December 29, 2024 Lakeisha Flowers NP, SHUTTLE DRIVER-C Referring Provider Active Start: December 29, 2024 Staffing Coordinator Relationship Specialty Start Date End Date Estephania Dowling PA-C [address] [place] [address] [place] [address] PCP - General Family Medicine 11/30/24 Team [...] 2024 End: December 29, 2024 Lakeisha Flowers SHUTTLE DRIVER, SHUTTLE DRIVER-C Attending physician Active Start: December 29, 2024 End: December 29, 2024 Lakeisha Flowers SHUTTLE DRIVER, SHUTTLE DRIVER-C Referring Provider Active Start: December 29, 2024 End: December 29, 2024 Team Status: Active Member Role/Relationship Status Dates Estephania [place]ling PA, PA-C Primary care physician Active Start: January 10, 2025 Lakeisha Flowers SHUTTLE DRIVER, SHUTTLE DRIVER-C Attending physician Active Start: January 10, 2025 Lakeisha Flowers SHUTTLE DRIVER, SHUTTLE DRIVER-C Referring Provider Active Start: January 10, 2025 Team Status: Inactive Member Role/Relationship Status Dates Estephaniadomenico [place]ling PA, PA-C Primary care physician Active Start: January 10, 2025 End: January 10, 2025 Lakeisha Flowers SHUTTLE DRIVER, SHUTTLE DRIVER-C Attending physician Active Start: January 10, 2025 End: January 10, 2025 Lakeisha Flowers SHUTTLE DRIVER, SHUTTLE DRIVER-C Referring Provider Active Start: January 10, 2025 End: January 10, 2025 Team Status: Inactive Member Role/Relationship Status Dates Estephania [place]ling PA, PA-C Primary care physician Active Start: November 01, 2024 End: November 01, 2024 Estephania [place] PA, PA-C Referring Provider Active Start: November [...] 2024 End: December 29, 2024 Lakeisha Flowers SHUTTLE DRIVER, SHUTTLE DRIVER-C Attending physician Active Start: December 29, 2024 End: December 29, 2024 Team Status: Inactive Member Role/Relationship Status Dates Estephaniadomenico Dowling PA, PA-C Primary care physician Active Start: December 29, 2024 End: December 29, 2024 Lakeisha Flowers SHUTTLE DRIVER, SHUTTLE DRIVER-C Attending physician Active Start: December 29, 2024 End: December 29, 2024 Lakeisha Flowers SHUTTLE DRIVER, SHUTTLE DRIVER-C Referring Provider Active Start: December 29, 2024 End: December 29, 2024 Team Status: Inactive Member Role/Relationship Status Dates Estephania [place] PA, PA-C Primary care physician Active Start: [...] section and content) DATE CREATED AUTHOR 06/20/2023 [facility] ([place] DATE CREATED AUTHOR AUTHOR'S ORGANIZ ATION 03/28/2024 [facility] DATE CREATED AUTHOR AUTHOR'S ORGANIZ ATION 02/16/[address] [facility] DATE CREATED AUTHOR AUTHOR'S ORGANIZ ATION 02/24/2025 [facility] Goals (unrecognized section and content) Type Care [...] BE BASED ON THE PRIMARY CLINICAL RECORDS. [facility]. provides no warranty or guarantee of the accuracy or completeness of information in this document.
--- NOTE | 2025-03-25 16:38 | US_ITS ---
PROCEDURE: OB LIMITED WITH BIOMETRICS 03/25/2025 REASON FOR EXAM: GROWTH TECHNIQUE: Procedure Code: [id number] Modality: US Procedure: OB LIMITED WITH BIOMETRICS COMPARISON: None. FINDINGS FETUS: There is a single living intrauterine gestation. POSITION: position is breech. HEART RATE: The heart rate is 127 BPM and regular. BIOMETRICS: Based on composite biometry, the composite estimated gestational age by ultrasound is 34 weeks 1 day. LMP gestational age: 32 weeks 3 days LMP KIMBER: May 17, 2025 Sonographic gestational age: 34 weeks 1 day Sonographic KIMBER: May 05, 2025 ANATOMIC SURVEY: Detailed anatomy not performed. PLACENTA: The placenta is fundal, grade 3. No demonstrated evidence of previa or abruption. AMNIOTIC FLUID: Within normal limits. RONDA measuring 17.1cm. Maximum vertical pocket (MVP) measuring 7.8cm. CERVIX: Unremarkable as visualized. SONOGRAPHIC MEASUREMENTS: Bi-Parietal Diameter (BPD): 8.5 cm; 34 weeks 2 days Head Circumference (HC): 30.9 cm; 34 weeks 4 days Abdominal Circumference (AC): 29.8 cm; 33 weeks 6 days Femur Length (FL): 6.2 cm; 32 weeks 1 day Estimated weight: 2207 grams +/- 331 grams (4 lb, 14 oz) EFW percentile: 72.8 % US/OB Limited With Biometrics IMPRESSION: 1. Single living intrauterine gestation estimated at 34 weeks 1 day by today's ultrasound criteria. Size equals dates. 2. No acute abnormality detected. Reading Location: [id number]
[2025-03-25] MEDS: Betamethasone/Betamethasone 30 MG/5 ML Vial 12 MG IM (16:49)
[2025-03-25 16:55] LABS: Hematocrit 37.2 % (37-47); Hemoglobin 12.2 g/dL (12.0-15.0); Mean Corp Hgb Conc 32.8 g/dL (32-36); Mean Corpuscular Volume 84.4 fL (81-99); Mean Platelet Vol. 9.7 fl (6.2-12.0); Platelet Count 354 K/mm3 (150-450); RBC Distribution Width CV 13.2 % (11.6-14.6); RBC Distribution Width SD 40.6 fl (35.1-43.9); Red Blood Count 4.41 M/mm3 (4.2-5.4); White Blood Count 15.5 K/mm3 (4.4-11.0)
[2025-03-25 17:04] LABS: AST(SGOT) 35 U/L (<=31); Alanine Aminotransfer ALT/SGPT 61 U/L (<=34); Estimated Creatinine Clearance 239.97 ml/min (50-250); Uric Acid 4.9 mg/dL (2.6-6.0)
[2025-03-25 17:26] LABS: Creatinine, Urine (random) 82.90 mg/dL (28.00-217.00); Protein, Urine (Random) 12.7 mg/dL (0.0-12.0); Protein:Creat Ratio 153 mg/g CRE (0-200)
--- OUTSIDE RECORDS SUMMARY | 2025-03-25 20:23 | XMS RPT_ITS | CCD ---
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 Joyce Goodman DO Attending Provider Dr. Joyce Goodman DO Referring Provider Kt Avila CNM Attending Provider [phone] Kt Avila CNM Referring Provider [phone] Dr. Mariela Alvarado MD Attending Provider Estephania Dowling PA-C Primary Care Physician [phone] Dr. Joyce Goodman DO Attending Physician Kt Avila CNM Attending Physician [phone] Dr. Mariela Alvarado MD Attending Physician Dr. Mariela Alvarado MD Referring Provider [phone] Lionel MICHELLE-Lakeisha Renteria Attending Physician [phone] Lionel BROACH GRINDER-CLakeisha Referring Provider Josey PA-CEstephania Primary Care Provider [place] PA-CEstephania Primary Care Physician [place] PA-, Estephania Referring Provider [phone] Dr. Joyce Goodman DO Attending Physician AISSATOU RUSHING Attending Unavailable RUSHINGAISSATOU Referring Unavailable [facility] ESTEPHANIA D Primary Care Unavailable MARIELA ALVARADO Referring Unavailabl e AISSATOU RUSHING Attending Unavailable [facility] ESTEPHANIA D Primary Care Unavailable MARIELA ALVARADO Referring Unavailabl e AISSATOU RUSHING Attending Unavailable [facility] ESTEPHANIA D Primary Care Unavailable AISSATOU RUSHING Referring Unavailable [facility] ESTEPHANIA D Primary Care Unavailable ZBIGNIEW VILLARREAL Attending Unavailable GILDARDO LOBATO Attending Unavailable [facility] ESTEPHANIA D Primary Care Unavailable MARIELA ALVRAADO Referring Unavailabl [facility] Primary Care Unavailable KT AVILA Attending Unavailable KT AVILA Referring Unavailable Kt Avila Referring Unavailable Kt Avila Attending Unavailable [facility], Estephania Primary Care Unavailable [facility], Estephania Referring Unavailable Jenner BROACH GRINDERLakeisha Attending Unavailable [facility], Estephania Primary Care Unavailable [facility], Estephania Referring Unavailable Joyce Goodman Attending Unavailabl [facility] Primary Care Unavailable Joyce Goodman Attending Unavailabl [facility] Primary Care Unavailable Vande Joyce Santiago Attending Unavailabl [facility] Primary Care Unavailable [facility], Estephania Referring Unavailable Mariela Alvarado Attending Unavailable [facility], Estephania Primary Care Unavailable [facility], Estephania Referring Unavailable Kt Avila Attending Unavailable [place] [facility], Estephania Primary Care Unavailable [facility], Estephania Referring Unavailable Joyce Goodman Attending Unavailabl e [place] [facility], [place] Primary Care Unavailable Kt Avila Attending Unavailable [facility], Estephania Referring Unavailable [facility], Estephania Primary Care Unavailable Mariela Alvarado Referring Unavailable Mariela Alvarado Attending Unavailable [facility], Estephania Primary Care Unavailable Jenner BROACH GRINDERLakeisha Referring Unavailable Jenner BROACH GRINDER, Lakeisha Attending Unavailable [facility], Estephania Primary Care Unavailable Joyce Goodman Referring Unavailabl e Vande VelJoyce saeed Attending Unavailabl e [place] [facility], [facility] Unavailable Stanford Carlos Enrique LEI Attending Unavailable [facility], [facility] Care Unavailable [facility] Carlos Enrique LEI Referring Unavailable Joyce Goodman [facility] Care Unavailable [facility], [place] Referring Unavailable Kt Avila Attending Unavailable [facility] Care Unavailable Stanford Carlos Enrique LEI Attending Unavailable Cedric Pisano Referring Unavailable Cedric Pisano Primary Care Unavailable [facility], Estephania Referring Unavailable Joyce Goodman [facility] Care Unavailable [facility], [facility] Care Unavailable Lionel BROACH GRINDER, Lakeisha Referring Unavailable Lionel BROACH GRINDER, Lakeisha Attending Unavailable Mariela Alvarado Attending Unavailable [facility], [facility] Unavailable Allergies Allergy Classification Reported Allergen(s) Allergy Type Date of Onset Reaction(s) Facility (16 sources) Amoxicillin; Translations: [AMOXICILLIN] Drug Allergy 09-28-2024 [facility] Comment on above: Onset 03/2024 (16 sources) Clavulanate; Translations: [CLAVULANIC ACID] Drug Allergy 09-28-2024 [facility] Comment on above: Onset 03/2024 (1 source) Amoxicillin Drug Allergy 01-24-2025 [facility] Repository (1 source) Clavulanate Drug Allergy 01-24-2025 [facility] Medications Current Medications Medication Drug [...] Absolute Lymph 0.80 X10 3/uL Low 0.83-4.51 [facility] Comment on above: Performed By: #### L 501.0250, L3890.6006, L100.0100, L509.8002 #### [facility] [address] [place], [address] Absolute Neut 6.9 X10 3/uL Normal 2.0-7.7 [facility] Comment on above: Performed By: #### L 501.0250, L3890.6006, L100.0100, L509.8002 #### [facility] [address] [place], [address] Basophils/100 WBC (Bld) 0.4 % Normal 0-1 [facility] Comment on above: Performed By: #### L 501.0250, L3890.6006, L100.0100, L509.8002 #### [facility] [address] [place], [address] Eosinophils/100 WBC (Bld) 0.4 % Normal 0-5 [facility] Comment on above: Performed By: #### L 501.0250, L3890.6006, L100.0100, L509.8002 #### [facility] [address] [place], [address] Erythrocyte distribution width (RBC) [Ratio] 14.1 % Normal 11.6-14.6 [facility] Comment on above: Performed By: #### L 501.0250, L3890.6006, L100.0100, L509.8002 #### [facility] [address] [place], [address] Hematocrit (Bld) [Volume fraction] 39.7 % Normal 37-47 [facility] Comment on above: Performed By: #### L 501.0250, L3890.6006, L100.0100, L509.8002 #### [facility] [address] [place], [address] Hemoglobin (Bld) [Mass/Vol] 12.9 g/dL Normal 12.0-15.0 [facility] Comment on above: Performed By: #### L 501.0250, L3890.6006, L100.0100, L509.8002 #### [facility] [address] [place], [address] IG% 0.200 Normal 0.0-0.9 [facility] Comment on above: Result Comment: IG% - Immature Granulocytes (promyelocytes, myelocytes and metamyelocytes) > 1% indicates that a LEFT SHIFT is Present. Performed By: #### L 501.0250, L3890.6006, L100.0100, L509.8002 #### [facility] [address] [place], [address] Lymphocytes/100 WBC (Bld) 9.5 % Low 19-41 [facility] Comment on above: Performed By: #### L 501.0250, L3890.6006, L100.0100, L509.8002 #### [facility] [address] [place], [address] MCH (RBC) [Entitic mass] 28.3 pg Normal 27.0-32.0 [facility] Comment on above: Performed By: #### L 501.0250, L3890.6006, L100.0100, L509.8002 #### [facility] [address] [place], [address] MCHC (RBC) [Mass/Vol] 32.5 g/dL Normal 32-36 [facility] Comment on above: Performed By: #### L 501.0250, L3890.6006, L100.0100, L509.8002 #### [facility] [address] [place], [address] MCV (RBC) [Entitic vol] 87.1 fL Normal 81-99 [facility] Comment on above: Performed By: #### L 501.0250, L3890.6006, L100.0100, L509.8002 #### [facility] [address] [place], [address] Monocytes/100 WBC (Bld) 7.0 % Normal 0-10 [facility] Comment on above: Performed By: #### L 501.0250, L3890.6006, L100.0100, L509.8002 #### [facility] [address] [place], [address] Neutrophils/100 WBC (Bld) 82.5 % High 47-70 [facility] Comment on above: Performed By: #### L 501.0250, L3890.6006, L100.0100, L509.8002 #### [facility] [address] [place], [address] Nucleated RBC (Bld) [#/Vol] 0 10*3/uL Normal 0-5 [facility] Comment on above: Performed By: #### L 501.0250, L3890.6006, L100.0100, L509.8002 #### [facility] [address] [place], [address] Platelet mean volume (Bld) [Entitic vol] 9.6 fL Normal 6.2-12.0 [facility] Comment on above: Performed By: #### L 501.0250, L3890.6006, L100.0100, L509.8002 #### [facility] [address] [place], [address] Platelets (Bld) [#/Vol] 321 10*3/uL Normal 150-450 [facility] Comment on above: Performed By: #### L 501.0250, L3890.6006, L100.0100, L509.8002 #### [facility] [address] [place], [address] RBC (Bld) [#/Vol] 4.56 10*6/uL Normal 4.2-5.4 [facility] Comment on above: Performed By: #### L 501.0250, L3890.6006, L100.0100, L509.8002 #### [facility] [address] [place], [address] RDW SD 45.1 fl High 35.1-43.9 [facility] Comment on above: Performed By: #### L 501.0250, L3890.6006, L100.0100, L509.8002 #### [facility] [address] [place], [address] WBC (Bld) [#/Vol] 8.4 10*3/uL Normal 4.4-11.0 [facility] Comment on above: Performed By: #### L 501.0250, L3890.6006, L100.0100, L509.8002 #### [facility] [address] [place], [address] Glucose Challenge Gest 1H 50 светлана 02-24-2025 GLU GEST 50g 1H 132 mg/dL Normal 70-140 [facility] Comment on above: Performed By: #### L 501.0250, L3890.6006, L100.0100, L509.8002 #### [facility] [address] [place], [place], [address] HIVon 02-24-2025 HIV Non-Reactive Normal Nonreactive [facility] Comment on above: Result Comment: Non- Reactive Reactive Repeatedly reactive samples must be confirmed according to CDC recommended confirmatory algorithms. The subresults for either HIVAG or AHIV can be used as an aid in the selection of the confirmation algorithm for reactive samples. Send out specimens with Reactive results to [facility] for confirmation. Order the HIV antibody detection and differentiation: lc#[id number] Performed By: #### L 501.0250, L3890.6006, L100.0100, L509.8002 #### [facility] [address] [place], [place], [address] Syphilis Antibodieson 2024 Syphilis Abs Non-Reactive Normal Nonreactive [facility] Comment on above: Performed By: #### L 501.0250, L3890.6006, L100.0100, L509.8002 #### [facility] [address] [place], [place], [address] Progress Noteon 02-14-2025 Finisher Card Tender Authentication Interface Message Text New patient 02/15/2025 RE: Maren Barney : 2000 AGE: 24 y.o. CSN#: [id number] Gestational Age: 27 Weeks Delivery Hospital: [facility] Reason for visit: Chief Complaint Patient [...] in visit on 02/14/25 Echo New Narrative [facility] [place] [address] [email or web address] Echocardiogram Report M-mode, complete 2D, complete spectral Doppler, and color Doppler PATIENT: Maren Barney STUDY DATE/TIME: Feb 14 2025 11:06AM HEIGHT: : 2000 WEIGHT: AGE: 24year(s) BSA/BMI: / GENDER: F BP: 122 / 82 LOCATION: [facility] REFERRING PHYSICIAN: Aissatou Rushing Katherine ORDERING PROVIDER: Aissatou Rushing READING PHYSICIAN: GEORGIE Christie LIFE COACH: Sheridan Fuchs RDCS SUMMARY: No significant congenital [...] discussed with the patient. 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 REASON FOR EXAM: Sub-optimal views. : : - Maternal age: 24yr. - : 1. - Parity: 0. - Estimated delivery date: 05/17/2025. - Gestational age: 27 [id number]. STUDY AND PROCEDURE DATA: The patient is . Procedure Description: New ([id number]) . Study status: Routine. Location: lab. Procedure: [...] a patent foramen ovale. There is a [id number] shunt. Left atrium: - The atrium is [...] qualitatively normal (more content not included)... Normal [facility] Anion gap in Serum or Plasma Ordered By: Joyce Santiago on 02-07-2025 Anion gap [Moles/Vol] 11 mmol/L 08-26 [facility] BUN/creatinine ratioOrdered By: Joyce Santiago on 02-07-2025 Urea nitrogen/Creatinine [Mass ratio] 11.6 mg/mg 01-31 [facility] Bilirubin, totalOrdered By: Joyce Santiago on 02-07-2025 Bilirubin [Mass/Vol] 0.29 mg/dL 0.00-1.30 [facility] Carbon dioxide, total [Moles /volume] in Central venous bloodOrdered By: Joyce Santiago on 02-07-2025 CO2 [Moles/Vol] 22.1 mmol/L 21.0-32.0 [facility] Chloride assayOrdered By: Henry Santiago on 02-07-2025 Chloride [Moles/Vol] 104 mmol/L 98-108 [facility] Comprehensive Metabolic Prof ilon 02-07-2025 Albumin [Mass/Vol] 3.8 g/dL Normal 3.5-5.0 [facility] Comment on above: Performed By: #### L 500.4285 #### [facility] [address] [place], [address] Albumin/Globulin [Mass ratio] 1.0 {ratio} Normal 0.9-2.4 [facility] Comment on above: Performed By: #### L 500.4050 #### [facility] [address] [place], [address] ALK PHOS 137 U/L High 35-104 [facility] Comment on above: Performed By: #### L 500.4050 #### [facility] [address] [place], [address] ALT [Catalytic activity/Vol] 45 U/L High <=34 [facility] Comment on above: Performed By: #### L 500.4050 #### [facility] [address] [place], [address] AST [Catalytic activity/Vol] 21 U/L Normal <=31 [facility] Comment on above: Performed By: #### L 500.4050 #### [facility] [address] [place], [address] Bilirubin [Mass/Vol] 0.29 mg/dL Normal 0.00-1.30 [facility] Comment on above: Performed By: #### L 500.4050 #### [facility] [address] [place], [address] BUN/CRE 11.6 RATIO Normal 10-20 [facility] Comment on above: Performed By: #### L 500.4050 #### [facility] [address] [place], [address] Calcium [Mass/Vol] 9.1 mg/dL Normal 7.6-11.0 [facility] Comment on above: Performed By: #### L 500.4050 #### [facility] [address] [place], [address] Chloride [Moles/Vol] 104 mmol/L Normal 98-108 [facility] Comment on above: Performed By: #### L 500.4050 #### [facility] [address] [place], [address] CO2 [Moles/Vol] 22.1 mmol/L Normal 21.0-32.0 [facility] Comment on above: Performed By: #### L 500.4050 #### [facility] [address] [place], [address] Creatinine [Mass/Vol] 0.48 mg/dL Low 0.70-1.20 [facility] Comment on above: Performed By: #### L 500.4050 #### [facility] [address] [place], [address] GAP 11 Normal 5-15 [facility] Comment on above: Performed By: #### L 500.4050 #### [facility] [address] [place], [address] GFR/1.73 sq M.predicted among non-blacks MDRD (S/P/Bld) [Vol rate/Area] 136 mL/min/{1.73_m2} Normal >60 [facility] Comment on above: Result Comment: mL/m in/1.73m2 CKD-EPI Creatinine Equation (2020) Performed By: #### L 500.4050 #### [facility] [address] [place], [address] Globulin (S) [Mass/Vol] 3.7 g/dL Normal 2.2-4.2 [facility] Comment on above: Performed By: #### L 500.4050 #### [facility] [address] [place], [address] Glucose [Mass/Vol] 81 mg/dL Normal 70-99 [facility] Comment on above: Performed By: #### L 500.4050 #### [facility] [address] [place], [address] Potassium [Moles/Vol] 4.0 mmol/L Normal 3.3-5.1 [facility] Comment on above: Performed By: #### L 500.4050 #### [facility] [address] [place], [address] Sodium [Moles/Vol] 137 mmol/L Normal 133-145 [facility] Comment on above: Performed By: #### L 500.4050 #### [facility] [address] [place], [address] T PROT 7.5 g/dL Normal 5.9-8.4 [facility] Comment on above: Performed By: #### L 500.4050 #### [facility] [address] [place], [address] Urea nitrogen [Mass/Vol] 6 mg/dL Normal 4-19 [facility] Comment on above: Performed By: #### L 500.4050 #### [facility] [address] [place], [address] Glomerular filtration rate ( GFR) estimation/1.73 sq m using serum, plasma, or whole bOrdered By: Joyce Santiago on 02-07-2025 GFR/1.73 sq M.predicted among non-blacks MDRD (S/P/Bld) [Vol rate/Area] 136 mL/min/{1.73_m2} >60 [facility] Comment on above: mL/min/1.73m2 CKD-EP I Creatinine Equation (2020) Laboratory - Chemistry and C hemistry - challengeOrdered By: Joyce Santiago on 02-07-2025 AST [Catalytic activity/Vol] 21 U/L <32 [facility] Potassium measurement (mass/ volume)Ordered By: Joyce Santiago on 02-07-2025 Potassium (Unsp spec) [Mass/Vol] 4.0 mmol/L 3.3-5.1 [facility] Serum creatinine measurement (mass/volume)Ordered By: Joyce Santiago on 02-07-2025 Creatinine [Mass/Vol] 0.48 mg/dL Low 0.70-1.20 [facility] Serum globulin measurementOr dered By: Joyce Santiago on 02-07-2025 Globulin (S) [Mass/Vol] 3.7 g/dL 2.2-4.2 [facility] Serum glucose measurement (m ass/volume)Ordered By: Joyce Santiago on 02-07-2025 Glucose [Mass/Vol] 81 mg/dL 70-99 [facility] Serum or plasma alanine will otransferase (ALT) measurementOrdered By: Joyce Santiago on 02-07-2025 ALT [Catalytic activity/Vol] 45 U/L High <35 [facility] Serum or plasma albumin wilman urement (mass/volume)Ordered By: Joyce Santiago on 02-07-2025 Albumin [Mass/Vol] 3.8 g/dL 3.5-5.0 [facility] Serum or plasma albumin/glob ulin mass ratioOrdered By: Joyce Santiago on 02-07-2025 Albumin/Globulin [Mass ratio] 1.0 {ratio} 0.9-2.4 [facility] Serum or plasma alkaline kristel sphatase measurementOrdered By: Joyce Santiago on 02-07-2025 ALP [Catalytic activity/Vol] 137 U/L High 35-104 [facility] Serum or plasma calcium wilman urement (mass/volume)Ordered By: Joyce Santiago on 02-07-2025 Calcium [Mass/Vol] 9.1 mg/dL 7.6-11.0 [facility] Serum or plasma urea nitroge n measurement (mass/volume)Ordered By: Joyce Santiago on 02-07-2025 Urea nitrogen [Mass/Vol] 6 mg/dL 4-19 [facility] Sodium levelOrdered By: Alina Santiago on 02-07-2025 Sodium [Moles/Vol] 137 mmol/L 133-145 [facility] Total proteinOrdered By: Bettie Santiago on 02-07-2025 Protein [Mass/Vol] 7.5 g/dL 5.9-8.4 [facility] - Chemistry and C hemistry - challengeOrdered By: Joyce Santiago on 01-24-2025 Glucose Ql (U) Negative [facility] - UrinalysisOrder ed By: Joyce Santiago on 01-24-2025 Protein Ql (U) Negative [facility] Prevention Specialist Office Visit Reporton 01-24-2025 Prevention Specialist Office Visit Report [facility] [address], [address] [place] [address] OFFICE VISIT Date of Service: 01/24/25 MR#: [id number] Acct: [id number] Name: MAREN BARNEY Rep #: [id number] : 2000 Provider: Dr. Joyce Maciel DO Age/Sex: 24/F [place] [facility] [place]: Signed Intake Vital Signs 11/29/24 11:40 12/29/24 13:51 01/24/25 09:01 01/24/25 09:01 Height 5 ft 8 in 5 ft 8 in 5 ft 8 in 5 ft 8 in Weight: 315 lb 5 oz BMI 47.9 BP 126/85 H Intake Visit Reasons: [id number] OB *move 03/08 appt Hand I Cutter Required: No Is patient in pain?: No [...] house current occupational status: employed current occupation: [employer] current occupational exposures/hazards: No pets and [...] 3-4 times per week duration: 15-30 minutes/day sveta/christian: None seatbelt use: always do you feel safe at home: Yes 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 pt reports normal BPs at home. 11/29/24 -???-???-???-???-???- ???-???-???-???-???-? ??-???- 15w 6d 319 lb 130/86 Negative -???-???-???-???-???- ???-???-???-???-???-? ??-???- Negative 158 -???-???-???-???-???- ???-???-???-???-???-? ??-???- KW- no vb/cr amping. has not gotten call from [facility] to schedule US. will myranda (more content not included)... Normal [facility] 24 HR UR Creatinine Clearanc fani 01-10-2025 CREAT CLEARANCE 181 ml/min Normal 100-200 [facility] Comment on above: Performed By: #### L 502.000, L500.4507 #### [facility] [address] [place], [address] Creatinine [Mass/Vol] 0.6 mg/dL Normal 0.6-1.0 [facility] Comment on above: Performed By: #### L 502.000, L500.4507 #### [facility] [address] [place], [address] RANDOM UR TV 2600.0 ML Normal [facility] Comment on above: Performed By: #### L 502.000, L500.4507 #### [facility] [address] [place], [address] 24 HR Urine Creatinineon UR.CREAT/24hr 1536.6 mg/24 hr Normal 740.0-1540.0 [facility] Comment on above: Performed By: #### L 502.000, L500.4507 #### [facility] [address] [place], [address] COMPREHENSIVE METABOLIC PANE [facility] 01-10-2025 Albumin [Mass/Vol] 4.0 g/dL Normal 3.5-5.0 [facility] Comment on above: Order Comment: Relea se to patient->Automatic Result Comment: Veri fied By: [id number] ALP [Catalytic activity/Vol] 121 U/L High 35-104 [facility] Comment on above: Order Comment: Relea se to patient->Automatic Result Comment: Veri fied By: [id number] ALT [Catalytic activity/Vol] 54 U/L High <=34 [facility] Comment on above: Order Comment: Relea se to patient->Automatic Result Comment: Veri fied By: [id number] AST [Catalytic activity/Vol] 21 U/L Normal <=31 [facility] Comment on above: Order Comment: Relea se to patient->Automatic Result Comment: Veri fied By: [id number] BILI,TOTAL 0.4 mg/dL Normal <=1.0 [facility] Comment on above: Order Comment: Relea se to patient->Automatic Result Comment: Veri fied By: [id number] Calcium [Mass/Vol] 9.7 mg/dL Normal 7.6-11.0 [facility] Comment on above: Order Comment: Relea se to patient->Automatic Result Comment: Veri fied By: [id number] Chloride [Moles/Vol] 103 mmol/L Normal 96-108 [facility] Comment on above: Order Comment: Relea se to patient->Automatic Result Comment: Veri fied By: [id number] CO2 [Moles/Vol] 21.9 mmol/L Low 22.0-29.0 [facility] Comment on above: Order Comment: Relea se to patient->Automatic Result Comment: Veri fied By: [id number] Creatinine [Mass/Vol] 0.55 mg/dL Normal 0.50-1.00 [facility] Comment on above: Order Comment: Relea se to patient->Automatic Result Comment: Veri fied By: [id number] GFR/1.73 sq M.predicted among non-blacks MDRD (S/P/Bld) [Vol rate/Area] mL/min/{1.73_m2} Normal >=60 [facility] Comment on above: Order Comment: Relea se to patient->Automatic Glucose [Mass/Vol] 91 mg/dL Normal 70-99 [facility] Comment on above: Order Comment: [...] plus Classic Symptoms of Diabetes Verified By: [id number] Potassium [Moles/Vol] 3.7 mmol/L Normal 3.3-5.1 [facility] Comment on above: Order Comment: Relea se to patient->Automatic Result Comment: Veri fied By: [id number] Protein [Mass/Vol] 7.8 g/dL Normal 5.9-8.4 [facility] Comment on above: Order Comment: Relea se to patient->Automatic Result Comment: Veri fied By: [id number] Sodium [Moles/Vol] 138 mmol/L Normal 133-145 [facility] Comment on above: Order Comment: Relea se to patient->Automatic Result Comment: Veri fied By: [id number] Urea nitrogen [Mass/Vol] 5 mg/dL Normal 4-19 [facility] Comment on above: Order Comment: Relea se to patient->Automatic Result Comment: Veri fied By: [id number] Comprehensive metabolic pane meng 01-10-2025 Albumin BCG dye [Mass/Vol] 4.0 g/dL 3.5 - 5.0 g/dL [facility] Comment on above: Verified By: [id number] ALP [Catalytic activity/Vol] 121 U/L High 35 - 104 U/L [facility] Comment on above: Verified By: [id number] ALT With P-5'-P [Catalytic activity/Vol] 54 U/L High NINF - 34 U/L [facility] Comment on above: Verified By: [id number] AST With P-5'-P [Catalytic activity/Vol] 21 U/L NINF - 31 U/L [facility] Comment on above: Verified By: [id number] Bilirubin [Mass/Vol] 0.4 [facility]/dL [facility] Comment on above: Verified By: [id number] Calcium [Mass/Vol] 9.7 mg/dL 7.6 - 11. 0 mg/dL [facility] Comment on above: Verified By: [id number] Chloride [Moles/Vol] 103 mmol/L 96 - 10 8 mmol/L [facility] Comment on above: Verified By: [id number] Creatinine [Mass/Vol] 0.55 mg/dL 0.50 - 1.00 mg/dL [facility] Comment on above: Verified By: [id number] eGFR - PINF [facility] Glucose [Mass/Vol] 91 mg/dL 70 - 99 mg/dL [facility] Comment on above: Criteria for Diagnos is of Diabetes: Fasting Specimen (no caloric intake for at least 8 hours): <100 mg/dL Normal 100-125 mg/dL Increased risk for Diabetes >125 mg/dL Diagnostic for Diabetes Random Glucose (any time of day without regard to last meal): > or = 200 mg/dL plus Classic Symptoms of Diabetes Verified By: [id number] HCO3 (P) [Moles/Vol] 21.9 mmol/L Low 22.0 - 29.0 mmol/L [facility] Comment on above: Verified By: [id number] Interpretation and review of laboratory results Abnormal [facility] Potassium (BldA) [Moles/Vol] 3.7 mmol/L 3.3 - 5.1 mmol/L [facility] Comment on above: Verified By: [id number] Protein [Mass/Vol] 7.8 g/dL 5.9 - 8.4 g/dL [facility] Comment on above: Verified By: [id number] Sodium [Moles/Vol] 138 mmol/L 133 - 145 mmol/L [facility] Comment on above: Verified By: [id number] Urea nitrogen [Mass/Vol] 5 mg/dL 4 - 19 mg/d L [facility] Comment on above: Verified By: [id number] [facility] Glomerular filtration rate ( GFR) estimation/1.73 sq m using serum, plasma, or whole bOrdered By: Lakeisha Flowers on 01-10-2025 GFR/1.73 sq M.predicted among non-blacks MDRD (S/P/Bld) [Vol rate/Area] 130 mL/min/{1.73_m2} >60 [facility] Comment on above: mL/min/1.73m2 CKD-EP I Creatinine Equation (2020) Progress Noteon 01-10-2025 Finisher Card Tender Authentication Interface Message Text [facility] MATERNAL- MEDICINE CONSULT Referring/Requesting Provider: Mariela [...] weeks Ultrasound: growth Q4 DELIVERY PLAN Hospital: [place] Contraception: TBD : recommended Vaccinations recommended: Covid, influenza (Dec-July, any gestational age), TDap (27-36 weeks), RSV [(Abrysvo- Pfizer) between 32-36 weeks, December - April] Elevated ALT measurement 01/10/2025 Priority: High - Discussed possible etiologies including transient elevation, viral (more content not included)... Normal [facility] Renal creatinine clearance c alculated from serum or plasma and 24 hour urine creatiniOrdered By: Mariela Alvarado on 01-10-2025 Creatinine renal clearance (24H U+S/P) [Vol/Time] 181 ml/min 100-200 [facility] Serum Creatinine AND GFRon 0 01-10-2025 Creatinine [Mass/Vol] 0.59 mg/dL Low 0.70-1.20 [facility] Comment on above: Performed By: #### L 501.1105 #### [facility] [address] [place], [place], [id number] GFR/1.73 sq M.predicted among non-blacks MDRD (S/P/Bld) [Vol rate/Area] 130 mL/min/{1.73_m2} Normal >60 [facility] Comment on above: Result Comment: mL/m in/1.73m2 CKD-EPI Creatinine Equation (2020) Performed By: #### L 501.1105 #### [facility] [address] [place], [place], [id number] Serum creatinine measurement (mass/volume)Ordered By: Lakeisha Flowers on 01-10-2025 Creatinine [Mass/Vol] 0.59 mg/dL Low 0.70-1.20 [facility] Total urine volume measureme ntOrdered By: Mariela Alvarado on 01-10-2025 Specimen volume (U) 2600.0 ML [facility] URINE CULTUREon 01-10-2025 Bacteria identified Cx Nom (U) Urine Culture [id number] COLI >100,000 CFU/ml Escherichia coli Organism: ESCHERICHIA [...] F Extended Spectrum b-lactamase N F Normal [facility] Comment on above: Order Comment: Relea se to patient->Automatic Urine creatinine measurement (mass/volume)Ordered By: Mariela Alvarado on 01-10-2025 Creatinine (U) [Mass/Vol] 59.10 mg/dL 28.00-217.00 [facility] Comment on above: *Additional results available. Contact laboratory/see report* Urine Cultureon 12-31-2024 URC Escherichia coli [place] Count >100,000 Escherichia coli: REACTION Ampicillin Islt [...] TMP SMX Islt KATY <=20 S Normal [facility] Comment on above: Performed By: #### M 100.3168 #### [facility] [address] [place], [address] Laboratory - Chemistry and C hemistry - challengeOrdered By: Lakeisha Flowers on 12-29-2024 Bilirubin Ql (U) Negative [facility] Glucose Ql (U) Negative [facility] Ketones Ql (U) Negative [facility] pH (U) 6.0 [pH] [facility] Specific gravity (U) [Rel density] 1.010 [facility] Urobilinogen (U) [Mass/Vol] Negative [facility] Laboratory - Hematology and Cell countsOrdered By: Lakeisha Flowers on 12-29-2024 Hemoglobin Ql (U) Hemolyzed [facility] Laboratory - Specimen inform ationOrdered By: Lakeisha Flowers on 12-29-2024 Clarity (U) Cloudy [facility] Color (U) YELLOW [facility] Laboratory - UrinalysisOrder ed By: Lakeisha Flowers on 12-29-2024 Nitrite Ql (U) Negative [facility] Protein Ql (U) Trace [facility] No Panel InformationOrdered By: Lakeisha Flowers on 12-29-2024 Urine Leukocytes Positive [facility] Urine Non-Hemolyzed Blood Large [facility] Prevention Specialist Office Visit Reporton 12-29-2024 Prevention Specialist Office Visit Report [facility]'[address], [address] [place] [address] OFFICE VISIT Date of Service: 12/29/24 MR#: [id number] Acct: [id number] Name: MAREN BARNEY Rep #: [id number] : 2000 Provider: HECTOR doe Age/Sex: 24/F [place] [facility] [place]: Signed Intake Vital Signs 12/27/24 10:25 12/29/24 13:40 12/29/24 13:51 Height 5 ft 8 in 5 ft 8 in 5 ft 8 in Weight: 314 lb 4 oz BMI 47.7 BP 135/88 H Intake Visit Reasons: OB, hematuria, dysuria Chief Complaint: OB hematuria and dysuria Hand I Cutter Required: No Is patient in pain?: No [...] house current occupational status: employed current occupation: [employer] current occupational exposures/hazards: No pets and animals: [...] 3-4 times per week duration: 15-30 minutes/day sveta/christian: None seatbelt use: always do you feel safe at home: Yes 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 pt reports normal BPs at home. 11/29/24 -???-???-???-???-???- ???-???-???-???-???-? ??-???- 15w 6d 319 lb 130/86 Negative -???-???-???-???-???- ???-???-???-???-???-? ??-???- Negative 158 -???-???-???-???-???- ???-???-???-???-???-? (more content not included)... Normal [facility] Urine cultureOrdered By: Kyle Flowers on 12-29-2024 Bacteria identified Cx Nom (U) Escherichia coli Abnormal [facility] Absolute lymphocyte countOrd ered By: Mariela Alvarado on 12-28-2024 Lymphocytes Auto (Unsp spec) [#/Vol] 1.29 10*3/uL 0.83-4.51 [facility] Absolute neutrophil countOrd ered By: Mariela Alvarado on 12-28-2024 Neutrophils (Bld) [#/Vol] 8.2 10*3/uL High 2.0-7.7 [facility] Anion gap in Serum or Plasma Ordered By: Mariela Alvarado on 12-28-2024 Anion gap [Moles/Vol] 12 mmol/L 5-15 [facility] Automated lymphocyte count a s percentage of total leukocytesOrdered By: Mariela Alvarado on 12-28-2024 Lymphocytes/100 WBC Auto (Unsp spec) 12.6 % Low 19-41 [facility] BUN/creatinine ratioOrdered By: Mariela Alvarado on 12-28-2024 Urea nitrogen/Creatinine [Mass ratio] 9.9 mg/mg Low 10-20 [facility] Basophil percentageOrdered B y: Mariela Alvarado on 12-28-2024 Basophils/100 WBC (Bld) 0.3 % 0-1 [facility] Bilirubin, totalOrdered By: Mariela Alvarado on 12-28-2024 Bilirubin [Mass/Vol] 0.38 mg/dL 0.00-1.30 [facility] CBC W/Diff, Automatedon 12-13 Absolute Lymph 1.29 X10 3/uL Normal 0.83-4.51 [facility] Comment on above: Performed By: #### M 100.2200 #### [facility] [address] [place], [address] Absolute Neut 8.2 X10 3/uL High 2.0-7.7 [facility] Comment on above: Performed By: #### M 100.2200 #### [facility] [address] [place], [address] Basophils/100 WBC (Bld) 0.3 % Normal 0-1 [facility] Comment on above: Performed By: #### M 100.2200 #### [facility] [address] [place], [address] Eosinophils/100 WBC (Bld) 0.9 % Normal 0-5 [facility] Comment on above: Performed By: #### M 100.2200 #### [facility] [address] [place], [address] Erythrocyte distribution width (RBC) [Ratio] 15.0 % High 11.6-14.6 [facility] Comment on above: Performed By: #### M 100.2200 #### [facility] [address] [place], [address] Hematocrit (Bld) [Volume fraction] 39.6 % Normal 37-47 [facility] Comment on above: Performed By: #### M 100.2200 #### [facility] [address] [place], [address] Hemoglobin (Bld) [Mass/Vol] 13.2 g/dL Normal 12.0-15.0 [facility] Comment on above: Performed By: #### M 100.2200 #### [facility] [address] [place], [address] IG% 0.400 Normal 0.0-0.9 [facility] Comment on above: Result Comment: IG% - Immature Granulocytes (promyelocytes, myelocytes and metamyelocytes) > 1% indicates that a LEFT SHIFT is Present. Performed By: #### M 100.2200 #### [facility] [address] [place], [address] Lymphocytes/100 WBC (Bld) 12.6 % Low 19-41 [facility] Comment on above: Performed By: #### M 100.2200 #### [facility] [address] [place], [address] MCH (RBC) [Entitic mass] 28.2 pg Normal 27.0-32.0 [facility] Comment on above: Performed By: #### M 100.2200 #### [facility] [address] [place], [address] MCHC (RBC) [Mass/Vol] 33.3 g/dL Normal 32-36 [facility] Comment on above: Performed By: #### M 100.2200 #### [facility] [address] [place], [address] MCV (RBC) [Entitic vol] 84.6 fL Normal 81-99 [facility] Comment on above: Performed By: #### M 100.2200 #### [facility] [address] [place], [address] Monocytes/100 WBC (Bld) 5.6 % Normal 0-10 [facility] Comment on above: Performed By: #### M 100.2200 #### [facility] [address] [place], [address] Neutrophils/100 WBC (Bld) 80.2 % High 47-70 [facility] Comment on above: Performed By: #### M 100.2200 #### [facility] [address] [place], [address] Nucleated RBC (Bld) [#/Vol] 0 10*3/uL Normal 0-5 [facility] Comment on above: Performed By: #### M 100.2200 #### [facility] [address] [place], [address] Platelet mean volume (Bld) [Entitic vol] 9.5 fL Normal 6.2-12.0 [facility] Comment on above: Performed By: #### M 100.2200 #### [facility] [address] [place], [address] Platelets (Bld) [#/Vol] 296 10*3/uL Normal 150-450 [facility] Comment on above: Performed By: #### M 100.2200 #### [facility] [address] [place], [address] RBC (Bld) [#/Vol] 4.68 10*6/uL Normal 4.2-5.4 [facility] Comment on above: Performed By: #### M 100.2200 #### [facility] [address] [place], [address] RDW SD 45.8 fl High 35.1-43.9 [facility] Comment on above: Performed By: #### M 100.2200 #### [facility] [address] [place], [address] WBC (Bld) [#/Vol] 10.2 10*3/uL Normal 4.4-11.0 [facility] Comment on above: Performed By: #### M 100.2200 #### [facility] [address] [place], [address] Carbon dioxide, total [Moles /volume] in Central venous bloodOrdered By: Mariela Alvarado on 12-28-2024 CO2 [Moles/Vol] 20.2 mmol/L Low 21.0-32.0 [facility] Chloride assayOrdered By: Mauricio Alvarado on 12-28-2024 Chloride [Moles/Vol] 104 mmol/L 98-108 [facility] Comprehensive Metabolic Prof ilon 12-28-2024 Albumin [Mass/Vol] 3.6 g/dL Normal 3.5-5.0 [facility] Comment on above: Performed By: #### M 100.0 #### [facility] [address] [place], [address] Albumin/Globulin [Mass ratio] 1.1 {ratio} Normal 0.9-2.4 [facility] Comment on above: Performed By: #### M 100.2200 #### [facility] [address] [place], [address] ALK PHOS 127 U/L High 35-104 [facility] Comment on above: Performed By: #### M 100.2200 #### [facility] [address] [place], [address] ALT [Catalytic activity/Vol] 71 U/L High <=34 [facility] Comment on above: Performed By: #### M 100.2200 #### [facility] [address] [place], [address] AST [Catalytic activity/Vol] 28 U/L Normal <=31 [facility] Comment on above: Performed By: #### M 100.2200 #### [facility] [address] [place], [address] Bilirubin [Mass/Vol] 0.38 mg/dL Normal 0.00-1.30 [facility] Comment on above: Performed By: #### M 100.2200 #### [facility] [address] [place], [address] BUN/CRE 9.9 RATIO Low 10-20 [facility] Comment on above: Performed By: #### M 100.2200 #### [facility] [address] [place], [address] Calcium [Mass/Vol] 9.2 mg/dL Normal 7.6-11.0 [facility] Comment on above: Performed By: #### M 100.2200 #### [facility] [address] [place], [address] Chloride [Moles/Vol] 104 mmol/L Normal 98-108 [facility] Comment on above: Performed By: #### M 100.2200 #### [facility] [address] [place], [address] CO2 [Moles/Vol] 20.2 mmol/L Low 21.0-32.0 [facility] Comment on above: Performed By: #### M 100.2200 #### [facility] [address] [place], [address] Creatinine [Mass/Vol] 0.53 mg/dL Low 0.70-1.20 [facility] Comment on above: Performed By: #### M 100.2200 #### [facility] [address] [place], [address] GAP 12 Normal 5-15 [facility] Comment on above: Performed By: #### M 100.2200 #### [facility] [address] [place], [address] GFR/1.73 sq M.predicted among non-blacks MDRD (S/P/Bld) [Vol rate/Area] 133 mL/min/{1.73_m2} Normal >60 [facility] Comment on above: Result Comment: mL/m in/1.73m2 CKD-EPI Creatinine Equation (2020) Performed By: #### M 100.2200 #### [facility] [address] [place], [address] Globulin (S) [Mass/Vol] 3.4 g/dL Normal 2.2-4.2 [facility] Comment on above: Performed By: #### M 100.2200 #### [facility] [address] [place], [address] Glucose [Mass/Vol] 87 mg/dL Normal 70-99 [facility] Comment on above: Performed By: #### M 100.2200 #### [facility] [address] [place], [address] Potassium [Moles/Vol] 3.8 mmol/L Normal 3.3-5.1 [facility] Comment on above: Performed By: #### M 100.2200 #### [facility] [address] [place], [address] Sodium [Moles/Vol] 136 mmol/L Normal 133-145 [facility] Comment on above: Performed By: #### M 100.2200 #### [facility] [address] [place], [address] T PROT 7.1 g/dL Normal 5.9-8.4 [facility] Comment on above: Performed By: #### M 100.2200 #### [facility] [address] [place], [address] Urea nitrogen [Mass/Vol] 5 mg/dL Normal 4-19 [facility] Comment on above: Performed By: #### M 100.2200 #### [facility] [address] [place], [address] Eosinophil percentageOrdered By: Mariela Alvarado on 12-28-2024 Eosinophils/100 WBC (Bld) 0.9 % 0-5 [facility] Erythrocyte distribution wid th ratioOrdered By: Mariela Alvarado on 12-28-2024 Erythrocyte distribution width (RBC) [Ratio] 15.0 % High 11.6-14.6 [facility] Erythrocyte distribution wid th standard deviationOrdered By: Mariela Alvarado on 12-28-2024 Erythrocyte distribution width (RBC) [Ratio] 45.8 fl High 35.1-43.9 [facility] Glomerular filtration rate ( GFR) estimation/1.73 sq m using serum, plasma, or whole bOrdered By: Mariela Alvarado on 12-28-2024 GFR/1.73 sq M.predicted among non-blacks MDRD (S/P/Bld) [Vol rate/Area] 133 mL/min/{1.73_m2} >60 [facility] Comment on above: mL/min/1.73m2 CKD-EP I Creatinine Equation (2020) Hematocrit Auto (Bld) [Volum e fraction]Ordered By: Mariela Alvarado on 12-28-2024 Hematocrit (Bld) [Volume fraction] 39.6 % 37-47 [facility] Hemoglobin measurementOrdere d By: Mariela Alvarado on 12-28-2024 Hemoglobin (Bld) [Mass/Vol] 13.2 g/dL 12.0-15.0 [facility] Immature granulocytes/100 WB C Auto (Bld)Ordered By: Mariela Alvarado on 12-28-2024 Immature granulocytes/100 WBC (Bld) 0.400 % 0.0-0.9 [facility] Comment on above: IG% - Immature Granu locytes (promyelocytes, myelocytes and metamyelocytes) > 1% indicates that a LEFT SHIFT is Present. Laboratory - Chemistry and C hemistry - challengeOrdered By: Mariela Alvarado on 12-28-2024 AST [Catalytic activity/Vol] 28 U/L <32 [facility] MCV (mean corpuscular volume ) determinationOrdered By: Mariela Alvarado on 12-28-2024 MCV (RBC) [Entitic vol] 84.6 fL 81-99 [facility] Mean corpuscular hemoglobin (MCH) determinationOrdered By: Mariela Alvarado on 12-28-2024 MCH (RBC) [Entitic mass] 28.2 pg 27.0-32.0 [facility] Mean corpuscular hemoglobin concentration (MCHC) determinationOrdered By: Mariela Alvarado on 12-28-2024 MCHC (RBC) [Mass/Vol] 33.3 g/dL 32-36 [facility] Mean platelet volume determi nationOrdered By: Mariela Alvarado on 12-28-2024 Platelet mean volume (Bld) [Entitic vol] 9.5 fL 6.2-12.0 [facility] Monocyte percentageOrdered B y: Mariela Alvarado on 12-28-2024 Monocytes/100 WBC (Bld) 5.6 % 0-10 [facility] Neutrophil percentageOrdered By: Mariela Alvarado on 12-28-2024 Neutrophils/100 WBC (Bld) 80.2 % High 47-70 [facility] Nucleated red blood cell per centageOrdered By: Mariela Alvarado on 12-28-2024 Nucleated RBC/100 WBC (Bld) [Ratio] 0 % 0-5 [facility] Platelet countOrdered By: Mauricio Alvarado on 12-28-2024 Platelets (Bld) [#/Vol] 296 10*3/uL 150-450 [facility] Potassium measurement (mass/ volume)Ordered By: Mariela Alvarado on 12-28-2024 Potassium (Unsp spec) [Mass/Vol] 3.8 mmol/L 3.3-5.1 [facility] RBC Auto (Bld) [#/Vol]Ordere d By: Mariela Alvarado on 12-28-2024 RBC (Bld) [#/Vol] 4.68 10*6/uL 4.2-5.4 [facility] Serum creatinine measurement (mass/volume)Ordered By: Mariela Alvarado on 12-28-2024 Creatinine [Mass/Vol] 0.53 mg/dL Low 0.70-1.20 [facility] Serum globulin measurementOr dered By: Mariela Alvarado on 12-28-2024 Globulin (S) [Mass/Vol] 3.4 g/dL 2.2-4.2 [facility] Serum glucose measurement (m ass/volume)Ordered By: Mariela Alvarado on 12-28-2024 Glucose [Mass/Vol] 87 mg/dL 70-99 [facility] Serum or plasma alanine will otransferase (ALT) measurementOrdered By: Mariela Alvarado on 12-28-2024 ALT [Catalytic activity/Vol] 71 U/L High <35 [facility] Serum or plasma albumin wilman urement (mass/volume)Ordered By: Mariela Alvarado on 12-28-2024 Albumin [Mass/Vol] 3.6 g/dL 3.5-5.0 [facility] Serum or plasma albumin/glob ulin mass ratioOrdered By: Mariela Alvarado on 12-28-2024 Albumin/Globulin [Mass ratio] 1.1 {ratio} 0.9-2.4 [facility] Serum or plasma alkaline kristel sphatase measurementOrdered By: Mariela Alvarado on 12-28-2024 ALP [Catalytic activity/Vol] 127 U/L High 35-104 [facility] [facility] Serum or plasma calcium wilman urement (mass/volume)Ordered By: Mariela Alvarado on 12-28-2024 Calcium [Mass/Vol] 9.2 mg/dL 7.6-11.0 [facility] Serum or plasma urea nitroge n measurement (mass/volume)Ordered By: Mariela Alvarado on 12-28-2024 Urea nitrogen [Mass/Vol] 5 mg/dL 4-19 [facility] Sodium levelOrdered By: Zaheer Alvarado on 12-28-2024 Sodium [Moles/Vol] 136 mmol/L 133-145 [facility] Total proteinOrdered By: Alvarez Alvarado on 12-28-2024 Protein [Mass/Vol] 7.1 g/dL 5.9-8.4 [facility] White blood cell (WBC) count Ordered By: Mariela Alvarado on 12-28-2024 WBC (Bld) [#/Vol] 10.2 10*3/uL 4.4-11.0 [facility] Laboratory - Chemistry and C hemistry - challengeOrdered By: Mariela Alvarado on 12-27-2024 Glucose Ql (U) Negative [facility] Laboratory - UrinalysisOrder ed By: Mariela Alvarado on 12-27-2024 Protein Ql (U) Negative [facility] Prevention Specialist Office Visit Reporton 12-27-2024 Prevention Specialist Office Visit Report [facility]'s [address], [address] [place] [address] OFFICE VISIT Date of Service: 12/27/24 MR#: [id number] Acct: [id number] Name: MAREN BARNEY Rep #: [id number] : 2000 Provider: Dr. Mariela puckett MD Age/Sex: 24/F [place] [facility] [place]: Signed Intake Vital Signs 11/01/24 13:49 11/29/24 11:40 12/27/24 10:21 12/27/24 10:25 Height 5 ft 8 in 5 ft 8 in 5 ft 8 in 5 ft 8 in Weight: 316 lb 9 oz BMI 48.1 BP 138/87 H Intake Visit Reasons: 20wk ob Hand I Cutter Required: No Is patient in pain?: No [...] house current occupational status: employed current occupation: [employer] current occupational exposures/hazards: No pets and [...] 3-4 times per week duration: 15-30 minutes/day sveta/christian: None seatbelt use: always do you feel safe at home: Yes additional social history: : [employer] - [employer] History 1 Elective abortions Hx Para 0 [...] ??-???- kw- no vb/cr amping. doing better. [facility] anatomy US ordered. if too expensive will call and do [facility] scan. pt reports normal BPs at home. 11/29/24 -???-???-???-???-???- ???-???-???-???-???-? ??-???- 15w 6d 319 lb 130/86 Negative -???-???-???-???-???- ???-???-???-???-???-? ??-???- Negative 158 -???-???-???-???-???- ???-???-???-???-???-? ??-???- KW- no vb/cr amping. has not gotten call from [facility] to schedule US. will reorder US. Declines AFP. 12/27/24 -???-???-? (more content not included)... Normal [facility] Laboratory - Chemistry and C hemistry - challengeOrdered By: Kt Avila on 11-29-2024 Glucose Ql (U) Negative [facility] Laboratory - UrinalysisOrder ed By: Kt Avila on 11-29-2024 Protein Ql (U) Negative [facility] Prevention Specialist Office Visit Reporton 11-29-2024 Prevention Specialist Office Visit Report [facility]'s [address], [address] [place] [address] OFFICE VISIT Date of Service: 11/29/24 MR#: [id number] Acct: [id number] Name: MAREN BARNEY Rep #: [id number] : 2000 Provider: RAFAELA Echevarria ams Age/Sex: 24/F Location: [facility] [place] Status: Signed Intake Vital Signs 10/06/24 13:07 11/01/24 13:49 11/29/24 11:40 Height 5 ft 8 in 5 ft 8 in 5 ft 8 in Weight: 319 lb BMI 48.4 BP 130/86 H Intake Visit Reasons: 16 wk ob Chief Complaint: 16wk OB Hand I Cutter Required: No Is patient in pain?: No [...] house current occupational status: employed current occupation: [employer] current occupational exposures/hazards: No pets and animals: [...] 3-4 times per week duration: 15-30 minutes/day sveta/christian: None seatbelt use: always do you feel safe at home: Yes 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 pt reports normal BPs at home. 11/29/24 -???-???-???-???-???- ???-???-???-???-???-? ??-???- 15w 6d 319 lb 130/86 Negative -???-???-???-???-???- ???-???-???-???-???-? ??-???- Negative 158 -???-???-???-???-???- ???-???-???-???-???-? ??-???- KW- no vb/cr amping. has not gotten call from [facility] to schedule US. will reorder US. Declines AFP. ACOG First Trimester First Trimester: Desire for , Alcohol, Tob (more content not included)... Normal [facility] NATERAon 11-17-2024 WATSON SEE SCANNED REPORT Normal [facility] Comment on above: Performed By: #### M 100.2200 #### [facility] [address] [place], [address] Anion gap in Serum or Plasma Ordered By: Joyce Santiago on 11-10-2024 Anion gap [Moles/Vol] 12 mmol/L 5-15 [facility] BUN/creatinine ratioOrdered By: Joyce Santiago on 11-10-2024 Urea nitrogen/Creatinine [Mass ratio] 12.2 mg/mg 10-20 [facility] Bilirubin, totalOrdered By: Joyce Santiago on 11-10-2024 Bilirubin [Mass/Vol] 0.22 mg/dL 0.00-1.30 [facility] Carbon dioxide, total [Moles /volume] in Central venous bloodOrdered By: Joyce Santiago on 11-10-2024 CO2 [Moles/Vol] 22.7 mmol/L 21.0-32.0 [facility] Chloride assayOrdered By: Henry Santiago on 11-10-2024 Chloride [Moles/Vol] 101 mmol/L 98-108 [facility] Comprehensive Metabolic Prof ilon 11-10-2024 Albumin [Mass/Vol] 3.9 g/dL Normal 3.5-5.0 [facility] Comment on above: Performed By: #### M 100.0 #### [facility] [address] [place], [address] Albumin/Globulin [Mass ratio] 1.2 {ratio} Normal 0.9-2.4 [facility] Comment on above: Performed By: #### M 100.0 #### [facility] [address] [place], [address] ALK PHOS 90 U/L Normal 35-104 [facility] Comment on above: Performed By: #### M 100.0 #### [facility] [address] [place], [address] ALT [Catalytic activity/Vol] 36 U/L High <=34 [facility] Comment on above: Performed By: #### M 100.2200 #### [facility] [address] [place], [address] AST [Catalytic activity/Vol] 17 U/L Normal <=31 [facility] Comment on above: Performed By: #### M 100.2200 #### [facility] [address] [place], [address] Bilirubin [Mass/Vol] 0.22 mg/dL Normal 0.00-1.30 [facility] Comment on above: Performed By: #### M 100.2200 #### [facility] [address] [place], [address] BUN/CRE 12.2 RATIO Normal 10-20 [facility] Comment on above: Performed By: #### M 100.2200 #### [facility] [address] [place], [address] Calcium [Mass/Vol] 9.3 mg/dL Normal 7.6-11.0 [facility] Comment on above: Performed By: #### M 100.2200 #### [facility] [address] [place], [address] Chloride [Moles/Vol] 101 mmol/L Normal 98-108 [facility] Comment on above: Performed By: #### M 100.2200 #### [facility] [address] [place], [address] CO2 [Moles/Vol] 22.7 mmol/L Normal 21.0-32.0 [facility] Comment on above: Performed By: #### M 100.2200 #### [facility] [address] [place], [address] Creatinine [Mass/Vol] 0.60 mg/dL Low 0.70-1.20 [facility] Comment on above: Performed By: #### M 100.2200 #### [facility] [address] [place], [address] GAP 12 Normal 5-15 [facility] Comment on above: Performed By: #### M 100.2200 #### [facility] [address] [place], [address] GFR/1.73 sq M.predicted among non-blacks MDRD (S/P/Bld) [Vol rate/Area] 129 mL/min/{1.73_m2} Normal >60 [facility] Comment on above: Result Comment: mL/m in/1.73m2 CKD-EPI Creatinine Equation (2020) Performed By: #### M 100.2200 #### [facility] [address] [place], [address] Globulin (S) [Mass/Vol] 3.3 g/dL Normal 2.2-4.2 [facility] Comment on above: Performed By: #### M 100.2200 #### [facility] [address] [place], [address] Glucose [Mass/Vol] 86 mg/dL Normal 70-99 [facility] Comment on above: Performed By: #### M 100.2200 #### [facility] [address] [place], [address] Potassium [Moles/Vol] 4.4 mmol/L Normal 3.3-5.1 [facility] Comment on above: Performed By: #### M 100.2200 #### [facility] [address] [place], [address] Sodium [Moles/Vol] 136 mmol/L Normal 133-145 [facility] Comment on above: Performed By: #### M 100.2200 #### [facility] [address] [place], [address] T PROT 7.2 g/dL Normal 5.9-8.4 [facility] Comment on above: Performed By: #### M 100.2200 #### [facility] [address] [place], [place], [address] Urea nitrogen [Mass/Vol] 7 mg/dL Normal 4-19 [facility] Comment on above: Performed By: #### M 100.2200 #### [facility] [address] [place], [address] Glomerular filtration rate ( GFR) estimation/1.73 sq m using serum, plasma, or whole bOrdered By: Joyce Santiago on 11-10-2024 GFR/1.73 sq M.predicted among non-blacks MDRD (S/P/Bld) [Vol rate/Area] 129 mL/min/{1.73_m2} >60 [facility] Comment on above: mL/min/1.73m2 CKD-EP I Creatinine Equation (2020) Laboratory - Chemistry and C hemistry - challengeOrdered By: Joyce Santiago on 11-10-2024 AST [Catalytic activity/Vol] 17 U/L <32 [facility] Potassium measurement (mass/ volume)Ordered By: Joyce Santiago on 11-10-2024 Potassium (Unsp spec) [Mass/Vol] 4.4 mmol/L 3.3-5.1 [facility] Serum creatinine measurement (mass/volume)Ordered By: Joyce Santiago on 11-10-2024 Creatinine [Mass/Vol] 0.60 mg/dL Low 0.70-1.20 [facility] Serum globulin measurementOr dered By: Joyce Santiago on 11-10-2024 Globulin (S) [Mass/Vol] 3.3 g/dL 2.2-4.2 [facility] Serum glucose measurement (m ass/volume)Ordered By: Joyce Santiago on 11-10-2024 Glucose [Mass/Vol] 86 mg/dL 70-99 [facility] Serum or plasma alanine will otransferase (ALT) measurementOrdered By: Joyce Santiago on 11-10-2024 ALT [Catalytic activity/Vol] 36 U/L High <35 [facility] Serum or plasma albumin wilman urement (mass/volume)Ordered By: Joyce Santiago on 11-10-2024 Albumin [Mass/Vol] 3.9 g/dL 3.5-5.0 [facility] Serum or plasma albumin/glob ulin mass ratioOrdered By: Joyce Santiago on 11-10-2024 Albumin/Globulin [Mass ratio] 1.2 {ratio} 0.9-2.4 [facility] Serum or plasma alkaline kristel sphatase measurementOrdered By: Joyce Santiago on 11-10-2024 ALP [Catalytic activity/Vol] 90 U/L 35-104 [facility] Serum or plasma calcium wilman urement (mass/volume)Ordered By: Joyce Santiago on 11-10-2024 Calcium [Mass/Vol] 9.3 mg/dL 7.6-11.0 [facility] Serum or plasma urea nitroge n measurement (mass/volume)Ordered By: Joyce Santiago on 11-10-2024 Urea nitrogen [Mass/Vol] 7 mg/dL 4-19 [facility] Sodium levelOrdered By: Alina Santiago on 11-10-2024 Sodium [Moles/Vol] 136 mmol/L 133-145 [facility] Total proteinOrdered By: Bettie Santiago on 11-10-2024 Protein [Mass/Vol] 7.2 g/dL 5.9-8.4 [facility] Absolute lymphocyte countOrd ered By: Joyce Santiago on 11-01-2024 Lymphocytes Auto (Unsp spec) [#/Vol] 1.69 10*3/uL 0.83-4.51 [facility] Absolute neutrophil countOrd ered By: Joyce Santiago on 11-01-2024 Neutrophils (Bld) [#/Vol] 9.2 10*3/uL High 2.0-7.7 [facility] Anion gap in Serum or Plasma Ordered By: Joyce Santiago on 11-01-2024 Anion gap [Moles/Vol] 12 mmol/L 5-15 [facility] Automated lymphocyte count a s percentage of total leukocytesOrdered By: Joyce Santiago on 11-01-2024 Lymphocytes/100 WBC Auto (Unsp spec) 14.4 % Low 19-41 [facility] BUN/creatinine ratioOrdered By: Joyce Santiago on 11-01-2024 Urea nitrogen/Creatinine [Mass ratio] 11.6 mg/mg 10-20 [facility] Basophil percentageOrdered B y: Joyce Santiago on 11-01-2024 Basophils/100 WBC (Bld) 0.3 % 0-1 [facility] Bilirubin, totalOrdered By: Joyce Santiago on 11-01-2024 Bilirubin [Mass/Vol] 0.19 mg/dL 0.00-1.30 [facility] CBC W/Diff, Automatedon 10-13-2024 Absolute Lymph 1.69 X10 3/uL Normal 0.83-4.51 [facility] Comment on above: Performed By: #### L 501.0250, L3890.6006, L100.0100, L509.8002 #### [facility] [address] [place], [address] Absolute Neut 9.2 X10 3/uL High 2.0-7.7 [facility] Comment on above: Performed By: #### L 501.0250, L3890.6006, L100.0100, L509.8002 #### [facility] [address] [place], [address] Basophils/100 WBC (Bld) 0.3 % Normal 0-1 [facility] Comment on above: Performed By: #### L 501.0250, L3890.6006, L100.0100, L509.8002 #### [facility] [address] [place], [address] Eosinophils/100 WBC (Bld) 0.7 % Normal 0-5 [facility] Comment on above: Performed By: #### L 501.0250, L3890.6006, L100.0100, L509.8002 #### [facility] [address] [place], [address] Erythrocyte distribution width (RBC) [Ratio] 14.6 % Normal 11.6-14.6 [facility] Comment on above: Performed By: #### L 501.0250, L3890.6006, L100.0100, L509.8002 #### [facility] [address] [place], [address] Hematocrit (Bld) [Volume fraction] 40.4 % Normal 37-47 [facility] Comment on above: Performed By: #### L 501.0250, L3890.6006, L100.0100, L509.8002 #### [facility] [address] [place], [address] Hemoglobin (Bld) [Mass/Vol] 12.8 g/dL Normal 12.0-15.0 [facility] Comment on above: Performed By: #### L 501.0250, L3890.6006, L100.0100, L509.8002 #### [facility] [address] [place], [address] IG% 0.300 Normal 0.0-0.9 [facility] Comment on above: Result Comment: IG% - Immature Granulocytes (promyelocytes, myelocytes and metamyelocytes) > 1% indicates that a LEFT SHIFT is Present. Performed By: #### L 501.0250, L3890.6006, L100.0100, L509.8002 #### [facility] [address] [place], [address] Lymphocytes/100 WBC (Bld) 14.4 % Low 19-41 [facility] Comment on above: Performed By: #### L 501.0250, L3890.6006, L100.0100, L509.8002 #### [facility] [address] [place], [address] MCH (RBC) [Entitic mass] 26.6 pg Low 27.0-32.0 [facility] Comment on above: Performed By: #### L 501.0250, L3890.6006, L100.0100, L509.8002 #### [facility] [address] [place], [address] MCHC (RBC) [Mass/Vol] 31.7 g/dL Low 32-36 [facility] Comment on above: Performed By: #### L 501.0250, L3890.6006, L100.0100, L509.8002 #### [facility] [address] [place], [address] MCV (RBC) [Entitic vol] 84.0 fL Normal 81-99 [facility] Comment on above: Performed By: #### L 501.0250, L3890.6006, L100.0100, L509.8002 #### [facility] [address] [place], [address] Monocytes/100 WBC (Bld) 5.8 % Normal 0-10 [facility] Comment on above: Performed By: #### L 501.0250, L3890.6006, L100.0100, L509.8002 #### [facility] [address] [place], [address] Neutrophils/100 WBC (Bld) 78.5 % High 47-70 [facility] Comment on above: Performed By: #### L 501.0250, L3890.6006, L100.0100, L509.8002 #### [facility] [address] [place], [address] Nucleated RBC (Bld) [#/Vol] 0 10*3/uL Normal 0-5 [facility] Comment on above: Performed By: #### L 501.0250, L3890.6006, L100.0100, L509.8002 #### [facility] [address] [place], [address] Platelet mean volume (Bld) [Entitic vol] 9.5 fL Normal 6.2-12.0 [facility] Comment on above: Performed By: #### L 501.0250, L3890.6006, L100.0100, L509.8002 #### [facility] [address] [place], [address] Platelets (Bld) [#/Vol] 333 10*3/uL Normal 150-450 [facility] Comment on above: Performed By: #### L 501.0250, L3890.6006, L100.0100, L509.8002 #### [facility] [address] [place], [address] RBC (Bld) [#/Vol] 4.81 10*6/uL Normal 4.2-5.4 [facility] Comment on above: Performed By: #### L 501.0250, L3890.6006, L100.0100, L509.8002 #### [facility] [address] [place], [address] RDW SD 44.6 fl High 35.1-43.9 [facility] Comment on above: Performed By: #### L 501.0250, L3890.6006, L100.0100, L509.8002 #### [facility] [address] [place], [address] WBC (Bld) [#/Vol] 11.8 10*3/uL High 4.4-11.0 [facility] Comment on above: Performed By: #### L 501.0250, L3890.6006, L100.0100, L509.8002 #### [facility] [address] [place], [address] Carbon dioxide, total [Moles /volume] in Central venous bloodOrdered By: Joyce Santiago on 11-01-2024 CO2 [Moles/Vol] 22.4 mmol/L 21.0-32.0 [facility] Chloride assayOrdered By: Henry Santiago on 11-01-2024 Chloride [Moles/Vol] 102 mmol/L 98-108 [facility] Comprehensive Metabolic Prof ilon 11-01-2024 Albumin [Mass/Vol] 4.0 g/dL Normal 3.5-5.0 [facility] Comment on above: Performed By: #### L 501.0250, L3890.6006, L100.0100, L509.8002 #### [facility] [address] [place], [address] Albumin/Globulin [Mass ratio] 1.2 {ratio} Normal 0.9-2.4 [facility] Comment on above: Performed By: #### L 501.0250, L3890.6006, L100.0100, L509.8002 #### [facility] [address] [place], [address] ALK PHOS 93 U/L Normal 35-104 [facility] Comment on above: Performed By: #### L 501.0250, L3890.6006, L100.0100, L509.8002 #### [facility] [address] [place], [address] ALT [Catalytic activity/Vol] 50 U/L High <=34 [facility] Comment on above: Performed By: #### L 501.0250, L3890.6006, L100.0100, L509.8002 #### [facility] [address] [place], [address] AST [Catalytic activity/Vol] 22 U/L Normal <=31 [facility] Comment on above: Performed By: #### L 501.0250, L3890.6006, L100.0100, L509.8002 #### [facility] [address] [place], [address] Bilirubin [Mass/Vol] 0.19 mg/dL Normal 0.00-1.30 [facility] Comment on above: Performed By: #### L 501.0250, L3890.6006, L100.0100, L509.8002 #### [facility] [address] [place], [address] BUN/CRE 11.6 RATIO Normal 10-20 [facility] Comment on above: Performed By: #### L 501.0250, L3890.6006, L100.0100, L509.8002 #### [facility] [address] [place], [address] Calcium [Mass/Vol] 9.4 mg/dL Normal 7.6-11.0 [facility] Comment on above: Performed By: #### L 501.0250, L3890.6006, L100.0100, L509.8002 #### [facility] [address] [place], [address] Chloride [Moles/Vol] 102 mmol/L Normal 98-108 [facility] Comment on above: Performed By: #### L 501.0250, L3890.6006, L100.0100, L509.8002 #### [facility] [address] [place], [address] CO2 [Moles/Vol] 22.4 mmol/L Normal 21.0-32.0 [facility] Comment on above: Performed By: #### L 501.0250, L3890.6006, L100.0100, L509.8002 #### [facility] [address] [place], [address] Creatinine [Mass/Vol] 0.65 mg/dL Low 0.70-1.20 [facility] Comment on above: Performed By: #### L 501.0250, L3890.6006, L100.0100, L509.8002 #### [facility] [address] [place], [address] GAP 12 Normal 5-15 [facility] Comment on above: Performed By: #### L 501.0250, L3890.6006, L100.0100, L509.8002 #### [facility] [address] [place], [address] GFR/1.73 sq M.predicted among non-blacks MDRD (S/P/Bld) [Vol rate/Area] 128 mL/min/{1.73_m2} Normal >60 [facility] Comment on above: Result Comment: mL/m in/1.73m2 CKD-EPI Creatinine Equation (2020) Performed By: #### L 501.0250, L3890.6006, L100.0100, L509.8002 #### [facility] [address] [place], [address] Globulin (S) [Mass/Vol] 3.2 g/dL Normal 2.2-4.2 [facility] Comment on above: Performed By: #### L 501.0250, L3890.6006, L100.0100, L509.8002 #### [facility] [address] [place], [address] Glucose [Mass/Vol] 99 mg/dL Normal 70-99 [facility] Comment on above: Performed By: #### L 501.0250, L3890.6006, L100.0100, L509.8002 #### [facility] [address] [place], [address] Potassium [Moles/Vol] 4.1 mmol/L Normal 3.3-5.1 [facility] Comment on above: Performed By: #### L 501.0250, L3890.6006, L100.0100, L509.8002 #### [facility] [address] [place], [address] Sodium [Moles/Vol] 137 mmol/L Normal 133-145 [facility] Comment on above: Performed By: #### L 501.0250, L3890.6006, L100.0100, L509.8002 #### [facility] [address] [place], [address] T PROT 7.2 g/dL Normal 5.9-8.4 [facility] Comment on above: Performed By: #### L 501.0250, L3890.6006, L100.0100, L509.8002 #### [facility] [address] [place], [address] Urea nitrogen [Mass/Vol] 8 mg/dL Normal 4-19 [facility] Comment on above: Performed By: #### L 501.0250, L3890.6006, L100.0100, L509.8002 #### [facility] [address] [place], [address] Eosinophil percentageOrdered By: Joyce Santiago on 11-01-2024 Eosinophils/100 WBC (Bld) 0.7 % 0-5 [facility] Erythrocyte distribution wid th ratioOrdered By: Joyce Santiago on 11-01-2024 Erythrocyte distribution width (RBC) [Ratio] 14.6 % 11.6-14.6 [facility] Erythrocyte distribution wid th standard deviationOrdered By: Joyce Santiago on 11-01-2024 Erythrocyte distribution width (RBC) [Ratio] 44.6 fl High 35.1-43.9 [facility] Glomerular filtration rate ( GFR) estimation/1.73 sq m using serum, plasma, or whole bOrdered By: Joyce Santiago on 11-01-2024 GFR/1.73 sq M.predicted among non-blacks MDRD (S/P/Bld) [Vol rate/Area] 128 mL/min/{1.73_m2} >60 [facility] Comment on above: mL/min/1.73m2 CKD-EP I Creatinine Equation (2020) HIVon 11-01-2024 HIV Non-Reactive Normal Nonreactive [facility] Comment on above: Result Comment: Non- Reactive Reactive Repeatedly reactive samples must be confirmed according to CDC recommended confirmatory algorithms. The subresults for either HIVAG or AHIV can be used as an aid in the selection of the confirmation algorithm for reactive samples. Send out specimens with Reactive results to [facility] for confirmation. Order the HIV antibody detection and differentiation: lc#[id number] Performed By: #### L 501.0250, L3890.6006, L100.0100, L509.8002 #### [facility] [address] [place], [place], [address] Hematocrit Auto (Bld) [Volum e fraction]Ordered By: Joyce Santiago on 11-01-2024 Hematocrit (Bld) [Volume fraction] 40.4 % 37-47 [facility] Hemoglobin A1con 11-01-2024 HbA1c (Bld) [Mass fraction] 5.1 % Normal <=5.6 [facility] Comment on above: Result Comment: Norm al < 5.7 % Prediabetic 5.7 - 6.4 % Diabetic >or= 6.5 % Please note range changes. Performed By: #### L 501.0250, L3890.6006, L100.0100, L509.8002 #### [facility] [address] [place], [place], [address] Hemoglobin A1c percentageOrd ered By: Joyce Santiago on 11-01-2024 HbA1c (Bld) [Mass fraction] 5.1 % <5.7 [facility] Comment on above: Normal < 5.7 % Predi abetic 5.7 - 6.4 % Diabetic >or= 6.5 % Please note range changes. Hemoglobin measurementOrdere d By: Joyce Santiago on 11-01-2024 Hemoglobin (Bld) [Mass/Vol] 12.8 g/dL 12.0-15.0 [facility] Hepatitis C Antibodyon 11-01 Hepatitis C Ab Non-Reactive Normal Nonreactive [facility] Comment on above: Result Comment: Reac tive: Presumptive evidence of antibodies to HCV. Follow CDC recommendations for supplemental testing. Non-Reactive: Antibodies to HCV were not detected; does not exclude the possibility of exposure to HCV Reactive Results are presumptive evidence of antibodies to HCV. Follow CDC recommendations for supplemental testing. Order confirmation testing: HCV Quant by PCR testing - HCVPCR #[id number] Non Reactive: < 0.8 Equivocal: >/= 0.8 to < 1.0 Reactive: >/= 1.0 The CDC requires that a reactive/equivocal HCV antibody result be sent out for confirmation. HCV Quant by PCR testing. Performed By: #### L 501.0250, L3890.6006, L100.0100, L509.8002 #### [facility] [address] [place], [address] Immature granulocytes/100 WB C Auto (Bld)Ordered By: Joyce Santiago on 11-01-2024 Immature granulocytes/100 WBC (Bld) 0.300 % 0.0-0.9 [facility] Comment on above: IG% - Immature Granu locytes (promyelocytes, myelocytes and metamyelocytes) > 1% indicates that a LEFT SHIFT is Present. L3890.6102on 11-01-2024 HEP B Surf Ag Non-Reactive Normal Nonreactive [facility] Comment on above: Result Comment: Reac tive: Presumptive evidence of HBV. Repeatedly reactive samples must be confirmed using a neutralization test ([employer] HBsAg Confirmatory Test) Non-Reactive: HBsAg not detected; does not exclude the possibility of exposure to HBV Performed By: #### L 501.0250, L3890.6006, L100.0100, L509.8002 #### [facility] [address] [place], [address] L509.4006on 11-01-2024 Rubella IgG REAC Normal Nonreactive [facility] Comment on above: Result Comment: Anti body Result: Interpretation Non-Reactive: Non-Immune Reactive: Immune The following results were obtained with the [employer] Rubella IgG assay. Results from assays of other manufacturers cannot be used interchangeably. Performed By: #### L 501.0250, L3890.6006, L100.0100, L509.8002 #### [facility] [address] [place] [place], [address] Laboratory - Chemistry and C hemistry - challengeOrdered By: Joyce Santiago on 11-01-2024 AST [Catalytic activity/Vol] 22 U/L <32 [facility] - Microbiology an d Antimicrobial susceptibilityOrdered By: Joyce Santiago on 11-01-2024 HBV surface Ag Ql (S) Non-Reactive Nonreactive [facility] Comment on above: Reactive: Presumptiv e evidence of HBV. Repeatedly reactive samples must be confirmed using a neutralization test ([employer] HBsAg Confirmatory Test)Non-Reactive: HBsAg not detected; does not exclude the possibility of exposure to HBV MCV (mean corpuscular volume ) determinationOrdered By: Joyce Santiago on 11-01-2024 MCV (RBC) [Entitic vol] 84.0 fL 81-99 [facility] Mean corpuscular hemoglobin (MCH) determinationOrdered By: Joyce Santiago on 11-01-2024 MCH (RBC) [Entitic mass] 26.6 pg Low 27.0-32.0 [facility] Mean corpuscular hemoglobin concentration (MCHC) determinationOrdered By: Joyce Santiago on 11-01-2024 MCHC (RBC) [Mass/Vol] 31.7 g/dL Low 32-36 [facility] Mean platelet volume determi nationOrdered By: Joyce Santiago on 11-01-2024 Platelet mean volume (Bld) [Entitic vol] 9.5 fL 6.2-12.0 [facility] Monocyte percentageOrdered B y: Joyce Santiago on 11-01-2024 Monocytes/100 WBC (Bld) 5.8 % 0-10 [facility] NATERAon 11-01-2024 NATURA SEE SCANNED REPORT Normal [facility] Comment on above: Performed By: #### M 100.7305 #### [facility] [address] [place], [place], [address] Neutrophil percentageOrdered By: Joyce Santiago on 11-01-2024 Neutrophils/100 WBC (Bld) 78.5 % High 47-70 [facility] No Panel InformationOrdered By: Joyce Santiago on 11-01-2024 HIV (1&2) Antibody Non-Reactive Nonreactive [facility] Comment on above: Non-ReactiveReactive Repeatedly reactive samples must be confirmed according to CDC recommended confirmatory algorithms. The subresults for either HIVAG or AHIV can be used as an aid in the selection of the confirmation algorithm for reactive samples.Send out specimens with Reactive results to [facility] for confirmation.Order the HIV antibody detection and differentiation: #[id number] Nucleated red blood cell per centageOrdered By: Joyce Santiago on 11-01-2024 Nucleated RBC/100 WBC (Bld) [Ratio] 0 % 0-5 [facility] Prevention Specialist Office Visit Reporton 11-01-2024 Prevention Specialist Office Visit Report [facility] [address], [address] [place] [address] OFFICE VISIT Date of Service: 11/01/24 MR#: [id number] Acct: [id number] Name: MAREN BARNEY Rep #: [id number] : 2000 Provider: RAFAELA Echevarria ams Age/Sex: 23/F [place] [facility] [place]: Signed Intake Vital Signs 03/18/24 09:30 10/06/24 13:07 11/01/24 13:49 11/01/24 14:22 Height 5 ft 8 in 5 ft 8 in 5 ft 8 in Weight: 322 lb BMI 48.9 BP 142/89 H 126/85 H Intake Visit Reasons: 12Wk OB Chief Complaint: 12wk OB Hand I Cutter Required: No Is patient in pain?: No [...] house current occupational status: employed current occupation: [employer] current occupational exposures/hazards: No pets and animals: [...] 3-4 times per week duration: 15-30 minutes/day sveta/christian: None seatbelt use: always do you feel safe at home: Yes 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 pt reports normal BPs at home. ACOG First Trimester First Trimester: Desire for , Alcohol, Tobacco Cessation, Illicit/Recreational Drug/Substance Use, Intimate Partner Violence, Barriers to care, Unstable Housing, Communication Barriers, Environmental/Work Hazards, Anticipated Course of Care, Toxoplasmosis Precations, Use of Any medications, Sexual activity, Exercise, D (more content not included)... Normal [facility] Platelet countOrdered By: Henry Santiago on 11-01-2024 Platelets (Bld) [#/Vol] 333 10*3/uL 150-450 [facility] Potassium measurement (mass/ volume)Ordered By: Joyce Santiago on 11-01-2024 Potassium (Unsp spec) [Mass/Vol] 4.1 mmol/L 3.3-5.1 [facility] Protein+Creatinine Ratio,Uri neon 11-01-2024 PROT:CRE RATIO 73 mg/g CRE Normal 0-200 [facility] Comment on above: Performed By: #### M 100.2200 #### [facility] [address] [place], [address] Protein (U) [Mass/Vol] 14.7 mg/dL High 0.0-12.0 [facility] Comment on above: Performed By: #### M 100.2200 #### [facility] [address] [place], [address] UR CREAT 201.00 mg/dL Normal 28.00-217.00 [facility] Comment on above: Performed By: #### M 100.2200 #### [facility] [address] [place], [address] RBC Auto (Bld) [#/Vol]Ordere d By: Joyce Santiago on 11-01-2024 RBC (Bld) [#/Vol] 4.81 10*6/uL 4.2-5.4 [facility] Random urine creatinine wilman urement (mass/volume)Ordered By: Joyce Santiago on 11-01-2024 Creatinine Unsp time (U) [Mass/Vol] 201.00 mg/dL 28.00-217.00 [facility] Serum creatinine measurement (mass/volume)Ordered By: Joyce Santiago on 11-01-2024 Creatinine [Mass/Vol] 0.65 mg/dL Low 0.70-1.20 [facility] Serum globulin measurementOr dered By: Joyce Santiago on 11-01-2024 Globulin (S) [Mass/Vol] 3.2 g/dL 2.2-4.2 [facility] Serum glucose measurement (m ass/volume)Ordered By: Joyce Santiago on 11-01-2024 Glucose [Mass/Vol] 99 mg/dL 70-99 [facility] Serum or plasma alanine will otransferase (ALT) measurementOrdered By: Joyce Santiago on 11-01-2024 ALT [Catalytic activity/Vol] 50 U/L High <35 [facility] Serum or plasma albumin wilman urement (mass/volume)Ordered By: Joyce Santiago on 11-01-2024 Albumin [Mass/Vol] 4.0 g/dL 3.5-5.0 [facility] Serum or plasma albumin/glob ulin mass ratioOrdered By: Joyce Santiago on 11-01-2024 Albumin/Globulin [Mass ratio] 1.2 {ratio} 0.9-2.4 [facility] Serum or plasma alkaline kristel sphatase measurementOrdered By: Joyce Santiago on 11-01-2024 ALP [Catalytic activity/Vol] 93 U/L 35-104 [facility] Serum or plasma calcium wilman urement (mass/volume)Ordered By: Joyce Santiago on 11-01-2024 Calcium [Mass/Vol] 9.4 mg/dL 7.6-11.0 [facility] Serum or plasma urea nitroge n measurement (mass/volume)Ordered By: Joyce Santiago on 11-01-2024 Urea nitrogen [Mass/Vol] 8 mg/dL 4-19 [facility] Sodium levelOrdered By: Alina Santiago on 11-01-2024 Sodium [Moles/Vol] 137 mmol/L 133-145 [facility] Syphilis Antibodieson 2024 Syphilis Abs Non-Reactive Normal Nonreactive [facility] Comment on above: Performed By: #### L 501.0250, L3890.6006, L100.0100, L509.8002 #### [facility] [address] [place], [address] Total proteinOrdered By: Bettie Santiago on 11-01-2024 Protein [Mass/Vol] 7.2 g/dL 5.9-8.4 [facility] Type AND Screenon 11-01-2024 Ab SCREEN GEL Negative Normal [facility] Comment on above: Order Comment: PN Performed By: #### L 501.0250, L3890.6006, L100.0100, L509.8002 #### [facility] [address] [place], [address] Urine protein measurement (m ass/volume)Ordered By: Joyce Santiago on 11-01-2024 Protein (U) [Mass/Vol] 14.7 mg/dL High 0.0-12.0 [facility] Urine protein/creatinine mas s ratioOrdered By: Joyce Santiago on 11-01-2024 Protein/Creatinine (U) [Mass ratio] 73 mg/g CRE 0-200 [facility] White blood cell (WBC) count Ordered By: Joyce Santiago on 11-01-2024 WBC (Bld) [#/Vol] 11.8 10*3/uL High 4.4-11.0 [facility] Chlamydia/GC LUIGI aptimaon CHLAMY,NUC ACID Negative Normal Negative [facility] Comment on above: Performed By: #### M 100.2200 #### [facility] [address] [place], [address] GC BY NUC ACID Negative Normal Negative [facility] Comment on above: Result Comment: Perf ormed at: =G - [facility] [address] [place] [id number] [employer] Processor: Joanna Nguyễn MD, Phone: [phone] Performed By: #### M 100.2200 #### [facility] [address] [place], [place], [address] Urine Cultureon 10-07-2024 URC #2 POSSIBLE PROTEUS SPP. Below infection level. Mixed Gram Pos Gram Neg Org [place] Count 11,000-25,000 MIXC Mixed contaminants. Submit a new specimen if indicated. GNR [place] Count 1000-10,000 Normal [facility] Comment on above: Performed By: #### M 100.2200 #### [facility] [address] [place], [place], [address] Chlamydia trachomatis rRNA d etection by probe and target amplification methodOrdered By: Joyce Santiago on 10-06-2024 C. trachomatis rRNA LUIGI+probe Ql (Unsp spec) Negative Negative [facility] Neisseria gonorrhoeae nuclei c acid detection by amplified probe techniqueOrdered By: Joyce Santiago on 10-06-2024 N. gonorrhoeae DNA LUIGI+probe Ql (Unsp spec) Negative Negative [facility] Comment on above: Performed at: =[address] [id number] Director: Joanna Nguyễn MD, Phone: [phone] Prevention Specialist Office Visit Reporton 10-06-2024 Prevention Specialist Office Visit Report [facility] [address], [address] [place] [address] OFFICE VISIT Date of Service: 10/06/24 MR#: [id number] Acct: [id number] Name: MAREN BARNEY Rep #: [id number] : 2000 Provider: Dr. Joyce Maciel DO Age/Sex: 23/F Location: 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 Normal [facility] Urine cultureOrdered By: Bettei Santiago on 10-06-2024 Bacteria identified Cx Nom (U) Mixed Gram Pos & Gram Neg Org Abnormal [facility] Bacteria identified Cx Nom (U) Negative Abnormal [facility] - Chemistry and C hemistry - challengeOrdered By: Joyce Santiago on 09-28-2024 HCG ( test) Ql (U) Positive [facility] Office Visit Reporton [address] [facility] [address] [place] [address] OFFICE VISIT Date of Service: 09/28/24 MR#: [id number] Acct: [id number] Patient: MAREN BARNEY Rep #: [id number] : 2000 Provider: Dr. Joyce Maciel DO Age/Sex: 23/F Location: [facility] [place] Status: Signed Intake Vital Signs 03/18/24 [...] year?: No 09/30/242056 Date Joyce Goodman DO [facility] Signature: Date (if applicable) CC: Normal [facility] CBC + DIFFon 03-21-2024 Baso # 0.03 x10EE3/UL Normal 0.00 - 0.10 [facility] Comment on above: Performed By: #### 2 90345 #### [facility],[address] [place], [place] [id number] Basophils/100 WBC (Bld) 0.4 % Normal 0.0 - 2.0 [facility] Comment on above: Performed By: #### 2 20646 #### [facility],[address] [place] [address] CBC + DIFF Normal [facility] Comment on above: Result Comment: CBC- COMPLETE BLOOD COUNT Performed By: #### 2 19387 #### [facility],[address] [place] [address] EO # 0.10 x10EE3/UL Normal 0.00 - 0.50 [facility] Comment on above: Performed By: #### 2 31372 #### [facility],[address] [place] [address] Eosinophils/100 WBC (Bld) 1.4 % Normal 0.0 - 7.0 [facility] Comment on above: Performed By: #### 2 69568 #### [facility],[address] [place] [address] Erythrocyte distribution width (RBC) [Ratio] 14.4 % Normal 12.0 - 15.6 [facility] Comment on above: Performed By: #### 2 78916 #### [facility],[address] [place] [address] Hematocrit (Bld) [Volume fraction] 45.9 % Normal 34.0 - 46.0 [facility] Comment on above: Performed By: #### 2 03632 #### [facility],[address] [place] [address] Hemoglobin (Bld) [Mass/Vol] 15.0 g/dL Normal 12.0 - 16.0 [facility] Comment on above: Performed By: #### 2 77406 #### [facility],[address] [place] [address] Lymph # 2.22 x10EE3/UL Normal 0.80 - 2.80 [facility] Comment on above: Performed By: #### 2 53900 #### [facility],[address] [place], [place] [address] Lymphocytes/100 WBC (Bld) 33.0 % Normal 20.0 - 45.0 [facility] Comment on above: Performed By: #### 2 05697 #### [facility],[address] [place] [address] MANUAL DIFF N/A Normal [facility] Comment on above: Performed By: #### 2 66073 #### [facility],[address] [place], [place] [address] MCH (RBC) [Entitic mass] 26 pg Low 27 - 33 [facility] Comment on above: Performed By: #### 2 22127 #### [facility],[address] [place] [address] MCHC 33 X10 3 Normal 32 - 36 [facility] Comment on above: Performed By: #### 2 62142 #### [facility],[address] [place] [address] MCV (RBC) [Entitic vol] 80 fL Normal 80 - 99 J l Replaced By [facility] Comment on above: Performed By: #### 2 49402 #### [facility],[address] [place] [address] [place] # 0.45 x10EE3/UL Normal 0.20 - 1.00 [facility] Comment on above: Performed By: #### 2 75192 #### [facility],[address] [place] [address] MONOS % 6.7 % Normal 0.0 - 10.0 [facility] Comment on above: Performed By: #### 2 06916 #### [facility],[address] [place] [address]248 Morphology Chaka (Bld) [Interp] N/A Normal [facility] Comment on above: Performed By: #### 2 09164 #### [facility],[address] [place] [address]137 Neut # 3.94 x10EE3/UL Normal 1.50 - 7.10 [facility] Comment on above: Performed By: #### 2 97402 #### [facility],[address] [place] [address] Neutrophils/100 WBC (Bld) 58.5 % Normal 46.0 - 76.0 [facility] Comment on above: Performed By: #### 2 93828 #### [facility],[address] [place] [address]273 PLATELET 361 x10EE3/UL Normal 150 - 450 [facility] Comment on above: Performed By: #### 2 41638 #### [facility],[address] [place] [address]19 Platelet mean volume (Bld) [Entitic vol] 6.8 fL Normal 6.6 - 10.5 [facility] Comment on above: Result Comment: AUTO MATED DIFFERENTIAL Performed By: #### 2 09882 #### [facility],[address] [place] [address]198 RBC 5.72 x 10EE6/UL High 4.10 - 5.30 [facility] Comment on above: Performed By: #### 2 88114 #### [facility],[address] [place] [address]95[address] WBC 6.7 x 10EE3/UL Normal 4.5 - 10.8 [facility] Comment on above: Performed By: #### 2 91796 #### [facility],[address] [place] [address] 24486 CHEST 2 VIEWSon 03-21-2024 CHEST 2 VIEWS [place] [id number] Patient: MAREN HURST Phone#: : [phone] Age: 23 Gender: F Pt. Type: ER Account: [id number] Location: [facility] Ordering: GARRETT BEARD Exam Date: 03/21/2024/0:58 Family Phys: ESTEPHANIA DOWLING Charge Code: 678970 Physician: Waller Order #: [id number] Dose#: PROCEDURE: X-RAY CHEST 2 VIEWS COMPARISON: [...] Pitts MD on 03/22/2024 at 10:48 Normal [facility] CMP with eGFRon 03-21-2024 AGE 23 years Normal [facility] Comment on above: Performed By: #### 2 99075 #### [facility],[address] [place] [address] Albumin [Mass/Vol] 3.2 g/dL Low 3.4 - 5.0 [facility] Comment on above: Performed By: #### 2 83347 #### [facility],[address] [place] [address] 26927 Albumin/Globulin [Mass ratio] 0.6 {ratio} Low 0.9 - 1.6 [facility] Comment on above: Performed By: #### 2 12635 #### [facility],[address] [place] [address] 42917 ALK PHOS 97 U/L Normal 46 - 116 [facility] Comment on above: Performed By: #### 2 43920 #### [facility],[address] [place] [address] 18089 ALT [Catalytic activity/Vol] 83 U/L High 16 - 63 [facility] Comment on above: Performed By: #### 2 80646 #### [facility],[address] [place] [address] 26928 Anion gap [Moles/Vol] 13 mmol/L Normal 10 - 20 [facility] Comment on above: Performed By: #### 2 07449 #### [facility],[address] [place] [address]239 AST [Catalytic activity/Vol] 26 U/L Normal 13 - 39 [facility] Comment on above: Performed By: #### 2 29351 #### [facility],[address] [place] [address] 61416 B/C RATIO 10 ratio Normal 0 - 30 [facility] Comment on above: Performed By: #### 2 79532 #### [facility],[address] [place] [address] 25204 Bilirubin [Mass/Vol] 0.4 mg/dL Normal 0.2 - 1.0 [facility] Comment on above: Performed By: #### 2 67037 #### [facility],[address] [place] [address] 96611 Calcium [Mass/Vol] 9.1 mg/dL Normal 8.5 - 10.1 [facility] Comment on above: Performed By: #### 2 92395 #### [facility],[address] [place] [address] 09931 Chloride [Moles/Vol] 100 mmol/L Normal 98 - 107 [facility] Comment on above: Performed By: #### 2 14712 #### [facility],[address] [place] [address] 16694 CMP with eGFR Normal [facility] Comment on above: Result Comment: COMP REHENSIVE METABOLIC PANEL Performed By: #### 2 57559 #### [facility],[address] [place] [address] 99511 CO2 [Moles/Vol] 28.5 mmol/L Normal 21.0 - 32.0 [facility] Comment on above: Performed By: #### 2 54283 #### [facility],[address] [place] [address] 73241 Creatinine [Mass/Vol] 1.08 mg/dL High 0.55 - 1.02 [facility] Comment on above: Performed By: #### 2 99629 #### [facility],[address] [place] [address] 59307 GFR/1.73 sq M.predicted among non-blacks MDRD (S/P/Bld) [Vol rate/Area] mL/min/{1.73_m2} Normal 60 - 999 [facility] Comment on above: Performed By: #### 2 17452 #### [facility],[address] [place] [address] 65589 Result Comment: ACCO RDING TO THE NATIONAL KIDNEY DISEASE EDUCATION PROGRAM(NKDE), A NORMAL eGFR IS A VALUE GREATER THAN OR EQUAL TO 60 ML/MIN/1.73 SQ METERS. CHRONIC KIDNEY DISEASE: <60mL/MIN/1.73 SQ METERS KIDNEY FAILURE: <15mL/MIN/1.73 SQ METERS THIS TEST SHOULD ONLY BE USED FOR PATIENTS 18 YEARS OF AGE AND OLDER. Globulin (S) [Mass/Vol] 5.3 g/dL High 1.5 - 3.8 [facility] Comment on above: Performed By: #### 2 72234 #### [facility],[address] [place] [address] 48561 Glucose [Mass/Vol] 96 mg/dL Normal 74 - 106 [facility] Comment on above: Performed By: #### 2 57913 #### [facility] [facility],[address] [place] [address] Potassium [Moles/Vol] 3.9 mmol/L Normal 3.5 - 5.1 [facility] Comment on above: Performed By: #### 2 [id number] #### [address] [address] Protein [Mass/Vol] 8.5 g/dL High 6.4 - 8.2 [facility] Comment on above: Performed By: #### 2 [id number] #### [facility],[address] [place] [address] Sodium [Moles/Vol] 138 mmol/L Normal 136 - 145 [facility] Comment on above: Performed By: #### 2 63336 #### [address] [address] Urea nitrogen [Mass/Vol] 11 mg/dL Normal 7 - 18 [facility] Comment on above: Performed By: #### 2 25821 #### [address] [address] ED MED ADMINISTRATION DETAIL on 03-21-2024 ED MED ADMINISTRATION DETAIL Factory [facility] Medication Administration Record [address] [address] [id number] 03/21/2024 Patient: MAREN HURST Sex: Female : [...] - 00:59 Anna NavarreteT.-P. 1 of 2 [employer] Medication Ordered Medication Administration Date/Time Levaquin IVPB [...] Bri Gardner R.N. 2 of 2 Normal [facility] ED NURSES CLINICAL NOTEon ED NURSES CLINICAL NOTE Nurse Narrative Nurse Clinical Narrative [address] [address] [id number] 03/21/2024 Patient: MAREN HURST Sex: Female : [...] RASHARD Gardner R.N. 00:16 03/21/24. Preferred pharmacy: [facility] ; [address] [place] [address] ([facility]). -- 00:35 03/21/24 RASHARD Gardner [...] Patient transported to radiology by stretcher with endoscope technician. (Chest xray completed.). -- 04:29 03/21/24 EST Bri Gardner R.N. 00:53 12/8/24. HR: 126 bpm. O2 saturation: 9 (more content not included)... Normal [facility] ED ORDER SHEET (CPOE ONLY)on 03-21-2024 ED ORDER SHEET (CPOE ONLY) Order Sheet Order Sheet [facility] [address] [place] [id number] 03/21/2024 Patient: MAREN HURST Sex: Female : 2000 Age: 23y MEASUREMENTS: Wt: 131.5 kg, Ht/Dru: 65.0 in, BMI: 48.26 ALLERGIES: No known drug allergies MEDICATION/IV/DRIP/FL UID ORDERS Order Description Priority Entered Acknowledged Completed IV NS 0.9 %1000 mL at 999 00:41 03/21/2024 00:57 00:59 mL/hr (NOW x1) Garrett Beard, 03/21/2024 03/21/2024 Colin Grubbs E.M.T.-P. E.M.T.-P. MethylPREDNISolone Sodium 00:41 03/21/2024 00:57 00:59 Succ (Solu-Medrol) [id number] mg Garrett Beard, 03/21/2024 03/21/2024 (NOW x1) Colin Grubbs E.M.TOlga Lidia-P. E.M.T.-P. Reason for ordering with alerts: Benefits outweigh risks --00:41 03/21/2024 Garrett Beard D.O. Levaquin IVPB [id number] mg at 01:34 03/21/2024 01:59 100 mL/hr [...] 2V Stat Stat 00:41 03/21/2024 00:42 01:38 aGrrett Beard, 03/21/2024 03/21/2024 Bri Cabrera R.N. RAnoop Reason for Study: Cough STAFF ORDERS Order Description Priority Entered Acknowledged Collected Completed IV Saline Lock 00:41 03/21/2024 00:42 03/21/2024 00:57 03/21/2024 Bri Ludwig Bryan Parker, D.O. R.N. E.M.T.-P. 2 of 3 Order Sheet [Electronically signed by Garrett Beard D.O. (03/21/2024 04:08 EST)] 3 of 3 Normal [facility] ED PHYSICIAN CLINICAL REPORT on 03-21-2024 ED PHYSICIAN CLINICAL REPORT Narrative Physician Clinical Narrative [address] [address] [id number] 03/21/2024 Patient: MAREN HURST Sex: Female : [...] 1.50 - 7.10 Final EST 03/21/2024 01:10 [place] # 0.45 x10/UL 0.20 - 1.00 Final [...] Final 0 (more content not included)... Normal [facility] ED SUPER BILLon 03-21-2024 ED SUPER BILL [facility] [address] [place] [address] [id number] 03/21/2024 Patient: MAREN HURST Sex: Female : 2000 Age: 23y Item Facility Professional Category Description Code Code Quantity Fee Total Drugs Normal Saline 565921 2 $0.00 $0.00 1000cc (432680) Nurse/E/M EMERGENCY 989810 1 $0.00 $0.00 DEPARTMENT VISIT HIGH/URGENT SEVERITY (66201-58) Nurse/IV/IM/Infusions Drip/IVPB 167046 1 $0.00 $0.00 additional hour (07589) Nurse/IV/IM/Infusions Drip/IVPB initial 559322 1 $0.00 $0.00 (08345) Nurse/IV/IM/Infusions Drip/IVPB seq 963029 1 $0.00 $0.00 (48644) Nurse/IV/IM/Infusions Hydration 342754 1 $0.00 $0.00 additional hour (86172) 1 of 2 [facility] Facility Professional Category Description Code Code Quantity Fee Total Nurse/IV/IM/Infusions IVP additional 601199 1 $0.00 $0.00 push (28341) Grand Total $0.00 Providers Garrett Beard D.O. Chief Complaint ALLERGIC REACTION and HIVES. Principal Diagnosis Acute hives secondary to unknown cause. Bronchopneumonia. ICD-10 Codes L50.9: Urticaria, unspecified J18.0: Bronchopneumonia, unspecified organism 2 of 2 Normal [facility] ED VISIT SUMMARYon ED VISIT SUMMARY Visit Overview Visit Overview [address] [place] [address] [id number] 03/21/2024 Patient: MAREN HURST Sex: Female : [...] UNKNOWN CAUSE BRONCHOPNEUMONIA 3 of 3 Normal [facility] ED VITALS FLOW SHEETon 03-21 ED VITALS FLOW SHEET Vitals Vital Sign Flow Sheet [facility] [address] [place] [id number] 03/21/2024 Patient: MAREN HURST Sex: Female : [...] 155/95 122 124 3 of 3 Normal [facility] Chest PA and Lateralon 03-18 Chest PA and Lateral [facility] [address] [place] [address] Chest PA and Lateral MR#: [id number] Acct: [id number] Name: MAREN HURST Rep #: [id number] : 2000 F 23 From: Harvey garcia MD PCP: Estephania Dowling PA-C Status: [facility] Study: Chest PA and Lateral Date of Exam: 03/18/24 Exam# [id number] Ordering Dr: Carlos Enrique Coyne [id number] STUDY: X-RAY CHEST REASON FOR EXAM: Female, [...] EST , CC: RODRIGUEZ Dowling; QUIQUE Rodriguez Financial Wellness Coach: Signed Normal [facility] Urgent Care Visit Reporton 1 05-19-2023 Urgent Care Visit Report [facility] [address], [address] [place] [address] OFFICE VISIT Date of Service: 03/18/24 MR#: [id number] Acct: [id number] Name: MAREN HURST Rep #: [id number] : 2000 Provider: QUIQUE Rodriguez Age/Sex: 23/F Location: [facility] Status: Signed Intake Vital Signs 09/22/22 09:35 [...] WK Chief Complaint: cough, fever, back pain Hand I Cutter Required: No Is patient in pain?: No [...] 1 week without resolve. declines viral testing. [facility] Social History Smoking Status: Never smoker [...] Muñoz Signature: Date (if applicable) CC: Normal [facility] Crm Marketing Manager Cytology Reporton 2023 Crm Marketing Manager Cytology Report . Pathology Reports Accession: Collected Date/Time: Received Date/Time: Pathologist: [id number] 06/09/2023 09:11 EST 06/09/2023 18:00 EST Crm Marketing Manager Cytology Report SPECIMEN: Specimen Description: Liquid Prep Reflex ASCUS Specimen: Cervical Screening or Diagnostic: Screening RELEVANT HISTORY: LMP: [id number] SPECIMEN ADEQUACY: SATISFACTORY FOR EVALUATION Endocervical/Transfor mational zone component present INTERPRETATION/RESULT S: NEGATIVE FOR INTRAEPITHELIAL LESION OR MALIGNANCY COMMENT: This Pap Test was successfully processed and evaluated with the assistance of the [employer] ThinPrep Test Imaging System. Electronically Signed by Pathology report verified by [facility] Screened by: KK Electronically signed by Monica HAMMONDS (ASCP) Sign-Out Date: 06/19/2023 13:30 Performing Lab: [facility], [address] [place] [address] Pathology Dept Disclaimer The Pap test is a screening test for cervical cancer. As evidenced by published data, it is subject to both inherent false negative and false positive results. Your patient's results should be interpreted in context with pertinent clinical history including gynecological examination. Normal [facility] THIN PREP (Nargis) PAP WITH HP V REFLEXon 06-19-2023 THIN PREP (Nargis) PAP WITH HPV REFLEX Normal [facility] Comment on above: Result Comment: _THI N PREP (Adult) PAP w HPV REFLEX_ Performed By: #### 2 [id number] #### [facility],[address] [place] [address] Vital Signs Date Time Vital Sign Value Performing Clinician Adelaida howard 01-24-2025 09:01-0400 Body height 172.72 cm Estephania Dowling PA-C Work Phone: [facility] 01-24-2025 09:01-0400 Body mass index (BMI) [Ratio] 47.9 kg/m2 Acopio PA-C Work Phone: [facility] 01-24-2025 09:01-0400 Body weight 143.02 kg Estephania Williamsport PA-C Work Phone: [facility] 01-24-2025 09:01-0400 Diastolic blood pressure 85 mm[Hg] Estephania Williamsport PA-C Work Phone: [facility] 01-24-2025 09:01-0400 Systolic blood pressure 126 mm[Hg] Estephania Williamsport PA-C Work Phone: [facility] 12-29-2024 13:51-0400 Body height 172.72 cm Acopio PA-C Work Phone: [facility] 12-29-2024 13:40-0400 Body mass index (BMI) [Ratio] 47.7 kg/m2 Estephania Williamsport PA-C Work Phone: [facility] 12-29-2024 13:40-0400 Body weight 142.54 kg Estephania Williamsport PA-C Work Phone: [facility] 12-29-2024 13:40-0400 Diastolic blood pressure 88 mm[Hg] Estephania Williamsport PA-C Work Phone: [facility] 12-29-2024 13:40-0400 Systolic blood pressure 135 mm[Hg] Estephania Williamsport PA-C Work Phone: [facility] 12-27-2024 10:25-0400 Body height 172.72 cm Acopio PA-C Work Phone: [facility] 12-27-2024 10:21-0400 Body mass index (BMI) [Ratio] 48.1 kg/m2 [facility] PA-C Work Phone: [facility] 12-27-2024 10:21-0400 Body weight 143.59 kg Estephania [employer] PA-C Work Phone: [facility] 12-27-2024 10:21-0400 Diastolic blood pressure 87 mm[Hg] Estephania Williamsport PA-C Work Phone: [facility] 12-27-2024 10:21-0400 Systolic blood pressure 138 mm[Hg] Estephania Williamsport PA-C Work Phone: [facility] 11-29-2024 11:40-0400 Body height 172.72 cm Estephania Williamsport PA-C Work Phone: [facility] 11-29-2024 11:40-0400 Body mass index (BMI) [Ratio] 48.4 kg/m2 Estephania Williamsport PA-C Work Phone: [facility] 11-29-2024 11:40-0400 Body weight 144.69 kg Estephania Williamsport PA-C Work Phone: [facility] 11-29-2024 11:40-0400 Diastolic blood pressure 86 mm[Hg] Estephania Williamsport PA-C Work Phone: [facility] 11-29-2024 11:40-0400 Systolic blood pressure 130 mm[Hg] Estephania Williamsport PA-C Work Phone: [facility] 11-01-2024 14:22-0400 Diastolic blood pressure 85 mm[Hg] Estephania Williamsport PA-C Work Phone: [facility] 11-01-2024 14:22-0400 Systolic blood pressure 126 mm[Hg] Estephania Williamsport PA-C Work Phone: [facility] 11-01-2024 13:49-0400 Body height 172.72 cm Estephania [employer] PA-C Work Phone: [facility] 11-01-2024 13:49-0400 Body mass index (BMI) [Ratio] 48.9 kg/m2 Estephania [employer] PA-C Work Phone: [facility] 11-01-2024 13:49-0400 Body weight 146.05 kg Acopio PA-C Work Phone: [facility] 10-06-2024 13:07-0400 Body height 172.72 cm Acopio PA-C Work Phone: [facility] 10-06-2024 13:05-0400 Body mass index (BMI) [Ratio] 52.4 kg/m2 Acopio PA-C Work Phone: [facility] 10-06-2024 13:05-0400 Body weight 143.05 kg Acopio PA-C Work Phone: [facility] 10-06-2024 13:05-0400 Diastolic blood pressure 85 mm[Hg] Acopio PA-C Work Phone: [facility] 10-06-2024 13:05-0400 Systolic blood pressure 140 mm[Hg] Acopio PA-C Work Phone: [facility] 09-28-2024 11:47-0400 Body mass index (BMI) [Ratio] 50.3 kg/m2 Acopio PA-C Work Phone: [facility] 09-28-2024 11:47-0400 Body weight 150.25 kg Acopio PA-C Work Phone: [facility] 09-28-2024 11:47-0400 Diastolic blood pressure 80 mm[Hg] Acopio PA-C Work Phone: [facility] 09-28-2024 11:47-0400 Systolic blood pressure 122 mm[Hg] Acopio PA-C Work Phone: [facility] Encounters Encounter Date Encounter Type Care Provider Facility Start: 02-25-2025 ambulatory Kt Avila Facility :[facility] Start: 02-24-2025 ambulatory Joyce Landers cility:[facility] Start: 02-15-2025 End: 02-15-2025 ambulatory GILDARDO Renteria CHERYLE [facility] Start: 02-14-2025 End: 02-14-2025 ambulatory AISSATOU RUSHING [facility] Start: 02-07-2025 End: 02-07-2025 ambulatory Mariela Alvarado Facility:[facility] Start: 01-24-2025 End: 01-24-[address] Joyce Goodman DO -[facility] Work Phone: Start: 01-24-2025 End: 01-24-2025 ambulatory Acopio PA-C Work Phone: -[facility] Start: 01-10-2025 End: 01-10-2025 ambulatory Acopio PA-C Work Phone: -Lab [facility] Start: 01-10-2025 End: 01-10-2025 Patient encounter procedure Lakeisha NUÑEZC -Lab [facility] Start: 01-10-2025 End: 01-10-2025 Subsequent hospital visit by physician Aissatou Rushing DO Work Phone: [facility] Comment on above: , supervisi on, high-risk, second trimester; Elevated ALT measurement; Dysuria during in second trimester Start: 01-10-2025 End: 01-10-2025 ambulatory AISSATOU RUSHING [facility] Start: 01-10-2025 End: 01-10-2025 ambulatory MARIELA ALVARADO [facility] Start: 01-10-2025 End: 01-10-2025 ambulatory Estephania Williamsport PA Facility:[facility] Start: 12-29-2024 End: 12-29-2024 Patient encounter procedure Lakeisha Flowers NP-C -[facility] Work Phone: Start: 12-29-2024 End: 12-29-2024 ambulatory Acopio PA-C Work Phone: -[facility] Start: 12-28-2024 End: 12-29-2024 ambulatory Acopio PA-C Work Phone: -[facility] Start: 12-28-2024 End: 12-28-[address] Mariela Alvarado MD -[facility] Start: 12-27-2024 End: 12-28-2024 ambulatory Acopio PA-C Work Phone: -[facility] Start: 12-27-2024 End: 12-27-[address] Mariela Alvarado MD -[facility] Work Phone: Start: 12-20-2024 End: 12[facility]20[facility] Start: 11-29-2024 End: 11-29-2024 Patient encounter procedure Kt MACDONALD -[facility] Work Phone: Start: 11-29-2024 End: 11-29-2024 ambulatory Acopio PA-C Work Phone: [facility] Start: 11-17-2024 End: 11-17-2024 ambulatory Acopio PA-C Work Phone: -[facility] Start: 11-17-2024 End: 11-17-[address] Joyce Goodman DO [facility] Start: 11-17-2024 End: 11-17-2024 ambulatory Joyce Goodman Facility:[facility] Start: 11-10-2024 End: 11-10-2024 ambulatory Acopio PA-C Work Phone: -[facility] Start: 11-10-2024 End: 11-10-[address] Joyce Goodman DO [facility] Start: 11-10-2024 End: 11-10-2024 ambulatory Joyce Goodman Facility:[facility] Start: 11-01-2024 End: 11-01-2024 Patient encounter procedure Kt MACDONALD -[facility] Work Phone: Start: 11-01-2024 End: 11-01-2024 ambulatory Estephania Williamsport PA-C Work Phone: -[facility] Start: 11-01-2024 End: 11-01-2024 ambulatory Kt Avila Facility:[facility] Start: 10-06-2024 End: 10-06-2024 ambulatory Estephania Williamsport PA-C Work Phone: -[facility] Start: 10-06-2024 End: 10-06-[address] Joyce Goodman DO -[facility] Work Phone: Start: 10-06-2024 End: 10-06-[address] Joyce Goodman DO -[facility] Work Phone: Start: 10-06-2024 End: 10-06-2024 ambulatory Estephania Williamsport PA-C Work Phone: [facility] Work Phone: Start: 10-06-2024 End: 10-06-2024 ambulatory Joyce Goodman Facility:[facility] Start: 09-28-2024 End: 09-28-[address] Joyce Goodman DO -[facility] Work Phone: Start: 09-28-2024 End: 09-28-2024 ambulatory Estephania Williamsport PA-C Work Phone: [facility] Work Phone: Start: 03-21-2024 End: 03-21-2024 Emergency department patient visit GARRETT BEARD [facility] Start: 03-18-2024 End: 03-18-2024 ambulatory Carlos Enrique LEI Facility:[facility] Start: 03-18-2024 End: 03-18-2024 ambulatory Carlos Enrique LEI Facility:[facility] Start: 06-09-2023 End: 06-09-2023 ambulatory [facility] Start: 06-09-2023 Encounter for gynecological examination (general) (routine) without abnormal findings [facility] Start: 02-02-2022 ambulatory Cedric Pisano MD Work Phone: [facility] Start: 02-02-2022 Patient encounter procedure Cerdic Pisano MD Work Phone: [facility] [place] Comment on above: Referral Procedures Date Procedure Procedure Detail Performing Clinician Start: 01-10-2025 Creatinine measureme nt, 24 hour urine [facility] Work Phone: Start: 01-10-2025 Comprehensive metabo lic panel Aissatou Rushing DO Work Phone: Start: 12-29-2024 Urine culture Estephania [facility] Work Phone: Start: 11-17-2024 Procedure Estephania [facility] Work Phone: Start: 11-01-2024 Hepatitis C antibody measurement [place] [facility] Work Phone: Comment on above: Reactive: Presumptiv e evidence of antibodies to HCV. Follow CDC recommendations for supplemental testing.Non-Reactive: Antibodies to HCV were not detected; does not exclude the possibility of exposure to HCVReactive Results are presumptive evidence of antibodies to HCV. Follow CDC recommendations for supplemental testing.Order confirmation testing: HCV Quant by PCR testing - HCVPCR #[id number] Non Reactive: < 0.8 Equivocal: >/= 0.8 to < 1.0 Reactive: >/= 1.0The CDC requires that a reactive/equivocal HCV antibody result be sent out for confirmation. HCV Quant by PCR testing. Start: 11-01-2024 Procedure Estephania [facility] Work Phone: Start: 11-01-2024 Rubella IgG measurement [facility] Work Phone: Comment on above: Antibody Result: Int erpretationNon-Reactive: Non- ImmuneReactive: ImmuneThe following results were obtained with the [employer] Rubella IgG assay. Results from assays of other manufacturers cannot be used interchangeably. Start: 11-01-2024 Serologic test for syphilis [facility] RODRIGUEZ Work Phone: Start: 10-06-2024 Urine culture [facility] QUIQUEAvinashMyra Work Phone: Plan of Treatment Date Care Activity Detail Author Start: 04-04-2025 End: 04-04-2025 Professional / ancillary services management 04/04/2025 2:00 PM EST Ancillary Procedure Visit [facility] [address], [address] [place] [id number] [address] 60 GROWTH 4 WEEKS [facility] [place] Comment on above: US 60 GROWTH 4 WEEKS Start: 03-08-2025 End: 03-08-2025 Professional / ancillary services management 03/08/2025 8:30 AM EST Ancillary Procedure Visit [facility] [address], [address] [phone] US 60 GROWTH 4 WEEKS [facility] [place] Comment on above: US 60 GROWTH 4 WEEKS Start: 02-14-2025 End: 02-14-2025 Patient encounter procedure 02/14/2025 10:00 AM EST Office Visit [address] [id number] Aissatou Rushing [place] [id number] Zbigniew Villarreal [place] [phone] EDC 05/17/25 Dx: , supervision, high-risk, second trimester [O09.92] [facility] Comment on above: EDC 05/17/25 Dx: Pregn ricardo, supervision, high-risk, second trimester [O09.92] Start: 02-10-2025 End: 02-10-2025 Professional / ancillary services management 02/10/2025 8:00 AM EDT Ancillary Procedure Visit [facility] [address], [address] [id number] [address] 60 GROWTH 4 WEEKS [facility] [place] Comment on above: US 60 GROWTH 4 WEEKS Start: 02-07-2025 Patient encounter procedure Registered Clinical -Lab [facility] Start: 01-24-2025 Measurement of gluco se 2 hours after glucose challenge for glucose tolerance test [facility] Start: 01-24-2025 Serologic test for syphilis [facility] Start: 01-24-2025 [facility] Start: 01-10-2025 Patient encounter procedure Registered Clinical -Lab [facility] Start: 12-29-2024 [facility] Start: 12-29-2024 Bacteria identified in Urine by Culture Urine Culture [facility] Start: 12-13-2024 COVID-19 (2023-05 season) COVID-19 ( season) [facility] Start: 12-13-2024 FLU (#1) FLU (#1) [facility] Start: 11-01-2024 CBC W Auto Different ial panel - Blood [facility] Start: 11-01-2024 Comprehensive metabo lic 2000 panel - Serum or Plasma [facility] Start: 11-01-2024 Hemoglobin A1c/Hemoglobin.total in Blood [facility] Start: 11-01-2024 Hepatitis C antibody measurement [facility] Start: 11-01-2024 Procedure [facility] Start: 11-01-2024 Rubella IgG measurement [facility] Start: 11-01-2024 Serologic test for syphilis [facility] Start: 11-01-2024 [facility] Start: 10-06-2024 Chlamydia deoxyribon ucleic acid detection [facility] Start: 08-26-2024 Urine microalbumin profile DTA P,TDAP,TD (7 - Td or Tdap) [facility] Start: 2022 Microscopic observat ion [Identifier] in Cervix by Cyto stain Pap Smear [facility] Start: 12-13-2021 Influenza vaccination INFLUENZA (#1) [facility] Start: 04-14-2021 DEPRESSION ASSESSMENT DEPRESSION ASS ESSMENT [facility] Start: 03-30-2021 COVID-19 VACCINE (3 - Booster for Pfizer series) COVID-19 VACCINE (3 - Booster for Pfizer series) [facility] Start: 2020 Hepatitis A (1 of 2 - Risk 2-dose series) Hepatitis A (1 of 2 - Risk 2-dose series) [facility] Start: 2020 Hepatitis B (1 of 3 - 19+ 3-dose series) Hepatitis B (1 of 3 - 19+ 3-dose series) [facility] Start: 11-09-2019 CHLAMYDIA SCREENING (18-24) CHLAMYDIA SCREENING (18-24) [facility] Start: 11-09-2019 GC (GONORRHEA) SCREE MIMI (18-24) GC (GONORRHEA) SCREENING (18-24) [facility] Start: 11-09-2019 HEPATITIS C SCREENING HEPATITIS C SC REENING [facility] Start: 11-09-2019 HIV SCREENING HIV SCREENING [facility] Start: 2017 MenB (1 of 2 - MenB 2-Dose Series Bexsero) MenB (1 of 2 - MenB 2-Dose Series Bexsero) [facility] Start: 2016 HPV (1 - 3-dose series) HPV (1 - 3-dose series) [facility] Start: 11-09-2015 PEDS TO ADULT TRANSI TION ANNUAL ASSESSMENT PEDS TO ADULT TRANSITION ANNUAL ASSESSMENT [facility] Start: 2014 Varicella (1 of 2 - 13+ 2-dose series) Varicella (1 of 2 - 13+ 2-dose series) [facility] Start: 2013 PEDS TO ADULT TRANSI TION INITIAL DISCUSSION PEDS TO ADULT TRANSITION INITIAL DISCUSSION [facility] Start: 11-09-2011 MENINGOCOCCAL B: Con wool hanker based on risk (1 of 2 - Risk Bexsero 2-dose series) MENINGOCOCCAL B: Consider based on risk (1 of 2 - Risk Bexsero 2-dose series) [facility] Start: 2008 Tetanus Diphtheria a nd Pertussis Vaccines (1 - Tdap) Tetanus Diphtheria and Pertussis Vaccines (1 - Tdap) [facility] Start: 2002 MMR (1 of 1 - Standa rd series) MMR (1 of 1 - Standard series) [facility] Alanine aminotransfe rase [Enzymatic activity/volume] in Serum or Plasma [facility] Albumin [Mass/volume ] in Serum or Plasma [facility] Alkaline phosphatase [Enzymatic activity/volume] in Serum or Plasma [facility] Anion gap in Serum o r Plasma [facility] End: 01-10-2025 Bacteria identified in Urine by Culture [facility] Work Phone: Comment on above: 1 Occurrences starti ng 01/10/2025 until 01/10/2025 Bilirubin, total measurement [facility] BUN/Creatinine ratio [facility] Calcium [Mass/volume ] in Serum or Plasma [facility] Carbon dioxide, tota l [Moles/volume] in Central venous blood [facility] CBC W Auto Different ial panel - Blood [facility] CBC W Auto Different ial panel - Blood [facility] Chlamydia deoxyribon ucleic acid detection [facility] Comprehensive metabo lic 2000 panel - Serum or Plasma [facility] Creatinine [Mass/vol ume] in Serum or Plasma [facility] Erythrocyte mean corpuscular volume determination [facility] Glucose [Mass/volume ] in Serum or Plasma [facility] Hematocrit [Volume Fraction] of Blood [facility] Hemoglobin [Mass/vol ume] in Blood [facility] Hemoglobin A1c/Hemoglobin.total in Blood [facility] Hepatitis B virus chahal rface Ag [Presence] in Serum [facility] Hepatitis C antibody measurement [facility] Leukocytes [#/volume ] in Blood [facility] Mean corpuscular hemoglobin concentration determination [facility] Mean corpuscular hemoglobin determination [facility] Measurement of renal function [facility] Neisseria gonorrhoea e rRNA [Presence] in Unspecified specimen by LUIGI with probe detection [facility] Neutrophil count [facility] Neutrophil percent differential count [facility] PCR test for Chlamyd ia trachomatis [facility] Platelets [#/volume] in Blood [facility] Potassium measurement [facility] Procedure [facility] Protein/Creatinine [ Ratio] in Urine [facility] Protein/Creatinine [ Ratio] in Urine [facility] Red blood cell count [facility] Red cell distributio n width determination [facility] Rubella IgG measurement [facility] Serologic test for syphilis [facility] Serum chloride measurement [facility] Sodium measurement [facility] Total protein measurement [facility] Urea nitrogen [Mass/volume] in Serum or Plasma [facility] Urine culture [facility] Immunizations Immunization Date Immunization Notes Care Provider Dedra ordonez 01-24-2025 influenza, injectabl e, madin homa canine kidney, preservative free Estephania Dowling PA-C Work Phone: [facility] 02-02-2021 COVID-19 original vaccine, age 12+ yr, monovalent (PFIZER-BIONTECH - PURPLE TOP) Cedric Pisano MD Work Phone: [facility] Work Phone: 01-12-2021 COVID-19 original vaccine, age 12+ yr, monovalent (PFIZER-BIONTECH - PURPLE TOP) Cedric Pisano MD Work Phone: [facility] Work Phone: 02-07-2020 influenza, injectabl e, quadrivalent, contains preservative Cedric Pisano MD Work Phone: [facility] Work Phone: 11-09-2018 meningococcal polysaccharide (groups A, C, Y and W-135) diphtheria toxoid conjugate vaccine (MCV4P) Cedric Pisano MD Work Phone: [facility] Work Phone: 03-18-2015 Human Papillomavirus 9-valent vaccine Cedric Pisano MD Work Phone: [facility] 11-12-2014 human papilloma viru s vaccine, quadrivalent Cedric Pisano MD Work Phone: [facility] 11-12-2014 meningococcal polysaccharide (groups A, C, Y and W-135) diphtheria toxoid conjugate vaccine (MCV4P) Cedric Pisano MD Work Phone: [facility] 08-26-2014 human papilloma viru s vaccine, quadrivalent Cedric Pisano MD Work Phone: [facility] 08-26-2014 tetanus toxoid, redu kirit diphtheria toxoid, and acellular pertussis vaccine, adsorbed Cedric Pisano MD Work Phone: [facility] 11-27-2006 diphtheria, tetanus toxoids and acellular pertussis vaccine Cedric Pisano MD Work Phone: [facility] Work Phone: 11-27-2006 measles, mumps and rubella virus vaccine Cedric Pisano MD Work Phone: [facility] Work Phone: 11-27-2006 poliovirus vaccine, inactivated Cedric Pisano MD Work Phone: [facility] Work Phone: 11-27-2006 varicella virus vaccine Cedric Pisano MD Work Phone: [facility] Work Phone: 02-07-2004 varicella virus vaccine Cedric Pisano MD Work Phone: [facility] Work Phone: 02-10-2003 diphtheria, tetanus toxoids and acellular pertussis vaccine Cedric Pisano MD Work Phone: [facility] Work Phone: 02-10-2003 haemophilus influenz ae type b vaccine, HbOC conjugate Cedric Pisano MD Work Phone: [facility] Work Phone: 11-10-2002 measles, mumps and rubella virus vaccine Cedric Pisano MD Work Phone: [facility] Work Phone: 11-10-2002 pneumococcal conjuga te vaccine, 7 valent Cedric Pisano MD Work Phone: [facility] Work Phone: 08-01-2002 hepatitis B vaccine, pediatric or pediatric/adolescent dosage Cedric Pisano MD Work Phone: [facility] Work Phone: 08-01-2002 poliovirus vaccine, inactivated Cedric Pisano MD Work Phone: [facility] Work Phone: 05-11-2002 diphtheria, tetanus toxoids and acellular pertussis vaccine Cedric Pisano MD Work Phone: [facility] Work Phone: 05-11-2002 haemophilus influenz ae type b vaccine, HbOC conjugate Cedric Pisano MD Work Phone: [facility] Work Phone: 05-11-2002 pneumococcal conjuga te vaccine, 7 valent Cedric Pisano MD Work Phone: [facility] Work Phone: 03-16-2002 diphtheria, tetanus toxoids and acellular pertussis vaccine Cedric Pisano MD Work Phone: [facility] Work Phone: 03-16-2002 haemophilus influenz ae type b vaccine, HbOC conjugate Cedric Pisano MD Work Phone: [facility] Work Phone: 03-16-2002 pneumococcal conjuga te vaccine, 7 valent Cedric Pisano MD Work Phone: [facility] Work Phone: 03-16-2002 poliovirus vaccine, inactivated Cedric Pisano MD Work Phone: [facility] Work Phone: 01-13-2002 diphtheria, tetanus toxoids and acellular pertussis vaccine Cedric Pisano MD Work Phone: [facility] Work Phone: 01-13-2002 haemophilus influenz ae type b vaccine, HbOC conjugate Cedric Pisano MD Work Phone: [facility] Work Phone: 01-13-2002 pneumococcal conjuga te vaccine, 7 valent Cedric Pisano MD Work Phone: [facility] Work Phone: 01-13-2002 poliovirus vaccine, inactivated Cedric Pisano MD Work Phone: [facility] Work Phone: 2001 hepatitis B vaccine, pediatric or pediatric/adolescent dosage Cedric Pisano MD Work Phone: [facility] Work Phone: 2001 hepatitis B vaccine, pediatric or pediatric/adolescent dosage Cedric Pisano MD Work Phone: [facility] Work Phone: Payers Date Payer Category Payer Self-pay 2024 Unknown [id number] 2023 Private Health Insurance [facility] [id number] 2019 Unknown MMO MMO TPA [id number] 2019-Present [address] [place] [address] PPO [id number] 2001 Unknown [id number] [id number] .651 2001 Unknown [id number] 2.16840.1.411552.3.579.2 .651 2001 Unknown [id number] 2.16840.1.874010.3.579.2 .479 2001 Unknown [id number] 2.16840.1.511472.3.579.2 .479 2001 Unknown [id number] 2.16.840.1.059520.3.579.2 .479 2001 Unknown [id number] 2.16840.1.918069.3.579.2 .479 2001 Unknown [id number] 2.16.840.1.740141.3.579.2 .479 2001 Unknown [id number] 2.16840.1.351640.3.579.2 .479 Unknown [id number] Unknown [id number] 2.16.840.1.197540.3.579.2 .462 Unknown [id number] 2.16.840.1.717637.3.579.2 .462 Unknown [id number] 2.16.840.1.469045.3.579.2 .462 Unknown [id number] 2.16.840.1.327299.3.579.2 .462 Unknown [id number] 2.16.840.1.996629.3.579.2 .462 Unknown [id number] 2.16.840.1.706755.3.579.2 .462 Unknown [id number] 2.16.840.1.788192.3.579.2 .462 Unknown [id number] 2..840.1.339033.3.579.2 .462 Unknown [id number] 2.16.840.1.467719.3.579.2 .462 Unknown [id number] 2.16.840.1.308075.3.579.2 .462 Unknown [id number] 2.16.840.1.567679.3.579.2 .462 Unknown [id number] 2.16.840.1.675563.3.579.2 .462 Unknown [id number] 2.16.840.1.768439.3.579.2 .462 Unknown [id number] 2.16.840.1.699512.3.579.2 .462 Unknown [id number] 2.16.840.1.899846.3.579.2 .462 Unknown [id number] 2.16.840.1.387625.3.579.2 .462 Unknown [id number] 2.16.840.1.103908.3.579.2 .462 Unknown [id number] 2.16.840.1.435583.3.579.2 .462 Unknown [id number] 2.16.840.1.440600.3.579.2 .462 Social History Date Type Detail Facility Start: 10-20-2010 End: 09-28-2024 Tobacco smoking status NHIS Never smoked tobacco [facility] Work Phone: Start: 10-20-2010 End: 12-30-2024 Tobacco use and exposure Smokeless tobacco non-user [facility] Work Phone: Start: 10-27-2019 Alcohol intake 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 12-27-[address] [facility] 11-29-[address] [facility] 11-01-2024 Evaluation note Diagnosis Onset Date Resolution [...] UTI in acute January 24, 2025 9:00am [employer] [facility] Work Phone: [phone] 894-480106-17-2025 Evaluation note* Diagnosis Onset Date Resolution Status Admit Date Amenorrhea acute September 28 11:06am Amenorrhea acute October 06 1:02pm Obesity affecting acute October 06, 2024 1:02pm acute October 06 1:02pm Supervision of high-risk acute October 06, 2024 1:02pm [employer] Work Phone: 1(663) 459-375506-17-2025 Evaluation note* Diagnosis Onset Date Resolution Status [...] of high-risk acute November 01, 2024 1:46pm [employer] Work Phone: [phone] 378-391806-17-2025 Evaluation note* Diagnosis Onset Date Resolution Status [...] Supervision of high-risk acute November 29 11:34am [employer] Work Phone: 1(463) 471-136306-17-2025 Evaluation note* Diagnosis Onset Date Resolution Status [...] of high-risk acute December 27, 2024 10:18am [employer] Work Phone: 1(535) 535-897906-17-2025 Evaluation note* Diagnosis Onset Date Resolution Status [...] of high-risk acute December 29, 2024 1:36pm [employer] [facility] Work Phone: 1([phone] 143-251506-17-2025 Evaluation note* Diagnosis Onset Date Resolution Status [...] 2024 1:36pm UTI in acute 2024 1:36pm [facility] Work Phone: 1(714) 275-221012-08-2024 NoteDischarge Instructions Discharge Summary [address] [place] [address] [phone] 03/21/2024 Patient: MAREN HURST Sex: Female : 2000 Age: 23y Thank you for visiting [facility]. You have been evaluated today by [...] days, dispense 6 tablet. Refills 0. Pharmacy: [facility] [id number] [place] [address]. Pepcid 40 mg tablet: Take 1 tablet by mouth once a day for 7 days, dispense 7 tablet. Refills 0. Pharmacy: [facility] [id number] [place] [address]. prednisone 20 mg tablet: Take 1 tablet by mouth every twelve hours for 7 days, dispense 10 tablet. Refills 0. Notes take 1 tablet every 12 hours for 3 days and then take 1 tablet daily for 4 days dispense 10. Pharmacy: Discharge Instructions [facility] [id number] [place] [address]. Follow-up with: Christian Damon M.D., [facility], Phone: [phone], [address] [facility], [place] [address]. Follow up in three days. (Return if increasing hives shortness breath or anyconcerns. Take Benadryl, Pepcid at prednisone for the itching and hives. Follow-up with Dr. Damon for a workup for your hives and possible reaction to antibiotics. Also follow-up with your family doctor). 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 [place] [id number] [phone] 03/21/2024 Patient: MAREN HURST Sex: Female : 2000 Age: 23y Thank you for visiting [facility]. You have been evaluated today by [...] days, dispense 6 tablet. Refills 0. Pharmacy: [facility] [address] [place] [address]. Pepcid 40 mg tablet: Take 1 tablet by mouth once a day for 7 days, dispense 7 tablet. Refills 0. Pharmacy: [facility] [address] [place] [address]. prednisone 20 mg tablet: Take 1 tablet by mouth every twelve hours for 7 days, dispense 10 tablet. Refills 0. Notes take 1 tablet every 12 hours for 3 days and then take 1 tablet daily for 4 days dispense 10. Pharmacy: [facility] [address] [place] [address]. Follow-up with: Christian Damon M.D., [facility], Phone: [phone], [address] [facility], [place] [address]. Follow up in three days. (Return if [...] You may be prescribe (more content not included)...[facility]10-26-2022 Miscellaneous Notes* Telephone Encounter - Cedric Pisano MD - 02/06/2022 4:28 PM EDT Okay Cedric Pisano MD * Telephone Encounter - Marisela Coyne LPN - 02/04/2022 8:13 AM EDT Patient requesting a referral to Dermatology for mole check. Last seen in office on 10/27/2019. Please advise. Marisela Coyne LPN documented in this encounterProvidence ClinicEvaluation noteNo assessment information availableSt. [facility] Work Phone: Evaluation note* Diagnosis , supervision, high-risk, second trimester Elevated ALT measurement Nonspecific elevation of levels of transaminase or lactic acid dehydrogenase (LDH) Dysuria during in second trimester documented in this encounter [facility] note Author Kt Avila [facility] Note Date/Time November 29, 2024 12 :07pm [facility] [address], [address] [place] [address] OFFICE VISIT Date of Service: 11/29/24 MR#: [id number] Acct: [id number] Name: MAREN BARNEY Rep #: [id number] : 2000 Provider: RAFAELA Avila Age/Sex: 24/F [place] [facility] [place]: Signed Intake Vital Signs 10/06/24 13:07 11/01/24 13:49 11/29/24 11:40 Height 5 ft 8 in 5 ft 8 in 5 ft 8 in Weight: 319 lb BMI 48.4 BP 130/86 H Intake Visit Reasons: 16 wk ob Chief Complaint: 16wk OB Hand I Cutter Required: No Is patient in pain?: No [...] house current occupational status: employed current occupation: [employer] current occupational exposures/hazards: No pets and animals: [...] 3-4 times per week duration: 15-30 minutes/day sveta/christian: None seatbelt use: always do you feel safe at home: Yes 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 pt reports normal BPs at home. 11/29/24 -?-?-?-?-?-?-?-?-?-?-?-?- 15w 6d 319 lb 130/86 Negative -?-?-?-?-?-?-?-?-?-?-?-?- Negative 158 -?-?-?-?-?-?-?-?-?-?-?-?- KW- no vb/crampi ng. has not gotten call from [facility] to schedule US. will reorder US. [...] this visit. GA appropriate handout given. 11/29/24 4907 <Electronically signed by Kt mo CNM> Date _ Kt Avila CNM Cosigner Signature: Date (if applicable) CC: ~ [employer] Work Phone: Progress note Author Mariela Alvarado [facility] Note Date/Time December 27, 2024 10:39am [facility] [address], [address] [place] [address] OFFICE VISIT Date of Service: 12/27/24 MR#: [id number] Acct: [id number] Name: MAREN BARNEY Rep #: [id number] : 2000 Provider: Dr. Zaheer Alvarado MD Age/Sex: 24/F [place] [facility] [place]: Signed Intake Vital Signs 11/01/24 13:49 11/29/24 11:40 12/27/24 10:21 12/27/24 10:25 Height 5 ft 8 in 5 ft 8 in 5 ft 8 in 5 ft 8 in Weight: 316 lb 9 oz BMI 48.1 BP 138/87 H Intake Visit Reasons: 20wk ob Hand I Cutter Required: No Is patient in pain?: No [...] house current occupational status: employed current occupation: [employer] current occupational exposures/hazards: No pets and animals: [...] 3-4 times per week duration: 15-30 minutes/day sveta/christian: None seatbelt use: always do you feel safe at home: Yes 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 pt reports normal BPs at home. [...] by Mariela mota MD> Date _ Mariela Alvarado MD Cosigner Signature: Date (if applicable) CC: ~ [facility] Work Phone: Progress note Author Joyce Santiago [facility] Note Date/Time January 24, 2025 9 :24am [facility] [address] [place] [address], [address] [place] [address] OFFICE VISIT Date of Service: 01/24/25 MR#: [id number] Acct: [id number] Name: MAREN BARNEY Rep #: [id number] : 2000 Provider: Dr. Alina Goodman DO Age/Sex: 24/F [place] [facility] [place]: Signed Intake Vital Signs 11/29/24 11:40 12/29/24 13:51 01/24/25 09:01 01/24/25 09:01 Height 5 ft 8 in 5 ft 8 in 5 ft 8 in 5 ft 8 in Weight: 315 lb 5 oz BMI 47.9 BP 126/85 H Intake Visit Reasons: 23wk6d OB *move 03/08 appt Hand I Cutter Required: No Is patient in pain?: No [...] house current occupational status: employed current occupation: [employer] current occupational exposures/hazards: No pets and animals: [...] 3-4 times per week duration: 15-30 minutes/day sveta/christian: None seatbelt use: always do you feel safe at home: Yes 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 pt reports normal BPs at home. [...] - Encounter for immunization Medications: New Flucelvax [id number] (PF) 0.5 mL IM ONCE 0.5 mL 0RF NS Z23 - Encounter for immunization 01/24/25 0924 <Electronically signed by Joyce Small DO> Date _ Joyce Goodman DO Cosigner Signature: Date (if applicable) CC: ~ [facility] Work Phone: Reason for referral (narrative)No reason for referral information availableSt. [facility] Work Phone: Summary Purpose Family History No [...] 27, 2024 10:18am Supervision of high-risk [facility] 2024 10:18am Elevated liver enzymes December 29 025 1:36pm Obesity affecting December 292024 1:36pm December 29, 2024 1:36pm Supervision of high-risk [facility] 2024 1:36pm Reason for Visit Admit Date [...] December 27, 2024 10:18am [facility] 2024 10:18am Elevated liver enzymes December 29 025 1:36pm Obesity affecting December 292024 1:36pm December 29, 2024 1:36pm Supervision of high-risk [facility] 2024 1:36pm UTI in December 29, 2024 [...] or prosecute any alcohol or drug abuse patient.[facility] Care Teams (unrecognized sec tion and content) 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 Cedric Pisano MD Family Provider [facility] Primary Care Provider Active Team Status: Inactive Member Role Status Dates [facility] PA, PA-C Primary Care Provider Active Start: September 28, 2024 End: September 28, 2024 [facility] Referring Provider Active Start: September 28, 2024 End: September 28, 2024 Dr. Joyce Goodman DO Attending Provider Activ e Start: September 28, 2024 End: September 28, 2024 Team Status: Inactive Member Role Status Dates Estephania [place] PA, PA-C Primary Care Provider Active Start: October 06, 2024 End: October 06, 2024 [facility] Referring Provider Active Start: October 06, 2024 End: October 06, 2024 Dr. Joyce Goodman DO Attending Provider Activ e Start: October 06, 2024 End: October 06, 2024 Team Status: Active Member Role/Relationship Status Dates Dr. Cedric Pisano MD Family Provider [facility] Primary Care Provider Active Team Status: Inactive Member Role/Relationship Status Dates [facility] PA, PA-C Primary Care Provider Active Start: September 28, 2024 End: September 28, 2024 [facility] Referring Provider Active Start: September 28, 2024 End: September 28, 2024 Dr. Joyce Goodman DO Attending Provider Activ e Start: September 28, 2024 End: September 28, 2024 Team Status: Inactive Member Role/Relationship Status Dates Estephania [place] PA, PA-C Primary Care Provider Active Start: October 06, 2024 End: October 06, 2024 [facility] PA, PA-C Referring Provider Active [...] 29, 2024 End: November 29, 2024 Estephania [place] PA, PA-C Referring Provider Active Start: November 29, 2024 End: November 29, 2024 Kt Avila CNM Attending Provider Active S tart: November 29, 2024 End: November 29, 2024 Team Status: Inactive Member Role/Relationship Status Dates Estephania Dowling PA, PA-C Primary Care Provider Active Start: December 27, 2024 End: December 27, 2024 Estephania [place] PA, PA-C Referring Provider Active Start: December 27, 2024 End: December 27, 2024 Dr. Mariela Alvarado MD Attending Provider Active Start: December 27, 2024 End: December 27, 2024 Team Status: Active Member Role/Relationship Status Dates Estephania Williamsport PA, PA-C Primary care physician Active Team Status: Inactive Member Role/Relationship Status Dates Estephania Williamsport PA, PA-C Primary care physician Active Start: September 28, 2024 End: September 28, 2024 Estephania Williamsport PA, PA-C Referring Provider Active Start: September 28, 2024 End: September 28, 2024 Dr. Joyce Goodman DO Attending physician Acti ve Start: September 28, 2024 End: September 28, 2024 Team Status: Inactive Member Role/Relationship Status Dates Estephania Williamsport PA, PA-C Primary care physician Active Start: October 06, 2024 End: October 06, 2024 Estephania Williamsport PA, PA-C Referring Provider Active Start: October [...] 29, 2024 End: November 29, 2024 Estephania Williamsport PA, PA-C Referring Provider Active Start: November 29, 2024 End: November 29, 2024 Kt Avila CNM Attending physician Active Start: November 29, 2024 End: November 29, 2024 Team Status: Inactive Member Role/Relationship Status Dates Estephania Dowling PA, PA-C Primary care physician Active Start: December 27, 2024 End: December 27, 2024 Estephania Williamsport PA, PA-C Referring Provider Active Start: December [...] 2024 End: December 29, 2024 Lakeisha Flowers BROACH GRINDER, BROACH GRINDER-C Attending physician Active Start: December 29, 2024 End: December 29, 2024 Team Status: Active Member Role/Relationship Status Dates Estephania LEI, PA-C Primary care physician Active Start: December 29, 2024 Lakeisha Flowers BROACH GRINDER, BROACH GRINDER-C Attending physician Active Start: December 29, 2024 Lakeisha Flowers NP, BROACH GRINDER-C Referring Provider Active Start: December 29, 2024 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 Specialty Start Date End Date Estepahnia Dowling PA-C [address] [place] [address] DR [facility] [place] [address] PCP - General Family Medicine 11/30/24 Team [...] 2024 End: December 29, 2024 Lakeisha Flowers BROACH GRINDER, BROACH GRINDER-C Attending physician Active Start: December 29, 2024 End: December 29, 2024 Lakeisha Flowers BROACH GRINDER, BROACH GRINDER-C Referring Provider Active Start: December 29, 2024 End: December 29, 2024 Team Status: Active Member Role/Relationship Status Dates Estephania Dowling PA, PA-C Primary care physician Active Start: January 10, 2025 Lakeisha Flowers BROACH GRINDER, BROACH GRINDER-C Attending physician Active Start: January 10, 2025 Lakeisha Flowers BROACH GRINDER, BROACH GRINDER-C Referring Provider Active Start: January 10, 2025 Team Status: Inactive Member Role/Relationship Status Dates Estephaniadomenico Dowling PA, PA-C Primary care physician Active Start: January 10, 2025 End: January 10, 2025 Lakeisha Flowers BROACH GRINDER, BROACH GRINDER-C Attending physician Active Start: January 10, 2025 End: January 10, 2025 Lakeisha Flowers BROACH GRINDER, BROACH GRINDER-C Referring Provider Active Start: January 10, 2025 End: January 10, 2025 Team Status: Inactive Member Role/Relationship Status Dates Estephania Dowling PA, PA-C Primary care physician Active Start: November 01, 2024 End: November 01, 2024 Estephania Williamsport PA, PA-C Referring Provider Active Start: November [...] 2024 End: December 29, 2024 Lakeisha Flowers BROACH GRINDER, BROACH GRINDER-C Attending physician Active Start: December 29, 2024 End: December 29, 2024 Team Status: Inactive Member Role/Relationship Status Dates Estephaniadomenico Dowling PA, PA-C Primary care physician Active Start: December 29, 2024 End: December 29, 2024 Lakeisha Flowers BROACH GRINDER, BROACH GRINDER-C Attending physician Active Start: December 29, 2024 End: December 29, 2024 Lakeisha Flowers BROACH GRINDER, BROACH GRINDER-C Referring Provider Active Start: December 29, 2024 End: December 29, 2024 Team Status: Inactive Member Role/Relationship Status Dates Estephania Williamsport PA, PA-C Primary care physician Active Start: [...] section and content) DATE CREATED AUTHOR 06/20/2023 [facility] ([place]) DATE CREATED AUTHOR AUTHOR'S ORGANIZ ATION 03/28/2024 [facility] DATE CREATED AUTHOR AUTHOR'S ORGANIZ ATION 02/16/2025 [facility] DATE CREATED AUTHOR AUTHOR'S ORGANIZ ATION 02/24/2025 [facility] Goals (unrecognized section and content) Type [...] BE BASED ON THE PRIMARY CLINICAL RECORDS. [facility]. provides no warranty or guarantee of the accuracy or completeness of information in this document.
[2025-03-25 22:58] LABS: 24HR. UA Prot. Total Volume 2000 mL
[2025-03-25 22:59] LABS: Urine Protein (24 Hour) 11.2 mg/dL (<11.9)
[2025-03-26] VITALS (63 sets, daily range): BP systolic 99–183; BP diastolic 56–99; PULSE 73–108; RESP 14–20; TEMP 35.9–37; O2SAT 81–100; BMI 1430.0; BMI 20251213.0
[2025-03-26 01:44] LABS: 24Hr UA Prot. Collection Time 24.0 HOURS (24.0)
[2025-03-26 01:47] LABS: Creatinine Serum Creat 0.5 mg/dL (0.6-1.0)
[2025-03-26 01:51] LABS: 24HR. Urine Creatinine 1478.0 mg/24 hr (740.0-1540.0)
[2025-03-26 06:11] LABS: Hematocrit 38.5 % (37-47); Hemoglobin 12.2 g/dL (12.0-15.0); Mean Corp Hgb Conc 31.7 g/dL (32-36); Mean Corpuscular Volume 85.0 fL (81-99); Mean Platelet Vol. 9.5 fl (6.2-12.0); Platelet Count 305 K/mm3 (150-450); RBC Distribution Width CV 13.2 % (11.6-14.6); RBC Distribution Width SD 41.0 fl (35.1-43.9); Red Blood Count 4.53 M/mm3 (4.2-5.4)
[2025-03-26 06:35] LABS: Creatinine, Urine (random) 76.40 mg/dL (28.00-217.00); Protein, Urine (Random) 17.4 mg/dL (0.0-12.0); Protein:Creat Ratio 228 mg/g CRE (0-200)
[2025-03-26 06:49] LABS: Uric Acid 5.8 mg/dL (2.6-6.0)
[2025-03-26 07:04] LABS: AST(SGOT) 45 U/L (<=31); Alanine Aminotransfer ALT/SGPT 85 U/L (<=34); Albumin, Serum 3.6 g/dL (3.5-5.0); Alkaline Phosphatase 154 U/L (35-104); Anion Gap 15 (5-15); BUN 6 mg/dL (4-19); BUN/Creat Ratio 10.9 RATIO (10-20); Calcium,Total 9.1 mg/dL (7.6-11.0); Carbon Dioxide 18.9 mmol/L (21.0-32.0); Chloride 103 mmol/L (98-108); Estimated Creatinine Clearance 235.52 ml/min (50-250); Globulin 3.5 g/dL (2.2-4.2); Glucose 110 mg/dL (70-99); LDH 154 U/L (84-246); Potassium 3.9 mmol/L (3.3-5.1)
[2025-03-26 07:52] LABS: White Blood Count 12.3 K/mm3 (4.4-11.0)
--- NOTE | 2025-03-26 08:36 | US_ITS ---
PROCEDURE: ABDOMEN LIMITED 03/26/2025 REASON FOR EXAM: ELEVATED LIVER EMZYMES TECHNIQUE: Procedure Code: USABDL Modality: US Procedure: ABDOMEN LIMITED FINDINGS: GALLBLADDER: No gallstones. no gallbladder wall thickening or pericholecystic fluid. Negative Pretty sign. COMMON BILE DUCT: Measures 5 mm. No intrahepatic biliary dilatation. LIVER: Normal size. Increased echotexture. No definite hepatic mass. RIGHT KIDNEY: Normal in size and echogenicity. No mass. No urinary stones. Dicd-ze-cuejiefo hydronephrosis US/Abdomen Limited IMPRESSION: Crjp-dx-bsmksxsu right hydronephrosis. No acute cholecystitis. Question hepat ic steatosis. Reading Location: [id number]
--- NOTE | 2025-03-26 08:44 | HP.PCM.OB_ITS ---
HPI - General General Date of Admission: 03/25/25 HPI Narrative MAREN THAYER, is a 24 F who presents G1, P0 at 32 weeks 3 days presents for follow-up labs due to borderline liver enzymes and borderline blood pressures. 24-hour urine turned in and within normal limits. Liver enzymes still borderline and blood pressure is borderline. Patient denies any headache blurry vision no abdominal pain no recent illness. Feeling good movement no regular contractions no vaginal bleeding or loss of fluid. Maternal Data Information KIMBER Calculator Estimated Delivery Date Method Current WG Current Estimate 05/17/25 LMP (Certain) 32w 4d Other Estimates 05/18/25 Ultrasound #1 32w 3d PFSH PFSH Home Medications ?Medication ?Instructions ?Recorded ?Last Taken ?Type docosahexaenoic acid 200 mg 200 mg PO DAILY 09/28/24 1 05/25/24 06:00 History capsule ( DHA) 200 mg Allergy/AdvReac Type Severity Reaction Status Date / Time amoxicillin (From Augmentin) Allergy Mild rash Verified 03/25/25 16:32 clavulanic acid (From Allergy Mild rash Verified 03/25/25 16:32 Augmentin) Family History Mother Skin cancer Father Hypertension Grandmother Diabetes Grandfather Diabetes Surgical History Hx of wisdom tooth extraction Social History adopted: No household members: spouse housing: house current occupational status: employed current occupation: [employer] current occupational exposures/hazards: No pets and animals: No history of recent travel: Yes ( - September 2024) out of state: Yes sexually active: Yes Smoking Status: Never smoker second hand exposure: No alcohol intake: current alcohol intake frequency: holidays/special occasions only details: Not while substance use type: does not use well-balanced diet: daily or most days caffeine: Yes Type: coffee eating out: 1-3 times/week during the past year weight has: increased > 10 lbs what type of physical activity do you participate in: walking frequency: 3-4 times per week duration: 15-30 minutes/day sveta/rastafari: None seatbelt use: always do you feel safe at home: Yes 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 2 1 Elective abortions Hx Para 0 Spontaneous abortions Hx # Term Pregnancies Ectopic pregnancies Hx # Pregnancies Multiple births # of living children 0 Visit Details Expected Delivery Route/Plan Labor Preferences- CB/BF classes: [] labor support person: [] labor intervention preferences: [] pain management options preferred: [] cut cord/dad catch: [] : [] PP control planned: [] discussed possible routes of delivery and associated risks: [] special requests: [] Plans Covid status: [] Flu vaccine: [] Tdap vaccine: [] Rhogam: [] LARC form signed: [] Problem list reviewed and updated with the most current plan of care details and appropriate orders placed. Relevant counseling for the gestational age provided. Continue routine care and follow up unless otherwise noted in visit notes/problem list details OB Flowsheet Initial Weight: Not Recorded Date -?-?-?-?-?-?-?-?-?-?-?-?- EGA Weight BP Urine Prot -?-?-?-?-?-?-?-?-?-?-?-?- Glucose FHR FuHt Pres Dilation -?-?-?-?-?-?-?-?-?-?-?-?- Effaced St Visit Note 10/06/24 -?-?-?-?-?-?-?-?--?-?-?-?- 8w 1d 315 lb 6 oz 140/85 -?-?-?-?-?-?-?-?-?-?-?-?- 165 -?-?-?-?-?-?-?-?-?-?-?-?- JV- CRL consiste nt with LMP. desires nipt. 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 thinks elevated pressure due to anxiety. baseline labs ordered. 11/01/24 -?-?-?-?-?-?-?-?-?-?-?-?- 11w 6d 322 lb 142/89 126/85 -?-?-?-?-?-?-?-?-?-?-?-?- 185 -?-?-?-?-?-?-?-?-?-?-?-?- kw- no vb/crampi ng. doing better. [facility] anatomy US ordered. if too expensive will call and do [facility] scan. pt reports normal BPs at home. 11/29/24 -?-?-?-?-?-?-?-?-?-?-?-?- 15w 6d 319 lb 130/86 Negative -?-?-?-?-?-?-?-?-?-?-?-?- Negative 158 -?-?-?-?-?-?-?-?-?-?-?-?- KW- no vb/crampi ng. has not gotten call from [facility] to schedule US. will reorder US. Declines AFP. 12/27/24 -?-?-?-?-?-?-?-?-?-?-?-?- 19w 6d 316 lb 9 oz 138/87 Nega tive -?-?-?-?-?-?-?-?-?-?-?-?- Negative 145 -?-?-?-?-?-?-?-?-?-?-?-?- SM- no vb crampi ng some fm 12/29/24 -?-?-?-?-?-?-?-?-?-?-?-?- 20w 1d 314 lb 4 oz 135/88 Trac e -?-?-?-?-?-?-?-?-?-?-?-?- Negative -?-?-?-?-?-?-?-?-?-?-?-?- -nurse visit f or dysuria, + UA, Keflex sent. Culture pending. Also discussed elevated liver enzymes and SM recommendations. 01/24/25 -?-?-?-?-?-?-?-?-?-?-?-?- 23w 6d 315 lb 5 oz 126/85 Nega tive -?-?-?-?-?-?-?-?-?-?-?-?- Negative 150 -?-?-?-?-?-?-?-?-?-?-?-?- JV- plan is to r epeat LFT's beginning of February and if elevated, order us and consult GI. flu shot today. plan to do glucola at same time 02/25/25 -?-?-?-?-?-?-?-?-?-?-?-?- 28w 3d 317 lb 2 oz 130/88 Nega tive -?-?-?-?-?-?-?-?-?-?-?-?- Negative 135 -?-?-?-?-?-?-?-?-?-?-?-?- KW- no vb/crampi ng. good fm glucose today. tdap today. LARc today. 03/08/25 -?-?-?-?-?-?-?-?-?-?-?-?- 30w 0d 314 lb 4 oz 131/84 -?-?-?-?-?-?-?-?-?-?-?-?- 145 -?-?-?-?-?-?-?-?-?-?-?-?- KW- no vb/ctx. g ood fm. had growth US today with MFM 03/24/25 -?-?-?-?-?-?-?-?-?-?-?-?- 32w 2d 323 lb 323 lb 144/90 144/90 145/90 -?-?-?-?-?-?-?-?-?-?-?-?- 145 34 -?-?-?-?-?-?-?-?-?-?-?-?- Sm- no vb lof go od fm no regular ctx no solis bv some swellling, appetite has increased NST FHR Rate Baby A Baseline: 130 Variability:: Moderate Accelerations:: 15 x 15 Decelerations:: None NST Reactive:: Yes FHR Category:: Category I Uterine Activity:: irregular ROS Constitutional Constitutional: Reports systems reviewed and no addt'l complaints, except as documented Eyes Eyes: Denies change in vision ENT HEENT: Reports systems reviewed and no addt'l complaints, except as documented; Denies headache(s) Cardiovascular Cardiovascular: Reports systems reviewed and no addt'l complaints, except as documented; Denies chest pain or dyspnea Respiratory/Chest Respiratory/Chest: Reports systems reviewed and no addt'l complaints, except as documented Gastrointestinal Gastrointestinal: Reports systems reviewed and no addt'l complaints, except as documented; Denies abdominal pain Genitourinary Genitourinary: Reports systems reviewed and no addt'l complaints, except as documented, contractions Details: present (irregular) and movement Details: present; Denies dysuria or genital lesions Musculoskeletal Musculoskeletal: Reports systems reviewed and no addt'l complaints, except as documented Neurologic Neurologic: Reports systems reviewed and no addt'l complaints, except as documented Endocrine Endocrinology: Reports systems reviewed and no addt'l complaints, except as documented Vital Signs Vital Signs Vital Signs: 03/25/25 16:25 03/25/25 16:25 03/25/25 16:25 Temperature Temperature Source Pulse Rate 90 Respiratory Rate Blood Pressure 137/86 H BP Systolic 137 BP Diastolic 86 Pulse Ox 97 03/25/25 16:30 03/25/25 16:30 03/25/25 16:35 Temperature Temperature Source Pulse Rate 88 93 Respiratory Rate Blood Pressure BP Systolic BP Diastolic Pulse Ox 98 03/25/25 16:35 03/25/25 16:40 03/25/25 16:40 Temperature Temperature Source Pulse Rate 99 Respiratory Rate Blood Pressure BP Systolic BP Diastolic Pulse Ox 98 98 03/25/25 16:41 03/25/25 16:41 03/25/25 16:45 Temperature Temperature Source Pulse Rate 86 81 Respiratory Rate Blood Pressure 145/91 H BP Systolic 145 BP Diastolic 91 Pulse Ox 03/25/25 16:45 03/25/25 16:50 03/25/25 16:50 Temperature Temperature Source Pulse Rate 99 Respiratory Rate Blood Pressure BP Systolic BP Diastolic Pulse Ox 97 97 03/25/25 16:55 03/25/25 16:55 03/25/25 16:56 Temperature Temperature Source Pulse Rate 89 Respiratory Rate Blood Pressure 120/65 BP Systolic 120 BP Diastolic 65 Pulse Ox 97 03/25/25 16:56 03/25/25 17:00 03/25/25 17:00 Temperature Temperature Source Pulse Rate 84 94 Respiratory Rate Blood Pressure BP Systolic BP Diastolic Pulse Ox 98 03/25/25 17:05 03/25/25 17:05 03/25/25 17:10 Temperature Temperature Source Pulse Rate 110 H 100 Respiratory Rate Blood Pressure BP Systolic BP Diastolic Pulse Ox 97 03/25/25 17:10 03/25/25 17:11 03/25/25 17:11 Temperature Temperature Source Pulse Rate 93 Respiratory Rate Blood Pressure 122/72 H BP Systolic 122 BP Diastolic 72 Pulse Ox 98 03/25/25 17:15 03/25/25 17:15 03/25/25 17:20 Temperature Temperature Source Pulse Rate 90 90 Respiratory Rate Blood Pressure BP Systolic BP Diastolic Pulse Ox 98 03/25/25 17:20 03/25/25 17:25 03/25/25 17:25 Temperature Temperature Source Pulse Rate 94 Respiratory Rate Blood Pressure BP Systolic BP Diastolic Pulse Ox 97 99 03/25/25 17:26 03/25/25 17:26 03/25/25 17:30 Temperature Temperature Source Pulse Rate 90 98 Respiratory Rate Blood Pressure 123/74 H BP Systolic 123 BP Diastolic 74 Pulse Ox 03/25/25 17:30 03/25/25 19:40 03/25/25 19:40 Temperature Temperature Source Pulse Rate 91 Respiratory Rate Blood Pressure 145/91 H BP Systolic 145 BP Diastolic 91 Pulse Ox 99 03/25/25 19:40 03/25/25 19:40 03/25/25 19:40 Temperature 98.0 F Temperature Source Temporal Pulse Rate Respiratory Rate 14 Blood Pressure BP Systolic BP Diastolic Pulse Ox 03/25/25 20:22 03/25/25 20:22 03/25/25 21:43 Temperature Temperature Source Pulse Rate 86 78 Respiratory Rate Blood Pressure 141/97 H BP Systolic 141 BP Diastolic 97 Pulse Ox 03/25/25 21:43 03/25/25 21:43 03/25/25 21:43 Temperature Temperature Source Pulse Rate 78 Respiratory Rate Blood Pressure 142/82 H BP Systolic 142 BP Diastolic 82 Pulse Ox 97 03/25/25 23:35 03/25/25 23:35 03/25/25 23:35 Temperature Temperature Source Pulse Rate 78 Respiratory Rate Blood Pressure 140/72 H BP Systolic 140 BP Diastolic 72 Pulse Ox 97 03/25/25 23:35 03/26/25 03:17 03/26/25 03:17 Temperature Temperature Source Temporal Pulse Rate 81 Respiratory Rate 16 Blood Pressure BP Systolic BP Diastolic Pulse Ox 03/26/25 03:17 03/26/25 03:18 03/26/25 03:18 Temperature 97.4 F L Temperature Source Pulse Rate 83 Respiratory Rate Blood Pressure 183/85 H BP Systolic 183 BP Diastolic 85 Pulse Ox 03/26/25 03:36 03/26/25 03:36 03/26/25 04:18 Temperature Temperature Source Pulse Rate 76 Respiratory Rate Blood Pressure 142/81 H 150/85 H BP Systolic 142 150 BP Diastolic 81 85 Pulse Ox 03/26/25 04:18 03/26/25 06:13 03/26/25 06:13 Temperature Temperature Source Temporal Pulse Rate 76 92 Respiratory Rate Blood Pressure BP Systolic BP Diastolic Pulse Ox 03/26/25 06:13 03/26/25 06:13 03/26/25 06:13 Temperature 97.9 F Temperature Source Pulse Rate Respiratory Rate 16 Blood Pressure BP Systolic BP Diastolic Pulse Ox 98 03/26/25 06:33 03/26/25 06:33 03/26/25 07:27 Temperature Temperature Source Pulse Rate 90 93 Respiratory Rate Blood Pressure 147/99 H BP Systolic 147 BP Diastolic 99 Pulse Ox 03/26/25 07:27 03/26/25 07:27 03/26/25 07:27 Temperature Temperature Source Temporal Pulse Rate Respiratory Rate 16 Blood Pressure BP Systolic BP Diastolic Pulse Ox 81 03/26/25 07:27 03/26/25 07:28 03/26/25 07:28 Temperature 98.6 F Temperature Source Pulse Rate 107 H Respiratory Rate Blood Pressure 131/78 H BP Systolic 131 BP Diastolic 78 Pulse Ox Weight Weight: 319 lb Body Mass Index (BMI) 53.1 Physical Exam Const alert, oriented x3, no apparent distress and healthy appearing HEENT normocephalic and moist oral mucous membranes Head and Scalp: atraumatic Neck full ROM, no lymphadenopathy, supple and thyroid normal General: trachea midline Lymph Lymphatic: no lymphadenopathy noted Chest inspection of chest normal Resp normal respiratory effort Cardio regular rate GI soft to palpation and non-tender GI Narrative: gravid Inspection: gravid external exam normal Manual OB Exam: estimated gestational size appropriate, presentation cephalic, dilated, effaced and station Extremity normal to inspection General Extremity: Negative for edema Skin no rashes or lesions noted Neuro no focal motor deficits and deep tendon reflexes 2+ bilaterally Motor Exam: strength 5/5 throughout and clonus absent Psych mental status grossly normal Labs Labs Labs: Blood Type O POSITIVE Antibody Screen NEGATIVE Hct, (37-47) 38.5 % Hgb, (12.0-15.0) 12.2 g/dL Obstetrics Ultrasound Syphilis Total Ab, (Nonreactive) Nonreactive Rubella IgG Antibody, (Nonreactive) REAC Hep Bs Antigen, (Nonreactive) Nonreactive Hepatitis C Antibody, (Nonreactive) Nonreactive Chlamydia DNA (LUIGI), (Negative) Negative N.gonorrhoeae DNA (LUIGI), (Negative) Negative HIV 1&2 Antibody, (Nonreactive) Nonreactive Glucose 1 Hr 50 gm, (70-140) 132 mg/dL Assessment & Plan (1) UTI in : QUALIFIERS: Trimester: second trimester Qualified Code(s): O23.42 - Unspecified infection of urinary tract in , second trimester COMMENT: +UA, keflex, culture + E coli. Repeat culture next visit (2) Elevated liver enzymes: COMMENT: repeat improved, Repeat elevated: daily home BP checks, 24 hr urine(collect after finishing antibiotic) with repeat CBC and CMP, if rpt lfts in february are still elevated, order RUQ us and consult gi MFM consult: Growth US Q4wk, del at 39w echo ordered/MFM (3) Obesity affecting : QUALIFIERS: Trimester: second trimester Obesity type affecting : unspecified obesity Qualified Code(s): O99.212 - Obesity complicating , second trimester COMMENT: BMI 50.4; HgBA1C ordered w/NOB- weekly bpps 34 on and growth US MFM Q4 weeks (4) Supervision of high-risk : QUALIFIERS: Trimester: second trimester Qualified Code(s): O09.92 - Supervision of high risk , unspecified, second trimester COMMENT: PRR ; KIMBER 05/17; boy : Cameron (5) : QUALIFIERS: Weeks of gestation: 32 weeks Qualified Code(s): Z3A.32 - 32 weeks gestation of COMMENT: NIPT low risk. gender Male (Pt aware), normal anatomy PLAN: Plan monitor overnight, repeat labs and determine management. steroids given. growth US done and WNL
--- NOTE | 2025-03-26 08:51 | PN.OBGYN_ITS ---
Subjective Subjective patient felt stressed overnight, no solis bv no vb lof good fm no regular ctx Objective Data Objective Data Vital Signs: Vital Signs Temp Pulse Resp BP Pulse Ox 98.6 F 107 H 16 131/78 H 81 03/26/25 07:27 03/26/25 07:28 03/26/25 07:27 03/26/25 07:28 03/26/25 07:27 Weight: 319 lb Body Mass Index (BMI) 53.1 Lab / Micro Data 03/26/25 06:00 03/26/25 06:00 Labs: Laboratory Results - last 24 hr 03/24/25 16:00: Creatinine 0.5 L, Urine Collection Time 24.0, Urine Total Volume 2000.0, Timed Urine Volume 2000, Urine Creatinine 73.90, Ur Creatinine 24 Hour 1478.0, Creatinine Clearance 194, Ur Total Protein 24 Hr 224.0 H, Urine Total Protein 11.2 03/25/25 16:30: WBC 15.5 H, RBC 4.41, Hgb 12.2, Hct 37.2, MCV 84.4, MCH 27.7, MCHC 32.8, RDW Std Deviation 40.6, RDW Coeff of Frederick 13.2, Plt Count 354, MPV 9.7, Creatinine 0.53 L, Estim Creat Clear Calc 239.97, Est GFR (MDRD) Non-Af 133, Uric Acid 4.9, AST 35 H, ALT 61 H, U Random Total Protein 12.7 H, Urine Creatinine 82.90, Protein/Creatinin Ratio 153 03/26/25 06:00: WBC 12.3 H, RBC 4.53, Hgb 12.2, Hct 38.5, MCV 85.0, MCH 26.9 L, MCHC 31.7 L, RDW Std Deviation 41.0, RDW Coeff of Frederick 13.2, Plt Count 305, MPV 9.5, Sodium 137, Potassium 3.9, Chloride 103, Carbon Dioxide 18.9 L, Anion Gap 15, BUN 6, Creatinine 0.54 L, Estim Creat Clear Calc 235.52, Est GFR (MDRD) Non- Af 133, BUN/Creatinine Ratio 10.9, Glucose 110 H, Uric Acid 5.8, Calcium 9.1, Total Bilirubin 0.36, AST 45 H, ALT 85 H, Alkaline Phosphatase 154 H, Lactate Dehydrogenase 154, Total Protein 7.1, Albumin 3.6, Globulin 3.5, Albumin/Globulin Ratio 1.0 03/26/25 06:05: U Random Total Protein 17.4 H, Urine Creatinine 76.40, P rotein/Creatinin Ratio 228 H Radiography Diagnostic Testing: Radiology Impression Obstetrics Ultrasound 03/25/25 16:38 IMPRESSION: 1. Single living intrauterine gestation estimated at 34 weeks 1 day by today's ultrasound criteria. Size equals dates. 2. No acute abnormality detected. Reading Location: [facility] Physical Exam Const alert and no apparent distress Resp normal respiratory effort GI soft to palpation and non-tender Narrative: breech infant NST FHR Rate Baby A Baseline: 130 Variability:: Moderate Accelerations:: 15 x 15 Decelerations:: None NST Reactive:: Yes FHR Category:: Category I Uterine Activity:: none Assessment & Plan (1) Pre-eclampsia, severe, third trimester: (2) UTI in : QUALIFIERS: Trimester: second trimester Qualified Code(s): O23.42 - Unspecified infection of urinary tract in , second trimester COMMENT: +UA, keflex, culture + E coli. Repeat culture next visit (3) Elevated liver enzymes: (4) Obesity affecting : QUALIFIERS: Trimester: second trimester Obesity type affecting : unspecified obesity Qualified Code(s): O99.212 - Obesity complicating , second trimester COMMENT: BMI 50.4; HgBA1C ordered w/NOB- weekly bpps 34 on and growth US MFM Q4 weeks (5) Supervision of high-risk : QUALIFIERS: Trimester: second trimester Qualified Code(s): O09.92 - Supervision of high risk , unspecified, second trimester COMMENT: PRR ; KIMBER 05/17; boy : Cameron (6) : QUALIFIERS: Weeks of gestation: 32 weeks Qualified Code(s): Z 3A.32 - 32 weeks gestation of COMMENT: NIPT low risk. gender Male (Pt aware), normal anatomy PLAN: Plan called and reviewed with MFM recommend repeating labs at 1200 and if continuing to increased recommend delivery. if severe range pressures or becomes symptomatic recommend delivery. patient counseled regarding risks of transport after . patient counseled that if any lab abnormalities suspicious for hellp syndrome would recommend maternal transport
[2025-03-26 12:20] LABS: Hematocrit 37.4 % (37-47); Hemoglobin 12.3 g/dL (12.0-15.0); Mean Corp Hgb Conc 32.9 g/dL (32-36); Mean Corpuscular Volume 85.2 fL (81-99); Mean Platelet Vol. 9.9 fl (6.2-12.0); Platelet Count 351 K/mm3 (150-450); RBC Distribution Width CV 13.3 % (11.6-14.6); RBC Distribution Width SD 41.4 fl (35.1-43.9); Red Blood Count 4.39 M/mm3 (4.2-5.4)
[2025-03-26 12:35] LABS: Creatinine, Urine (random) 106.00 mg/dL (28.00-217.00); Protein, Urine (Random) 18.4 mg/dL (0.0-12.0); Protein:Creat Ratio 174 mg/g CRE (0-200)
[2025-03-26 12:36] LABS: AST(SGOT) 60 U/L (<=31); Alanine Aminotransfer ALT/SGPT 107 U/L (<=34); Estimated Creatinine Clearance 245.64 ml/min (50-250); Uric Acid 6.0 mg/dL (2.6-6.0)
[2025-03-26 12:43] LABS: Syphilis Antibodies Nonreactive (Nonreactive)
[2025-03-26 12:49] LABS: White Blood Count 13.3 K/mm3 (4.4-11.0)
[2025-03-26 12:55] LABS: LDH 167 U/L (84-246)
--- NOTE | 2025-03-26 14:31 | PN.OBGYN_ITS ---
Subjective Subjective patient still asymptomatic, bps normal to mildly elevated. Objective Data Objective Data Vital Signs: Vital Signs Temp Pulse Resp BP Pulse Ox 97.4 F L 86 18 138/88 H 81 03/26/25 12:34 03/26/25 12:35 03/26/25 12:34 03/26/25 12:35 03/26/25 07:27 Weight: 319 lb Body Mass Index (BMI) 53.1 Lab / Micro Data 03/26/25 11:50 03/26/25 11:50 Labs: Laboratory Results - last 24 hr 03/24/25 16:00: Creatinine 0.5 L, Urine Collection Time 24.0, Urine Total Volume 2000.0, Timed Urine Volume 2000, Urine Creatinine 73.90, Ur Creatinine 24 Hour 1478.0, Creatinine Clearance 194, Ur Total Protein 24 Hr 224.0 H, Urine Total Protein 11.2 03/25/25 16:30: WBC 15.5 H, RBC 4.41, Hgb 12.2, Hct 37.2, MCV 84.4, MCH 27.7, MCHC 32.8, RDW Std Deviation 40.6, RDW Coeff of [place] 13.2, Plt Count 354, MPV 9.7, Creatinine 0.53 L, Estim Creat Clear Calc 239.97, Est GFR (MDRD) Non-Af 133, Uric Acid 4.9, AST 35 H, ALT 61 H, U Random Total Protein 12.7 H, Urine Creatinine 82.90, Protein/Creatinin Ratio 153 03/26/25 06:00: WBC 12.3 H, RBC 4.53, Hgb 12.2, Hct 38.5, MCV 85.0, MCH 26.9 L, MCHC 31.7 L, RDW Std Deviation 41.0, RDW Coeff of [place] 13.2, Plt Count 305, MPV 9.5, Sodium 137, Potassium 3.9, Chloride 103, Carbon Dioxide 18.9 L, Anion Gap 15, BUN 6, Creatinine 0.54 L, Estim Creat Clear Calc 235.52, Est GFR (MDRD) Non- Af 133, BUN/Creatinine Ratio 10.9, Glucose 110 H, Uric Acid 5.8, Calcium 9.1, Total Bilirubin 0.36, AST 45 H, ALT 85 H, Alkaline Phosphatase 154 H, Lactate Dehydrogenase 154, Total Protein 7.1, Albumin 3.6, Globulin 3.5, Albumin/Globulin Ratio 1.0 03/26/25 06:05: U Random Total Protein 17.4 H, Urine Creatinine 76.40, P rotein/Creatinin Ratio 228 H 03/26/25 11:50: WBC 13.3 H, RBC 4.39, Hgb 12.3, Hct 37.4, MCV 85.2, MCH 28.0, MCHC 32.9, RDW Std Deviation 41.4, RDW Coeff of [place] 13.3, Plt Count 351, MPV 9.9, Creatinine 0.51 L, Estim Creat Clear Calc 245.64, Est GFR (MDRD) Non-Af 135, Uric Acid 6.0, AST 60 H, ALT 107 H, Lactate Dehydrogenase 167, U Random Total Protein 18.4 H, Urine Creatinine 106.00, Protein/Creatinin Ratio 174, Syphilis Total Ab Nonreactive, Blood Type O POSITIVE, Antibody Screen NEGATIVE Micro: Microbiology 03/26/25 10:11 Genital vaginal Group B Streptococcus (PCR) - Final Radiography Diagnostic Testing: Radiology Impression Obstetrics Ultrasound 03/25/25 16:38 IMPRESSION: 1. Single living intrauterine gestation estimated at 34 weeks 1 day by today's ultrasound criteria. Size equals dates. 2. No acute abnormality detected. Reading Location: [facility] Abdomen Ultrasound 03/26/25 08:36 IMPRESSION: [id number] right hydronephrosis. No acute cholecystitis. Question hepatic steatosis. Reading Location: [facility] Assessment & Plan (1) Pre-eclampsia, severe, third trimester: (2) UTI in : QUALIFIERS: Trimester: second trimester Qualified Code(s): O23.42 - Unspecified infection of urinary tract in , second trimester COMMENT: +UA, keflex, culture + E coli. Repeat culture next visit (3) Elevated liver enzymes: (4) Obesity affecting : QUALIFIERS: Trimester: second trimester Obesity type affecting : unspecified obesity Qualified Code(s): O99.212 - Obesity complicating , second trimester COMMENT: BMI 50.4; HgBA1C ordered w/NOB- weekly bpps 34 on and growth US MFM Q4 weeks (5) Supervision of high-risk : QUALIFIERS: Trimester: second trimester Qualified Code(s): O09.92 - Supervision of high risk , unspecified, second trimester COMMENT: PRR ; KIMBER 05/17; boy : Cameron (6) : QUALIFIERS: Weeks of gestation: 32 weeks Qualified Code(s): Z 3A.32 - 32 weeks gestation of COMMENT: NIPT low risk. gender Male (Pt aware), normal anatomy PLAN: Plan liver enzymes increasig- per MFM recommendation plan proceeding with delivery. breech plan LTCS will proceed at 48 hours post betamethasone administration
[2025-03-26] MEDS: Magnesium Sulfate 4gm/100mL 4 GM/100 ML IV.SOLN. IV (14:45)
[2025-03-26] MEDS: 0.9% Saline Lock 10 ML Syringe IV (14:45)
[2025-03-26] MEDS: Lactated Ringers 1,000 ML 150 ML IV (14:45)
[2025-03-26] MEDS: Magnesium Sulfate 20 GM/500 ML BAG IV (15:10)
[2025-03-26] MEDS: Lactated Ringers 1,000 ML 999 ML IV (16:00)
[2025-03-26 16:09] LABS: Hematocrit 37.9 % (37-47); Hemoglobin 12.2 g/dL (12.0-15.0); Mean Corp Hgb Conc 32.2 g/dL (32-36); Mean Corpuscular Volume 85.4 fL (81-99); Mean Platelet Vol. 9.3 fl (6.2-12.0); Platelet Count 346 K/mm3 (150-450); RBC Distribution Width CV 13.3 % (11.6-14.6); RBC Distribution Width SD 41.1 fl (35.1-43.9); Red Blood Count 4.44 M/mm3 (4.2-5.4); White Blood Count 14.1 K/mm3 (4.4-11.0)
[2025-03-26 16:33] LABS: AST(SGOT) 72 U/L (<=31); Alanine Aminotransfer ALT/SGPT 129 U/L (<=34); Albumin, Serum 3.5 g/dL (3.5-5.0); Alkaline Phosphatase 146 U/L (35-104); Anion Gap 15 (5-15); BUN 7 mg/dL (4-19); BUN/Creat Ratio 12.9 RATIO (10-20); Calcium,Total 8.9 mg/dL (7.6-11.0); Carbon Dioxide 17.3 mmol/L (21.0-32.0); Chloride 102 mmol/L (98-108); Estimated Creatinine Clearance 245.64 ml/min (50-250); Globulin 3.6 g/dL (2.2-4.2); Glucose 95 mg/dL (70-99); Potassium 3.6 mmol/L (3.3-5.1)
[2025-03-26 17:38] LABS: Scan Indicated on CBC? Y/N YES- FLAGS NOTED
[2025-03-26 17:42] LABS: Differential Comment SCANNED
--- OUTSIDE RECORDS SUMMARY | 2025-03-26 18:21 | XMS RPT_ITS | CCD ---
Author Organization [facility] CliniSywy Care Team Providers 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 Name Role Phone Cedric Pisano MD Primary Care Provider GARRETT BEARD Admitting Unavailable [place], ESTEPHANIA Referring Unavailable [place], ESTEPHANIA Consulting Unavailable GARRETT BEARD Attending Unavailable GARRETT BEARD Primary Care Unavailable PROVIDER, UNKNOWN Consulting Unavailable [place], ESTEPHANIA Attending Unavailable [place], ESTEPHANIA Primary Care Unavailable [place], ESTEPHANIA Admitting Unavailable Lindon PA-C, Estephania Primary Care Provider Josey LEI-CEstephania Referring Provider Dr. Joyce Goodman DO Attending Provider Dr. Joyce Goodman DO Referring Provider Kt Avila CNM Attending Provider [phone] Kt Avila CNM Referring Provider [phone] Dr. Mariela Alvarado MD Attending Provider [phone] Estephania Dowling PA-C Primary Care Physician Dr. Joyce Goodman DO Attending Physician Kt Avila CNM Attending Physician [phone] Dr. Mariela Alvarado MD Attending Physician Dr. Mariela Alvarado MD Referring Provider Lionel MICHELLE-Lakeisha Renteria Attending Physician [phone] Lionel [employer] SUPERINTENDENT-CLakeisha Referring Provider Josey PA-CEstephania Primary Care Provider Lindon PA-CEstephania Primary Care Physician Lindon PA-, Estephania Referring Provider Dr. Joyce Goodman DO Attending Physician AISSATOU RUSHING Attending Unavailable RUSHINGAISSATOU Referring Unavailable [facility] [place] D Primary Care Unavailable MARIELA ALVARADO Referring Unavailabl e AISSATOU RUSHING Attending Unavailable [facility] [place] D Primary Care Unavailable MARIELA ALVARADO Referring Unavailabl e AISSATOU RUSHING Attending Unavailable [facility] [place] D Primary Care Unavailable AISSATOU RUSHING Referring Unavailable [facility] [place] D Primary Care Unavailable ZBIGNIEW VILLARREAL Attending Unavailable GILDARDO LOBATO Attending Unavailable [facility] [place] D Primary Care Unavailable MARIELA ALVARADO Referring Unavailabl [facility] Primary Care Unavailable KT AVILA Attending Unavailable KT AVILA Referring Unavailable Kt Avila Referring Unavailable Kt Avila Attending Unavailable [facility], Estephania Primary Care Unavailable [facility], Estephania Referring Unavailable [place] [employer] SUPERINTENDENTLakeisha Attending Unavailable [facility], Estephania Primary Care Unavailable [facility], Estephania Referring Unavailable Joyce Goodman Attending Unavailabl [facility] Primary Care Unavailable Joyce Goodman Attending Unavailabl [facility] Primary Care Unavailable Vande Joyce Santiago Attending Unavailabl [facility] Primary Care Unavailable [facility], Estephania Referring Unavailable Mariela Alvarado Attending Unavailable [facility], Estephania Primary Care Unavailable [facility], Estephania Referring Unavailable Kt Avila Attending Unavailable Lindon PA, Estephania Primary Care Unavailable [facility], Estephania Referring Unavailable Joyce Goodman Attending Unavailabl e Lindon PA, Ida Primary Care Unavailable Kt Avila Attending Unavailable [facility], Estephania Referring Unavailable [facility], Estephania Primary Care Unavailable Mariela Alvarado Referring Unavailable Mariela Alvarado Attending Unavailable [facility], Estephania Primary Care Unavailable [place] [employer] SUPERINTENDENTLakeisha Referring Unavailable [place] [employer] SUPERINTENDENT, Lakeisha Attending Unavailable [facility], Estephania Primary Care Unavailable Joyce Goodman Referring Unavailabl e Vande VelJoyce saeed Attending Unavailabl e Lindon PA, [facility] Unavailable Stanford Carlos Enrique LEI Attending Unavailable [facility], [facility] Care Unavailable Stanford Carlos Enrique LEI Referring Unavailable Joyce Goodman [facility], [facility] Care Unavailable [facility], Ida Referring Unavailable Kt Avila Attending Unavailable [facility] Care Unavailable Stanford Carlos Enrique LEI Attending Unavailable Cedric Pisano Referring Unavailable Cedric Pisano Primary Care Unavailable [facility], Estephania Referring Unavailable Joyce Goodman [facility], [facility] Care Unavailable [facility], [facility] Care Unavailable Lionel [employer] SUPERINTENDENT, Lakeisha Referring Unavailable Lionel [employer] SUPERINTENDENT, Lakeisha Attending Unavailable Mariela Alvarado Attending Unavailable [facility], [facility] Unavailable Allergies Allergy Classification Reported Allergen(s) Allergy Type Date of Onset Reaction(s) Facility (16 sources) Amoxicillin; Translations: [AMOXICILLIN] Drug Allergy 09-28-2024 [facility] Comment on above: Onset 03/2024 (16 sources) Clavulanate; Translations: [CLAVULANIC ACID] Drug Allergy 09-28-2024 [facility] Comment on above: Onset 03/2024 (1 source) Amoxicillin Drug Allergy 01-24-2025 [facility] (1 source) Clavulanate Drug Allergy 01-24-2025 [facility] Medications Current Medications Medication Drug [...] Absolute Lymph 0.80 X10 3/uL Low 0.83-4.51 [facility] Comment on above: Performed By: #### L 501.0250, L3890.6006, L100.0100, L509.8002 #### [facility] [address] [place], [address] Absolute Neut 6.9 X10 3/uL Normal 2.0-7.7 [facility] Comment on above: Performed By: #### L 501.0250, L3890.6006, L100.0100, L509.8002 #### [facility] [address] [place], [address] Basophils/100 WBC (Bld) 0.4 % Normal 0-1 [facility] Comment on above: Performed By: #### L 501.0250, L3890.6006, L100.0100, L509.8002 #### [facility] [address] [place], [address] Eosinophils/100 WBC (Bld) 0.4 % Normal 0-5 [facility] Comment on above: Performed By: #### L 501.0250, L3890.6006, L100.0100, L509.8002 #### [facility] [address] [place], [address] Erythrocyte distribution width (RBC) [Ratio] 14.1 % Normal 11.6-14.6 [facility] Comment on above: Performed By: #### L 501.0250, L3890.6006, L100.0100, L509.8002 #### [facility] [address] [place], [address] Hematocrit (Bld) [Volume fraction] 39.7 % Normal 37-47 [facility] Comment on above: Performed By: #### L 501.0250, L3890.6006, L100.0100, L509.8002 #### [facility] [address] [place], [address] Hemoglobin (Bld) [Mass/Vol] 12.9 g/dL Normal 12.0-15.0 [facility] Comment on above: Performed By: #### L 501.0250, L3890.6006, L100.0100, L509.8002 #### [facility] [address] [place], [address] IG% 0.200 Normal 0.0-0.9 [facility] Comment on above: Result Comment: IG% - Immature Granulocytes (promyelocytes, myelocytes and metamyelocytes) > 1% indicates that a LEFT SHIFT is Present. Performed By: #### L 501.0250, L3890.6006, L100.0100, L509.8002 #### [facility] [address] [place], [address] Lymphocytes/100 WBC (Bld) 9.5 % Low 19-41 [facility] Comment on above: Performed By: #### L 501.0250, L3890.6006, L100.0100, L509.8002 #### [facility] [address] [place], [address] MCH (RBC) [Entitic mass] 28.3 pg Normal 27.0-32.0 [facility] Comment on above: Performed By: #### L 501.0250, L3890.6006, L100.0100, L509.8002 #### [facility] [address] [place], [address] MCHC (RBC) [Mass/Vol] 32.5 g/dL Normal 32-36 [facility] Comment on above: Performed By: #### L 501.0250, L3890.6006, L100.0100, L509.8002 #### [facility] [address] [place], [address] MCV (RBC) [Entitic vol] 87.1 fL Normal 81-99 [facility] Comment on above: Performed By: #### L 501.0250, L3890.6006, L100.0100, L509.8002 #### [facility] [address] [place], [address] Monocytes/100 WBC (Bld) 7.0 % Normal 0-10 [facility] Comment on above: Performed By: #### L 501.0250, L3890.6006, L100.0100, L509.8002 #### [facility] [address] [place], [address] Neutrophils/100 WBC (Bld) 82.5 % High 47-70 [facility] Comment on above: Performed By: #### L 501.0250, L3890.6006, L100.0100, L509.8002 #### [facility] [address] [place], [address] Nucleated RBC (Bld) [#/Vol] 0 10*3/uL Normal 0-5 [facility] Comment on above: Performed By: #### L 501.0250, L3890.6006, L100.0100, L509.8002 #### [facility] [address] [place], [address] Platelet mean volume (Bld) [Entitic vol] 9.6 fL Normal 6.2-12.0 [facility] Comment on above: Performed By: #### L 501.0250, L3890.6006, L100.0100, L509.8002 #### [facility] [address] [place], [address] Platelets (Bld) [#/Vol] 321 10*3/uL Normal 150-450 [facility] Comment on above: Performed By: #### L 501.0250, L3890.6006, L100.0100, L509.8002 #### [facility] [address] [place], [address] RBC (Bld) [#/Vol] 4.56 10*6/uL Normal 4.2-5.[address] [facility] Comment on above: Performed By: #### L 501.0250, L3890.6006, L100.0100, L509.8002 #### [facility] [address] [place], [address] RDW SD 45.1 fl High 35.1-43.9 [facility] Comment on above: Performed By: #### L 501.0250, L3890.6006, L100.0100, L509.8002 #### [facility] [address] [place], [address] WBC (Bld) [#/Vol] 8.4 10*3/uL Normal 4.4-11.0 [facility] Comment on above: Performed By: #### L 501.0250, L3890.6006, L100.0100, L509.8002 #### [facility] [address] [place], [address] Glucose Challenge Gest 1H 50 светлана 02-24-2025 GLU GEST 50g 1H 132 mg/dL Normal 70-140 [facility] Comment on above: Performed By: #### L 501.0250, L3890.6006, L100.0100, L509.8002 #### [facility] [address] [place], [place], [address] HIVon 02-24-2025 HIV Non-Reactive Normal Nonreactive [facility] Comment on above: Result Comment: Non- Reactive Reactive Repeatedly reactive samples must be confirmed according to CDC recommended confirmatory algorithms. The subresults for either HIVAG or AHIV can be used as an aid in the selection of the confirmation algorithm for reactive samples. Send out specimens with Reactive results to [facility] for confirmation. Order the HIV antibody detection and differentiation: lc#[id number] Performed By: #### L 501.0250, L3890.6006, L100.0100, L509.8002 #### [facility] [address] [place], [place], [address] Syphilis Antibodieson 2024 Syphilis Abs Non-Reactive Normal Nonreactive [facility] Comment on above: Performed By: #### L 501.0250, L3890.6006, L100.0100, L509.8002 #### [facility] [address] [place], [place], [address] Progress Noteon 02-14-2025 Lead Oracle Developer Authentication Interface Message Text New patient 02/15/2025 RE: Maren Barney : 2000 AGE: 24 y.o. CSN#: [id number] Gestational Age: 27 Weeks Delivery Hospital: [facility] Reason for visit: Chief Complaint Patient [...] in visit on 02/14/25 Echo New Narrative [facility] [place] [address] [email or web address] Echocardiogram Report M-mode, complete 2D, complete spectral Doppler, and color Doppler PATIENT: Maren Barney STUDY DATE/TIME: Feb 14 2025 11:06AM HEIGHT: : 2000 WEIGHT: AGE: 24year(s) BSA/BMI: / GENDER: F BP: 122 / 82 LOCATION: [facility] REFERRING PHYSICIAN: Aissatou Rushing Katherine ORDERING PROVIDER: Aissatou Rushing READING PHYSICIAN: GEORGIE Christie GAS DESULFURIZER: Sheridan Fuchs RDCS SUMMARY: No significant congenital [...] discussed with the patient. Recommendations: follow-up if round kiln drawer hears a heart murmur or otherwise clinically indicated. REASON FOR EXAM: Sub-optimal views. : : - Maternal age: 24yr. - : 1. - Parity: 0. - Estimated delivery date: 05/17/2025. - Gestational age: 26 [id number]. STUDY AND PROCEDURE DATA: The patient is . Procedure Description: New ([id number]) . Study status: Routine. Location: lab. Procedure: [...] a patent foramen ovale. There is a ebqug-go-elai shunt. Left atrium: - The atrium is [...] qualitatively normal (more content not included)... Normal [facility] Anion gap in Serum or Plasma Ordered By: Joyce Santiago on 02-07-2025 Anion gap [Moles/Vol] 11 mmol/L 08-26 [facility] BUN/creatinine ratioOrdered By: Joyce Santiago on 02-07-2025 Urea nitrogen/Creatinine [Mass ratio] 11.6 mg/mg 01-31 [facility] Bilirubin, totalOrdered By: Joyce Santiago on 02-07-2025 Bilirubin [Mass/Vol] 0.29 mg/dL 0.00-1.30 [facility] Carbon dioxide, total [Moles /volume] in Central venous bloodOrdered By: Joyce Santiago on 02-07-2025 CO2 [Moles/Vol] 22.1 mmol/L 21.0-32.0 [facility] Chloride assayOrdered By: Henry Santiago on 02-07-2025 Chloride [Moles/Vol] 104 mmol/L 98-108 [facility] Comprehensive Metabolic Prof ilon 02-07-2025 Albumin [Mass/Vol] 3.8 g/dL Normal 3.5-5.0 [facility] Comment on above: Performed By: #### L 500.6088 #### [facility] [address] [place], [address] Albumin/Globulin [Mass ratio] 1.0 {ratio} Normal 0.9-2.4 [facility] Comment on above: Performed By: #### L 500.4050 #### [facility] [address] [place], [address] ALK PHOS 137 U/L High 35-104 [facility] Comment on above: Performed By: #### L 500.4050 #### [facility] [address] [place], [address] ALT [Catalytic activity/Vol] 45 U/L High <=34 [facility] Comment on above: Performed By: #### L 500.4050 #### [facility] [address] [place], [address] AST [Catalytic activity/Vol] 21 U/L Normal <=31 [facility] Comment on above: Performed By: #### L 500.4050 #### [facility] [address] [place], [address] Bilirubin [Mass/Vol] 0.29 mg/dL Normal 0.00-1.30 [facility] Comment on above: Performed By: #### L 500.4050 #### [facility] [address] [place], [address] BUN/CRE 11.6 RATIO Normal 10-20 [facility] Comment on above: Performed By: #### L 500.4050 #### [facility] [address] [place], [address] Calcium [Mass/Vol] 9.1 mg/dL Normal 7.6-11.0 [facility] Comment on above: Performed By: #### L 500.4050 #### [facility] [address] [place], [address] Chloride [Moles/Vol] 104 mmol/L Normal 98-108 [facility] Comment on above: Performed By: #### L 500.4050 #### [facility] [address] [place], [address] CO2 [Moles/Vol] 22.1 mmol/L Normal 21.0-32.0 [facility] Comment on above: Performed By: #### L 500.4050 #### [facility] [address] [place], [address] Creatinine [Mass/Vol] 0.48 mg/dL Low 0.70-1.20 [facility] Comment on above: Performed By: #### L 500.4050 #### [facility] [address] [place], [address] GAP 11 Normal 5-15 [facility] Comment on above: Performed By: #### L 500.4050 #### [facility] [address] [place], [address] GFR/1.73 sq M.predicted among non-blacks MDRD (S/P/Bld) [Vol rate/Area] 136 mL/min/{1.73_m2} Normal >60 [facility] Comment on above: Result Comment: mL/m in/1.73m2 CKD-EPI Creatinine Equation (2020) Performed By: #### L 500.4050 #### [facility] [address] [place], [address] Globulin (S) [Mass/Vol] 3.7 g/dL Normal 2.2-4.2 [facility] Comment on above: Performed By: #### L 500.4050 #### [facility] [address] [place], [address] Glucose [Mass/Vol] 81 mg/dL Normal 70-99 [facility] Comment on above: Performed By: #### L 500.4050 #### [facility] [address] [place], [address] Potassium [Moles/Vol] 4.0 mmol/L Normal 3.3-5.1 [facility] Comment on above: Performed By: #### L 500.4050 #### [facility] [address] [place], [address] Sodium [Moles/Vol] 137 mmol/L Normal 133-145 [facility] Comment on above: Performed By: #### L 500.4050 #### [facility] [address] [place], [address] T PROT 7.5 g/dL Normal 5.9-8.4 [facility] Comment on above: Performed By: #### L 500.4050 #### [facility] [address] [place], [address] Urea nitrogen [Mass/Vol] 6 mg/dL Normal 4-19 [facility] Comment on above: Performed By: #### L 500.4050 #### [facility] [address] [place], [address] Glomerular filtration rate ( GFR) estimation/1.73 sq m using serum, plasma, or whole bOrdered By: Joyce Santiago on 02-07-2025 GFR/1.73 sq M.predicted among non-blacks MDRD (S/P/Bld) [Vol rate/Area] 136 mL/min/{1.73_m2} >60 [facility] Comment on above: mL/min/1.73m2 CKD-EP I Creatinine Equation (2020) Laboratory - Chemistry and C hemistry - challengeOrdered By: Joyce Santiago on 02-07-2025 AST [Catalytic activity/Vol] 21 U/L <32 [facility] Potassium measurement (mass/ volume)Ordered By: Joyce Santiago on 02-07-2025 Potassium (Unsp spec) [Mass/Vol] 4.0 mmol/L 3.3-5.1 [facility] Serum creatinine measurement (mass/volume)Ordered By: Joyce Santiago on 02-07-2025 Creatinine [Mass/Vol] 0.48 mg/dL Low 0.70-1.20 [facility] Serum globulin measurementOr dered By: Joyce Santiago on 02-07-2025 Globulin (S) [Mass/Vol] 3.7 g/dL 2.2-4.2 [facility] Serum glucose measurement (m ass/volume)Ordered By: Joyce Santiago on 02-07-2025 Glucose [Mass/Vol] 81 mg/dL 70-99 [facility] Serum or plasma alanine will otransferase (ALT) measurementOrdered By: Joyce Santiago on 02-07-2025 ALT [Catalytic activity/Vol] 45 U/L High <35 [facility] Serum or plasma albumin wilman urement (mass/volume)Ordered By: Joyce Santiago on 02-07-2025 Albumin [Mass/Vol] 3.8 g/dL 3.5-5.0 [facility] Serum or plasma albumin/glob ulin mass ratioOrdered By: Joyce Santiago on 02-07-2025 Albumin/Globulin [Mass ratio] 1.0 {ratio} 0.9-2.4 [facility] Serum or plasma alkaline kristel sphatase measurementOrdered By: Joyce Santiago on 02-07-2025 ALP [Catalytic activity/Vol] 137 U/L High 35-104 [facility] Serum or plasma calcium wilman urement (mass/volume)Ordered By: Joyce Santiago on 02-07-2025 Calcium [Mass/Vol] 9.1 mg/dL 7.6-11.0 [facility] Serum or plasma urea nitroge n measurement (mass/volume)Ordered By: Joyce Santiago on 02-07-2025 Urea nitrogen [Mass/Vol] 6 mg/dL 4-19 [facility] Sodium levelOrdered By: Alina Santiago on 02-07-2025 Sodium [Moles/Vol] 137 mmol/L 133-145 [facility] Total proteinOrdered By: Bettie Santiago on 02-07-2025 Protein [Mass/Vol] 7.5 g/dL 5.9-8.4 [facility] Laboratory - Chemistry and C hemistry - challengeOrdered By: Joyce Santiago on 01-24-2025 Glucose Ql (U) Negative [facility] - UrinalysisOrder ed By: Joyce Santiago on 01-24-2025 Protein Ql (U) Negative [facility] [employer] Worker Office Visit Reporton 01-24-2025 [employer] And After [employer] Daycare Worker Office Visit Report [facility] [address], [address] [place] [address] OFFICE VISIT Date of Service: 01/24/25 MR#: [id number] Acct: [id number] Name: MAREN BARNEY Rep #: [id number] : 2000 Provider: Dr. Joyce Maciel DO Age/Sex: 24/F Location: [facility] Status: Signed Intake Vital Signs 11/29/24 11:40 12/29/24 13:51 01/24/25 09:01 01/24/25 09:01 Height 5 ft 8 in 5 ft 8 in 5 ft 8 in 5 ft 8 in Weight: 315 lb 5 oz BMI 47.9 BP 126/85 H Intake Visit Reasons: [id number] OB *move 03/08 appt Copyright Manager Required: No Is patient in pain?: No [...] house current occupational status: employed current occupation: [employer] [facility] current occupational exposures/hazards: No pets and [...] 3-4 times per week duration: 15-30 minutes/day sveta/oriental orthodox: None seatbelt use: always do you feel safe at home: Yes 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 pt reports normal BPs at home. 11/29/24 -???-???-???-???-???- ???-???-???-???-???-? ??-???- 15w 6d 319 lb 130/86 Negative -???-???-???-???-???- ???-???-???-???-???-? ??-???- Negative 158 -???-???-???-???-???- ???-???-???-???-???-? ??-???- KW- no vb/cr amping. has not gotten call from [facility] to schedule US. will myranda (more content not included)... Normal [facility] 24 HR UR Creatinine Clearanc fani 01-10-2025 CREAT CLEARANCE 181 ml/min Normal 100-200 [facility] Comment on above: Performed By: #### L 502.000, L500.4507 #### [facility] [address] [place], [address] Creatinine [Mass/Vol] 0.6 mg/dL Normal 0.6-1.0 [facility] Comment on above: Performed By: #### L 502.000, L500.4507 #### [facility] [address] [place], [address] RANDOM UR TV 2600.0 ML Normal [facility] Comment on above: Performed By: #### L 502.000, L500.4507 #### [facility] [address] [place], [address] 24 HR Urine Creatinineon UR.CREAT/24hr 1536.6 mg/24 hr Normal 740.0-1540.0 [facility] Comment on above: Performed By: #### L 502.000, L500.4507 #### [facility] [address] [place], [address] COMPREHENSIVE METABOLIC PANE [facility] 01-10-2025 Albumin [Mass/Vol] 4.0 g/dL Normal 3.5-5.0 [facility] Comment on above: Order Comment: Relea se to patient->Automatic Result Comment: Veri fied By: [id number] ALP [Catalytic activity/Vol] 121 U/L High 35-104 [facility] Comment on above: Order Comment: Relea se to patient->Automatic Result Comment: Veri fied By: [id number] ALT [Catalytic activity/Vol] 54 U/L High <=34 [facility] Comment on above: Order Comment: Relea se to patient->Automatic Result Comment: Veri fied By: [id number] AST [Catalytic activity/Vol] 21 U/L Normal <=31 [facility] Comment on above: Order Comment: Relea se to patient->Automatic Result Comment: Veri fied By: [id number] BILI,TOTAL 0.4 mg/dL Normal <=1.0 [facility] Comment on above: Order Comment: Relea se to patient->Automatic Result Comment: Veri fied By: [id number] Calcium [Mass/Vol] 9.7 mg/dL Normal 7.6-11.0 [facility] Comment on above: Order Comment: Relea se to patient->Automatic Result Comment: Veri fied By: [id number] Chloride [Moles/Vol] 103 mmol/L Normal 96-108 [facility] Comment on above: Order Comment: Relea se to patient->Automatic Result Comment: Veri fied By: [id number] CO2 [Moles/Vol] 21.9 mmol/L Low 22.0-29.0 [facility] Comment on above: Order Comment: Relea se to patient->Automatic Result Comment: Veri fied By: [id number] Creatinine [Mass/Vol] 0.55 mg/dL Normal 0.50-1.00 [facility] Comment on above: Order Comment: Relea se to patient->Automatic Result Comment: Veri fied By: [id number] GFR/1.73 sq M.predicted among non-blacks MDRD (S/P/Bld) [Vol rate/Area] mL/min/{1.73_m2} Normal >=60 [facility] Comment on above: Order Comment: Relea se to patient->Automatic Glucose [Mass/Vol] 91 mg/dL Normal 70-99 [facility] Comment on above: Order Comment: Relea [...] plus Classic Symptoms of Diabetes Verified By: [id number] Potassium [Moles/Vol] 3.7 mmol/L Normal 3.3-5.1 [facility] Comment on above: Order Comment: Relea se to patient->Automatic Result Comment: Veri fied By: [id number] Protein [Mass/Vol] 7.8 g/dL Normal 5.9-8.4 [facility] Comment on above: Order Comment: Relea se to patient->Automatic Result Comment: Veri fied By: [id number] Sodium [Moles/Vol] 138 mmol/L Normal 133-145 [facility] Comment on above: Order Comment: Relea se to patient->Automatic Result Comment: Veri fied By: [id number] Urea nitrogen [Mass/Vol] 5 mg/dL Normal 4-19 [facility] Comment on above: Order Comment: Relea se to patient->Automatic Result Comment: Veri fied By: [id number] Comprehensive metabolic pane meng 01-10-2025 Albumin BCG dye [Mass/Vol] 4.0 g/dL 3.5 - 5.0 g/dL [facility] Comment on above: Verified By: [id number] ALP [Catalytic activity/Vol] 121 U/L High 35 - 104 U/L [facility] Comment on above: Verified By: [id number] ALT With P-5'-P [Catalytic activity/Vol] 54 U/L High NINF - 34 U/L [facility] Comment on above: Verified By: [id number] AST With P-5'-P [Catalytic activity/Vol] 21 U/L NINF - 31 U/L [facility] Comment on above: Verified By: [id number] Bilirubin [Mass/Vol] 0.4 mg/dL [facility]/dL [facility] Comment on above: Verified By: [id number] Calcium [Mass/Vol] 9.7 mg/dL 7.6 - 11. 0 mg/dL [facility] Comment on above: Verified By: [id number] Chloride [Moles/Vol] 103 mmol/L 96 - 10 8 mmol/L [facility] Comment on above: Verified By: [id number] Creatinine [Mass/Vol] 0.55 mg/dL 0.50 - 1.00 mg/dL [facility] Comment on above: Verified By: [id number] eGFR - PINF [facility] Glucose [Mass/Vol] 91 mg/dL 70 - 99 mg/dL [facility] Comment on above: Criteria for Diagnos is of Diabetes: Fasting Specimen (no caloric intake for at least 8 hours): <100 mg/dL Normal 100-125 mg/dL Increased risk for Diabetes >125 mg/dL Diagnostic for Diabetes Random Glucose (any time of day without regard to last meal): > or = 200 mg/dL plus Classic Symptoms of Diabetes Verified By: [id number] HCO3 (P) [Moles/Vol] 21.9 mmol/L Low 22.0 - 29.0 mmol/L [facility] Comment on above: Verified By: [id number] Interpretation and review of laboratory results Abnormal [facility] Potassium (BldA) [Moles/Vol] 3.7 mmol/L 3.3 - 5.1 mmol/L [facility] Comment on above: Verified By: [id number] Protein [Mass/Vol] 7.8 g/dL 5.9 - 8.4 g/dL [facility] Comment on above: Verified By: [id number] Sodium [Moles/Vol] 138 mmol/L 133 - 145 mmol/L [facility] Comment on above: Verified By: [id number] Urea nitrogen [Mass/Vol] 5 mg/dL 4 - 19 mg/d L [facility] Comment on above: Verified By: [id number] [facility] Glomerular filtration rate ( GFR) estimation/1.73 sq m using serum, plasma, or whole bOrdered By: Lakeisha Flowers on 01-10-2025 GFR/1.73 sq M.predicted among non-blacks MDRD (S/P/Bld) [Vol rate/Area] 130 mL/min/{1.73_m2} >60 [facility] Comment on above: mL/min/1.73m2 CKD-EP I Creatinine Equation (2020) Progress Noteon 01-10-2025 Lead Oracle Developer Authentication Interface Message Text [facility] MATERNAL- MEDICINE CONSULT Referring/Requesting Provider: [...] weeks Ultrasound: growth Q4 DELIVERY PLAN Hospital: [place] Contraception: TBD : recommended Vaccinations recommended: Covid, influenza (Dec-July, any gestational age), TDap (27-36 weeks), RSV [(Abrysvo- Pfizer) between 32-36 weeks, December - April] Elevated ALT measurement 01/10/2025 Priority: High - Discussed possible etiologies including transient elevation, viral (more content not included)... Normal [facility] Renal creatinine clearance c alculated from serum or plasma and 24 hour urine creatiniOrdered By: Mariela Alvarado on 01-10-2025 Creatinine renal clearance (24H U+S/P) [Vol/Time] 181 ml/min 100-200 [facility] Serum Creatinine AND GFRon 0 01-10-2025 Creatinine [Mass/Vol] 0.59 mg/dL Low 0.70-1.20 [facility] Comment on above: Performed By: #### L 501.1105 #### [facility] [address] [facility] [place], [place], [id number] GFR/1.73 sq M.predicted among non-blacks MDRD (S/P/Bld) [Vol rate/Area] 130 mL/min/{1.73_m2} Normal >60 [facility] Comment on above: Result Comment: mL/m in/1.73m2 CKD-EPI Creatinine Equation (2020) Performed By: #### L 501.1105 #### [facility] [address] [facility] [place], [place], [id number] Serum creatinine measurement (mass/volume)Ordered By: Lakeisha Flowers on 01-10-2025 Creatinine [Mass/Vol] 0.59 mg/dL Low 0.70-1.20 [facility] Total urine volume measureme ntOrdered By: Mariela Alvarado on 01-10-2025 Specimen volume (U) 2600.[address] [facility] URINE CULTUREon 01-10-2025 Bacteria identified Cx Nom (U) Urine Culture [id number] COLI >100,000 CFU/ml Escherichia coli Organism: ESCHERICHIA [...] F Extended Spectrum b-lactamase N F Normal [facility] Comment on above: Order Comment: Relea se to patient->Automatic Urine creatinine measurement (mass/volume)Ordered By: Mariela Alvarado on 01-10-2025 Creatinine (U) [Mass/Vol] 59.10 mg/dL 28.00-217.00 [facility] Comment on above: *Additional results available. Contact laboratory/see report* Urine Cultureon 12-31-2024 URC Escherichia coli [place] Count >100,000 Escherichia coli: REACTION Ampicillin Islt [...] TMP SMX Islt KATY <=20 S Normal [facility] Comment on above: Performed By: #### M 100.5638 #### [facility] [address] [place], [address] Laboratory - Chemistry and C hemistry - challengeOrdered By: Lakeisha Flowers on 12-29-2024 Bilirubin Ql (U) Negative [facility] Glucose Ql (U) Negative [facility] Ketones Ql (U) Negative [facility] pH (U) 6.0 [pH] [facility] Specific gravity (U) [Rel density] 1.010 [facility] Urobilinogen (U) [Mass/Vol] Negative [facility] - Hematology and Cell countsOrdered By: Lakeisha Flowers on 12-29-2024 Hemoglobin Ql (U) Hemolyzed [facility] - Specimen inform ationOrdered By: Lakeisha Flowers on 12-29-2024 Clarity (U) Cloudy [facility] Color (U) YELLOW [facility] - UrinalysisOrder ed By: Lakeisha Flowers on 12-29-2024 Nitrite Ql (U) Negative [facility] Protein Ql (U) Trace [facility] No Panel InformationOrdered By: Lakeisha Flowers on 12-29-2024 Urine Leukocytes Positive [facility] Urine Non-Hemolyzed Blood Large [facility] Before And After School Daycare Worker Office Visit Reporton 12-29-2024 Before And After School Daycare Worker Office Visit Report [facility]'[address], [address] [place] [address] OFFICE VISIT Date of Service: 12/29/24 MR#: [id number] Acct: [id number] Name: MAREN BARNEY Rep #: [id number] : 2000 Provider: HECTOR doe Age/Sex: 24/F [place] [facility] [place] Status: Signed Intake Vital Signs 12/27/24 10:25 12/29/24 13:40 12/29/24 13:51 Height 5 ft 8 in 5 ft 8 in 5 ft 8 in Weight: 314 lb 4 oz BMI 47.7 BP 135/88 H Intake Visit Reasons: OB, hematuria, dysuria Chief Complaint: OB hematuria and dysuria Copyright Manager Required: No Is patient in pain?: No [...] house current occupational status: employed current occupation: [employer] current occupational exposures/hazards: No pets and animals: [...] 3-4 times per week duration: 15-30 minutes/day sveta/oriental orthodox: None seatbelt use: always do you feel safe at home: Yes 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 pt reports normal BPs at home. 11/29/24 -???-???-???-???-???- ???-???-???-???-???-? ??-???- 15w 6d 319 lb 130/86 Negative -???-???-???-???-???- ???-???-???-???-???-? ??-???- Negative 158 -???-???-???-???-???- ???-???-???-???-???-? (more content not included)... Normal [facility] Urine cultureOrdered By: Kyle Flowers on 12-29-2024 Bacteria identified Cx Nom (U) Escherichia coli Abnormal [facility] Absolute lymphocyte countOrd ered By: Mariela Alvarado on 12-28-2024 Lymphocytes Auto (Unsp spec) [#/Vol] 1.29 10*3/uL 0.83-4.51 [facility] Absolute neutrophil countOrd ered By: Mariela Alvarado on 12-28-2024 Neutrophils (Bld) [#/Vol] 8.2 10*3/uL High 2.0-7.7 [facility] Anion gap in Serum or Plasma Ordered By: Mariela Alvarado on 12-28-2024 Anion gap [Moles/Vol] 12 mmol/L 5-15 [facility] Automated lymphocyte count a s percentage of total leukocytesOrdered By: Mariela Alvarado on 12-28-2024 Lymphocytes/100 WBC Auto (Unsp spec) 12.6 % Low 19-41 [facility] BUN/creatinine ratioOrdered By: Mariela Alvarado on 12-28-2024 Urea nitrogen/Creatinine [Mass ratio] 9.9 mg/mg Low 10-20 [facility] Basophil percentageOrdered B y: Mariela Alvarado on 12-28-2024 Basophils/100 WBC (Bld) 0.3 % 0-1 [facility] Bilirubin, totalOrdered By: Mariela Alvarado on 12-28-2024 Bilirubin [Mass/Vol] 0.38 mg/dL 0.00-1.30 [facility] CBC W/Diff, Automatedon 12-13 Absolute Lymph 1.29 X10 3/uL Normal 0.83-4.51 [facility] Comment on above: Performed By: #### M 100.2200 #### [facility] [address] [place], [address] Absolute Neut 8.2 X10 3/uL High 2.0-7.7 [facility] Comment on above: Performed By: #### M 100.2200 #### [facility] [address] [place], [address] Basophils/100 WBC (Bld) 0.3 % Normal 0-1 [facility] Comment on above: Performed By: #### M 100.2200 #### [facility] [address] [place], [address] Eosinophils/100 WBC (Bld) 0.9 % Normal 0-5 [facility] Comment on above: Performed By: #### M 100.2200 #### [facility] [address] [place], [address] Erythrocyte distribution width (RBC) [Ratio] 15.0 % High 11.6-14.6 [facility] Comment on above: Performed By: #### M 100.2200 #### [facility] [address] [place], [address] Hematocrit (Bld) [Volume fraction] 39.6 % Normal 37-47 [facility] Comment on above: Performed By: #### M 100.2200 #### [facility] [address] [place], [address] Hemoglobin (Bld) [Mass/Vol] 13.2 g/dL Normal 12.0-15.0 [facility] Comment on above: Performed By: #### M 100.2200 #### [facility] [address] [place], [address] IG% 0.400 Normal 0.0-0.9 [facility] Comment on above: Result Comment: IG% - Immature Granulocytes (promyelocytes, myelocytes and metamyelocytes) > 1% indicates that a LEFT SHIFT is Present. Performed By: #### M 100.2200 #### [facility] [address] [place], [address] Lymphocytes/100 WBC (Bld) 12.6 % Low 19-41 [facility] Comment on above: Performed By: #### M 100.2200 #### [facility] [address] [place], [address] MCH (RBC) [Entitic mass] 28.2 pg Normal 27.0-32.0 [facility] Comment on above: Performed By: #### M 100.2200 #### [facility] [address] [place], [address] MCHC (RBC) [Mass/Vol] 33.3 g/dL Normal 32-36 [facility] Comment on above: Performed By: #### M 100.2200 #### [facility] [address] [place], [address] MCV (RBC) [Entitic vol] 84.6 fL Normal 81-99 [facility] Comment on above: Performed By: #### M 100.2200 #### [facility] [address] [place], [address] Monocytes/100 WBC (Bld) 5.6 % Normal 0-10 [facility] Comment on above: Performed By: #### M 100.2200 #### [facility] [address] [place], [address] Neutrophils/100 WBC (Bld) 80.2 % High 47-70 [facility] Comment on above: Performed By: #### M 100.2200 #### [facility] [address] [place], [address] Nucleated RBC (Bld) [#/Vol] 0 10*3/uL Normal 0-5 [facility] Comment on above: Performed By: #### M 100.2200 #### [facility] [address] [place], [address] Platelet mean volume (Bld) [Entitic vol] 9.5 fL Normal 6.2-12.0 [facility] Comment on above: Performed By: #### M 100.2200 #### [facility] [address] [place], [address] Platelets (Bld) [#/Vol] 296 10*3/uL Normal 150-450 [facility] Comment on above: Performed By: #### M 100.2200 #### [facility] [address] [place], [address] RBC (Bld) [#/Vol] 4.68 10*6/uL Normal 4.2-5.[address] [facility] Comment on above: Performed By: #### M 100.2200 #### [facility] [address] [place], [address] RDW SD 45.8 fl High 35.1-43.9 [facility] Comment on above: Performed By: #### M 100.2200 #### [facility] [address] [place], [address] WBC (Bld) [#/Vol] 10.2 10*3/uL Normal 4.4-11.[address] [facility] Comment on above: Performed By: #### M 100.2200 #### [facility] [address] [place], [address] Carbon dioxide, total [Moles /volume] in Central venous bloodOrdered By: Mariela Alvarado on 12-28-2024 CO2 [Moles/Vol] 20.2 mmol/L Low 21.0-32.0 [facility] Chloride assayOrdered By: Mauricio Alvarado on 12-28-2024 Chloride [Moles/Vol] 104 mmol/L 98-108 [facility] Comprehensive Metabolic Prof ilon 12-28-2024 Albumin [Mass/Vol] 3.6 g/dL Normal 3.5-5.0 [facility] Comment on above: Performed By: #### M 100.0 #### [facility] [address] [place], [address] Albumin/Globulin [Mass ratio] 1.1 {ratio} Normal 0.9-2.4 [facility] Comment on above: Performed By: #### M 100.2200 #### [facility] [address] [place], [address] ALK PHOS 127 U/L High 35-104 [facility] Comment on above: Performed By: #### M 100.2200 #### [facility] [address] [place], [address] ALT [Catalytic activity/Vol] 71 U/L High <=34 [facility] Comment on above: Performed By: #### M 100.2200 #### [facility] [address] [place], [address] AST [Catalytic activity/Vol] 28 U/L Normal <=31 [facility] Comment on above: Performed By: #### M 100.2200 #### [facility] [address] [place], [address] Bilirubin [Mass/Vol] 0.38 mg/dL Normal 0.00-1.30 [facility] Comment on above: Performed By: #### M 100.2200 #### [facility] [address] [place], [address] BUN/CRE 9.9 RATIO Low 10-20 [facility] Comment on above: Performed By: #### M 100.2200 #### [facility] [address] [place], [address] Calcium [Mass/Vol] 9.2 mg/dL Normal 7.6-11.0 [facility] Comment on above: Performed By: #### M 100.2200 #### [facility] [address] [place], [address] Chloride [Moles/Vol] 104 mmol/L Normal 98-108 [facility] Comment on above: Performed By: #### M 100.2200 #### [facility] [address] [place], [address] CO2 [Moles/Vol] 20.2 mmol/L Low 21.0-32.0 [facility] Comment on above: Performed By: #### M 100.2200 #### [facility] [address] [place], [address] Creatinine [Mass/Vol] 0.53 mg/dL Low 0.70-1.20 [facility] Comment on above: Performed By: #### M 100.2200 #### [facility] [address] [place], [address] GAP 12 Normal 5-15 [facility] Comment on above: Performed By: #### M 100.2200 #### [facility] [address] [place], [address] GFR/1.73 sq M.predicted among non-blacks MDRD (S/P/Bld) [Vol rate/Area] 133 mL/min/{1.73_m2} Normal >60 [facility] Comment on above: Result Comment: mL/m in/1.73m2 CKD-EPI Creatinine Equation (2020) Performed By: #### M 100.2200 #### [facility] [address] [place], [address] Globulin (S) [Mass/Vol] 3.4 g/dL Normal 2.2-4.2 [facility] Comment on above: Performed By: #### M 100.2200 #### [facility] [address] [place], [address] Glucose [Mass/Vol] 87 mg/dL Normal 70-99 [facility] Comment on above: Performed By: #### M 100.2200 #### [facility] [address] [place], [address] Potassium [Moles/Vol] 3.8 mmol/L Normal 3.3-5.1 [facility] Comment on above: Performed By: #### M 100.2200 #### [facility] [address] [place], [address] Sodium [Moles/Vol] 136 mmol/L Normal 133-145 [facility] Comment on above: Performed By: #### M 100.2200 #### [facility] [address] [place], [address] T PROT 7.1 g/dL Normal 5.9-8.4 [facility] Comment on above: Performed By: #### M 100.2200 #### [facility] [address] [place], [address] Urea nitrogen [Mass/Vol] 5 mg/dL Normal 4-19 [facility] Comment on above: Performed By: #### M 100.2200 #### [facility] [address] [place], [address] Eosinophil percentageOrdered By: Mariela Alvarado on 12-28-2024 Eosinophils/100 WBC (Bld) 0.9 % 0-5 [facility] Erythrocyte distribution wid th ratioOrdered By: Mariela Alvarado on 12-28-2024 Erythrocyte distribution width (RBC) [Ratio] 15.0 % High 11.6-14.6 [facility] Erythrocyte distribution wid th standard deviationOrdered By: Mariela Alvarado on 12-28-2024 Erythrocyte distribution width (RBC) [Ratio] 45.8 fl High 35.1-43.9 [facility] Glomerular filtration rate ( GFR) estimation/1.73 sq m using serum, plasma, or whole bOrdered By: Mariela Alvarado on 12-28-2024 GFR/1.73 sq M.predicted among non-blacks MDRD (S/P/Bld) [Vol rate/Area] 133 mL/min/{1.73_m2} >60 [facility] Comment on above: mL/min/1.73m2 CKD-EP I Creatinine Equation (2020) Hematocrit Auto (Bld) [Volum e fraction]Ordered By: Mariela Alvarado on 12-28-2024 Hematocrit (Bld) [Volume fraction] 39.6 % 37-47 [facility] Hemoglobin measurementOrdere d By: Mariela Alvarado on 12-28-2024 Hemoglobin (Bld) [Mass/Vol] 13.2 g/dL 12.0-15.0 [facility] Immature granulocytes/100 WB C Auto (Bld)Ordered By: Mariela Alvarado on 12-28-2024 Immature granulocytes/100 WBC (Bld) 0.400 % 0.0-0.9 [facility] Comment on above: IG% - Immature Granu locytes (promyelocytes, myelocytes and metamyelocytes) > 1% indicates that a LEFT SHIFT is Present. Laboratory - Chemistry and C hemistry - challengeOrdered By: Mariela Alvarado on 12-28-2024 AST [Catalytic activity/Vol] 28 U/L <32 [facility] MCV (mean corpuscular volume ) determinationOrdered By: Mraiela Alvarado on 12-28-2024 MCV (RBC) [Entitic vol] 84.6 fL 81-99 [facility] Mean corpuscular hemoglobin (MCH) determinationOrdered By: Mariela Alvarado on 12-28-2024 MCH (RBC) [Entitic mass] 28.2 pg 27.0-32.0 [facility] Mean corpuscular hemoglobin concentration (MCHC) determinationOrdered By: Mariela Alvarado on 12-28-2024 MCHC (RBC) [Mass/Vol] 33.3 g/dL 32-36 [facility] Mean platelet volume determi nationOrdered By: Mariela Alvarado on 12-28-2024 Platelet mean volume (Bld) [Entitic vol] 9.5 fL 6.2-12.0 [facility] Monocyte percentageOrdered B y: Mariela Alvarado on 12-28-2024 Monocytes/100 WBC (Bld) 5.6 % 0-10 [facility] Neutrophil percentageOrdered By: Mariela Alvarado on 12-28-2024 Neutrophils/100 WBC (Bld) 80.2 % High 47-70 [facility] Nucleated red blood cell per centageOrdered By: Mariela Alvarado on 12-28-2024 Nucleated RBC/100 WBC (Bld) [Ratio] 0 % 0-5 [facility] Platelet countOrdered By: Mauricio Alvarado on 12-28-2024 Platelets (Bld) [#/Vol] 296 10*3/uL 150-450 [facility] Potassium measurement (mass/ volume)Ordered By: Mariela Alvarado on 12-28-2024 Potassium (Unsp spec) [Mass/Vol] 3.8 mmol/L 3.3-5.1 [facility] RBC Auto (Bld) [#/Vol]Ordere d By: Mariela Alvarado on 12-28-2024 RBC (Bld) [#/Vol] 4.68 10*6/uL 4.2-5.[address] [facility] Serum creatinine measurement (mass/volume)Ordered By: Mariela Alvarado on 12-28-2024 Creatinine [Mass/Vol] 0.53 mg/dL Low 0.70-1.20 [facility] Serum globulin measurementOr dered By: Mariela Alvarado on 12-28-2024 Globulin (S) [Mass/Vol] 3.4 g/dL 2.2-4.2 [facility] Serum glucose measurement (m ass/volume)Ordered By: Mariela Alvarado on 12-28-2024 Glucose [Mass/Vol] 87 mg/dL 70-99 [facility] Serum or plasma alanine will otransferase (ALT) measurementOrdered By: Mariela Alvarado on 12-28-2024 ALT [Catalytic activity/Vol] 71 U/L High <35 [facility] Serum or plasma albumin wilman urement (mass/volume)Ordered By: Mariela Alvarado on 12-28-2024 Albumin [Mass/Vol] 3.6 g/dL 3.5-5.0 [facility] Serum or plasma albumin/glob ulin mass ratioOrdered By: Mariela Alvarado on 12-28-2024 Albumin/Globulin [Mass ratio] 1.1 {ratio} 0.9-2.4 [facility] Serum or plasma alkaline kristel sphatase measurementOrdered By: Mariela Alvarado on 12-28-2024 ALP [Catalytic activity/Vol] 127 U/L High 35-104 [facility] Serum or plasma calcium wilman urement (mass/volume)Ordered By: Mariela Alvarado on 12-28-2024 Calcium [Mass/Vol] 9.2 mg/dL 7.6-11.0 [facility] Serum or plasma urea nitroge n measurement (mass/volume)Ordered By: Mariela Alvarado on 12-28-2024 Urea nitrogen [Mass/Vol] 5 mg/dL 4-19 [facility] Sodium levelOrdered By: Zaheer Alvarado on 12-28-2024 Sodium [Moles/Vol] 136 mmol/L 133-145 [facility] Total proteinOrdered By: Alvarez Alvarado on 12-28-2024 Protein [Mass/Vol] 7.1 g/dL 5.9-8.4 [facility] White blood cell (WBC) count Ordered By: Mariela Alvarado on 12-28-2024 WBC (Bld) [#/Vol] 10.2 10*3/uL 4.4-11.[address] [facility] Laboratory - Chemistry and C hemistry - challengeOrdered By: Mariela Alvarado on 12-27-2024 Glucose Ql (U) Negative [facility] - UrinalysisOrder ed By: Mariela Alvarado on 12-27-2024 Protein Ql (U) Negative [facility] Before And After School Daycare Worker Office Visit Reporton 12-27-2024 Before And After School Daycare Worker Office Visit Report [facility] [address], [address] [place] [address] OFFICE VISIT Date of Service: 12/27/24 MR#: [id number] Acct: [id number] Name: MAREN BARNEY Rep #: [id number] : 2000 Provider: Dr. Mariela puckett MD Age/Sex: 24/F [place] [facility] [place] Status: Signed Intake Vital Signs 11/01/24 13:49 11/29/24 11:40 12/27/24 10:21 12/27/24 10:25 Height 5 ft 8 in 5 ft 8 in 5 ft 8 in 5 ft 8 in Weight: 316 lb 9 oz BMI 48.1 BP 138/87 H Intake Visit Reasons: 20wk ob Copyright Manager Required: No Is patient in pain?: No [...] house current occupational status: employed current occupation: [employer] current occupational exposures/hazards: No pets and [...] 3-4 times per week duration: 15-30 minutes/day sveta/oriental orthodox: None seatbelt use: always do you feel safe at home: Yes 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 doing better. [facility] anatomy US ordered. if too expensive will call and do [facility] scan. pt reports normal BPs at home. 11/29/24 -???-???-???-???-???- ???-???-???-???-???-? ??-???- 15w 6d 319 lb 130/86 Negative -???-???-???-???-???- ???-???-???-???-???-? ??-???- Negative 158 -???-???-???-???-???- ???-???-???-???-???-? ??-???- KW- no vb/cr amping. has not gotten call from [facility] to schedule US. will reorder US. Declines AFP. 12/27/24 -???-???-? (more content not included)... Normal [facility] - Chemistry and C hemistry - challengeOrdered By: Kt Avila on 11-29-2024 Glucose Ql (U) Negative [facility] Laboratory - UrinalysisOrder ed By: Kt Avila on 11-29-2024 Protein Ql (U) Negative [facility] [employer] And After [employer] Daycare Worker Office Visit Reporton 11-29-2024 Before And After School Daycare Worker Office Visit Report [facility] [address], [address] [place] [address] OFFICE VISIT Date of Service: 11/29/24 MR#: [id number] Acct: [id number] Name: MAREN BARNEY Rep #: [id number] : 2000 Provider: RAFAELA Echevarria ams Age/Sex: 24/F Location: [facility] Status: Signed Intake Vital Signs 10/06/24 13:07 11/01/24 13:49 11/29/24 11:40 Height 5 ft 8 in 5 ft 8 in 5 ft 8 in Weight: 319 lb BMI 48.4 BP 130/86 H Intake Visit Reasons: 16 wk ob Chief Complaint: 16wk OB Copyright Manager Required: No Is patient in pain?: No [...] house current occupational status: employed current occupation: [employer] current occupational exposures/hazards: No pets and animals: [...] 3-4 times per week duration: 15-30 minutes/day sveta/oriental orthodox: None seatbelt use: always do you feel safe at home: Yes 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 pt reports normal BPs at home. 11/29/24 -???-???-???-???-???- ???-???-???-???-???-? ??-???- 15w 6d 319 lb 130/86 Negative -???-???-???-???-???- ???-???-???-???-???-? ??-???- Negative 158 -???-???-???-???-???- ???-???-???-???-???-? ??-???- KW- no vb/cr amping. has not gotten call from [facility] to schedule US. will reorder US. Declines AFP. ACOG First Trimester First Trimester: Desire for , Alcohol, Tob (more content not included)... Normal [facility] NATERAon 11-17-2024 [place] SEE SCANNED REPORT Normal [facility] Comment on above: Performed By: #### M 100.2200 #### [facility] [address] [place], [address] Anion gap in Serum or Plasma Ordered By: Joyce Santiago on 11-10-2024 Anion gap [Moles/Vol] 12 mmol/L 5-15 [facility] BUN/creatinine ratioOrdered By: Joyce Santiago on 11-10-2024 Urea nitrogen/Creatinine [Mass ratio] 12.2 mg/mg 10-20 [facility] Bilirubin, totalOrdered By: Joyce Santiago on 11-10-2024 Bilirubin [Mass/Vol] 0.22 mg/dL 0.00-1.30 [facility] Carbon dioxide, total [Moles /volume] in Central venous bloodOrdered By: Joyce Santiago on 11-10-2024 CO2 [Moles/Vol] 22.7 mmol/L 21.0-32.0 [facility] Chloride assayOrdered By: Henry Santiago on 11-10-2024 Chloride [Moles/Vol] 101 mmol/L 98-108 [facility] Comprehensive Metabolic Prof ilon 11-10-2024 Albumin [Mass/Vol] 3.9 g/dL Normal 3.5-5.0 [facility] Comment on above: Performed By: #### M 100.0 #### [facility] [address] [place], [address] Albumin/Globulin [Mass ratio] 1.2 {ratio} Normal 0.9-2.4 [facility] Comment on above: Performed By: #### M 100.0 #### [facility] [address] [place], [address] ALK PHOS 90 U/L Normal 35-104 [facility] Comment on above: Performed By: #### M 100.0 #### [facility] [address] [place], [address] ALT [Catalytic activity/Vol] 36 U/L High <=34 [facility] Comment on above: Performed By: #### M 100.2200 #### [facility] [address] [place], [address] AST [Catalytic activity/Vol] 17 U/L Normal <=31 [facility] Comment on above: Performed By: #### M 100.2200 #### [facility] [address] [place], [address] Bilirubin [Mass/Vol] 0.22 mg/dL Normal 0.00-1.30 [facility] Comment on above: Performed By: #### M 100.2200 #### [facility] [address] [place], [address] BUN/CRE 12.2 RATIO Normal 10-20 [facility] Comment on above: Performed By: #### M 100.2200 #### [facility] [address] [place], [address] Calcium [Mass/Vol] 9.3 mg/dL Normal 7.6-11.0 [facility] Comment on above: Performed By: #### M 100.2200 #### [facility] [address] [place], [address] Chloride [Moles/Vol] 101 mmol/L Normal 98-108 [facility] Comment on above: Performed By: #### M 100.2200 #### [facility] [address] [place], [address] CO2 [Moles/Vol] 22.7 mmol/L Normal 21.0-32.0 [facility] Comment on above: Performed By: #### M 100.2200 #### [facility] [address] [place], [address] Creatinine [Mass/Vol] 0.60 mg/dL Low 0.70-1.20 [facility] Comment on above: Performed By: #### M 100.2200 #### [facility] [address] [place], [address] GAP 12 Normal 5-15 [facility] Comment on above: Performed By: #### M 100.2200 #### [facility] [address] [place], [address] GFR/1.73 sq M.predicted among non-blacks MDRD (S/P/Bld) [Vol rate/Area] 129 mL/min/{1.73_m2} Normal >60 [facility] Comment on above: Result Comment: mL/m in/1.73m2 CKD-EPI Creatinine Equation (2020) Performed By: #### M 100.2200 #### [facility] [address] [place], [address] Globulin (S) [Mass/Vol] 3.3 g/dL Normal 2.2-4.2 [facility] Comment on above: Performed By: #### M 100.2200 #### [facility] [address] [place], [address] Glucose [Mass/Vol] 86 mg/dL Normal 70-99 [facility] Comment on above: Performed By: #### M 100.2200 #### [facility] [address] [place], [address] Potassium [Moles/Vol] 4.4 mmol/L Normal 3.3-5.1 [facility] Comment on above: Performed By: #### M 100.2200 #### [facility] [address] [place], [address] Sodium [Moles/Vol] 136 mmol/L Normal 133-145 [facility] Comment on above: Performed By: #### M 100.2200 #### [facility] [address] [place], [address] T PROT 7.2 g/dL Normal 5.9-8.4 [facility] Comment on above: Performed By: #### M 100.2200 #### [facility] [address] [place], [place], [address] Urea nitrogen [Mass/Vol] 7 mg/dL Normal 4-19 [facility] Comment on above: Performed By: #### M 100.2200 #### [facility] [address] [place], [address] Glomerular filtration rate ( GFR) estimation/1.73 sq m using serum, plasma, or whole bOrdered By: Joyce Santiago on 11-10-2024 GFR/1.73 sq M.predicted among non-blacks MDRD (S/P/Bld) [Vol rate/Area] 129 mL/min/{1.73_m2} >60 [facility] Comment on above: mL/min/1.73m2 CKD-EP I Creatinine Equation (2020) Laboratory - Chemistry and C hemistry - challengeOrdered By: Joyce Santiago on 11-10-2024 AST [Catalytic activity/Vol] 17 U/L <32 [facility] Potassium measurement (mass/ volume)Ordered By: Joyce Santiago on 11-10-2024 Potassium (Unsp spec) [Mass/Vol] 4.4 mmol/L 3.3-5.1 [facility] Serum creatinine measurement (mass/volume)Ordered By: Joyce Santiago on 11-10-2024 Creatinine [Mass/Vol] 0.60 mg/dL Low 0.70-1.20 [facility] Serum globulin measurementOr dered By: Joyce Santiago on 11-10-2024 Globulin (S) [Mass/Vol] 3.3 g/dL 2.2-4.2 [facility] Serum glucose measurement (m ass/volume)Ordered By: Joyce Santiago on 11-10-2024 Glucose [Mass/Vol] 86 mg/dL 70-99 [facility] Serum or plasma alanine will otransferase (ALT) measurementOrdered By: Joyce Santiago on 11-10-2024 ALT [Catalytic activity/Vol] 36 U/L High <35 [facility] Serum or plasma albumin wilman urement (mass/volume)Ordered By: Joyce Santiago on 11-10-2024 Albumin [Mass/Vol] 3.9 g/dL 3.5-5.0 [facility] Serum or plasma albumin/glob ulin mass ratioOrdered By: Joyce Santiago on 11-10-2024 Albumin/Globulin [Mass ratio] 1.2 {ratio} 0.9-2.4 [facility] Serum or plasma alkaline kristel sphatase measurementOrdered By: Joyce Santiago on 11-10-2024 ALP [Catalytic activity/Vol] 90 U/L 35-104 [facility] Serum or plasma calcium wilman urement (mass/volume)Ordered By: Joyce Santiago on 11-10-2024 Calcium [Mass/Vol] 9.3 mg/dL 7.6-11.0 [facility] Serum or plasma urea nitroge n measurement (mass/volume)Ordered By: Joyce Santiago on 11-10-2024 Urea nitrogen [Mass/Vol] 7 mg/dL 4-19 [facility] Sodium levelOrdered By: Alina Santiago on 11-10-2024 Sodium [Moles/Vol] 136 mmol/L 133-145 [facility] Total proteinOrdered By: Bettie Santiago on 11-10-2024 Protein [Mass/Vol] 7.2 g/dL 5.9-8.4 [facility] Absolute lymphocyte countOrd ered By: Joyce Santiago on 11-01-2024 Lymphocytes Auto (Unsp spec) [#/Vol] 1.69 10*3/uL 0.83-4.51 [facility] Absolute neutrophil countOrd ered By: Joyce Santiago on 11-01-2024 Neutrophils (Bld) [#/Vol] 9.2 10*3/uL High 2.0-7.7 [facility] Anion gap in Serum or Plasma Ordered By: Joyce Santiago on 11-01-2024 Anion gap [Moles/Vol] 12 mmol/L 5-15 [facility] Automated lymphocyte count a s percentage of total leukocytesOrdered By: Joyce Santiago on 11-01-2024 Lymphocytes/100 WBC Auto (Unsp spec) 14.4 % Low 19-41 [facility] BUN/creatinine ratioOrdered By: Joyce Santiago on 11-01-2024 Urea nitrogen/Creatinine [Mass ratio] 11.6 mg/mg 10-20 [facility] Basophil percentageOrdered B y: Joyce Santiago on 11-01-2024 Basophils/100 WBC (Bld) 0.3 % 0-1 [facility] Bilirubin, totalOrdered By: Joyce Santiago on 11-01-2024 Bilirubin [Mass/Vol] 0.19 mg/dL 0.00-1.30 [facility] CBC W/Diff, Automatedon 10-13-2024 Absolute Lymph 1.69 X10 3/uL Normal 0.83-4.51 [facility] Comment on above: Performed By: #### L 501.0250, L3890.6006, L100.0100, L509.8002 #### [facility] [address] [place], [address] Absolute Neut 9.2 X10 3/uL High 2.0-7.7 [facility] Comment on above: Performed By: #### L 501.0250, L3890.6006, L100.0100, L509.8002 #### [facility] [address] [place], [address] Basophils/100 WBC (Bld) 0.3 % Normal 0-1 [facility] Comment on above: Performed By: #### L 501.0250, L3890.6006, L100.0100, L509.8002 #### [facility] [address] [place], [address] Eosinophils/100 WBC (Bld) 0.7 % Normal 0-5 [facility] Comment on above: Performed By: #### L 501.0250, L3890.6006, L100.0100, L509.8002 #### [facility] [address] [place], [address] Erythrocyte distribution width (RBC) [Ratio] 14.6 % Normal 11.6-14.6 [facility] Comment on above: Performed By: #### L 501.0250, L3890.6006, L100.0100, L509.8002 #### [facility] [address] [place], [address] Hematocrit (Bld) [Volume fraction] 40.4 % Normal 37-47 [facility] Comment on above: Performed By: #### L 501.0250, L3890.6006, L100.0100, L509.8002 #### [facility] [address] [place], [address] Hemoglobin (Bld) [Mass/Vol] 12.8 g/dL Normal 12.0-15.0 [facility] Comment on above: Performed By: #### L 501.0250, L3890.6006, L100.0100, L509.8002 #### [facility] [address] [place], [address] IG% 0.300 Normal 0.0-0.9 [facility] Comment on above: Result Comment: IG% - Immature Granulocytes (promyelocytes, myelocytes and metamyelocytes) > 1% indicates that a LEFT SHIFT is Present. Performed By: #### L 501.0250, L3890.6006, L100.0100, L509.8002 #### [facility] [address] [place], [address] Lymphocytes/100 WBC (Bld) 14.4 % Low 19-41 [facility] Comment on above: Performed By: #### L 501.0250, L3890.6006, L100.0100, L509.8002 #### [facility] [address] [place], [address] MCH (RBC) [Entitic mass] 26.6 pg Low 27.0-32.0 [facility] Comment on above: Performed By: #### L 501.0250, L3890.6006, L100.0100, L509.8002 #### [facility] [address] [place], [address] MCHC (RBC) [Mass/Vol] 31.7 g/dL Low 32-36 [facility] Comment on above: Performed By: #### L 501.0250, L3890.6006, L100.0100, L509.8002 #### [facility] [address] [place], [address] MCV (RBC) [Entitic vol] 84.0 fL Normal 81-99 [facility] Comment on above: Performed By: #### L 501.0250, L3890.6006, L100.0100, L509.8002 #### [facility] [address] [place], [address] Monocytes/100 WBC (Bld) 5.8 % Normal 0-10 [facility] Comment on above: Performed By: #### L 501.0250, L3890.6006, L100.0100, L509.8002 #### [facility] [address] [place], [address] Neutrophils/100 WBC (Bld) 78.5 % High 47-70 [facility] Comment on above: Performed By: #### L 501.0250, L3890.6006, L100.0100, L509.8002 #### [facility] [address] [place], [address] Nucleated RBC (Bld) [#/Vol] 0 10*3/uL Normal 0-5 [facility] Comment on above: Performed By: #### L 501.0250, L3890.6006, L100.0100, L509.8002 #### [facility] [address] [place], [address] Platelet mean volume (Bld) [Entitic vol] 9.5 fL Normal 6.2-12.0 [facility] Comment on above: Performed By: #### L 501.0250, L3890.6006, L100.0100, L509.8002 #### [facility] [address] [place], [address] Platelets (Bld) [#/Vol] 333 10*3/uL Normal 150-450 [facility] Comment on above: Performed By: #### L 501.0250, L3890.6006, L100.0100, L509.8002 #### [facility] [address] [place], [address] RBC (Bld) [#/Vol] 4.81 10*6/uL Normal 4.2-5.[address] [facility] Comment on above: Performed By: #### L 501.0250, L3890.6006, L100.0100, L509.8002 #### [facility] [address] [place], [address] RDW SD 44.6 fl High 35.1-43.9 [facility] Comment on above: Performed By: #### L 501.0250, L3890.6006, L100.0100, L509.8002 #### [facility] [address] [place], [address] WBC (Bld) [#/Vol] 11.8 10*3/uL High 4.4-11.[address] [facility] Comment on above: Performed By: #### L 501.0250, L3890.6006, L100.0100, L509.8002 #### [facility] [address] [place], [address] Carbon dioxide, total [Moles /volume] in Central venous bloodOrdered By: Joyce Santiago on 11-01-2024 CO2 [Moles/Vol] 22.4 mmol/L 21.0-32.0 [facility] Chloride assayOrdered By: Henry Santiago on 11-01-2024 Chloride [Moles/Vol] 102 mmol/L 98-108 [facility] Comprehensive Metabolic Prof ilon 11-01-2024 Albumin [Mass/Vol] 4.0 g/dL Normal 3.5-5.0 [facility] Comment on above: Performed By: #### L 501.0250, L3890.6006, L100.0100, L509.8002 #### [facility] [address] [place], [address] Albumin/Globulin [Mass ratio] 1.2 {ratio} Normal 0.9-2.4 [facility] Comment on above: Performed By: #### L 501.0250, L3890.6006, L100.0100, L509.8002 #### [facility] [address] [place], [address] ALK PHOS 93 U/L Normal 35-104 [facility] Comment on above: Performed By: #### L 501.0250, L3890.6006, L100.0100, L509.8002 #### [facility] [address] [place], [address] ALT [Catalytic activity/Vol] 50 U/L High <=34 [facility] Comment on above: Performed By: #### L 501.0250, L3890.6006, L100.0100, L509.8002 #### [facility] [address] [place], [address] AST [Catalytic activity/Vol] 22 U/L Normal <=31 [facility] Comment on above: Performed By: #### L 501.0250, L3890.6006, L100.0100, L509.8002 #### [facility] [address] [place], [address] Bilirubin [Mass/Vol] 0.19 mg/dL Normal 0.00-1.30 [facility] Comment on above: Performed By: #### L 501.0250, L3890.6006, L100.0100, L509.8002 #### [facility] [address] [place], [address] BUN/CRE 11.6 RATIO Normal 10-20 [facility] Comment on above: Performed By: #### L 501.0250, L3890.6006, L100.0100, L509.8002 #### [facility] [address] [place], [address] Calcium [Mass/Vol] 9.4 mg/dL Normal 7.6-11.0 [facility] Comment on above: Performed By: #### L 501.0250, L3890.6006, L100.0100, L509.8002 #### [facility] [address] [place], [address] Chloride [Moles/Vol] 102 mmol/L Normal 98-108 [facility] Comment on above: Performed By: #### L 501.0250, L3890.6006, L100.0100, L509.8002 #### [facility] [address] [place], [address] CO2 [Moles/Vol] 22.4 mmol/L Normal 21.0-32.0 [facility] Comment on above: Performed By: #### L 501.0250, L3890.6006, L100.0100, L509.8002 #### [facility] [address] [place], [address] Creatinine [Mass/Vol] 0.65 mg/dL Low 0.70-1.20 [facility] Comment on above: Performed By: #### L 501.0250, L3890.6006, L100.0100, L509.8002 #### [facility] [address] [place], [address] GAP 12 Normal 5-15 [facility] Comment on above: Performed By: #### L 501.0250, L3890.6006, L100.0100, L509.8002 #### [facility] [address] [place], [address] GFR/1.73 sq M.predicted among non-blacks MDRD (S/P/Bld) [Vol rate/Area] 128 mL/min/{1.73_m2} Normal >60 [facility] Comment on above: Result Comment: mL/m in/1.73m2 CKD-EPI Creatinine Equation (2020) Performed By: #### L 501.0250, L3890.6006, L100.0100, L509.8002 #### [facility] [address] [place], [address] Globulin (S) [Mass/Vol] 3.2 g/dL Normal 2.2-4.2 [facility] Comment on above: Performed By: #### L 501.0250, L3890.6006, L100.0100, L509.8002 #### [facility] [address] [place], [address] Glucose [Mass/Vol] 99 mg/dL Normal 70-99 [facility] Comment on above: Performed By: #### L 501.0250, L3890.6006, L100.0100, L509.8002 #### [facility] [address] [place], [address] Potassium [Moles/Vol] 4.1 mmol/L Normal 3.3-5.1 [facility] Comment on above: Performed By: #### L 501.0250, L3890.6006, L100.0100, L509.8002 #### [facility] [address] [place], [address] Sodium [Moles/Vol] 137 mmol/L Normal 133-145 [facility] Comment on above: Performed By: #### L 501.0250, L3890.6006, L100.0100, L509.8002 #### [facility] [address] [place], [address] T PROT 7.2 g/dL Normal 5.9-8.4 [facility] Comment on above: Performed By: #### L 501.0250, L3890.6006, L100.0100, L509.8002 #### [facility] [address] [place], [address] Urea nitrogen [Mass/Vol] 8 mg/dL Normal 4-19 [facility] Comment on above: Performed By: #### L 501.0250, L3890.6006, L100.0100, L509.8002 #### [facility] [address] [place], [address] Eosinophil percentageOrdered By: Joyce Santiago on 11-01-2024 Eosinophils/100 WBC (Bld) 0.7 % 0-5 [facility] Erythrocyte distribution wid th ratioOrdered By: Joyce Santiago on 11-01-2024 Erythrocyte distribution width (RBC) [Ratio] 14.6 % 11.6-14.6 [facility] Erythrocyte distribution wid th standard deviationOrdered By: Joyce Santiago on 11-01-2024 Erythrocyte distribution width (RBC) [Ratio] 44.6 fl High 35.1-43.9 [facility] Glomerular filtration rate ( GFR) estimation/1.73 sq m using serum, plasma, or whole bOrdered By: Joyce Santiago on 11-01-2024 GFR/1.73 sq M.predicted among non-blacks MDRD (S/P/Bld) [Vol rate/Area] 128 mL/min/{1.73_m2} >60 [facility] Comment on above: mL/min/1.73m2 CKD-EP I Creatinine Equation (2020) HIVon 11-01-2024 HIV Non-Reactive Normal Nonreactive [facility] Comment on above: Result Comment: Non- Reactive Reactive Repeatedly reactive samples must be confirmed according to CDC recommended confirmatory algorithms. The subresults for either HIVAG or AHIV can be used as an aid in the selection of the confirmation algorithm for reactive samples. Send out specimens with Reactive results to [facility] for confirmation. Order the HIV antibody detection and differentiation: lc#[id number] Performed By: #### L 501.0250, L3890.6006, L100.0100, L509.8002 #### [facility] [address] [place], [place], [address] Hematocrit Auto (Bld) [Volum e fraction]Ordered By: Joyce Santiago on 11-01-2024 Hematocrit (Bld) [Volume fraction] 40.4 % 37-47 [facility] Hemoglobin A1con 11-01-2024 HbA1c (Bld) [Mass fraction] 5.1 % Normal <=5.6 [facility] Comment on above: Result Comment: Norm al < 5.7 % Prediabetic 5.7 - 6.4 % Diabetic >or= 6.5 % Please note range changes. Performed By: #### L 501.0250, L3890.6006, L100.0100, L509.8002 #### [facility] [address] [place], [place], [address] Hemoglobin A1c percentageOrd ered By: Joyce Santiago on 11-01-2024 HbA1c (Bld) [Mass fraction] 5.1 % <5.7 [facility] Comment on above: Normal < 5.7 % Predi abetic 5.7 - 6.4 % Diabetic >or= 6.5 % Please note range changes. Hemoglobin measurementOrdere d By: Joyce Santiago on 11-01-2024 Hemoglobin (Bld) [Mass/Vol] 12.8 g/dL 12.0-15.0 [facility] Hepatitis C Antibodyon 11-01 Hepatitis C Ab Non-Reactive Normal Nonreactive [facility] Comment on above: Result Comment: Reac tive: Presumptive evidence of antibodies to HCV. Follow CDC recommendations for supplemental testing. Non-Reactive: Antibodies to HCV were not detected; does not exclude the possibility of exposure to HCV Reactive Results are presumptive evidence of antibodies to HCV. Follow CDC recommendations for supplemental testing. Order confirmation testing: HCV Quant by PCR testing - HCVPCR #[id number] Non Reactive: < 0.8 Equivocal: >/= 0.8 to < 1.0 Reactive: >/= 1.0 The CDC requires that a reactive/equivocal HCV antibody result be sent out for confirmation. HCV Quant by PCR testing. Performed By: #### L 501.0250, L3890.6006, L100.0100, L509.8002 #### [facility] [address] [facility] [place], [address] Immature granulocytes/100 WB C Auto (Bld)Ordered By: Joyce Santiago on 11-01-2024 Immature granulocytes/100 WBC (Bld) 0.300 % 0.0-0.9 [facility] Comment on above: IG% - Immature Granu locytes (promyelocytes, myelocytes and metamyelocytes) > 1% indicates that a LEFT SHIFT is Present. L3890.6102on 11-01-2024 HEP B Surf Ag Non-Reactive Normal Nonreactive [facility] Comment on above: Result Comment: Reac tive: Presumptive evidence of HBV. Repeatedly reactive samples must be confirmed using a neutralization test ([employer] HBsAg Confirmatory Test) Non-Reactive: HBsAg not detected; does not exclude the possibility of exposure to HBV Performed By: #### L 501.0250, L3890.6006, L100.0100, L509.8002 #### [facility] [address] [facility] [place], [address] L509.4006on 11-01-2024 Rubella IgG REAC Normal Nonreactive [facility] Comment on above: Result Comment: Anti body Result: Interpretation Non-Reactive: Non-Immune Reactive: Immune The following results were obtained with the [employer] Rubella IgG assay. Results from assays of other manufacturers cannot be used interchangeably. Performed By: #### L 501.0250, L3890.6006, L100.0100, L509.8002 #### [facility] [address] [facility] [facility] [place], [address] Laboratory - Chemistry and C hemistry - challengeOrdered By: Joyce Santiago on 11-01-2024 AST [Catalytic activity/Vol] 22 U/L <32 [facility] - Microbiology an d Antimicrobial susceptibilityOrdered By: Joyce Santiago on 11-01-2024 HBV surface Ag Ql (S) Non-Reactive Nonreactive [facility] Comment on above: Reactive: Presumptiv e evidence of HBV. Repeatedly reactive samples must be confirmed using a neutralization test ([employer] HBsAg Confirmatory Test)Non-Reactive: HBsAg not detected; does not exclude the possibility of exposure to HBV MCV (mean corpuscular volume ) determinationOrdered By: Joyce Santiago on 11-01-2024 MCV (RBC) [Entitic vol] 84.0 fL 81-99 [facility] Mean corpuscular hemoglobin (MCH) determinationOrdered By: Joyce Santiago on 11-01-2024 MCH (RBC) [Entitic mass] 26.6 pg Low 27.0-32.0 [facility] Mean corpuscular hemoglobin concentration (MCHC) determinationOrdered By: Joyce Santiago on 11-01-2024 MCHC (RBC) [Mass/Vol] 31.7 g/dL Low 32-36 [facility] Mean platelet volume determi nationOrdered By: Joyce Santiago on 11-01-2024 Platelet mean volume (Bld) [Entitic vol] 9.5 fL 6.2-12.0 [facility] Monocyte percentageOrdered B y: Joyce Santiago on 11-01-2024 Monocytes/100 WBC (Bld) 5.8 % 0-10 [facility] NATERAon 11-01-2024 NATURA SEE SCANNED REPORT Normal [facility] Comment on above: Performed By: #### M 100.5566 #### [facility] [address] [place], [place], [id number] Neutrophil percentageOrdered By: Joyce Santiago on 11-01-2024 Neutrophils/100 WBC (Bld) 78.5 % High 47-70 [facility] No Panel InformationOrdered By: Joyce Santiago on 11-01-2024 HIV (1&2) Antibody Non-Reactive Nonreactive [facility] Comment on above: Non-ReactiveReactive Repeatedly reactive samples must be confirmed according to CDC recommended confirmatory algorithms. 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 [facility] [address], [address] [place] [address] OFFICE VISIT Date of Service: 11/01/24 MR#: [id number] Acct: [id number] Name: MAREN BARNEY Rep #: [id number] : 2000 Provider: RAFAELA Echevarria ams Age/Sex: 23/F [place] [facility] [place] Status: Signed Intake Vital Signs 03/18/24 09:30 10/06/24 13:07 11/01/24 13:49 11/01/24 14:22 Height 5 ft 8 in 5 ft 8 in 5 ft 8 in Weight: 322 lb BMI 48.9 BP 142/89 H 126/85 H Intake Visit Reasons: 12Wk OB Chief Complaint: 12wk OB Copyright Manager Required: No Is patient in pain?: No [...] house current occupational status: employed current occupation: [employer] current occupational exposures/hazards: No pets and animals: [...] 3-4 times per week duration: 15-30 minutes/day sveta/oriental orthodox: None seatbelt use: always do you feel safe at home: Yes 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 pt reports normal BPs at home. ACOG First Trimester First Trimester: Desire for , Alcohol, Tobacco Cessation, Illicit/Recreational Drug/Substance Use, Intimate Partner Violence, Barriers to care, Unstable Housing, Communication Barriers, Environmental/Work Hazards, Anticipated Course of Care, Toxoplasmosis Precations, Use of Any medications, Sexual activity, Exercise, D (more content not included)... Normal [facility] Platelet countOrdered By: Henry Santiago on 11-01-2024 Platelets (Bld) [#/Vol] 333 10*3/uL 150-450 [facility] Potassium measurement (mass/ volume)Ordered By: Joyce Santiago on 11-01-2024 Potassium (Unsp spec) [Mass/Vol] 4.1 mmol/L 3.3-5.1 [facility] Protein+Creatinine Ratio,Uri neon 11-01-2024 PROT:CRE RATIO 73 mg/g CRE Normal 0-200 [facility] Comment on above: Performed By: #### M 100.2200 #### [facility] [address] [place], [address] Protein (U) [Mass/Vol] 14.7 mg/dL High 0.0-12.0 [facility] Comment on above: Performed By: #### M 100.2200 #### [facility] [address] [place], [address] UR CREAT 201.00 mg/dL Normal 28.00-217.00 [facility] Comment on above: Performed By: #### M 100.2200 #### [facility] [address] [place], [address] RBC Auto (Bld) [#/Vol]Ordere d By: Joyce Santiago on 11-01-2024 RBC (Bld) [#/Vol] 4.81 10*6/uL 4.2-5.[address] [facility] Random urine creatinine wilman urement (mass/volume)Ordered By: Joyce Santiago on 11-01-2024 Creatinine Unsp time (U) [Mass/Vol] 201.00 mg/dL 28.00-217.00 [facility] Serum creatinine measurement (mass/volume)Ordered By: Joyce Santiago on 11-01-2024 Creatinine [Mass/Vol] 0.65 mg/dL Low 0.70-1.20 [facility] Serum globulin measurementOr dered By: Joyce Santiago on 11-01-2024 Globulin (S) [Mass/Vol] 3.2 g/dL 2.2-4.2 [facility] Serum glucose measurement (m ass/volume)Ordered By: Joyce Santiago on 11-01-2024 Glucose [Mass/Vol] 99 mg/dL 70-99 [facility] Serum or plasma alanine will otransferase (ALT) measurementOrdered By: Joyce Santiago on 11-01-2024 ALT [Catalytic activity/Vol] 50 U/L High <35 [facility] Serum or plasma albumin wilman urement (mass/volume)Ordered By: Joyce Santiago on 11-01-2024 Albumin [Mass/Vol] 4.0 g/dL 3.5-5.0 [facility] Serum or plasma albumin/glob ulin mass ratioOrdered By: Joyce Santiago on 11-01-2024 Albumin/Globulin [Mass ratio] 1.2 {ratio} 0.9-2.4 [facility] Serum or plasma alkaline kristel sphatase measurementOrdered By: Joyce Santiago on 11-01-2024 ALP [Catalytic activity/Vol] 93 U/L 35-104 [facility] Serum or plasma calcium wilman urement (mass/volume)Ordered By: Joyce Santiago on 11-01-2024 Calcium [Mass/Vol] 9.4 mg/dL 7.6-11.0 [facility] Serum or plasma urea nitroge n measurement (mass/volume)Ordered By: Joyce Santiago on 11-01-2024 Urea nitrogen [Mass/Vol] 8 mg/dL 4-19 [facility] Sodium levelOrdered By: Alina Santiago on 11-01-2024 Sodium [Moles/Vol] 137 mmol/L 133-145 [facility] Syphilis Antibodieson 2024 Syphilis Abs Non-Reactive Normal Nonreactive [facility] Comment on above: Performed By: #### L 501.0250, L3890.6006, L100.0100, L509.8002 #### [facility] [address] [place], [address] Total proteinOrdered By: Bettie Santiago on 11-01-2024 Protein [Mass/Vol] 7.2 g/dL 5.9-8.4 [facility] Type AND Screenon 11-01-2024 Ab SCREEN GEL Negative Normal [facility] Comment on above: Order Comment: PN Performed By: #### L 501.0250, L3890.6006, L100.0100, L509.8002 #### [facility] [address] [place], [address] Urine protein measurement (m ass/volume)Ordered By: Joyce Santiago on 11-01-2024 Protein (U) [Mass/Vol] 14.7 mg/dL High 0.0-12.0 [facility] Urine protein/creatinine mas s ratioOrdered By: Joyce Santiago on 11-01-2024 Protein/Creatinine (U) [Mass ratio] 73 mg/g CRE 0-200 [facility] White blood cell (WBC) count Ordered By: Joyce Santiago on 11-01-2024 WBC (Bld) [#/Vol] 11.8 10*3/uL High 4.4-11.[address] [facility] Chlamydia/GC LUIGI aptimaon CHLAMY,NUC ACID Negative Normal Negative [facility] Comment on above: Performed By: #### M 100.2200 #### [facility] [address] [place], [address] GC BY NUC ACID Negative Normal Negative [facility] Comment on above: Result Comment: Perf ormed at: =G - [facility] [address] [place] [id number] Advertising Campaign Manager: Joanna Nguyễn MD, Phone: [phone] Performed By: #### M 100.2200 #### [facility] [address] [place], [place], [address] Urine Cultureon 10-07-2024 URC #2 POSSIBLE PROTEUS SPP. Below infection level. Mixed Gram Pos Gram Neg Org [place] Count 11,000-25,000 MIXC Mixed contaminants. Submit a new specimen if indicated. GNR [place] Count 1000-10,000 Normal [facility] Comment on above: Performed By: #### M 100.2200 #### [facility] [address] [place], [place], [address] Chlamydia trachomatis rRNA d etection by probe and target amplification methodOrdered By: Joyce Santiago on 10-06-2024 C. trachomatis rRNA LUIGI+probe Ql (Unsp spec) Negative Negative [facility] Neisseria gonorrhoeae nuclei c acid detection by amplified probe techniqueOrdered By: Joyce Santiago on 10-06-2024 N. 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 Normal [facility] Urine cultureOrdered By: Bettie Santiago on 10-06-2024 Bacteria identified Cx Nom (U) Mixed Gram Pos & Gram Neg Org Abnormal [facility] Bacteria identified Cx Nom (U) Negative Abnormal [facility] - Chemistry and C hemistry - challengeOrdered By: Joyce Santiago on 09-28-2024 HCG ( test) Ql (U) Positive [facility] Office Visit Reporton 2024 Office Visit Report [facility] [address] [place] [address] OFFICE VISIT Date of Service: 09/28/24 MR#: [id number] Acct: [id number] Patient: MAREN BARNEY Rep #: [id number] : 2000 Provider: Dr. Joyce Maciel DO Age/Sex: 23/F Location[place] [facility] [place] Status: Signed Intake Vital Signs 03/18/24 09:30 [...] year?: No 09/30/242056 Date Joyce Goodman DO [facility] Signature: Date (if applicable) CC: Normal [facility] CBC + DIFFon 03-21-2024 Baso # 0.03 x10EE3/UL Normal 0.00 - 0.10 [facility] Comment on above: Performed By: #### 2 68734 #### [facility],[address] [place], [place] [address] Basophils/100 WBC (Bld) 0.4 % Normal 0.0 - 2.0 [facility] Comment on above: Performed By: #### 2 77828 #### [facility],[address] [place] [address] CBC + DIFF Normal [facility] Comment on above: Result Comment: CBC- COMPLETE BLOOD COUNT Performed By: #### 2 23934 #### [facility],[address] [place] [address] EO # 0.10 x10EE3/UL Normal 0.00 - 0.50 [facility] Comment on above: Performed By: #### 2 05628 #### [facility],[address] [place] [address] Eosinophils/100 WBC (Bld) 1.4 % Normal 0.0 - 7.0 [facility] Comment on above: Performed By: #### 2 01611 #### [facility],[address] [place] [address] Erythrocyte distribution width (RBC) [Ratio] 14.4 % Normal 12.0 - 15.6 [facility] Comment on above: Performed By: #### 2 29435 #### [facility],[address] [place] [address] Hematocrit (Bld) [Volume fraction] 45.9 % Normal 34.0 - 46.0 [facility] Comment on above: Performed By: #### 2 44269 #### [facility],[address] [place] [address] Hemoglobin (Bld) [Mass/Vol] 15.0 g/dL Normal 12.0 - 16.0 [facility] Comment on above: Performed By: #### 2 07360 #### [facility],[address] [place] [address] Lymph # 2.22 x10EE3/UL Normal 0.80 - 2.80 [facility] Comment on above: Performed By: #### 2 47838 #### [facility],[address] [place], [place] [address] Lymphocytes/100 WBC (Bld) 33.0 % Normal 20.0 - 45.0 [facility] Comment on above: Performed By: #### 2 30440 #### [facility],[address] [place] [address] MANUAL DIFF N/A Normal [facility] Comment on above: Performed By: #### 2 29400 #### [facility],[address] [place], [place] [address] MCH (RBC) [Entitic mass] 26 pg Low 27 - 33 [facility] Comment on above: Performed By: #### 2 55276 #### [facility],[address] [place] [address] MCHC 33 X10 3 Normal 32 - 36 [facility] Comment on above: Performed By: #### 2 95650 #### [facility],[address] [place] [address] MCV (RBC) [Entitic vol] 80 fL Normal 80 - 99 J l [facility] Comment on above: Performed By: #### 2 10548 #### [facility],[address] [place] [address] [place] # 0.45 x10EE3/UL Normal 0.20 - 1.00 [facility] Comment on above: Performed By: #### 2 61974 #### [facility],[address] [place] [address] MONOS % 6.7 % Normal 0.0 - 10.0 [facility] Comment on above: Performed By: #### 2 54597 #### [facility],[address] [place] [address]36 Morphology Chaka (Bld) [Interp] N/A Normal [facility] Comment on above: Performed By: #### 2 54674 #### [facility],[address] [place] [address] Neut # 3.94 x10EE3/UL Normal 1.50 - 7.10 [facility] Comment on above: Performed By: #### 2 38528 #### [facility],[address] [place] [address] Neutrophils/100 WBC (Bld) 58.5 % Normal 46.0 - 76.0 [facility] Comment on above: Performed By: #### 2 23195 #### [facility],[address] [place] [address] PLATELET 361 x10EE3/UL Normal 150 - 450 [facility] Comment on above: Performed By: #### 2 72730 #### [facility],[address] [place] [address] 057[address] Platelet mean volume (Bld) [Entitic vol] 6.8 fL Normal 6.6 - 10.5 [facility] Comment on above: Result Comment: AUTO MATED DIFFERENTIAL Performed By: #### 2 82097 #### [facility],[address] [place] [address] RBC 5.72 x 10EE6/UL High 4.10 - 5.30 [facility] Comment on above: Performed By: #### 2 88860 #### [facility],[address] [place] [address] 91017 WBC 6.7 x 10EE3/UL Normal 4.5 - 10.8 [facility] Comment on above: Performed By: #### 2 66339 #### [facility],[address] [place] [address]200 CHEST 2 VIEWSon 03-21-2024 CHEST 2 VIEWS [place] [id number] Patient: MAREN HURST Phone#: : 2000 Age: 23 Gender: F Pt. Type: ER Account: [id number] Location: [facility] Ordering: GARRETT BEARD Exam Date: 03/21/2024/0:58 Family Phys: ESTEPHANIA DOWLING Charge Code: [id number] Physician: Mchenry Order #: [id number] Dose#: PROCEDURE: X-RAY CHEST 2 VIEWS COMPARISON: [...] Pitts MD on 03/22/2024 at 10:48 Normal [facility] CMP with eGFRon 03-21-2024 AGE 23 years Normal [facility] Comment on above: Performed By: #### 2 08126 #### [facility],[address] [place] [address] 79475 Albumin [Mass/Vol] 3.2 g/dL Low 3.4 - 5.0 [facility] Comment on above: Performed By: #### 2 01829 #### [facility],[address] [place] [address]97 Albumin/Globulin [Mass ratio] 0.6 {ratio} Low 0.9 - 1.6 [facility] Comment on above: Performed By: #### 2 83207 #### [facility],[address] [place] [address] 59161 ALK PHOS 97 U/L Normal 46 - 116 [facility] Comment on above: Performed By: #### 2 07697 #### [facility],[address] [place] [address] 72681 ALT [Catalytic activity/Vol] 83 U/L High 16 - 63 [facility] Comment on above: Performed By: #### 2 19653 #### [facility],[address] [place] [address] 12527 Anion gap [Moles/Vol] 13 mmol/L Normal 10 - 20 [facility] Comment on above: Performed By: #### 2 62474 #### [facility],[address] [place] [address] 74946 AST [Catalytic activity/Vol] 26 U/L Normal 13 - 39 [facility] Comment on above: Performed By: #### 2 77877 #### [facility],[address] [place] [address] 79276 B/C RATIO 10 ratio Normal 0 - 30 [facility] Comment on above: Performed By: #### 2 26570 #### [facility],[address] [place] [address] 03575 Bilirubin [Mass/Vol] 0.4 mg/dL Normal 0.2 - 1.0 [facility] Comment on above: Performed By: #### 2 28191 #### [facility],[address] [place] [address] 89928 Calcium [Mass/Vol] 9.1 mg/dL Normal 8.5 - 10.1 [facility] Comment on above: Performed By: #### 2 47673 #### [facility],[address] [place] [address] 14148 Chloride [Moles/Vol] 100 mmol/L Normal 98 - 107 [facility] Comment on above: Performed By: #### 2 59454 #### [facility],[address] [place] [address] 09511 CMP with eGFR Normal [facility] Comment on above: Result Comment: COMP REHENSIVE METABOLIC PANEL Performed By: #### 2 97643 #### [facility],[address] [place] [address] 97012 CO2 [Moles/Vol] 28.5 mmol/L Normal 21.0 - 32.0 [facility] Comment on above: Performed By: #### 2 28399 #### [facility],[address] [place] [address] 26331 Creatinine [Mass/Vol] 1.08 mg/dL High 0.55 - 1.[address] [facility] Comment on above: Performed By: #### 2 17615 #### [facility],[address] [place] [address] 99908 GFR/1.73 sq M.predicted among non-blacks MDRD (S/P/Bld) [Vol rate/Area] mL/min/{1.73_m2} Normal 60 - 999 [facility] Comment on above: Performed By: #### 2 50323 #### [facility],[address] [place] [address]2071 Result Comment: ACCO RDING TO THE NATIONAL KIDNEY DISEASE EDUCATION PROGRAM(NKDE), A NORMAL eGFR IS A VALUE GREATER THAN OR EQUAL TO 60 ML/MIN/1.73 SQ METERS. CHRONIC KIDNEY DISEASE: <60mL/MIN/1.73 SQ METERS KIDNEY FAILURE: <15mL/MIN/1.73 SQ METERS THIS TEST SHOULD ONLY BE USED FOR PATIENTS 18 YEARS OF AGE AND OLDER. Globulin (S) [Mass/Vol] 5.3 g/dL High 1.5 - 3.8 [facility] Comment on above: Performed By: #### 2 90932 #### [facility],[address] [place] [address] 18266 Glucose [Mass/Vol] 96 mg/dL Normal 74 - 106 [facility] Comment on above: Performed By: #### 2 35574 #### [facility],[address] [place] [address] 57587 Potassium [Moles/Vol] 3.9 mmol/L Normal 3.5 - 5.1 [facility] Comment on above: Performed By: #### 2 69087 #### [address] [address] Protein [Mass/Vol] 8.5 g/dL High 6.4 - 8.2 [facility] Comment on above: Performed By: #### 2 08607 #### [facility],[address] [place] [address] 84854 Sodium [Moles/Vol] 138 mmol/L Normal 136 - 145 [facility] Comment on above: Performed By: #### 2 72785 #### [address] [address] Urea nitrogen [Mass/Vol] 11 mg/dL Normal 7 - 18 [facility] Comment on above: Performed By: #### 2 44672 #### [address] [address] ED MED ADMINISTRATION DETAIL on 03-21-2024 ED MED ADMINISTRATION DETAIL Ghost Writer Medication Administration Record [address] [address] [id number] 03/21/2024 Patient: MAREN HURST Sex: Female : [...] - 00:59 Anna NavarreteT.-P. 1 of 2 Ghost Writer Medication Ordered Medication Administration Date/Time Levaquin IVPB [...] Bri Gardner R.N. 2 of 2 Normal [facility] ED NURSES CLINICAL NOTEon ED NURSES CLINICAL NOTE Nurse Narrative Nurse Clinical Narrative [address] [address] [id number] 03/21/2024 Patient: MAREN HURST Sex: Female : [...] RASHARD Gardner R.N. 00:16 03/21/24. Preferred pharmacy: [facility] ; [address] [place] [address] ([facility]). 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 (Chest xray completed.). -- 04:29 03/21/24 EST Bri Gardner R.N. 00:53 12/8/24. HR: 126 bpm. O2 saturation: 9 (more content not included)... Normal [facility] ED ORDER SHEET (CPOE ONLY)on 03-21-2024 ED ORDER SHEET (CPOE ONLY) Order Sheet Order Sheet [facility] [address] [place] [address] [id number] 03/21/2024 Patient: MAREN HURST Sex: Female : 2000 Age: 23y MEASUREMENTS: Wt: 131.5 kg, Ht/Dru: 65.0 in, BMI: 48.26 ALLERGIES: No known drug allergies MEDICATION/IV/DRIP/FL UID ORDERS Order Description Priority Entered Acknowledged Completed IV NS 0.9 %1000 mL at 999 00:41 03/21/2024 00:57 00:59 mL/hr (NOW x1) Garrett Beard, 03/21/2024 03/21/2024 Colin Grubbs E.M.T.-P. E.M.T.-P. MethylPREDNISolone Sodium 00:41 03/21/2024 00:57 00:59 Succ (Solu-Medrol) [id number] mg Garrett Beard, 03/21/2024 03/21/2024 (NOW x1) Colin Grubbs E.M.TOlga Lidia-P. E.M.T.-P. Reason for ordering with alerts: Benefits outweigh risks --00:41 03/21/2024 Garrett Beard D.O. Levaquin IVPB [id number] mg at 01:34 03/21/2024 01:59 100 mL/hr [...] (03/21/2024 04:08 EST)] 3 of 3 Normal [facility] ED PHYSICIAN CLINICAL REPORT on 03-21-2024 ED PHYSICIAN CLINICAL REPORT Narrative Physician Clinical Narrative [address] [address] [id number] 03/21/2024 Patient: MAREN HURST Sex: Female : [...] 1.50 - 7.10 Final EST 03/21/2024 01:10 [place] # 0.45 x10/UL 0.20 - 1.00 Final [...] Final 0 (more content not included)... Normal [facility] ED SUPER BILLon 03-21-2024 ED SUPER BILL [facility] [address] [place] [address] [id number] 03/21/2024 Patient: MAREN HURST Sex: Female : 2000 Age: 23y Item Facility Professional Category Description Code Code Quantity Fee Total Drugs Normal Saline 635134 2 $0.00 $0.00 1000cc (511010) Nurse/E/M EMERGENCY 640268 1 $0.00 $0.00 DEPARTMENT VISIT HIGH/URGENT SEVERITY (69978-91) Nurse/IV/IM/Infusions Drip/IVPB 799390 1 $0.00 $0.00 additional hour (96092) Nurse/IV/IM/Infusions Drip/IVPB initial 414326 1 $0.00 $0.00 (32999) Nurse/IV/IM/Infusions Drip/IVPB seq [id number] 1 $0.00 $0.00 (98208) Nurse/IV/IM/Infusions Hydration 431133 1 $0.00 $0.00 additional hour (50303) 1 of 2 [facility] Professional Category Description Code Code Quantity Fee Total Nurse/IV/IM/Infusions IVP additional 367028 1 $0.00 $0.00 push (60950) Grand Total $0.00 Providers Garrett Beard D.O. Chief Complaint ALLERGIC REACTION and HIVES. Principal Diagnosis Acute hives secondary to unknown cause. Bronchopneumonia. ICD-10 Codes L50.9: Urticaria, unspecified J18.0: Bronchopneumonia, unspecified organism 2 of 2 Normal [facility] ED VISIT SUMMARYon ED VISIT SUMMARY Visit Overview Visit Overview [address] [place] [address] [id number] 03/21/2024 Patient: MAREN HURST Sex: Female : [...] UNKNOWN CAUSE BRONCHOPNEUMONIA 3 of 3 Normal [facility] ED VITALS FLOW SHEETon 03-21 ED VITALS FLOW SHEET Vitals Vital Sign Flow Sheet [facility] [address] [place] [address] [id number] 03/21/2024 Patient: MAREN HURST Sex: Female : [...] 155/95 122 124 3 of 3 Normal [facility] Chest PA and Lateralon 03-18 Chest PA and Lateral [facility] [address] [place] [address] Chest PA and Lateral MR#: [id number] Acct: [id number] Name: MAREN HURST Rep #: [id number] : 2000 F 23 From: Harvey garcia MD PCP: Estephania Dowling PA-C Status: [facility] CL Study: Chest PA and Lateral Date of Exam: 03/18/24 Exam# [id number] Ordering Dr: Carlos Enrique Coyne [id number] STUDY: X-RAY CHEST REASON FOR EXAM: Female, [...] EST , CC: RODRIGUEZ Dowling; QUIQUE Rodriguez Front 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 declines viral testing. [facility] Social History Smoking Status: Never smoker [...] Muñoz Signature: Date (if applicable) CC: Normal [facility] Cytology Reporton 2023 [facility] Cytology Report . Pathology Reports Accession: Collected Date/Time: Received Date/Time: Pathologist: [id number] 06/09/2023 09:11 EST 06/09/2023 18:00 EST [employer] [facility] Report SPECIMEN: Specimen Description: Liquid Prep Reflex ASCUS Specimen: Cervical Screening or Diagnostic: Screening RELEVANT HISTORY: LMP: [id number] SPECIMEN ADEQUACY: SATISFACTORY FOR EVALUATION Endocervical/Transfor mational zone component present INTERPRETATION/RESULT S: NEGATIVE FOR INTRAEPITHELIAL LESION OR MALIGNANCY COMMENT: This Pap Test was successfully processed and evaluated with the assistance of the [employer] ThinPrep Test Imaging System. Electronically Signed by Pathology report verified by [facility] Screened by: KK Electronically signed by Monica HAMMONDS (ASCP) Sign-Out Date: 06/19/2023 13:30 Performing Lab: [facility], [address] [place] [address] Pathology Dept Disclaimer The Pap test is a screening test for cervical cancer. As evidenced by published data, it is subject to both inherent false negative and false positive results. Your patient's results should be interpreted in context with pertinent clinical history including gynecological examination. Normal Counts Include [facility] ([facility]) THIN PREP (Nargis) PAP WITH HP V REFLEXon 06-19-2023 THIN PREP (Nargis) PAP WITH HPV REFLEX Normal [facility] Comment on above: Result Comment: _THI N PREP (Adult) PAP w HPV REFLEX_ Performed By: #### 2 [id number] #### [facility],[address] [place] [address] Vital Signs Date Time Vital Sign Value Performing Clinician Adelaida howard 01-24-2025 09:01-0400 Body height 172.72 cm Estephania Dowling PA-C Work Phone: [facility] 01-24-2025 09:01-0400 Body mass index (BMI) [Ratio] 47.9 kg/m2 [employer] PA-C Work Phone: [facility] 01-24-2025 09:01-0400 Body weight 143.02 kg Estephania Lindon PA-C Work Phone: [facility] 01-24-2025 09:01-0400 Diastolic blood pressure 85 mm[Hg] Estephania Lindon PA-C Work Phone: [facility] 01-24-2025 09:01-0400 Systolic blood pressure 126 mm[Hg] Estephania Lindon PA-C Work Phone: [facility] 12-29-2024 13:51-0400 Body height 172.72 cm [employer] PA-C Work Phone: [facility] 12-29-2024 13:40-0400 Body mass index (BMI) [Ratio] 47.7 kg/m2 Estephania Lindon PA-C Work Phone: [facility] 12-29-2024 13:40-0400 Body weight 142.54 kg Estephania Lindon PA-C Work Phone: [facility] 12-29-2024 13:40-0400 Diastolic blood pressure 88 mm[Hg] Estephania Lindon PA-C Work Phone: [facility] 12-29-2024 13:40-0400 Systolic blood pressure 135 mm[Hg] Estephania Lindon PA-C Work Phone: [facility] 12-27-2024 10:25-0400 Body height 172.72 cm [employer] PA-C Work Phone: [facility] 12-27-2024 10:21-0400 Body mass index (BMI) [Ratio] 48.1 kg/m2 [employer] PA-C Work Phone: [facility] 12-27-2024 10:21-0400 Body weight 143.59 kg Estephania Galavantier PA-C Work Phone: [facility] 12-27-2024 10:21-0400 Diastolic blood pressure 87 mm[Hg] Estephania Lindon PA-C Work Phone: [facility] 12-27-2024 10:21-0400 Systolic blood pressure 138 mm[Hg] Estephania Lindon PA-C Work Phone: [facility] 11-29-2024 11:40-0400 Body height 172.72 cm Estephania Lindon PA-C Work Phone: [facility] 11-29-2024 11:40-0400 Body mass index (BMI) [Ratio] 48.4 kg/m2 Estephania Lindon PA-C Work Phone: [facility] 11-29-2024 11:40-0400 Body weight 144.69 kg Estephania Lindon PA-C Work Phone: [facility] 11-29-2024 11:40-0400 Diastolic blood pressure 86 mm[Hg] Estephania Lindon PA-C Work Phone: [facility] 11-29-2024 11:40-0400 Systolic blood pressure 130 mm[Hg] Estephania Lindon PA-C Work Phone: [facility] 11-01-2024 14:22-0400 Diastolic blood pressure 85 mm[Hg] Estephania Lindon PA-C Work Phone: [facility] 11-01-2024 14:22-0400 Systolic blood pressure 126 mm[Hg] Estephania Lindon PA-C Work Phone: [facility] 11-01-2024 13:49-0400 Body height 172.72 cm Estephania Galavantier PA-C Work Phone: [facility] 11-01-2024 13:49-0400 Body mass index (BMI) [Ratio] 48.9 kg/m2 Estephania Galavantier PA-C Work Phone: [facility] 11-01-2024 13:49-0400 Body weight 146.05 kg [employer] PA-C Work Phone: [facility] 10-06-2024 13:07-0400 Body height 172.72 cm [employer] PA-C Work Phone: [facility] 10-06-2024 13:05-0400 Body mass index (BMI) [Ratio] 52.4 kg/m2 [employer] PA-C Work Phone: [facility] 10-06-2024 13:05-0400 Body weight 143.05 kg [employer] PA-C Work Phone: [facility] 10-06-2024 13:05-0400 Diastolic blood pressure 85 mm[Hg] [employer] PA-C Work Phone: [facility] 10-06-2024 13:05-0400 Systolic blood pressure 140 mm[Hg] [employer] PA-C Work Phone: [facility] 09-28-2024 11:47-0400 Body mass index (BMI) [Ratio] 50.3 kg/m2 [employer] PA-C Work Phone: [facility] 09-28-2024 11:47-0400 Body weight 150.25 kg [employer] PA-C Work Phone: [facility] 09-28-2024 11:47-0400 Diastolic blood pressure 80 mm[Hg] [employer] PA-C Work Phone: [facility] 09-28-2024 11:47-0400 Systolic blood pressure 122 mm[Hg] [employer] PA-C Work Phone: [facility] Encounters Encounter Date Encounter Type Care Provider Facility Start: 02-25-2025 ambulatory Kt Avila Facility :[facility] Start: 02-24-2025 ambulatory Joyce Landers cility:[facility] Start: 02-15-2025 End: 02-15-2025 ambulatory GILDARDO Renteria CHERYLE [facility] Start: 02-14-2025 End: 02-14-2025 ambulatory AISSATOU RUSHING [facility] Start: 02-07-2025 End: 02-07-2025 ambulatory Mariela Alvarado Facility:[facility] Start: 01-24-2025 End: 01-24-[address] Joyce Goodman DO -[facility] Work Phone: Start: 01-24-2025 End: 01-24-2025 ambulatory [employer] PA-C Work Phone: -[facility] Start: 01-10-2025 End: 01-10-2025 ambulatory [employer] PA-C Work Phone: -Lab [facility] Start: 01-10-2025 End: 01-10-2025 Patient encounter procedure Lakeisha NUÑEZC -Lab [facility] Start: 01-10-2025 End: 01-10-2025 Subsequent hospital visit by physician Aissatou Rushing DO Work Phone: [facility] Comment on above: , supervisi on, high-risk, second trimester; Elevated ALT measurement; Dysuria during in second trimester Start: 01-10-2025 End: 01-10-2025 ambulatory AISSATOU RUSHING [facility] Start: 01-10-2025 End: 01-10-2025 ambulatory MARIELA ALVARADO [facility] Start: 01-10-2025 End: 01-10-2025 ambulatory Estephania Lindon PA Facility:[facility] Start: 12-29-2024 End: 12-29-2024 Patient encounter procedure Lakeisha Flowers NP-C -[facility] Work Phone: Start: 12-29-2024 End: 12-29-2024 ambulatory [employer] PA-C Work Phone: -[facility] Start: 12-28-2024 End: 12-29-2024 ambulatory [employer] PA-C Work Phone: -[facility] Start: 12-28-2024 End: 12-28-[address] Mariela Alvarado MD -[facility] Start: 12-27-2024 End: 12-28-2024 ambulatory [employer] PA-C Work Phone: -[facility] Start: 12-27-2024 End: 12-27-[address] Mariela Alvarado MD -[facility] Work Phone: Start: 12-20-2024 End: 12-20-20[facility] Start: 11-29-2024 End: 11-29-2024 Patient encounter procedure Kt MACDONALD -[facility] Work Phone: Start: 11-29-2024 End: 11-29-2024 ambulatory [employer] PA-C Work Phone: [facility] Start: 11-17-2024 End: 11-17-2024 ambulatory [employer] PA-C Work Phone: -[facility] Start: 11-17-2024 End: 11-17-[address] Joyce Goodman DO [facility] Start: 11-17-2024 End: 11-17-2024 ambulatory Joyce Goodman Facility:[facility] Start: 11-10-2024 End: 11-10-2024 ambulatory [employer] PA-C Work Phone: -[facility] Start: 11-10-2024 End: 11-10-[address] Joyce Goodman DO [facility] Start: 11-10-2024 End: 11-10-2024 ambulatory Joyce Goodman Facility:[facility] Start: 11-01-2024 End: 11-01-2024 Patient encounter procedure Kt MACDONALD -[facility] Work Phone: Start: 11-01-2024 End: 11-01-2024 ambulatory Estephania Lindon PA-C Work Phone: -[facility] Start: 11-01-2024 End: 11-01-2024 ambulatory Kt Avila Facility:[facility] Start: 10-06-2024 End: 10-06-2024 ambulatory Estephania Lindon PA-C Work Phone: -[facility] Start: 10-06-2024 End: 10-06-[address] Joyce Goodman DO -[facility] Work Phone: Start: 10-06-2024 End: 10-06-[address] Joyce Goodman DO -[facility] Work Phone: Start: 10-06-2024 End: 10-06-2024 ambulatory Estephania Lindon PA-C Work Phone: [facility] Work Phone: Start: 10-06-2024 End: 10-06-2024 ambulatory Joyce Goodman Facility:[facility] Start: 09-28-2024 End: 09-28-[address] Joyce Goodman DO -[facility] Work Phone: Start: 09-28-2024 End: 09-28-2024 ambulatory Estephania Lindon PA-C Work Phone: [facility] Work Phone: Start: 03-21-2024 End: 03-21-2024 Emergency department patient visit GARRETT BEARD [facility] Start: 03-18-2024 End: 03-18-2024 ambulatory Carlos Enrique LEI Facility:[facility] Start: 03-18-2024 End: 03-18-2024 ambulatory Carlos Enrique LEI Facility:[facility] Start: 06-09-2023 End: 06-09-2023 ambulatory [facility] Start: 06-09-2023 Encounter for gynecological examination (general) (routine) without abnormal findings [facility] Start: 02-02-2022 ambulatory Cedric Pisano MD Work Phone: [facility] Start: 02-02-2022 Patient encounter procedure Cedric Pisano MD Work Phone: [facility] [place] Comment on above: Referral Procedures Date Procedure Procedure Detail Performing Clinician Start: 01-10-2025 Creatinine measureme nt, 24 hour urine [facility] [employer] Work Phone: Start: 01-10-2025 Comprehensive metabo lic panel Aissatou Rushing DO Work Phone: Start: 12-29-2024 Urine culture Estephania [employer] Work Phone: Start: 11-17-2024 Procedure Estephania Marcel [employer] Work Phone: Start: 11-01-2024 Hepatitis C antibody measurement Ida [employer] Work Phone: Comment on above: Reactive: Presumptiv e evidence of antibodies to HCV. Follow CDC recommendations for supplemental testing.Non-Reactive: Antibodies to HCV were not detected; does not exclude the possibility of exposure to HCVReactive Results are presumptive evidence of antibodies to HCV. Follow CDC recommendations for supplemental testing.Order confirmation testing: HCV Quant by PCR testing - HCVPCR #[id number] Non Reactive: < 0.8 Equivocal: >/= 0.8 to < 1.0 Reactive: >/= 1.0The CDC requires that a reactive/equivocal HCV antibody result be sent out for confirmation. HCV Quant by PCR testing. Start: 11-01-2024 Procedure Estephania Rod [employer] Work Phone: Start: 11-01-2024 Rubella IgG measurement [employer] Work Phone: Comment on above: Antibody Result: Int erpretationNon-Reactive: Non- ImmuneReactive: ImmuneThe following results were obtained with the [employer] Rubella IgG assay. Results from assays of other manufacturers cannot be used interchangeably. Start: 11-01-2024 Serologic test for syphilis [facility] RODRIGUEZ Work Phone: Start: 10-06-2024 Urine culture [facility] QUIQUEAvinashMyra Work Phone: Plan of Treatment Date Care Activity Detail Author Start: 04-04-2025 End: 04-04-2025 Professional / ancillary services management 04/04/2025 2:00 PM EST Ancillary Procedure Visit [facility] [address], [address] [place] [id number] [place] 60 GROWTH 4 WEEKS [facility] [place] Comment on above: US 60 GROWTH 4 WEEKS Start: 03-08-2025 End: 03-08-2025 Professional / ancillary services management 03/08/2025 8:30 AM EST Ancillary Procedure Visit [facility] [address], [address] [id number] [place] 60 GROWTH 4 WEEKS [facility] [place] Comment on above: US 60 GROWTH 4 WEEKS Start: 02-14-2025 End: 02-14-2025 Patient encounter procedure 02/14/2025 10:00 AM EST Office Visit [address] [id number] Aissatou Rushing DO [place], [place] [id number] Zbigniew Villarreal MD [place], [place] [phone] EDC 05/17/25 Dx: , supervision, high-risk, second trimester [O09.92] [facility] Comment on above: EDC 05/17/25 Dx: Pregn ricardo, supervision, high-risk, second trimester [O09.92] Start: 02-10-2025 End: 02-10-2025 Professional / ancillary services management 02/10/2025 8:00 AM EDT Ancillary Procedure Visit [facility] [address], [address] [id number] [place] 60 GROWTH 4 WEEKS [facility] [place] Comment on above: US 60 GROWTH 4 WEEKS Start: 02-07-2025 Patient encounter procedure Registered Clinical -Lab [facility] Start: 01-24-2025 Measurement of gluco se 2 hours after glucose challenge for glucose tolerance test [facility] Start: 01-24-2025 Serologic test for syphilis [facility] Start: 01-24-2025 [facility] Start: 01-10-2025 Patient encounter procedure Registered Clinical -Lab [facility] Start: 12-29-2024 [facility] Start: 12-29-2024 Bacteria identified in Urine by Culture Urine Culture [facility] Start: 12-13-2024 COVID-19 (2023-05 season) COVID-19 ( season) [facility] Start: 12-13-2024 FLU (#1) FLU (#1) [facility] Start: 11-01-2024 CBC W Auto Different ial panel - Blood [facility] Start: 11-01-2024 Comprehensive metabo lic 2000 panel - Serum or Plasma [facility] Start: 11-01-2024 Hemoglobin A1c/Hemoglobin.total in Blood [facility] Start: 11-01-2024 Hepatitis C antibody measurement [facility] Start: 11-01-2024 Procedure [facility] Start: 11-01-2024 Rubella IgG measurement [facility] Start: 11-01-2024 Serologic test for syphilis [facility] Start: 11-01-2024 [facility] Start: 10-06-2024 Chlamydia deoxyribon ucleic acid detection [facility] Start: 08-26-2024 Urine microalbumin profile DTA P,TDAP,TD (7 - Td or Tdap) [facility] Start: 2022 Microscopic observat ion [Identifier] in Cervix by Cyto stain Pap Smear [facility] Start: 12-13-2021 Influenza vaccination INFLUENZA (#1) [facility] Start: 04-14-2021 DEPRESSION ASSESSMENT DEPRESSION ASS ESSMENT [facility] Start: 03-30-2021 COVID-19 VACCINE (3 - Booster for Pfizer series) COVID-19 VACCINE (3 - Booster for Pfizer series) [facility] Start: 2020 Hepatitis A (1 of 2 - Risk 2-dose series) Hepatitis A (1 of 2 - Risk 2-dose series) [facility] Start: 2020 Hepatitis B (1 of 3 - 19+ 3-dose series) Hepatitis B (1 of 3 - 19+ 3-dose series) [facility] Start: 11-09-2019 CHLAMYDIA SCREENING (18-24) CHLAMYDIA SCREENING (18-24) [facility] Start: 11-09-2019 GC (GONORRHEA) SCREE MIMI (18-24) GC (GONORRHEA) SCREENING (18-24) [facility] Start: 11-09-2019 HEPATITIS C SCREENING HEPATITIS C SC REENING [facility] Start: 11-09-2019 HIV SCREENING HIV SCREENING [facility] Start: 2017 MenB (1 of 2 - MenB 2-Dose Series Bexsero) MenB (1 of 2 - MenB 2-Dose Series Bexsero) [facility] Start: 2016 HPV (1 - 3-dose series) HPV (1 - 3-dose series) [facility] Start: 11-09-2015 PEDS TO ADULT TRANSI TION ANNUAL ASSESSMENT PEDS TO ADULT TRANSITION ANNUAL ASSESSMENT [facility] Start: 2014 Varicella (1 of 2 - 13+ 2-dose series) Varicella (1 of 2 - 13+ 2-dose series) [facility] Start: 2013 PEDS TO ADULT TRANSI TION INITIAL DISCUSSION PEDS TO ADULT TRANSITION INITIAL DISCUSSION [facility] Start: 11-09-2011 MENINGOCOCCAL B: Con conductor yard based on risk (1 of 2 - Risk Bexsero 2-dose series) MENINGOCOCCAL B: Consider based on risk (1 of 2 - Risk Bexsero 2-dose series) [facility] Start: 2008 Tetanus Diphtheria a nd Pertussis Vaccines (1 - Tdap) Tetanus Diphtheria and Pertussis Vaccines (1 - Tdap) [facility] Start: 2002 MMR (1 of 1 - Standa rd series) MMR (1 of 1 - Standard series) [facility] Alanine aminotransfe rase [Enzymatic activity/volume] in Serum or Plasma [facility] Albumin [Mass/volume ] in Serum or Plasma [facility] Alkaline phosphatase [Enzymatic activity/volume] in Serum or Plasma [facility] Anion gap in Serum o r Plasma [facility] End: 01-10-2025 Bacteria identified in Urine by Culture [facility] Work Phone: Comment on above: 1 Occurrences starti ng 01/10/2025 until 01/10/2025 Bilirubin, total measurement [facility] BUN/Creatinine ratio [facility] Calcium [Mass/volume ] in Serum or Plasma [facility] Carbon dioxide, tota l [Moles/volume] in Central venous blood [facility] CBC W Auto Different ial panel - Blood [facility] CBC W Auto Different ial panel - Blood [facility] Chlamydia deoxyribon ucleic acid detection [facility] Comprehensive metabo lic 2000 panel - Serum or Plasma [facility] Creatinine [Mass/vol ume] in Serum or Plasma [facility] Erythrocyte mean corpuscular volume determination [facility] Glucose [Mass/volume ] in Serum or Plasma [facility] Hematocrit [Volume Fraction] of Blood [facility] Hemoglobin [Mass/vol ume] in Blood [facility] Hemoglobin A1c/Hemoglobin.total in Blood [facility] Hepatitis B virus chahal rface Ag [Presence] in Serum [facility] Hepatitis C antibody measurement [facility] Leukocytes [#/volume ] in Blood [facility] Mean corpuscular hemoglobin concentration determination [facility] Mean corpuscular hemoglobin determination [facility] Measurement of renal function [facility] Neisseria gonorrhoea e rRNA [Presence] in Unspecified specimen by LUIGI with probe detection [facility] Neutrophil count [facility] Neutrophil percent differential count [facility] PCR test for Chlamyd ia trachomatis [facility] Platelets [#/volume] in Blood [facility] Potassium measurement [facility] Procedure [facility] Protein/Creatinine [ Ratio] in Urine [facility] Protein/Creatinine [ Ratio] in Urine [facility] Red blood cell count [facility] Red cell distributio n width determination [facility] Rubella IgG measurement [facility] Serologic test for syphilis [facility] Serum chloride measurement [facility] Sodium measurement [facility] Total protein measurement [facility] Urea nitrogen [Mass/volume] in Serum or Plasma [facility] Urine culture [facility] Immunizations Immunization Date Immunization Notes Care Provider Dedra ordonez 01-24-2025 influenza, injectabl e, madin homa canine kidney, preservative free Estephania Dowling PA-C Work Phone: [facility] 02-02-2021 COVID-19 original vaccine, age 12+ yr, monovalent (PFIZER-BIONTECH - PURPLE TOP) Cedric Pisano MD Work Phone: [facility] Work Phone: 01-12-2021 COVID-19 original vaccine, age 12+ yr, monovalent (PFIZER-BIONTECH - PURPLE TOP) Cedric Pisano MD Work Phone: [facility] Work Phone: 02-07-2020 influenza, injectabl e, quadrivalent, contains preservative Cedric Pisano MD Work Phone: [facility] Work Phone: 11-09-2018 meningococcal polysaccharide (groups A, C, Y and W-135) diphtheria toxoid conjugate vaccine (MCV4P) Cedric Pisano MD Work Phone: [facility] Work Phone: 03-18-2015 Human Papillomavirus 9-valent vaccine Cedric Pisano MD Work Phone: [facility] 11-12-2014 human papilloma viru s vaccine, quadrivalent Cedric Pisano MD Work Phone: [facility] 11-12-2014 meningococcal polysaccharide (groups A, C, Y and W-135) diphtheria toxoid conjugate vaccine (MCV4P) Cedric Pisano MD Work Phone: [facility] 08-26-2014 human papilloma viru s vaccine, quadrivalent Cedric Pisano MD Work Phone: [facility] 08-26-2014 tetanus toxoid, redu kirit diphtheria toxoid, and acellular pertussis vaccine, adsorbed Cedric Pisano MD Work Phone: [facility] 11-27-2006 diphtheria, tetanus toxoids and acellular pertussis vaccine Cedric Pisano MD Work Phone: [facility] Work Phone: 11-27-2006 measles, mumps and rubella virus vaccine Cedric Pisano MD Work Phone: [facility] Work Phone: 11-27-2006 poliovirus vaccine, inactivated Cedric Pisano MD Work Phone: [facility] Work Phone: 11-27-2006 varicella virus vaccine Cedric Pisano MD Work Phone: [facility] Work Phone: 02-07-2004 varicella virus vaccine Cedric Pisano MD Work Phone: [facility] Work Phone: 02-10-2003 diphtheria, tetanus toxoids and acellular pertussis vaccine Cedric Pisano MD Work Phone: [facility] Work Phone: 02-10-2003 haemophilus influenz ae type b vaccine, HbOC conjugate Cedric Pisano MD Work Phone: [facility] Work Phone: 11-10-2002 measles, mumps and rubella virus vaccine Cedric Pisano MD Work Phone: [facility] Work Phone: 11-10-2002 pneumococcal conjuga te vaccine, 7 valent Cedric Pisano MD Work Phone: [facility] Work Phone: 08-01-2002 hepatitis B vaccine, pediatric or pediatric/adolescent dosage Cedric Pisano MD Work Phone: [facility] Work Phone: 08-01-2002 poliovirus vaccine, inactivated Cedric Pisano MD Work Phone: [facility] Work Phone: 05-11-2002 diphtheria, tetanus toxoids and acellular pertussis vaccine Cedric Pisano MD Work Phone: [facility] Work Phone: 05-11-2002 haemophilus influenz ae type b vaccine, HbOC conjugate Cedric Pisano MD Work Phone: [facility] Work Phone: 05-11-2002 pneumococcal conjuga te vaccine, 7 valent Cedric Pisano MD Work Phone: [facility] Work Phone: 03-16-2002 diphtheria, tetanus toxoids and acellular pertussis vaccine Cedric Pisano MD Work Phone: [facility] Work Phone: 03-16-2002 haemophilus influenz ae type b vaccine, HbOC conjugate Cedric Pisano MD Work Phone: [facility] Work Phone: 03-16-2002 pneumococcal conjuga te vaccine, 7 valent Cedric Pisano MD Work Phone: [facility] Work Phone: 03-16-2002 poliovirus vaccine, inactivated Cedric Pisano MD Work Phone: [facility] Work Phone: 01-13-2002 diphtheria, tetanus toxoids and acellular pertussis vaccine Cedric Pisano MD Work Phone: [facility] Work Phone: 01-13-2002 haemophilus influenz ae type b vaccine, HbOC conjugate Cedric Pisano MD Work Phone: [facility] Work Phone: 01-13-2002 pneumococcal conjuga te vaccine, 7 valent Cedric Pisano MD Work Phone: [facility] Work Phone: 01-13-2002 poliovirus vaccine, inactivated Cedric Pisano MD Work Phone: [facility] Work Phone: 2001 hepatitis B vaccine, pediatric or pediatric/adolescent dosage Cedric Pisano MD Work Phone: [facility] Work Phone: 2001 hepatitis B vaccine, pediatric or pediatric/adolescent dosage Cedric Pisano MD Work Phone: [facility] Work Phone: Payers Date Payer Category Payer Self-pay 2024 Unknown [id number] [address] [facility] [id number] 2019 Unknown MMO MMO TPA [id number] 2019-Present [address] [place] [address] PPO [id number] 2001 Unknown [id number] .651 2001 Unknown [id number] 2.16840.1.398846.3.579.2 .651 2001 Unknown [id number] 2.16840.1.426557.3.579.2 .479 2001 Unknown [id number] 2.16840.1.305299.3.579.2 .479 2001 Unknown [id number] 2.16.840.1.199164.3.579.2 .479 2001 Unknown [id number] 2.16840.1.258558.3.579.2 .479 2001 Unknown [id number] 2.16.840.1.412264.3.579.2 .479 2001 Unknown [id number] 2.16840.1.818204.3.579.2 .479 Unknown [id number] Unknown [id number] 2.16.840.1.650089.3.579.2 .462 Unknown [id number] 2.16.840.1.907063.3.579.2 .462 Unknown [id number] 2.16.840.1.384156.3.579.2 .462 Unknown [id number] 2.16.840.1.882291.3.579.2 .462 Unknown [id number] 2.16.840.1.186948.3.579.2 .462 Unknown [id number] 2.16.840.1.592411.3.579.2 .462 Unknown [id number] 2.16.840.1.945600.3.579.2 .462 Unknown [id number] 2..840.1.045818.3.579.2 .462 Unknown [id number] 2.16.840.1.541319.3.579.2 .462 Unknown [id number] 2.16.840.1.988065.3.579.2 .462 Unknown [id number] 2.16.840.1.203793.3.579.2 .462 Unknown [id number] 2.16.840.1.905842.3.579.2 .462 Unknown [id number] 2.16.840.1.455932.3.579.2 .462 Unknown [id number] 2.16.840.1.323043.3.579.2 .462 Unknown [id number] 2.16.840.1.127729.3.579.2 .462 Unknown [id number] 2.16.840.1.620694.3.579.2 .462 Unknown [id number] 2.16.840.1.226068.3.579.2 .462 Unknown [id number] 2.16.840.1.626375.3.579.2 .462 Unknown [id number] 2.16.840.1.304669.3.579.2 .462 Social History Date Type Detail Facility Start: 10-20-2010 End: 09-28-2024 Tobacco smoking status NHIS Never smoked tobacco [facility] Work Phone: Start: 10-20-2010 End: 12-30-2024 Tobacco use and exposure Smokeless tobacco non-user [facility] Work Phone: Start: 10-27-2019 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 intake 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) [facility] Start: 2000 Sex Assigned At Not on file C [facility] Start: 2000 Sex Assigned At Female [facility] Sex [facility] Start: 01-10-2025 Alcoholic beverage intake Ex-drinker (finding) [facility] Start: 08-24-2024 [facility] Start: 11-30-2024 Sex Female (finding) [facility] Clinical Notes 02-06-2022 to 01-24-2025 Note Date & Type Note Facility 01-24-2025 Progress note [facility] 12-27-2024 Progress note [facility] 11-29-2024 Progress note [facility] 11-01-2024 Evaluation note Diagnosis Onset Date Resolution [...] UTI in acute January 24, 2025 9:00am [facility] Work Phone: 1(727) 548-396206-17-2025 Evaluation note* Diagnosis Onset Date Resolution Status Admit Date Amenorrhea acute September 28 11:06am Amenorrhea acute October 06 1:02pm Obesity affecting acute October 06, 2024 1:02pm acute October 06 1:02pm Supervision of high-risk acute October 06, 2024 1:02pm [facility] [employer] Work Phone: 1(588) 916-996206-17-2025 Evaluation note* Diagnosis Onset Date Resolution Status [...] of high-risk acute November 01, 2024 1:46pm [facility] [employer] Work Phone: 1(297) 124-515706-17-2025 Evaluation note* Diagnosis Onset Date Resolution Status [...] Supervision of high-risk acute November 29 11:34am [facility] [employer] Work Phone: 1(763) 185-486706-17-2025 Evaluation note* Diagnosis Onset Date Resolution Status [...] of high-risk acute December 27, 2024 10:18am [facility] Work Phone: 1(710) 205-992106-17-2025 Evaluation note* Diagnosis Onset Date Resolution Status [...] of high-risk acute December 29, 2024 1:36pm [facility] Work Phone: 1(945) 143-491506-17-2025 Evaluation note* Diagnosis Onset Date Resolution Status [...] 2024 1:36pm UTI in acute 2024 1:36pm [facility] Work Phone: 1(999) 380-502212-08-2024 NoteDischarge Instructions Discharge Summary [address] [place] [address] [id number] 03/21/2024 Patient: MAREN HURST Sex: Female : 2000 Age: 23y Thank you for visiting [facility]. You have been evaluated today by [...] dispense 6 tablet. Refills 0. Pharmacy: [facility] [id number] [place] [address]. Pepcid 40 mg tablet: Take 1 tablet by mouth once a day for 7 days, dispense 7 tablet. Refills 0. Pharmacy: [facility] [address] [place] [address]. prednisone 20 mg tablet: Take 1 tablet by mouth every twelve hours for 7 days, dispense 10 tablet. Refills 0. Notes take 1 tablet every 12 hours for 3 days and then take 1 tablet daily for 4 days dispense 10. Pharmacy: Discharge Instructions [facility] [address] [place] [address]. Follow-up with: Christian Damon M.D., [facility], Phone: [phone], [address] [facility], [place] [address]. Follow up in three days. (Return if increasing hives shortness breath or anyconcerns. Take Benadryl, Pepcid at prednisone for the itching and hives. Follow-up with Dr. Damon for a workup for your hives and possible reaction to antibiotics. Also follow-up with your family doctor). 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 [address] [facility]. [place] [id number] 03/21/2024 Patient: MAREN HURST Sex: Female : 2000 Age: 23y Thank you for visiting [facility]. You have been evaluated today by [...] dispense 6 tablet. Refills 0. Pharmacy: [facility] [address] [place] [address]. Pepcid 40 mg tablet: Take 1 tablet by mouth once a day for 7 days, dispense 7 tablet. Refills 0. Pharmacy: [facility] [address] [place] [address]. prednisone 20 mg tablet: Take 1 tablet by mouth every twelve hours for 7 days, dispense 10 tablet. Refills 0. Notes take 1 tablet every 12 hours for 3 days and then take 1 tablet daily for 4 days dispense 10. Pharmacy: [facility] [address] [place] [address]. Follow-up with: Christian Damon M.D., [facility], Phone: [phone], [address] [facility], [place] [address]. Follow up in three days. (Return if [...] You may be prescribe (more content not included)...[facility]10-26-2022 Miscellaneous Notes* Telephone Encounter - Cedric Pisano MD - 02/06/2022 4:28 PM EDT Okay Cedric Pisano MD * Telephone Encounter - Marisela Coyne LPN - 02/04/2022 8:13 AM EDT Patient requesting a referral to Dermatology for mole check. Last seen in office on 10/27/2019. Please advise. Marisela Coyne LPN documented in this encounterMulhall ClinicEvaluation noteNo assessment information availableLos [facility] Work Phone: Evaluation note* Diagnosis , supervision, high-risk, second trimester Elevated ALT measurement Nonspecific elevation of levels of transaminase or lactic acid dehydrogenase (LDH) Dysuria during in second trimester documented in this encounter [facility] note Author Kt Avila [facility] Note Date/Time November 29, 2024 12 :07pm [facility] [address], [address] [place] [address] OFFICE VISIT Date of Service: 11/29/24 MR#: [id number] Acct: [id number] Name: MAREN BARNEY Rep #: [id number] : 2000 Provider: RAFAELA Avila Age/Sex: 24/F [place] [facility] Status: Signed Intake Vital Signs 10/06/24 13:07 11/01/24 13:49 11/29/24 11:40 Height 5 ft 8 in 5 ft 8 in 5 ft 8 in Weight: 319 lb BMI 48.4 BP 130/86 H Intake Visit Reasons: 16 wk ob Chief Complaint: 16wk OB Copyright Manager Required: No Is patient in pain?: No [...] house current occupational status: employed current occupation: [employer] current occupational exposures/hazards: No pets and animals: [...] 3-4 times per week duration: 15-30 minutes/day sveta/oriental orthodox: None seatbelt use: always do you feel safe at home: Yes 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 pt reports normal BPs at home. 11/29/24 -?-?-?-?-?-?-?-?-?-?-?-?- 15w 6d 319 lb 130/86 Negative -?-?-?-?-?-?-?-?-?-?-?-?- Negative 158 -?-?-?-?-?-?-?-?-?-?-?-?- KW- no vb/crampi ng. [facility] not gotten [facility] to schedule US. will reorder US. [...] this visit. [place] appropriate handout given. 11/29/24 [id number] <Electronically signed by Kt mo CNM> Date _ Kt Avila CNM Cosigner Signature: Date (if applicable) CC: ~ [facility] Work Phone: Progress note Author Mariela Alvarado [facility] Note Date/Time December 27, 2024 10:39am [facility] [address], [address] [place] [address] OFFICE VISIT Date of Service: 12/27/24 MR#: [id number] Acct: [id number] Name: MAREN BARNEY Rep #: [id number] : 2000 Provider: Dr. Zaheer Alvarado MD Age/Sex: 24/F [place] [facility] Status: Signed Intake Vital Signs 11/01/24 13:49 11/29/24 11:40 12/27/24 10:21 12/27/24 10:25 Height 5 ft 8 in 5 ft 8 in 5 ft 8 in 5 ft 8 in Weight: 316 lb 9 oz BMI 48.1 BP 138/87 H Intake Visit Reasons: 20wk ob Copyright Manager Required: No Is patient in pain?: No [...] house current occupational status: employed current occupation: [employer] current occupational exposures/hazards: No pets and animals: [...] 3-4 times per week duration: 15-30 minutes/day sveta/oriental orthodox: None seatbelt use: always do you feel safe at home: Yes 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 pt reports normal BPs at home. [...] Cosigner Signature: Date (if applicable) CC: ~ [facility] Work Phone: Progress note Author Joyce Santiago [facility] Note Date/Time January 24, 2025 9 :24am [facility] [address] [place] [address], [address] [place] [address] OFFICE VISIT Date of Service: 01/24/25 MR#: [id number] Acct: [id number] Name: MAREN BARNEY Rep #: [id number] : 2000 Provider: Dr. Alina Goodman DO Age/Sex: 24/F [place] [facility] Status: Signed Intake Vital Signs 11/29/24 11:40 12/29/24 13:51 01/24/25 09:01 01/24/25 09:01 Height 5 ft 8 in 5 ft 8 in 5 ft 8 in 5 ft 8 in Weight: 315 lb 5 oz BMI 47.9 BP 126/85 H Intake Visit Reasons: 23wk6d OB *move 03/08 appt Copyright Manager Required: No Is patient in pain?: No [...] house current occupational status: employed current occupation: [employer] current occupational exposures/hazards: No pets and animals: [...] 3-4 times per week duration: 15-30 minutes/day sveta/oriental orthodox: None seatbelt use: always do you feel safe at home: Yes 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 pt reports normal BPs at home. [...] - Encounter for immunization Medications: New Flucelvax [id number] (PF) 0.5 mL IM ONCE 0.5 mL 0RF NS Z23 - Encounter for immunization 01/24/25 0924 <Electronically signed by Joyce Small DO> Date _ Joyce Goodman DO Cosigner Signature: Date (if applicable) CC: ~ [facility] Work Phone: Reason for referral (narrative)No reason for referral information availableLos Angeles County Los [facility] Work Phone: Summary Purpose Family History No [...] 27, 2024 10:18am Supervision of high-risk [facility] 2024 10:18am Elevated liver enzymes December 29 025 1:36pm Obesity affecting December 292024 1:36pm December 29, 2024 1:36pm Supervision of high-risk [facility] 2024 1:36pm Reason for Visit Admit Date [...] December 27, 2024 10:18am [facility]vision of [facility]-risk [facility] 2024 10:18am Elevated liver enzymes December 29 025 1:36pm Obesity affecting December 292024 1:36pm December 29, 2024 1:36pm Supervision of high-risk [facility] 2024 1:36pm UTI in December 29, 2024 [...] or prosecute any alcohol or drug abuse patient.[facility] Care Teams (unrecognized sec tion and content) 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 Relationship Specialty Start Date End Date Cedric Pisano MD [address] [place] [address] PCP - General 02/05/02 Team Status: Active Member Role Status Dates Dr. Cedric Pisano MD Family Provider [facility] Primary Care Provider Active Team Status: Inactive Member Role Status Dates [facility] PA, PA-C Primary Care Provider Active Start: September 28, 2024 End: September 28, 2024 [facility] Referring Provider Active Start: September 28, 2024 End: September 28, 2024 Dr. Joyce Goodman DO Attending Provider Activ e Start: September 28, 2024 End: September 28, 2024 Team Status: Inactive Member Role Status Dates Estephania Lindon PA, PA-C Primary Care Provider Active Start: October 06, 2024 End: October 06, 2024 [facility] Referring Provider Active Start: October 06, 2024 End: October 06, 2024 Dr. Joyce Goodman DO Attending Provider Activ e Start: October 06, 2024 End: October 06, 2024 Team Status: Active Member Role/Relationship Status Dates Dr. Cedric Pisano MD Family Provider [facility] Primary Care Provider Active Team Status: Inactive Member Role/Relationship Status Dates [facility] PA, PA-C Primary Care Provider Active Start: September 28, 2024 End: September 28, 2024 [facility] Referring Provider Active Start: September 28, 2024 End: September 28, 2024 Dr. Joyce Goodman DO Attending Provider Activ e Start: September 28, 2024 End: September 28, 2024 Team Status: Inactive Member Role/Relationship Status Dates Estephania Lindon PA, PA-C Primary Care Provider Active Start: October 06, 2024 End: October 06, 2024 [facility] PA, PA-C Referring Provider Active Start: [...] 29, 2024 End: November 29, 2024 Estephania Lindon PA, PA-C Referring Provider Active Start: November 29, 2024 End: November 29, 2024 Kt Avila CNM Attending Provider Active S tart: November 29, 2024 End: November 29, 2024 Team Status: Inactive Member Role/Relationship Status Dates Estephania Dowling PA, PA-C Primary Care Provider Active Start: December 27, 2024 End: December 27, 2024 Estephania Lindon PA, PA-C Referring Provider Active Start: December 27, 2024 End: December 27, 2024 Dr. Mariela Alvarado MD Attending Provider Active Start: December 27, 2024 End: December 27, 2024 Team Status: Active Member Role/Relationship Status Dates Estephania Lindon PA, PA-C Primary care physician Active Team Status: Inactive Member Role/Relationship Status Dates Estephania Lindon PA, PA-C Primary care physician Active Start: September 28, 2024 End: September 28, 2024 Estephania Lindon PA, PA-C Referring Provider Active Start: September 28, 2024 End: September 28, 2024 Dr. Joyce Goodman DO Attending physician Acti ve Start: September 28, 2024 End: September 28, 2024 Team Status: Inactive Member Role/Relationship Status Dates Estephania Lindon PA, PA-C Primary care physician Active Start: October 06, 2024 End: October 06, 2024 Estephania Lindon PA, PA-C Referring Provider Active Start: October [...] 29, 2024 End: November 29, 2024 Estephania Lindon PA, PA-C Referring Provider Active Start: November 29, 2024 End: November 29, 2024 Kt Avila CNM Attending physician Active Start: November 29, 2024 End: November 29, 2024 Team Status: Inactive Member Role/Relationship Status Dates Estephania Dowling PA, PA-C Primary care physician Active Start: December 27, 2024 End: December 27, 2024 Estephania Lindon PA, PA-C Referring Provider Active Start: December [...] 2024 End: December 29, 2024 Lakeisha Flowers [employer] SUPERINTENDENT, [employer] SUPERINTENDENT-C Attending physician Active Start: December 29, 2024 End: December 29, 2024 Team Status: Active Member Role/Relationship Status Dates Estephania LEI, PA-C Primary care physician Active Start: December 29, 2024 Lakeisha Flowers [employer] SUPERINTENDENT, [employer] SUPERINTENDENT-C Attending physician Active Start: December 29, 2024 Lakeisha Flowers NP, [employer] SUPERINTENDENT-C Referring Provider Active Start: December 29, 2024 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 Relationship Specialty Start Date End Date Estephania Dowling PA-C [address] [place] [address] DR [facility] [place] [address] PCP - General Family Medicine 11/30/24 Team [...] 2024 End: December 29, 2024 Lakeisha Flowers [employer] SUPERINTENDENT, W[employer] SUPERINTENDENT-C Attending physician Active Start: December 29, 2024 End: December 29, 2024 Lakeisha Flowers W[employer] SUPERINTENDENT, W[employer]S SUPERINTENDENT-C Referring Provider Active Start: December 29, 2024 End: December 29, 2024 Team Status: Active Member Role/Relationship Status Dates Estephania Dowling PA, PA-C Primary care physician Active Start: January 10, 2025 Lakeisha Flowers W[employer] SUPERINTENDENT, W[employer]S SUPERINTENDENT-C Attending physician Active Start: January 10, 2025 aLkeisha Flowers W[employer]S SUPERINTENDENT, W[employer]S SUPERINTENDENT-C Referring Provider Active Start: January 10, 2025 Team Status: Inactive Member Role/Relationship Status Dates Estephaniadomenico Dowling PA, PA-C Primary care physician Active Start: January 10, 2025 End: January 10, 2025 Lakeisha Flowers W[employer] SUPERINTENDENT, W[employer] SYSTEMS SUPERINTENDENT-C Attending physician Active Start: January 10, 2025 End: January 10, 2025 Lakeisha Flowers W[employer]S SUPERINTENDENT, WATER AND SE[employer] SYSTEMS SUPERINTENDENT-C Referring Provider Active Start: January 10, 2025 End: January 10, 2025 Team Status: Inactive Member Role/Relationship Status Dates Estephania Dowling PA, PA-C Primary care physician Active Start: November 01, 2024 End: November 01, 2024 Estephania Lindon PA, PA-C Referring Provider Active Start: November [...] 2024 End: December 29, 2024 Lakeisha Flowers W[employer]S SUPERINTENDENT, WATER [employer] SYSTEMS SUPERINTENDENT-C Attending physician Active Start: December 29, 2024 End: December 29, 2024 Team Status: Inactive Member Role/Relationship Status Dates Estephaniadomenico Dowling PA, PA-C Primary care physician Active Start: December 29, 2024 End: December 29, 2024 Lakeisha Flowers W[employer]S SUPERINTENDENT, WATER AND SE[employer] SYSTEMS SUPERINTENDENT-C Attending physician Active Start: December 29, 2024 End: December 29, 2024 Lakeisha Flowers W[employer]S SUPERINTENDENT, WATER [employer] SE[employer] SYSTEMS SUPERINTENDENT-C Referring Provider Active Start: December 29, 2024 End: December 29, 2024 Team Status: Inactive Member Role/Relationship Status Dates Estephania Lindon PA, PA-C Primary care physician Active Start: [...] section and content) DATE CREATED AUTHOR 06/20/2023 [facility] ([place]) DATE CREATED AUTHOR AUTHOR'S ORGANIZ ATION 03/28/2024 [facility] DATE CREATED AUTHOR AUTHOR'S ORGANIZ ATION 02/16/2025 [facility] DATE CREATED AUTHOR AUTHOR'S ORGANIZ ATION 02/24/2025 [facility] Goals (unrecognized section and content) Type [...] BE BASED ON THE PRIMARY CLINICAL RECORDS. [email or web address] provides no warranty or guarantee of the accuracy or completeness of information in this document.
--- NOTE | 2025-03-26 19:35 | OP.PCM_ITS ---
Assessment & Plan (1) delivery delivered: COMMENT: ltcs severe preeclampsia 32 sm taz gloria (2) Pre-eclampsia, severe, third trimester: Maternal Data Information KIMBER Calculator Estimated Delivery Date Method Current WG Current Estimate 05/17/25 LMP (Certain) 33w 1d Other Estimates 05/18/25 Ultrasound #1 33w 0d Operative Report (OB) Procedure Details Date of Procedure: 03/26/25 Procedure Start Time: 20:51 Pre-Operative Diagnosis: Breech and Other (severe preeclampsia worsening liver enzymes) Other Pre-Operative diagnosis: see a/p comments Post-Operative Diagnosis: Same as Pre-operative diagnosis Classification: Scheduled Type of Anesthesia: Spinal Special Medications: none Drain: Hill to straight drain Estimated Blood Loss: 600 Fluids Replaced: crystalloid Findings Description of surgery: Spinal anesthesia was placed without difficulty. Hill catheter was placed. The patient was placed in the dorsal supine position with leftward tilt. Patient was prepped and draped in the normal sterile fashion. Pfannenstiel skin incision was made with the scalpel and carried through to the underlying layer of fascia with the scalpel. Fascia was nicked in the midline and the incision extended laterally. The rectus bellies were dissected off superiorly and inferiorly with out complication both sharply and bluntly. The peritoneum was entered digitally. The incision was stretched and a low transverse uterine incision was made with the scalpel. The buttox was delivered atraumatically and the right and left legs were swept anteriorly and delivered, followed by the body and the arms which were swept anteriorly and delivered. Gentle traction was placed on the mentum to flex the head which was delivered without complication. The cord was clamped and cut and the infant was handed off to awaiting nurse. The placenta was delivered spontaneously immediately following and was noted to be intact and have a three-vessel cord. The uterus was exteriorized cleared of all clots and debris, and the incision was closed in a single layer closure using #1 Monocryl. The ovaries and fallopian tubes were noted to be within normal limits. The uterus was returned to the maternal abdomen and gutters were cleared of all clots and debris. The peritoneum was closed with 3-0 Monocryl in a running fashion. Gloves were changed prior to fascial closure. Fascia was closed with 0 PDS in a running fashion. Subcutaneous tissue was copiously irrigated and the skin was closed with 3-0 Monocryl in a subcuticular fashion. Mepilex dressing was applied without complication. Patient was taken to recovery in stable condition. It was discussed with the patient that based on the clinical information obtained during this encounter, combined with her history, at this time I would recommend vaginal or for future deliveries if further pregnancies are desired. Surgical findings: breech Presentation: Complete Breech Amniotic Membrane Rupture Type: Artificial Amniotic Fluid Description: Clear Specimen collected: Yes Description of specimen(s) removed: placenta and baby Cord Vessel Description: 3 Vessels Delayed Cord Clamping: Yes Attending Psychiatrist grain blender: Yes Nurse Paralegal: Jen Andrade Tasks completed by membership assistant: Opening & closing, Retracting and Other (assisting in delivery of the infant) Additional real estate executive assistant?: No Complications Complications: No Admit VTE Documentation VTE Present on Admission: No VTE Mechan Device Prophylaxis: SCD's Procedures Urinary/Genital [id number]: [id number] Delivery [facility]
--- NOTE | 2025-03-26 19:35 | DCINST_ITS ---
Documented by User: Dr. Mariela Saunders MD 03/26/25 19:42 Discharge Instructions DC O2, CPAP, BIPAP needs Home O2 Discharge instructions: No Dressing / Incision Discharge Activity: May Not Drive (for 2 weeks or while taking narcotic pain medications.), May Shower and May Take a Tub Bath (in 7 days) May shower in (days): 0 May resume sexual activity in: 4-6 weeks Weight Bearing Status: Full weight bearing Lifting Restrictions: 20 pounds Dressing / Incision Call your doctor if your incision/area has: Continuous Slow Oozing, Sudden Increased Bleeding, Increased Pain/ Swelling, Increased Redness and Foul Smelling Discharge Call your doctor if you observe: Fever of 101 or Higher and Using more than 1 pad per hour (for 2 hours) Suture Line Care: Avoid Pulling/Pushing and Avoid Pinching/Bending Cleanse incision/area with: Soap & Water and Keep Dressing Clean & Dry Follow Up Care Please Follow Up With: Mariela Saunders MD When: Call [phone] to make an appointment for an incision check in 1-2 weeks. Test Results: Test results from this visit will be discussed in further detail at your follow- up appointment, if applicable. Discharge Plan Admission Admit Date/Time: 03/26/25 09:00 Attending Provider: Mariela Saunders Primary Care Provider: Estephania Dowling Discharge Orders/Prescriptions Prescriptions: New oxycodone-acetaminophen [Percocet] 5-325 mg tablet 1 tab PO Q4H PRN (Reason: pain) 7 Days Qty: 20 0RF naproxen 500 mg tablet 500 mg PO BID PRN PRN (Reason: Pain) Qty: 30 1RF No Action DHA 200 mg capsule 200 mg PO DAILY Referrals / Follow Up: Estephania Dowling PA-Myra [Primary Care Provider, Medical] Disposition Disposition (needs filled in before D/C Order can be placed): Home, Self Care Documented by User: Dr. Geetha Edwards DO 03/29/25 07:00 Discharge Instructions Follow Up Care When: Call [phone] to make an appointment for a BP check later this week and an incision check in 1-2 weeks. Discharge Plan Admission Admit Date/Time: 03/26/25 09:00 Attending Provider: Mariela Saunders Primary Care Provider: Estephania Dowling Discharge Orders/Prescriptions Prescriptions: New oxycodone-acetaminophen [Percocet] 5-325 mg tablet 1 tab PO Q4H PRN (Reason: pain) 7 Days Qty: 20 0RF naproxen 500 mg tablet 500 mg PO BID PRN PRN (Reason: Pain) Qty: 30 1RF No Action DHA 200 mg capsule 200 mg PO DAILY Referrals / Follow Up: Estephania Dowling PA-C [Primary Care Provider, Medical] Disposition Disposition (needs filled in before D/C Order can be placed): Home, Self Care
[2025-03-26] MEDS: Cefazolin 1 GM/5 ML Vial 3 GM IV (20:19)
[2025-03-26] MEDS: Lactated Ringers 1,000 ML 1000 ML IV (20:19)
[2025-03-26] MEDS: TRANEXAMIC ACID 1,000 MG/10 ML ML 1000 MG IV (20:27)
[2025-03-26] MEDS: BUPIVACAINE LIPOSOME/PF 20 ML VIAL OPERA.SITE (21:15)
[2025-03-26] MEDS: Oxytocin 15 Units/NS 250ml 15 UNITS/250 ML IV.SOLN 83 UNITS IV (22:12)
[2025-03-26] MEDS: Lactated Ringers 1,000 ML 100 ML IV (22:12)
[2025-03-26] MEDS: Ketorolac 30 MG/ML Syringe IV (22:34)
[2025-03-27] VITALS (21 sets, daily range): BP systolic 99–126; BP diastolic 57–98; PULSE 62–81; RESP 15–18; TEMP 35.5–36.6; O2SAT 97–100
[2025-03-27] MEDS: Magnesium Sulfate 20 GM/500 ML BAG IV ×2 (00:34→10:37)
[2025-03-27 01:02] LABS: Hematocrit 37.6 % (37-47); Hemoglobin 11.9 g/dL (12.0-15.0); Immature Granulocytes Count 0.070 X10^3/uL (0.0-0.0); Mean Corp Hgb Conc 31.6 g/dL (32-36); Mean Corpuscular Volume 86.2 fL (81-99); Mean Platelet Vol. 9.4 fl (6.2-12.0); NRBC Flagged by Analyzer 0 % (0-5); Platelet Count 331 K/mm3 (150-450); RBC Distribution Width CV 13.2 % (11.6-14.6); RBC Distribution Width SD 41.5 fl (35.1-43.9); Red Blood Count 4.36 M/mm3 (4.2-5.4); White Blood Count 17.6 K/mm3 (4.4-11.0)
[2025-03-27 01:49] LABS: AST(SGOT) 92 U/L (<=31); Alanine Aminotransfer ALT/SGPT 168 U/L (<=34); Albumin, Serum 3.4 g/dL (3.5-5.0); Alkaline Phosphatase 143 U/L (35-104); Anion Gap 14 (5-15); BUN 7 mg/dL (4-19); BUN/Creat Ratio 10.9 RATIO (10-20); Calcium,Total 7.8 mg/dL (7.6-11.0); Carbon Dioxide 20.0 mmol/L (21.0-32.0); Chloride 103 mmol/L (98-108); Estimated Creatinine Clearance 184.23 ml/min (50-250); Globulin 3.2 g/dL (2.2-4.2); Glucose 103 mg/dL (70-99); Potassium 3.5 mmol/L (3.3-5.1)
[2025-03-27 02:12] LABS: Red Cell Morphology NORM C+C NORMAL (NORM C&C)
[2025-03-27] MEDS: Ketorolac 30 MG/ML Syringe IV ×3 (04:36→16:26)
[2025-03-27 05:57] LABS: Hematocrit 36.8 % (37-47); Hemoglobin 11.7 g/dL (12.0-15.0); Immature Granulocytes Count 0.050 X10^3/uL (0.0-0.0); Mean Corp Hgb Conc 31.8 g/dL (32-36); Mean Corpuscular Volume 86.6 fL (81-99); Mean Platelet Vol. 9.4 fl (6.2-12.0); NRBC Flagged by Analyzer 0 % (0-5); Platelet Count 282 K/mm3 (150-450); RBC Distribution Width CV 13.4 % (11.6-14.6); RBC Distribution Width SD 42.0 fl (35.1-43.9); Red Blood Count 4.25 M/mm3 (4.2-5.4); White Blood Count 13.8 K/mm3 (4.4-11.0)
[2025-03-27 06:17] LABS: AST(SGOT) 84 U/L (<=31); Alanine Aminotransfer ALT/SGPT 156 U/L (<=34); Albumin, Serum 3.3 g/dL (3.5-5.0); Alkaline Phosphatase 138 U/L (35-104); Anion Gap 13 (5-15); BUN 8 mg/dL (4-19); BUN/Creat Ratio 8.5 RATIO (10-20); Calcium,Total 7.0 mg/dL (7.6-11.0); Carbon Dioxide 20.6 mmol/L (21.0-32.0); Chloride 105 mmol/L (98-108); Estimated Creatinine Clearance 125.28 ml/min (50-250); Globulin 3.1 g/dL (2.2-4.2); Glucose 97 mg/dL (70-99); Potassium 3.6 mmol/L (3.3-5.1)
[2025-03-27 07:05] LABS: Anisocytosis RARE
--- NOTE | 2025-03-27 08:50 | PN.OBGYN_ITS ---
Subjective Subjective Patient doing well without complaints. Tolerating PO. Ambulating and voiding without difficulty. Feeding well. Denies chest pain, shortness of breath, calf pain/swelling, fevers, chills, lightheadedness. Objective Data Objective Data Vital Signs: Vital Signs Temp Pulse Resp BP Pulse Ox O2 Del Method 97.8 F 77 16 112/77 98 Room Air 03/27/25 07:50 03/27/25 07:50 03/27/25 07:50 03/27/25 07:50 03/27/25 07:50 03/27/25 07:50 Oxygen Delivery Method Room Air Weight: 319 lb Body Mass Index (BMI) 53.1 Intake & Output: Intake and Output for Last 24 Hours 03/25/25 03/26/25 03/27/25 23:59 23:59 23:59 Intake Total 1807.5 / 1807.5 1324.17 / 1324.17 Output Total 1600 / 1600 1900 / 1900 Balance 207.5 / 207.5 -575.83 / -575.83 Lab / Micro Data 03/27/25 05:50 03/27/25 05:50 Labs: Laboratory Results - last 24 hr 03/26/25 11:50: WBC 13.3 H, RBC 4.39, Hgb 12.3, Hct 37.4, MCV 85.2, MCH 28.0, MCHC 32.9, RDW Std Deviation 41.4, RDW Coeff of Frederick 13.3, Plt Count 351, MPV 9.9, Creatinine 0.51 L, Estim Creat Clear Calc 245.64, Est GFR (MDRD) Non-Af 135, Uric Acid 6.0, AST 60 H, ALT 107 H, Lactate Dehydrogenase 167, U Random Total Protein 18.4 H, Urine Creatinine 106.00, Protein/Creatinin Ratio 174, Syphilis Total Ab Nonreactive, Blood Type O POSITIVE, Antibody Screen NEGATIVE 03/26/25 16:00: WBC 14.1 H, RBC 4.44, Hgb 12.2, Hct 37.9, MCV 85.4, MCH 27.5, MCHC 32.2, RDW Std Deviation 41.1, RDW Coeff of Frederick 13.3, Plt Count 346, MPV 9.3, Differential Comment SCANNED, Sodium 134, Potassium 3.6, Chloride 102, C arbon Dioxide 17.3 L, Anion Gap 15, BUN 7, Creatinine 0.51 L, Estim Creat Clear Calc 245.64, Est GFR (MDRD) Non-Af 134, BUN/Creatinine Ratio 12.9, Glucose 95, Calcium 8.9, Total Bilirubin 0.47, AST 72 H, ALT 129 H, Alkaline Phosphatase 146 H, Total Protein 7.1, Albumin 3.5, Globulin 3.6, Albumin/Globulin Ratio 1.0 03/27/25 00:55: WBC 17.6 H, RBC 4.36, Hgb 11.9 L, Hct 37.6, MCV 86.2, MCH 27.3, MCHC 31.6 L, RDW Std Deviation 41.5, RDW Coeff of [place] 13.2, Plt Count 331, MPV 9.4, Immature Gran % (Auto) 0.400, Neut % (Auto) 84.7 H, Lymph % (Auto) 9.0 L, [place] % (Auto) 5.6, Eos % (Auto) 0.1, Baso % (Auto) 0.2, Absolute Neuts (auto) 15.0 H, Absolute Lymphs (auto) 1.58, Nucleated RBC % 0, RBC Morphology NORM C+C, Sodium 136, Potassium 3.5, Chloride 103, Carbon Dioxide 20.0 L, Anion Gap 14, BUN 7, Creatinine 0.68 L, Estim Creat Clear Calc 184.23, Est GFR (MDRD) Non-Af 126, BUN/Creatinine Ratio 10.9, Glucose 103 H, Calcium 7.8, Total Bilirubin 0.39, AST 92 H, ALT 168 H, Alkaline Phosphatase 143 H, Total Protein 6.6, A lbumin 3.4 L, Globulin 3.2, Albumin/Globulin Ratio 1.1 03/27/25 05:50: WBC 13.8 H, RBC 4.25, Hgb 11.7 L, Hct 36.8 L, MCV 86.6, MCH 27.5, MCHC 31.8 L, RDW Std Deviation 42.0, RDW Coeff of [place] 13.4, Plt Count 282, MPV 9.4, Immature Gran % (Auto) 0.400, Neut % (Auto) 81.1 H, Lymph % (Auto) 10.7 L, [place] % (Auto) 7.5, Eos % (Auto) 0.1, Baso % (Auto) 0.2, Absolute Neuts (auto) 11.2 H, Absolute Lymphs (auto) 1.48, Nucleated RBC % 0, Anisocytosis RARE, Sodium 139, Potassium 3.6, Chloride 105, Carbon Dioxide 20.6 L, Anion Gap 13, BUN 8, Creatinine 1.00, Estim Creat Clear Calc 125.28, Est GFR (MDRD) Non-Af 82, BUN/Creatinine Ratio 8.5 L, Glucose 97, Calcium 7.0 L, Total Bilirubin 0.48, AST 84 H, ALT 156 H, Alkaline Phosphatase 138 H, Total Protein 6.3, Albumin 3.3 L, Globulin 3.1, Albumin/Globulin Ratio 1.1 Micro: Microbiology 03/26/25 10:11 Genital vaginal Group B Streptococcus (PCR) - Final Radiography Diagnostic Testing: Radiology Impression Abdomen Ultrasound 03/26/25 08:36 IMPRESSION: [id number] right hydronephrosis. No acute cholecystitis. Question hepatic steatosis. Reading Location: [facility] Constitutional Constitutional: Reports systems reviewed and no addt'l complaints, except as documented; Denies anorexia or headache(s) Cardiovascular Cardiovascular: Reports systems reviewed and no addt'l complaints, except as documented; Denies dizziness, dyspnea, nausea or tachypnea Respiratory/Chest Respiratory/Chest: Reports systems reviewed and no addt'l complaints, except as documented; Denies cough, dyspnea, shortness of breath at rest or tachypnea Gastrointestinal Gastrointestinal: Reports systems reviewed and no addt'l complaints, except as documented; Denies abdominal pain, constipation or nausea Genitourinary Genitourinary: Reports systems reviewed and no addt'l complaints, except as documented; Denies burning urination, difficulty urinating, dysuria, urinary frequency or urinary incontinence Musculoskeletal Musculoskeletal: Reports systems reviewed and no addt'l complaints, except as documented Integumentary Integumentary: Reports systems reviewed and no addt'l complaints, except as documented Neurologic Neurologic: Reports systems reviewed and no addt'l complaints, except as documented; Denies abnormal speech, dizziness or headache(s) Psychiatric Psychiatric: Reports systems reviewed and no addt'l complaints, except as documented Endocrine Endocrinology: Reports systems reviewed and no addt'l complaints, except as documented Hematologic/Lymphatic Hematologic/Lymphatic: Reports systems reviewed and no addt'l complaints, except as documented Physical Exam Const alert, oriented x3 and no apparent distress Neck full ROM Resp normal respiratory effort, normal air movement and no retractions Effort and Inspection: able to speak in complete sentences and symmetric chest movement GI soft to palpation Bladder / Kidney Exam: bladder normal to palpation Uterus Palpation: uterus fundus firm Extremity normal to inspection and full ROM Psych mental status grossly normal, thought process normal and cooperative Assessment & Plan (1) delivery delivered: COMMENT: ltcs severe preeclampsia 32 sm boy juani PLAN: s/p LTCS PPD # 1 1. routine post care 2. breast feeding- support given 3. rh positive 4. rubella immune (2) Pre-eclampsia, severe, third trimester: (3) UTI in : QUALIFIERS: Trimester: second trimester Qualified Code(s): O23.42 - Unspecified infection of urinary tract in , second trimester COMMENT: +UA, keflex, culture + E coli. Repeat culture next visit (4) Elevated liver enzymes: (5) Obesity affecting : QUALIFIERS: Trimester: second trimester Obesity type affecting : unspecified obesity Qualified Code(s): O99.212 - Obesity complicating , second trimester COMMENT: BMI 50.4; HgBA1C ordered w/NOB- weekly bpps 34 on and growth US MFM Q4 weeks (6) Supervision of high-risk : QUALIFIERS: Trimester: second trimester Qualified Code(s): O09.92 - Supervision of high risk , unspecified, second trimester COMMENT: PRR ; KIMBER 05/17; boy : Cameron (7) : QUALIFIERS: Weeks of gestation: 32 weeks Qualified Code(s): Z 3A.32 - 32 weeks gestation of COMMENT: NIPT low risk. gender Male (Pt aware), normal anatomy Charges/Coding Multi Select Codes Urinary/Genital Urinary/Genital CPT Codes: No Charge
[2025-03-27] MEDS: Senna/Docusate Sodium 1 Tablet PO (10:37)
--- NOTE | 2025-03-27 10:43 | PN.OBGYN_ITS ---
Subjective Subjective Patient doing well without complaints. Tolerating PO. Ambulating and voiding without difficulty. feeding well. Denies chest pain, shortness of breath, calf pain/swelling, fevers, chills, lightheadedness. Objective Data Objective Data Vital Signs: Vital Signs Temp Pulse Resp BP Pulse Ox O2 Del Method 97.3 F L 72 16 107/66 99 Room Air 03/27/25 10:28 03/27/25 10:28 03/27/25 10:28 03/27/25 10:28 03/27/25 10:28 03/27/25 10:28 Oxygen Delivery Method Room Air Weight: 319 lb Body Mass Index (BMI) 53.1 Intake & Output: Intake and Output for Last 24 Hours 03/25/25 03/26/25 03/27/25 23:59 23:59 23:59 Intake Total 1807.5 / 1807.5 1974.17 / 1974.17 Output Total 1600 / 1600 2400 / 2400 Balance 207.5 / 207.5 -425.83 / -425.83 Lab / Micro Data 03/27/25 05:50 03/27/25 05:50 Labs: Laboratory Results - last 24 hr 03/26/25 11:50: WBC 13.3 H, RBC 4.39, Hgb 12.3, Hct 37.4, MCV 85.2, MCH 28.0, MCHC 32.9, RDW Std Deviation 41.4, RDW Coeff of Frederick 13.3, Plt Count 351, MPV 9.9, Creatinine 0.51 L, Estim Creat Clear Calc 245.64, Est GFR (MDRD) Non-Af 135, Uric Acid 6.0, AST 60 H, ALT 107 H, Lactate Dehydrogenase 167, U Random Total Protein 18.4 H, Urine Creatinine 106.00, Protein/Creatinin Ratio 174, Syphilis Total Ab Nonreactive, Blood Type O POSITIVE, Antibody Screen NEGATIVE 03/26/25 16:00: WBC 14.1 H, RBC 4.44, Hgb 12.2, Hct 37.9, MCV 85.4, MCH 27.5, MCHC 32.2, RDW Std Deviation 41.1, RDW Coeff of [place] 13.3, Plt Count 346, MPV 9.3, Differential Comment SCANNED, Sodium 134, Potassium 3.6, Chloride 102, C arbon Dioxide 17.3 L, Anion Gap 15, BUN 7, Creatinine 0.51 L, Estim Creat Clear Calc 245.64, Est GFR (MDRD) Non-Af 134, BUN/Creatinine Ratio 12.9, Glucose 95, Calcium 8.9, Total Bilirubin 0.47, AST 72 H, ALT 129 H, Alkaline Phosphatase 146 H, Total Protein 7.1, Albumin 3.5, Globulin 3.6, Albumin/Globulin Ratio 1.0 03/27/25 00:55: WBC 17.6 H, RBC 4.36, Hgb 11.9 L, Hct 37.6, MCV 86.2, MCH 27.3, MCHC 31.6 L, RDW Std Deviation 41.5, RDW Coeff of [place] 13.2, Plt Count 331, MPV 9.4, Immature Gran % (Auto) 0.400, Neut % (Auto) 84.7 H, Lymph % (Auto) 9.0 L, [place] % (Auto) 5.6, Eos % (Auto) 0.1, Baso % (Auto) 0.2, Absolute Neuts (auto) 15.0 H, Absolute Lymphs (auto) 1.58, Nucleated RBC % 0, RBC Morphology NORM C+C, Sodium 136, Potassium 3.5, Chloride 103, Carbon Dioxide 20.0 L, Anion Gap 14, BUN 7, Creatinine 0.68 L, Estim Creat Clear Calc 184.23, Est GFR (MDRD) Non-Af 126, BUN/Creatinine Ratio 10.9, Glucose 103 H, Calcium 7.8, Total Bilirubin 0.39, AST 92 H, ALT 168 H, Alkaline Phosphatase 143 H, Total Protein 6.6, A lbumin 3.4 L, Globulin 3.2, Albumin/Globulin Ratio 1.1 03/27/25 05:50: WBC 13.8 H, RBC 4.25, Hgb 11.7 L, Hct 36.8 L, MCV 86.6, MCH 27.5, MCHC 31.8 L, RDW Std Deviation 42.0, RDW Coeff of [place] 13.4, Plt Count 282, MPV 9.4, Immature Gran % (Auto) 0.400, Neut % (Auto) 81.1 H, Lymph % (Auto) 10.7 L, [place] % (Auto) 7.5, Eos % (Auto) 0.1, Baso % (Auto) 0.2, Absolute Neuts (auto) 11.2 H, Absolute Lymphs (auto) 1.48, Nucleated RBC % 0, Anisocytosis RARE, Sodium 139, Potassium 3.6, Chloride 105, Carbon Dioxide 20.6 L, Anion Gap 13, BUN 8, Creatinine 1.00, Estim Creat Clear Calc 125.28, Est GFR (MDRD) Non-Af 82, BUN/Creatinine Ratio 8.5 L, Glucose 97, Calcium 7.0 L, Total Bilirubin 0.48, AST 84 H, ALT 156 H, Alkaline Phosphatase 138 H, Total Protein 6.3, Albumin 3.3 L, Globulin 3.1, Albumin/Globulin Ratio 1.1 Micro: Microbiology 03/26/25 10:11 Genital vaginal Group B Streptococcus (PCR) - Final Radiography Diagnostic Testing: Radiology Impression Abdomen Ultrasound 03/26/25 08:36 IMPRESSION: [id number] right hydronephrosis. No acute cholecystitis. Question hepatic steatosis. Reading Location: [facility] Constitutional Constitutional: Reports systems reviewed and no addt'l complaints, except as documented Cardiovascular Cardiovascular: Reports systems reviewed and no addt'l complaints, except as documented Respiratory/Chest Respiratory/Chest: Reports systems reviewed and no addt'l complaints, except as documented Gastrointestinal Gastrointestinal: Reports systems reviewed and no addt'l complaints, except as documented Physical Exam Const alert, oriented x3 and no apparent distress HEENT Head and Scalp: atraumatic Resp normal respiratory effort GI soft to palpation and non-tender Inspection: incision intact, healing well and drainage (none) Bimanual Exam - Vag & Uterus: uterus non-tender Uterus Palpation: uterus fundus firm (below Umbilicus) Assessment & Plan (1) delivery delivered: COMMENT: ltcs severe preeclampsia 32 sm boy juani (2) Pre-eclampsia, severe, third trimester: PLAN: Plan s/p LTCS PPD # 1 1. routine post care 2. breast feeding- support given 3. rh positive 4. rubella immune follow labs- trending down now, monitor bps
--- NOTE | 2025-03-27 15:50 | CASEMGMT ---
Social Work Assessment Labor and Delivery Unit Patient Address: [address] [place] [address] [address], [place] [address] Phone number: [phone] Date of Referral: 03/26/25 Time of Referral: 09:49 Referred By: Mariela Saunders Date of Intervention: 03/27/25 Time of Intervention: 15:50 Reason for Referral: History of alcoholism with patient?s father and grandfather. History obtained from: Mother of baby (MOB), ?s maternal grandmother (MGM) and review of medical records. ?? Household composition: WILMAN, KENDELL (Cameron, age 23) and their son, Darren, born on 03/26 25. Patient's parent/guardian status: ???MOB and FOB have been together for 3 ? years and for almost a year. ?MOB denied any previous or current issues of domestic violence and described a positive relationship with the FOB. Medical History: : 1, Para, now 1. ??MOB received care through [facility] beginning at 8 weeks and 1 day. Visits were observed to be routine. ?Apgars:? Unknown as was immediately admitted to the [facility]. ?Weight: 4lbs, 4oz. ?Digital Photo Printer: Not yet identified but will be through [facility]. Educational Status: MOB denied any issues with reading, writing or learning comprehension with herself and/or the FOB. MOB and FOB both earned their high school diplomas. Financial Status: MOB reported that their income is sufficient to meet the needs of their family at this time. 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 Infant Supplies: MOB reported they have the supplies they need for baby at this time including but not limited to: Car seat, bassinet, crib, pack-n-play, diapers, bottles, and clothing. WILMAN will obtain the breast pump through her insurance company. Childcare/Caregiver(s): MOB reported that she will be taking 12 weeks of maternity leave and the FOB will be taking 1-2 weeks of paternity leave. The MOB reported once she returns to work, she will be able to care for 1 day during the work week as she only works 4 days per week and for the rest of the week, various family members will help provide childcare. MOB denied any barriers/needs related to childcare/caregiving. Transportation: Both MOB and FOB are licensed drivers and have a reliable vehicle to get baby to and from all medical appointments. MOB denied any issues/barriers to transportation at this time. Programs/Agencies Involved: MOB denied any program/agency involvement. Children Services/Legal Issues: MOB denied any previous or current Children Services and/or legal involvement. Behavioral Health Issues: None reported/denied. ? Mental Health History: MOB denied any MH history either with herself and/or with the FOB. Substance Use History: MOB denied any history or current drug and/or alcohol abuse either with herself and/or the FOB. ? Family History: MOB stated her father is an alcoholic and has been sober for 1 ? years and MOB?s paternal grandfather (PGF) is . MOB denied any other history of mental health issues and/or drug and /or alcohol abuse issues on either side of the family. Drug Screens: None obtained for the MOB or baby during this admission. Family/Social Stressors:?? Denied. Support Systems: MOB identified her biggest support as the FOB, family as well as ?both sides of our families?. Depression/Shaken Baby/Safe Sleeping: Regulatory Affairs Coordinator provided verbal and written education on PPD, Safe Sleeping and Shaken Baby.? MOB verbalized an understanding.??? ASSESSMENT: MOB provided consent to social work visit. Upon arrival, the MOB was sitting upright in her hospital bed and ?s MGM was also present, visiting. MOB stated it was her preference for the MGM to remain during the assessment. ?MOB was verbally engaged, and cooperative. MOB reported the FOB was currently in the SCN with and recently got to help with feeding. MOB stated her spirits have been good and MOB denied any depressive symptoms. MGM agreed that the MOB has been doing good and has done a really great job adapting to the premature delivery. At the end of the assessment, social media strategist requested to speak with the MOB alone, which MOB was agreeable to. MOB reported feeling safe in her home and denied any previous or current domestic violence, unmanaged mental health issues either with herself or with the FOB, and also denied any concerns with any drug or alcohol abuse either with herself or with the FOB. MOB denied any needs/concerns at this time. Safe Plan of Care for infant related to substance use: N/A PLAN: For MOB and baby to be discharged when medically ready. No other services requested or indicated. Joyce Marinelli, TACTICAL INTELLIGENCE OFFICER, CONSTRUCTION ASSISTANT
[2025-03-28 03:37] VITALS: BP 127/77; PULSE 63; RESP 16; TEMP 36.2; O2SAT 99
[2025-03-28 06:44] LABS: Hematocrit 32.2 % (37-47); Hemoglobin 10.6 g/dL (12.0-15.0); Immature Granulocytes Count 0.040 X10^3/uL (0.0-0.0); Mean Corp Hgb Conc 32.9 g/dL (32-36); Mean Corpuscular Volume 85.9 fL (81-99); Mean Platelet Vol. 9.4 fl (6.2-12.0); NRBC Flagged by Analyzer 0 % (0-5); Platelet Count 274 K/mm3 (150-450); RBC Distribution Width CV 13.8 % (11.6-14.6); RBC Distribution Width SD 43.1 fl (35.1-43.9); Red Blood Count 3.75 M/mm3 (4.2-5.4); White Blood Count 11.1 K/mm3 (4.4-11.0)
[2025-03-28 06:46] LABS: Differential Indicated SCAN CRITERIA MET
[2025-03-28 07:03] LABS: AST(SGOT) 58 U/L (<=31); Alanine Aminotransfer ALT/SGPT 150 U/L (<=34); Albumin, Serum 3.1 g/dL (3.5-5.0); Alkaline Phosphatase 124 U/L (35-104); Anion Gap 8 (5-15); BUN 10 mg/dL (4-19); BUN/Creat Ratio 16.1 RATIO (10-20); Calcium,Total 8.0 mg/dL (7.6-11.0); Carbon Dioxide 22.9 mmol/L (21.0-32.0); Chloride 105 mmol/L (98-108); Estimated Creatinine Clearance 192.73 ml/min (50-250); Globulin 2.8 g/dL (2.2-4.2); Glucose 87 mg/dL (70-99); Potassium 3.9 mmol/L (3.3-5.1)
[2025-03-28 07:16] LABS: Red Cell Morphology NORM C+C NORMAL (NORM C&C)
[2025-03-28 08:00] VITALS: BP 132/91; PULSE 71; RESP 16; TEMP 36.4; O2SAT 98
[2025-03-28] MEDS: 0.9% Saline Lock 10 ML Syringe IV (08:03)
[2025-03-28] MEDS: Senna/Docusate Sodium 1 Tablet PO (10:07)
--- NOTE | 2025-03-28 10:59 | PCM.PN.BLA ---
Progress Note Patient doing well without complaints. A little bit sore around incision but pain overall well-controlled. Tolerating PO. Ambulating and voiding without difficulty. Denies headache, vision changes, chest pain, shortness of breath, calf pain/swelling, fevers, chills, lightheadedness, RUQ pain. Physical Exam Const alert, oriented x3 and no apparent distress HEENT Head and Scalp: atraumatic Resp normal respiratory effort GI soft to palpation and non-tender Inspection: incision intact, healing well and drainage (none) Bimanual Exam - Vag & Uterus: uterus non-tender Uterus Palpation: uterus fundus firm (below Umbilicus) Assessment & Plan Assessment/Plan (1) delivery delivered: PLAN: s/p LTCS PPD # 2 1. routine post care 2. breast feeding- support given 3. rh positive 4. rubella immune (2) Pre-eclampsia, severe, third trimester: PLAN: -BP reviewed, normal to low mild range -s/p magnesium x 24 h -Labs other than LFTs wnl (see below) -Discussed with patient continued inpatient management to monitor BP until ~72 hours , if BP consistently elevated will start on antihypertensives (3) Elevated liver enzymes: PLAN: -Improving -AST/ALT 92/168->84/156->58/150
[2025-03-28 14:32] VITALS: BP 131/77; PULSE 71; RESP 16; TEMP 36.1; O2SAT 97
[2025-03-28 19:45] VITALS: BP 124/77; PULSE 73; RESP 16; TEMP 36.4; O2SAT 98
[2025-03-28 23:33] VITALS: BP 125/64; PULSE 74; RESP 16; TEMP 36.4; O2SAT 97
[2025-03-29 05:52] VITALS: BP 139/85; PULSE 78; RESP 16; TEMP 36.9; O2SAT 98
--- NOTE | 2025-03-29 06:51 | PN_ITS ---
Progress Note Patient doing well without complaints. Tolerating PO. Ambulating and voiding without difficulty. Denies headache, vision changes, chest pain, shortness of breath, calf pain/swelling, fevers, chills, lightheadedness, RUQ pain. Physical Exam Const alert, oriented x3 and no apparent distress HEENT Head and Scalp: atraumatic Resp normal respiratory effort GI soft to palpation and non-tender Inspection: incision intact, healing well and drainage (none) Bimanual Exam - Vag & Uterus: uterus non-tender Uterus Palpation: uterus fundus firm (below Umbilicus) Assessment & Plan Assessment/Plan (1) delivery delivered: PLAN: s/p LTCS PPD # 3 1. routine post care 2. breast feeding- support given 3. rh positive 4. rubella immune 5. baby at [facility] (2) Pre-eclampsia, severe, third trimester: PLAN: -BP reviewed, normal to low mild range PP -s/p magnesium x 24 h -Labs other than LFTs wnl (see below) -Monitor this morning and d/c today (3) Elevated liver enzymes: PLAN: -Improving -AST/ALT 92/168->84/156->58/150 -> AM CMP pending
--- NOTE | 2025-03-29 06:55 | PCM.DC.SUM ---
Providers Date of Admission: 03/26/25 Primary Care Physician: Estephania Dowling PA-C Reason For Visit: PRIMARY Diagnosis Discharge Diagnosis (1) delivery delivered: Status: Acute Code(s): O82 - Encounter for delivery without indication Plan: s/p LTCS PPD # 3 1. routine post care 2. breast feeding- support given 3. rh positive 4. rubella immune 5. baby at [facility] (2) Pre-eclampsia, severe, third trimester: Status: Acute Code(s): O14.13 - Severe pre-eclampsia, third trimester Plan: -BP reviewed, normal to low mild range PP -s/p magnesium x 24 h -Labs other than LFTs wnl (see below) -Monitor this morning and d/c today (3) Elevated liver enzymes: Status: Acute Code(s): R74.8 - Abnormal levels of other serum enzymes Plan: -Improving -AST/ALT 92/168->84/156->58/150 -> AM CMP pending Medications at Discharge Home Medications docosahexaenoic acid 200 mg capsule ( DHA) 200 mg PO DAILY 09/28/24 naproxen 500 mg tablet 500 mg PO BID PRN PRN Pain #30 tabs 03/26/25 oxycodone-acetaminophen 5 mg-325 mg tablet (Percocet) 1 tab PO Q4H PRN pain 7 days #20 tabs 03/26/25 Hospital Course Summary of Care Provided Hospital Course: MAREN THAYER, is a 24 F who presents G1, P0 at 32 weeks 3 days, presented to for borderline blood pressures and liver enzymes but otherwise normal PIH labs. She was admitted for observation and due to liver enzymes continuing to increase, [facility] recommended proceeding with delivery after 48 hours of corticosteroid administration for preeclampsia with severe features. Due to breech presentation, she had a primary low transverse delivery. Her course was uncomplicated, her liver enzymes improved, and her BP remained normal to low mild range so she was discharged in stable condition on PPD#3. Weight / BMI Weight Weight: 319 lb Body Mass Index (BMI) 53.1 PRE- weight 315 lb 9.6 oz PRE- Body Mass Index 52.5 (BMI) ABG / Lab / Microbiology Data 03/28/25 06:23 03/28/25 06:23 Laboratory: Laboratory Results - last 24 hr 12/15/25 06:23: RBC Morphology NORM C+C, Sodium 136, Potassium 3.9, Chloride 105, Carbon Dioxide 22.9, Anion Gap 8, BUN 10, Creatinine 0.65 L, Estim Creat Clear Calc 192.73, Est GFR (MDRD) Non-Af 127, BUN/Creatinine Ratio 16.1, Glucose 87, Calcium 8.0, Total Bilirubin 0.28, AST 58 H, ALT 150 H, Alkaline Phosphatase 124 H, Total Protein 5.8 L, Albumin 3.1 L, Globulin 2.8, Albumin/Globulin Ratio 1.1 Microbiology: Microbiology 03/26/25 10:11 Genital vaginal Group B Streptococcus (PCR) - Final D/C Instructions May shower in (days): 0 May resume sexual activity in: 4-6 weeks Weight Bearing Status: Full weight bearing Call your doctor if your incision/area has: Continuous Slow Oozing, Sudden Increased Bleeding, Increased Pain/ Swelling, Increased Redness and Foul Smelling Discharge Call your doctor if you observe: Fever of 101 or Higher and Using more than 1 pad per hour (for 2 hours) Suture Line Care: Avoid Pulling/Pushing and Avoid Pinching/Bending Cleanse incision/area with: Soap & Water and Keep Dressing Clean & Dry DC O2, CPAP, BIPAP Needs Home O2 Discharge instructions: No Please Follow Up With: Mariela Saunders MD When: Call [phone] to make an appointment for an incision check in 1-2 weeks. Meaningful Use Info Meaningful Use Meaningful Use Diagnoses (Choose all that apply): None applicable Discharge Plan Admission Admit Date/Time: 03/26/25 09:00 Attending Provider: Mariela Saunders Primary Care Provider: Estephania Dowling Discharge Orders/Prescriptions Prescriptions: New oxycodone-acetaminophen [Percocet] 5-325 mg tablet 1 tab PO Q4H PRN (Reason: pain) 7 Days Qty: 20 0RF naproxen 500 mg tablet 500 mg PO BID PRN PRN (Reason: Pain) Qty: 30 1RF No Action DHA 200 mg capsule 200 mg PO DAILY Referrals / Follow Up: Estephania Dowling PA-C [Primary Care Provider, Medical] Disposition Disposition (needs filled in before D/C Order can be placed): Home, Self Care
[2025-03-29 08:00] VITALS: BP 133/81; PULSE 73; RESP 18; TEMP 36.5; O2SAT 99
[2025-03-29] MEDS: Senna/Docusate Sodium 1 Tablet PO (08:20)
[2025-03-29 08:26] LABS: AST(SGOT) 36 U/L (<=31); Alanine Aminotransfer ALT/SGPT 125 U/L (<=34); Albumin, Serum 3.2 g/dL (3.5-5.0); Alkaline Phosphatase 116 U/L (35-104); Anion Gap 12 (5-15); BUN 11 mg/dL (4-19); BUN/Creat Ratio 20.3 RATIO (10-20); Calcium,Total 8.9 mg/dL (7.6-11.0); Carbon Dioxide 21.9 mmol/L (21.0-32.0); Chloride 105 mmol/L (98-108); Estimated Creatinine Clearance 227.78 ml/min (50-250); Globulin 3.0 g/dL (2.2-4.2); Glucose 75 mg/dL (70-99); Potassium 4.0 mmol/L (3.3-5.1)
[2025-03-29 11:14] VITALS: BP 136/81; PULSE 80; RESP 18; O2SAT 99
== END 2025-03-29 11:50 | disposition home or self-care (01) | DRG 788 ==
LOC: WPOUT 20:20 → WP 03-26 09:05
PROVIDERS: Student in an Organized Health Care Education/Training Program; Admitting Provider Obstetrics & Gynecology; PCP Family Medicine; Referring Provider Obstetrics & Gynecology; Visit Provider Obstetrics & Gynecology
DX: O14.14 Severe pre-eclampsia complicating childbirth (principal); O60.14X0 Preterm labor third trimester with preterm delivery third trimester, not applicable or unspecified; O99.214 Obesity complicating childbirth; O32.1XX0 Maternal care for breech presentation, not applicable or unspecified; Z37.0 Single live birth; R74.8 Abnormal levels of other serum enzymes; Z3A.32 32 weeks gestation of pregnancy
CPT/HCPCS: 36415; 59025; 59050; 76705; 76815; 76816; 80053; 81050; 82565; 82570; 82575; 83615; 84156; 84450; 84460; 84550; 85025; 85027; 86780; 86850; 86900; 86901; 87081; 87653; 99221; A4216; G0378; J0666; J0702; J2405